=== PATIENT | male | born 1940 | race Caucasian/White ===

== ENCOUNTER → 2019-02-04 16:09 | Outpatient (CLI) | payer BC, MEDICARE, SELFPAY ==
--- NOTE | 2019-02-04 13:00 | LES_PTH ---
PATIENT: KAREN TORREZ LOC: [facility] U#:[id number] AGE/SX: 84/M ROOM: RE02/04/[address]: Dr. Andrey Zuñiga MD : [id number] BED: DIS: SPEC #: [id number] RECD: 02/04/19 16:06 STATUS: SHI BELKIS #: [id number] KAREN: 02/04/19 13:[address]: Andrey Zuñiga DEPT: SURGICAL PATHOLOGY RECD BY: Víctor Wagner ENTERED: 02/05/19 08:17 SP TYPE: Lesion OTHR DR: Out of Town Doctor Tissues: A - Skin of scalp, NOS B - Skin of scalp, NOS C - Skin of scalp, NOS D - Skin of flank, NOS Procedures: Surgery Specimen Level IV HEADER OPERATION: Excision multiple scalp nodules and right flank lesions PRE-OP DIAGNOSIS: Skin lesions and scalp nodules TISSUE SUBMITTED: A - Right scalp, B - Left inferior scalp, C - Left superior scalp, D - Right flank MICROSCOPIC DIAGNOSIS A. Lesion of right scalp, biopsy: Trichilemmal cyst (pilar cyst). B. Left inferior scalp lesion, biopsy: Trichilemmal cyst (pilar cyst). C. Left superior scalp lesion, biopsy: Trichilemmal cyst (pilar cyst). D. Skin lesion of right flank, excision: Fibroepithelial polyp, mildly inflamed. AM:isabel 02/06/19 MICROSCOPIC DESCRIPTION Slides are reviewed. GROSS DESCRIPTION A - Received in fixative is one container labeled with the patient's name and designated right scalp. The specimen consists of a fragmented skin biopsy measuring in aggregate 1 x 0.5 x 0.3 cm. The tissue varies in color from brown to reddish-pink. The specimen is totally submitted in one cassette. B - Received in fixative is one container labeled with the patient's name and designated left inferior scalp. The specimen consists of a fragment of hair bearing skin and a separate firm, cystic structure. The hair bearing skin measures 1 x 0.4 x 0.3 cm. The skin surface is pemberton with a centrally located blue ink spot. The separate cystic tissue measures 1.2 cm in greatest dimension. The cut surface is pemberton-yellow and slightly granular. Physiology Teacher sections are submitted in one cassette. C - Received in fixative is one container labeled with the patient's name and designated left superior scalp. The specimen consists of two spherical cystic structures. The first measures 1.6 cm in diameter and has a pemberton surface. The second measures 1.1 cm in diameter and has a grayish-pemberton surface. Cross-sections through the larger cystic structure demonstrate a cut surface which is pemberton-yellow and granular. Cross-sections through the smaller cystic structure demonstrate cut surfaces which are grayish-black. The specimen is totally submitted as follows: 1 - larger cystic structure, 2 - smaller cystic structure. D - Received in fixative is one container labeled with the patient's name and designated right flank. The specimen consists of multiple irregular fragments of pemberton-pink soft tissue/skin that in aggregate measure 1.2 x 0.6 x 0.3 cm. The specimen is totally submitted in one cassette. / CE:isabel 02/05/19 TC:4 CPT: 37961 x4
== END ==
PROVIDERS: Referring Provider Surgery; Visit Provider Surgery
DX: L72.11 Pilar cyst (principal); L72.12 Trichodermal cyst
CPT/HCPCS: 88305

== ENCOUNTER 2019-08-31 20:57 | Observation (INO) | payer MEDICARE, SELFPAY ==
[2019-08-18 13:23] VITALS: BMI 50.1
[2019-08-31 20:58] VITALS: BP 175/118; PULSE 82; RESP 18; TEMP 36.8
[2019-08-31 21:00] VITALS: BP 175/118; PULSE 81; RESP 18; TEMP 36.8; BMI 53.4
--- NOTE | 2019-08-31 21:37 | EKG12_ITS ---
Test Reason : Blood Pressure : / mmHG Vent. Rate : 078 BPM Atrial Rate : 416 BPM P-R Int : 000 ms QRS Dur : 082 ms QT Int : 376 ms P-R-T Axes : 000 035 054 degrees QTc Int : 428 ms Atrial fibrillation Abnormal ECG Confirmed by JEANNIE SOUTH, TIFFANIE ([id number]), scientific editor SAMANTHA MCKOY ([id number]) on 09/02/2019 12:54:25 PM Referred By: DIEGO Confirmed By:TIFFANIE DENNIS MD
--- NOTE | 2019-08-31 21:40 | RAD_ITS ---
STUDY: X-RAY CHEST REASON FOR EXAM: Male, 78 years old. Chest pain TECHNIQUE: AP COMPARISON: None. FINDINGS: EKG leads project over the chest. There are interstitial fibrotic changes of the lungs. No airspace consolidation. There is no demonstrated pleural abnormality. Normal size heart. Normal mediastinum and crystal. Normal visualized pulmonary arteries. There is atherosclerotic calcification of the aortic arch with tortuosity. No acute bony process. There is no demonstrated abnormality of the visualized soft tissue structures of the upper abdomen. RAD/Chest 1 View (Portable) IMPRESSION: No airspace consolidation or pleural effusion. Bibasilar fibrotic changes. Electronically Signed: Payam Lal MD ([place]) at 21:55 EST , Service support ,
[2019-08-31 22:18] VITALS: BP 206/122; PULSE 90; RESP 18
[2019-08-31 22:27] LABS: Absolute Lymphocyte Count 1.72 X10^3/uL (0.83-4.51); Absolute Neutrophil Count 5.3 X10^3/uL (2.0-7.7); Basophil# 0.07 X10^3/uL; Basophil% 0.8 % (0-1); Eosinophil# 0.16 X10^3/uL; Eosinophils% 1.9 % (0-5); Hematocrit 43.5 % (40-54); Hemoglobin 14.9 g/dL (13.0-16.5); Lymphocyte # 1.72 X10^3/ul (4.0); Lymphocyte % 20.5 % (19-41); Mean Corp Hgb Conc 34.3 g/dL (32-36); Mean Corpuscular Hgb 30.4 pg (27.0-32.0); Mean Corpuscular Volume 88.8 fL (80-94); Mean Platelet Vol. 10.5 fl (6.2-12.0); Monocyte% 11.9 % (0-10); NRBC Flagged by Analyzer 0 % (0-5); Neutrophil # 5.33 X10^3/uL (2.7-7.7); Neutrophil % 63.5 % (47-70); Platelet Count 200 K/mm3 (150-450); RBC Distribution Width CV 13.3 % (11.6-14.6); RBC Distribution Width SD 43.2 fl (35.1-43.9); White Blood Count 8.4 K/mm3 (4.4-11.0)
[2019-08-31 22:35] VITALS: BP 179/99; PULSE 83; RESP 16
[2019-08-31] MEDS: cloNIDine HCl 0.1 MG Tablet PO (22:37)
[2019-08-31 22:40] VITALS: O2SAT 97
[2019-08-31 22:41] LABS: Anion Gap 9 (5-15); BUN 13 mg/dL (7-18); BUN/Creat Ratio 10.4 RATIO (10-20); Calcium,Total 8.6 mg/dL (8.5-10.1); Chloride 103 mmol/L (98-107); Creatinine, Serum 1.25 mg/dL (0.70-1.30); EST Glomerular Filtration Rate 60 mL/min (>60); Est Glom Filt Rate - Afr Amer 72 mL/min (>60); Estimated Creatinine Clearance 45.37 ml/min; Glucose 219 mg/dL (74-106); Potassium 3.3 mmol/L (3.5-5.1); Sodium Level 140 mmol/L (136-145); Thyroid Stim Hormone (TSH) 2.71 uIU/mL (0.358-3.74)
--- NOTE | 2019-08-31 22:44 | ED.VISSUMM ---
- ER Visit Summary Date of Service: 08/31/19 Chief Complaint: Elevated blood pressure History of Present Illness: The patient is a [address] Neil. He is a poor informant. He reports that his blood pressure typically runs 155/85. States that today it has been elevated. When asked how high he reports that he does not now. When asked what prompted him to come into the emergency department he reports that he has left arm pain. However, when I discussed this more with him he reports that he made 3 phone calls today that were 45, 30, and 30 minutes. He was holding the phone in his left hand the whole time. He reports that he has no pain unless he moves his arm. It is then an aching pain that is 7 out of 10 in severity. Patient denies any chest pain or shortness of breath. He denies any history of atrial fibrillation. He reports that he is on amlodipine and Imdur. He states that he is supposed to be on losartan and is not taking this. Physical Examination: Vitals: 98.2, 175/118, 82, 18, 97% on room air which is not hypoxic. General: Well-nourished and well-developed. Head: Normocephalic atraumatic. Neck: Supple, no lymphadenopathy. No JVD. Nontender. Cardiovascular: Irregularly irregular rhythm. No murmurs. Respiratory: No respiratory distress. Clear to auscultation bilaterally. Abdominal: Soft, nontender, nondistended, normal bowel sounds. No guarding, rebound, or peritoneal signs. Back: Nontender. Extremities: Nontender, 3+ pitting edema of his lower extremities bilaterally. Skin: Normal color, no rash. Neurologic: Alert and oriented ?3. Cranial nerves II through XII are intact. Normal strength and sensation. Psych: Normal affect. Test Results: EKG is A. fib at 78 with no ischemic changes. Troponin is negative. TSH is 2.71. Chem-7 shows a potassium 3.3 and glucose of 219. CBC shows monocytes of 12 and immature granulocytes 1.4%. Chest x-ray shows bibasilar fibrotic changes. Emergency Department Course and Treatment: Patient refused labetalol and reports that he is allergic to beta-blockers. Patient refused Cardizem and reports that his allergic calcium channel blockers. He states that he cannot take hydralazine. Ultimately he was given a dose of clonidine p.o. Treatment Plan: Patient was discussed with Dr. Woodruff. He will be admitted to the hospital for further evaluation and treatment. Disposition: Admitted in improved condition. Impression: 1. Atrial fibrillation, new onset. 2. Left arm pain, acute. 3. Hypertensive urgency. This note was generated with [employer] dictation software. It may contain incorrect words, spelling, and punctuation that were not noted in review of the chart prior to signing ED Disposition - Plan for ED Patient:
[2019-08-31 23:18] VITALS: BP 187/111; PULSE 80; RESP 18; O2SAT 96
--- NOTE | 2019-08-31 23:46 | HP.PCM_ITS ---
Problem List (1) Obesity Status: Chronic (2) Atrial fibrillation Status: Acute Qualifiers: Atrial fibrillation type: unspecified chronic Qualified Code(s): I48.20 - Chronic atrial fibrillation, unspecified; I48.2 - Chronic atrial fibrillation (3) Non compliance w medication regimen Status: Chronic (4) Diabetes mellitus Status: Chronic (5) Hypertension Status: Acute History of Present Illness Date of Admission: 08/31/19 Chief Complaint: left arm pain, elevated BP, irregular heart rhthym The patient is a 78 year old male with a significant history of morbid obesity, uncontrolled hypertension, diabetes, presents to the emergency room with left arm pain and generalized fatigue. Patient states he was on the telephone speaking with his left arm extended holding the phone for over an hour and a half consecutively after which he found it difficult to move his left arm. The patient spouse was concerned he was having symptoms of either stroke or heart attack and called the squad out of concern. In the emergency room patient was evaluated and found to be extremely hypertensive and EKG revealed atrial fibrillation which he had not been diagnosed with previously. The patient was able to move his left arm and full range of motion despite discomfort in the left elbow area that had cramped from his prolonged position of holding the phone (presumed muscle cramp). The patient admits to taking herbal supplements and self-medicating, he refuses to take beta-blockers or calcium channel blockers as he thinks he has had adverse reactions to them in the past, he has been able to tolerate clonidine for his blood pressure. Blood pressure has been as high as 206/122. CBC shows a white blood cell count of 84, hemoglobin 14.9, hematocrit 43, platelets 200, sodium 140, potassium 3.3, chloride 103, CO2 28, BUN 13 creatinine 1.25 patient currently denies any chest pain and is not short of breath, he will be admitted to progressive care unit for further work-up. Past Medical History Past Medical History (Chronic Problems): Chronic Problems (Last Reviewed 08/18/19 @ 13:23 by Tona Obrien) Obesity (Chronic) Non compliance w medication regimen (Chronic) Diabetes mellitus (Chronic) Medical History: Medical History (Last Reviewed 08/18/19 @ 13:23 by Tona Obrien) Sebaceous cyst (Acute) L72.3 Skin lesion (Acute) L98.9 Cataracts, bilateral H26.9 Diabetes E11.9 Hypertension I10 Allergies Beta-Blockers (Beta-Adrenergic Bloc Allergy (Verified 08/31/19 22:23) Other aspirin Adverse Reaction (Verified 08/31/19 22:23) Upset Stomach Home Medications: Ambulatory Orders Medication Instructions Recorded amlodipine 10 mg tablet 10 mg PO DAILY 02/23/19 cholecalciferol (vitamin D3) 50 2,000 unit PO DAILY 02/23/19 mcg (2,000 unit) capsule fexofenadine 180 mg tablet 180 mg PO DAILY 02/23/19 insulin aspart U-100 100 unit/mL 8 unit SC TID ml 02/23/19 subcutaneous cartridge isosorbide mononitrate ER 30 mg 60 mg PO DAILY #180 tab 02/23/19 tablet,extended release 24 hr magnesium oxide 420 mg tablet 420 mg PO DAILY tab 02/23/19 nattokinase 1 cap PO DAILY 02/23/19 potassium chloride ER 20 mEq 20 meq PO TID tab 02/23/19 tablet,extended release Novolin N 24 units SUBCUT BREAKFAST 08/31/19 Novolin N 42 units SUBCUT QHS 08/31/19 Surgical History: Surgical History (Last Reviewed 08/18/19 @ 13:23 by Tona Obrien) S/P tooth extraction K08.409 Scalp cyst L72.9 Smoking Status: Never smoker - *Family History Maternal Family History: Family History (Last Reviewed 08/18/19 @ 13:23 by Tona Obrien) Other Diabetes Heart disease History Items: No pertinent history Review of Systems Constitutional: Denies: Chills, Fever, Weight Change HEENT: Denies: Head Aches, Sinus Congestion, Sinus Drainage Cardiovascular: Denies: Chest Pain, Palpitations Respiratory: Denies: Cough, Shortness of breath at rest, Sputum production Gastrointestinal: Denies: Abdominal Pain, Nausea, Vomiting Genitourinary: Denies: Dysuria Musculoskeletal: Reports: Arm Pain - left. Denies: Joint Pain, Joint Tenderness Skin: Denies: Rash, Wounds Neurological: Denies: Numbness, Tingling, Focal weakness Psychiatric: Denies: Anxiety, Depression, Homicidal Ideations, Suicidal Ideat ions Hematologic/ Lymphatic: Denies: Easy Bruising, Easy Bleeding VTE Information - Inpt Only VTE Present on Admission: No VTE Mechan Device Prophylaxis: None VTE Pharm Prophylaxis ordered?: Yes Patient Problems: Active and Suspected Problems (Last Reviewed 08/18/19 @ 13:23 by Tona Obrien) Atrial fibrillation (Acute) - Physical Exam Vitals/I&O's: Vital Signs Temp Pulse Resp BP Pulse Ox 98.2 F 80 18 187/111 H 96 08/31/19 21:00 08/31/19 23:18 08/31/19 23:18 08/31/19 23:18 08/31/19 23:18 Oxygen Delivery Method Room Air Weight: 330 lb 11.094 oz Body Mass Index (BMI) 53.4 General: Alert, Oriented x3, Cooperative HEENT: Atraumatic, Normocephalic Neck: Supple Lungs: Clear to auscultation, Normal air movement Cardiovascular: Normal S1, Normal S2, No murmurs, Irregular Rate Abdomen: Bowel Sounds Present, Soft, Non Tender Extremities: No edema Skin: No rashes Musculoskeletal: No Tenderness to Palpation of Joints or Extremities Neurological: Neuro grossly intact Psych/Mental Status: Normal Affect, Appropriate Laboratory Results 08/31/19 22:00: WBC 8.4, RBC 4.90, Hgb 14.9, Hct 43.5, MCV 88.8, MCH 30.4, MCHC 34.3, RDW Std Deviation 43.2, RDW Coeff of Jono 13.3, Plt Count 200, MPV 10.5, Immature Gran % (Auto) 1.400 H, Neut % (Auto) 63.5, Lymph % (Auto) 20.5, [place] % (Auto) 11.9 H, Eos % (Auto) 1.9, Baso % (Auto) 0.8, Absolute Neuts (auto) 5.3, Absolute Lymphs (auto) 1.72, Nucleated RBC % 0 08/31/19 22:00: Sodium 140, Potassium 3.3 L, Chloride 103, Carbon Dioxide 28.0, Anion Gap 9, BUN 13, Creatinine 1.25, Estim Creat Clear Calc 45.37, Est GFR (MDRD) Af Amer 72, Est GFR (MDRD) Non-Af 60, BUN/Creatinine Ratio 10.4, Glucose 219 H, Calcium 8.6, Troponin I < 0.015, TSH 2.71 Assessment/Plan All Active Problems (Last Reviewed 08/18/19 @ 13:23 by Tona Obrien) Atrial fibrillation (Acute) Hypertension (Acute) Pilar cyst (Acute) Sebaceous cyst (Acute) Skin lesion (Acute) Chronic Problems (Last Reviewed 08/18/19 @ 13:23 by Tona Obrien) Obesity (Chronic) Non compliance w medication regimen (Chronic) Diabetes mellitus (Chronic) Plan 1. New onset atrial fibrillation?is controlled for now, consult cardiology in the morning, start therapy with Eliquis discussed at length the importance of being compliant with anticoagulation therapy and risk of stroke with atrial fibrillation. 2. Uncontrolled hypertension?hydralazine 20 mg IV every 6 as needed blood pressure greater than 160/100. 3. Morbid obesity?weight loss encouraged 4. DVT prophylaxis?patient will be anticoagulated with Eliquis for his atrial fibrillation 5. Diabetes?add low-dose sliding scale insulin for coverage There is concern for compliance with this patient as he obviously is self- medicating with home remedies and will need to be observed closely by his primary care physician after discharge. Code Visit OBSV E&M: [id number] Initial observation care L2
[2019-09-01] VITALS (12 sets, daily range): BP systolic 138–186; BP diastolic 71–89; PULSE 45–88; RESP 10–18; TEMP 36.5–36.7; O2SAT 92–98; BMI 52.2; BMI 52.3
[2019-09-01] MEDS: 0.9% Saline Lock 10 ML Syringe IV ×2 (01:33→13:05)
--- NOTE | 2019-09-01 04:07 | CPS ---
Pt. wished to keep his SpO2 > 96%; 2L NC was started for pt.
[2019-09-01 05:20] LABS: ALB/GLOB Ratio 0.7 RATIO (0.9-2.4); AST(SGOT) 13 U/L (15-37); Alanine Aminotransfer ALT/SGPT 19 U/L (16-61); Albumin, Serum 2.7 g/dL (3.2-5.0); Alkaline Phosphatase 120 U/L (45-117); Anion Gap 4 (5-15); BUN 12 mg/dL (7-18); Calcium,Total 7.8 mg/dL (8.5-10.1); Chloride 106 mmol/L (98-107); Cholesterol 139 mg/dL (200); EST Glomerular Filtration Rate 62 mL/min (>60); Est Glom Filt Rate - Afr Amer 76 mL/min (>60); Estimated Creatinine Clearance 47.26 ml/min; Globulin 4.1 g/dL (2.2-4.2); Glucose 194 mg/dL (74-106); High Density Lipoprotein 34 mg/dL; Potassium 3.2 mmol/L (3.5-5.1); Protein, Total 6.8 g/dL (6.4-8.2); Sodium Level 140 mmol/L (136-145); Triglycerides 162 mg/dL; Very Low Density Lipoprotein 32 mg/dL (5-40)
--- NOTE | 2019-09-01 05:55 | ECHOD_ITS ---
Reason For Study: AFIB Procedure This was a 2D Doppler, Color Flow transthoracic echocardiogram. The study was technically difficult. Exam performed portable in patient room. Left Ventricle Normal LV size. Mild concentric left ventricular hypertrophy. Left ventricular systolic function is normal. The estimated ejection fraction is 55 %. Unable to assess diastolic dysfunction. No regional wall motion abnormalities noted. Right Ventricle Normal RV size. Normal systolic function. Atria The left atrium is mildly enlarged. Normal right atrium. No doppler evidence for ASD. Mitral Valve There is no mitral annular calcification. Normal mitral valve. Moderate (2+) mitral valve insufficiency. Tricuspid Valve Normal tricuspid valve. Trivial tricuspid valve insufficiency. Unable to estimate RV systolic pressure/pulmonary artery pressure due to technically difficult study. Aortic Valve Trisinus/trileaflet aortic valve. Mild focal aortic valve calcification. Trivial aortic valve insufficiency. Pulmonic Valve The pulmonic valve is not well visualized. Trivial pulmonic valve insufficiency. Great Vessels Mildly dilated aortic root. Pericardium/Pleural No pericardial effusion. Epicardial fat. MMode/2D Measurements & Calculations LVIDd: 5.1 cm IVSd: 1.4 cm Ao root diam: 4.3 cm LVIDs: 3.0 cm LVPWd: 1.3 cm RVDd: 4.8 cm FS: 41.8 % LA dimension(2D): 4.9 cm Doppler Measurements & Calculations Ao V2 max: 136.8 cm/sec AI max davis: 194.5 cm/sec PA V2 max: 98.0 cm/sec Ao max P.6 mmHg AI max P.1 mmHg Ao V2 mean: 94.4 cm/sec AI dec slope: 92.5 cm/sec2 Ao mean P.1 mmHg AI P1/2t: 616.0 msec Ao V2 VTI: 28.8 cm PI end-d davis: 103.2 cm/sec Interpretation Summary The study was technically difficult. Left ventricular systolic function is normal. The estimated ejection fraction is 55 %. Mild concentric left ventricular hypertrophy. The left atrium is mildly enlarged. Moderate (2+) mitral valve insufficiency. Trivial tricuspid valve insufficiency. Mild focal aortic valve calcification. Trivial aortic valve insufficiency. Trivial pulmonic valve insufficiency. Mildly dilated aortic root. Epicardial fat. Unable to estimate RV systolic pressure/pulmonary artery pressure due to technically difficult study. Unable to assess diastolic dysfunction. Ordering Physician: Alvin Braun Referring Physician: VERÓNICA POPE Performed By: Joanna Mahajan, YOSELIN, RVT
[2019-09-01 06:16] LABS: Bedside Glucose 180 mg/dL (70-110)
--- NOTE | 2019-09-01 08:29 | CON.PCM_ITS ---
<Keshawn Méndez - Last Filed: 09/01/19 11:19> Problem List (1) Atrial fibrillation Status: Acute Qualifiers: Atrial fibrillation type: unspecified chronic Qualified Code(s): I48.20 - Chronic atrial fibrillation, unspecified; I48.2 - Chronic atrial fibrillation (2) Hypertension Status: Chronic Reason for Consult Date of Consultation: 09/01/19 Reason for Consultation: New A-fib Diagnosis, HTN History of Present Illness: The patient is a 78 year old M who presented to [facility] Emergency Department on 08/31/2019 for ongoing left arm pain. He has a past medical history of hypertension, diabetes mellitus, and obesity. Prior to presentation, patient was using his left arm to speak on the phone for long period of time. He then noted left arm discomfort. There was concerns for stroke or heart attack and thus he presented to the Emergency Department. His EKG revealed atrial fibrillation with controlled rate without acute ST or T wave changes. His troponin was negative. His chest x-ray showed bibasilar fibrotic changes. His potassium noted to be 3.3. His blood pressure was elevated at 175/118. Per report, patient acknowledged allergies to calcium channel marianne, beta-marianne medications, and hydralazine. He received p.o. clonidine and admitted for further evaluation. He was started on Eliquis therapy. His troponin remained negative x3. His TSH was noted be normal. His potassium remains low and was supplemented via p.o. route. His home blood pressure medication were resumed. Cardiology was consulted for input regarding atrial fibrillation. Past Medical History Allergies/Adverse Reactions: Allergies Beta-Blockers (Beta-Adrenergic Bloc Allergy (Verified 08/31/19 22:23) Other aspirin Adverse Reaction (Verified 08/31/19 22:23) Upset Stomach Home Medications: Ambulatory Orders Medication Instructions Recorded cholecalciferol (vitamin D3) 50 2,000 unit PO DAILY 02/23/19 mcg (2,000 unit) capsule insulin aspart U-100 100 unit/mL 8 unit SC TID ml 02/23/19 subcutaneous cartridge magnesium oxide 420 mg tablet 420 mg PO DAILY tab 02/23/19 potassium chloride 20 mEq 20 meq PO TID tab 02/23/19 tablet,extended release Novolin N 24 units SUBCUT BREAKFAST 08/31/19 Novolin N 42 units SUBCUT QHS 08/31/19 Amlodipine Besylate 10 mg PO DAILY #30 tab 09/01/19 Apixaban [Eliquis] 5 mg PO BID #60 tab 09/01/19 Isosorbide Mononitrate [Imdur] 60 mg PO DAILY #30 tab 09/01/19 Past Medical History (Chronic Problems): Chronic Problems (Last Reviewed 08/18/19 @ 13:23 by Tona Obrien) Obesity (Chronic) Non compliance w medication regimen (Chronic) Diabetes mellitus (Chronic) Hypertension (Chronic) - *Family History Maternal Family History: Family History (Last Reviewed 08/18/19 @ 13:23 by Tona Obrien) Other Diabetes Heart disease History Items: No pertinent history Smoking Status: Never smoker Objective: Vital Signs Temp Pulse Resp BP Pulse Ox 98.0 F 45 L 18 138/71 H 97 09/01/19 05:00 09/01/19 07:00 09/01/19 05:00 09/01/19 05:00 09/01/19 05:00 Oxygen Flow Rate (L/min) 2 Oxygen Delivery Method Room Air Weight: 324 lb 1.272 oz Body Mass Index (BMI) 52.2 Intake and Output for Last 24 Hours 08/30/19 08/31/19 09/01/19 23:59 23:59 23:59 Output Total 250 / 250 Balance -250 / -250 08/31/19 22:00: WBC 8.4, RBC 4.90, Hgb 14.9, Hct 43.5, MCV 88.8, MCH 30.4, MCHC 34.3, Plt Count 200, MPV 10.5, Immature Gran % (Auto) 1.400 H, Neut % (Auto) 63.5, Lymph % (Auto) 20.5, [place] % (Auto) 11.9 H, Eos % (Auto) 1.9, Baso % (Auto) 0.8, Absolute Neuts (auto) 5.3, Nucleated RBC % 0 08/31/19 22:00: Sodium 140, Potassium 3.3 L, Chloride 103, Carbon Dioxide 28.0, Anion Gap 9, BUN 13, Creatinine 1.25, Est GFR (MDRD) Af Amer 72, Est GFR (MDRD) Non-Af 60, BUN/Creatinine Ratio 10.4, Glucose 219 H, Calcium 8.6, Troponin I < 0.015 09/01/19 01:30: Troponin I < 0.015 09/01/19 04:30: Sodium 140, Potassium 3.2 L, Chloride 106, Carbon Dioxide 30.0, Anion Gap 4 L, BUN 12, Creatinine 1.20, Est GFR (MDRD) Af Amer 76, Est GFR (MDRD) Non-Af 62, BUN/Creatinine Ratio 10.0, Glucose 194 H, Calcium 7.8 L, Total Bilirubin 1.00, Triglycerides 162, Cholesterol 139, LDL Cholesterol 73, VLDL Cholesterol 32, HDL Cholesterol 34 L 09/01/19 04:30: Troponin I < 0.015 Rhythm: EKG: ECHO: Stress Test: Cardiac Cath: PCI: CT Surgery: Holter monitor: EPS: PPM: CXR: Chest CT Scan: Assessment/Plan 1. Atrial fibrillation Patient's EKG in 2001 showed a sinus bradycardia. His EKG on 08/31/2018 in the Emergency Department revealed atrial fibrillation with a controlled response. He was started on Eliquis therapy. He acknowledges previous allergies to beta- marianne and calcium channel marianne. His troponin has been negative x3. His TSH was notably normal. His potassium is low and this is being supplemented accordingly. He will continue current oral anticoagulation. His heart rate is controlled without rate limiting medications. He undergo an echocardiogram to evaluate structural abnormalities contributing to atrial fibrillation. He also undergo laboratory evaluation to assess his magnesium level to ensure stability. Since his troponin has been negative x3 and no chest pain prior to admission. His left arm discomfort appears atypical for coronary artery disease. However, given his new onset of atrial fibrillation and multiple risk factors that include obesity and diabetes, he will proceed with nuclear stress test to rule out further coronary artery disease component to new onset Atrial Fibrillation. Patient denies taking digoxin previously. Thus, if he needs rate controlling medication, this may be an available option without known allergy. 2. Hypertension Patient's blood pressure has been better controlled since resuming medications and during admission. At this time, he will continue current medical therapy which includes amlodipine and isosorbide. It is unclear, if he has tried TONIE inhibitor or ARB medication previously. Patient states multiple allergies to medications such as beta-marianne, calcium channel marianne, TONIE inhibitor, and ARB. Records from [place] are unavailable for review to confirm allergy side effect. 3. Cardiac risk factors Patient does have multiple risk factors that include obesity, diabetes, hypertension, and generally low activity level that increases his risk for cardiovascular disease. His nuclear stress test, will help evaluate this fu rther. Patient's case was discussed with Dr. Florian, who also personally evaluated patient. Thank you for allowing us to participate in the patients plan of care, if you have any questions please do not hesitate to call. This note was generated using a voice recognition system and there may be incorrect words, spelling or punctuation that were not noted when reviewing the office note prior to saving. <Alvin Florian - Last Filed: 09/01/19 17:37> Reason for Consult History of Present Illness: The patient is a 78 year old M [] Past Medical History - *Family History Maternal Family History: Family History (Last Reviewed 08/18/19 @ 13:23 by Tona Obrien) Other Diabetes Heart disease Objective: Vital Signs Temp Pulse Resp BP Pulse Ox 98.0 F 88 16 158/83 H 93 09/01/19 15:43 09/01/19 15:43 09/01/19 15:43 09/01/19 15:43 09/01/19 15:45 Oxygen Flow Rate (L/min) 2 Oxygen Delivery Method Room Air Weight: 324 lb 1.272 oz Body Mass Index (BMI) 52.2 Intake and Output for Last 24 Hours 08/30/19 08/31/19 09/01/19 23:59 23:59 23:59 Intake Total 979 / 979 Output Total 750 / 750 Balance 229 / 229 08/31/19 22:00: WBC 8.4, RBC 4.90, Hgb 14.9, Hct 43.5, MCV 88.8, MCH 30.4, MCHC 34.3, Plt Count 200, MPV 10.5, Immature Gran % (Auto) 1.400 H, Neut % (Auto) 63.5, Lymph % (Auto) 20.5, [place] % (Auto) 11.9 H, Eos % (Auto) 1.9, Baso % (Auto) 0.8, Absolute Neuts (auto) 5.3, Nucleated RBC % 0 08/31/19 22:00: Sodium 140, Potassium 3.3 L, Chloride 103, Carbon Dioxide 28.0, Anion Gap 9, BUN 13, Creatinine 1.25, Est GFR (MDRD) Af Amer 72, Est GFR (MDRD) Non-Af 60, BUN/Creatinine Ratio 10.4, Glucose 219 H, Calcium 8.6, Troponin I < 0.015 09/01/19 01:30: Troponin I < 0.015 09/01/19 04:30: Sodium 140, Potassium 3.2 L, Chloride 106, Carbon Dioxide 30.0, Anion Gap 4 L, BUN 12, Creatinine 1.20, Est GFR (MDRD) Af Amer 76, Est GFR (MDRD) Non-Af 62, BUN/Creatinine Ratio 10.0, Glucose 194 H, Calcium 7.8 L, Total Bilirubin 1.00, Triglycerides 162, Cholesterol 139, LDL Cholesterol 73, VLDL Cholesterol 32, HDL Cholesterol 34 L 09/01/19 04:30: Troponin I < 0.015 09/01/19 04:30: Phosphorus 3.4, Magnesium 1.7 Rhythm: EKG: ECHO: Stress Test: Cardiac Cath: PCI: CT Surgery: Holter monitor: EPS: PPM: CXR: Chest CT Scan: Assessment/Plan Addendum: Date: 09-01-19 The patient was independently evaluated and examined. The patient presented with left upper extremity discomfort status post a prolonged telephone conversation with the telephone in his left upper extremity. At the present time he states he no longer has discomfort. However during the patient's presentation he was found to be in atrial fibrillation. He is unaware of this as a diagnosis. He states he follows with his PCP in the [facility]. He notes the [facility] performs either ECGs or echocardiograms twice a year on him. He does not recall being told of any concerns with respect to his underlying atrial rhythm and/or rate. At the present time he denies ongoing chest discomfort or difficulty breathing. He does not sense his underlying rate or rhythm. He has had no near syncope or syncope. He is undergone additional evaluation. His cardiac enzymes have been negative. He has had a transthoracic echocardiogram and a pharmacologic stress nuclear imaging study. The transthoracic echocardiogram is as noted. Interpretation Summary The study was technically difficult. Left ventricular systolic function is normal. The estimated ejection fraction is 55 %. Mild concentric left ventricular hypertrophy. The left atrium is mildly enlarged. Moderate (2+) mitral valve insufficiency. Trivial tricuspid valve insufficiency. Mild focal aortic valve calcification. Trivial aortic valve insufficiency. Trivial pulmonic valve insufficiency. Mildly dilated aortic root. Epicardial fat. Unable to estimate RV systolic pressure/pulmonary artery pressure due to technically difficult study. Unable to assess diastolic dysfunction. The stress test is as noted. Stress Test Report Date: 09-01-19 Procedure: Pharmacologic stress nuclear imaging study Indications: Atrial fibrillation Consent: Per the patient Procedure: The patient underwent pharmacologic (Regadenoson) evaluation with a peak heart rate of 94 beats per minute (65 %predicted maximal heart rate) and a peak blood pressure of 148/96 mmHg. The baseline ECG demonstrated atrial fibrillation; anteroseptal [place] of indeterminate age cannot be excluded. The peak pharmacologic ECG demonstrated somatic/motion artifact with no obvious ECG changes. There were no cardiac dysrhythmias pretest, during pharmacologic infusion, or recovery. There was no complaint of chest discomfort during pharmacologic infusion or recovery. The examination was discontinued secondary to completion of protocol. Impression: 1. Pharmacologic (Regadenoson) evaluation 2. Peak pharmacologic ECG with somatic/motion artifact with no obvious ECG changes. 3. There were no cardiac dysrhythmias pretest, during pharmacologic infusion, or recovery. 4. Nuclear images pending Myocardial perfusion imaging study: Technique: The patient was injected with 15.0 millicuries of technetium 99m Cardiolite and subsequently rest SPECT Cardiolite nuclear imaging was obtained in the horizontal long, vertical long, and short axis views. The patient underwent pharmacologic (Regadenoson) evaluation with a peak heart rate of 94 beats per minute (65 % percent predicted maximal heart rate) and a peak blood pressure of 148/96 mmHg. The patient was injected with 45.0 millicuries of technetium 99m Cardiolite and subsequently stress SPECT Cardiolite nuclear imaging was obtained in the horizontal long, vertical long, and short axis views. A gated Cardio lite study at peak stress was obtained. Interpretation: Rest and stress SPECT Cardiolite nuclear imaging status post realignment, normalization, and attenuation correction demonstrate relative uniform tracer uptake and myocardial perfusion appearing within normal limits. There is end systolic thickening and brightening. The gated Cardiolite study demonstrates myocardial thickening and inward wall motion. The reported LVEF is 55 %. Impression: 1. Rest and stress SPECT Cardiolite nuclear imaging demonstrate relative uniform tracer uptake and myocardial perfusion appearing within normal limits. 2. The gated Cardiolite study reports an LVEF of 55 %. His examination demonstrates his lungs to be clear at this time. His cardiovascular examination demonstrates an irregular rhythm with a normal S1 and S2. His lower extremities do not appear to demonstrate obvious peripheral pitting edema. At the present time he does have atrial fibrillation. The duration is unclear. The etiology may be multifactorial. There may be a contribution from his underlying mitral valve regurgitation. At the present time it was recommended that he continue to have his atrial fibrillation monitored. His rate has been controlled without rate limiting medications which does raise a concern about his underlying conduction system. He was advised to consider anticoagulant therapy to minimize the risk of thromboembolic event/CVA. He was also advised to follow-up with his PCP and cardiology for consideration for additional cardiovascular diagnostic studies and/or therapeutic interventions as deemed appropriate including the potential for synchronized biphasic DC cardioversion. He was agreeable to this approach. He stated that he does prefer to follow with his PCP and preferably to follow with cardiology that may be more local to where he lives in the [place], [place] area. Thus he was asked to have his PCP contact cardiology as it comes to his area locally for continued outpatient whit luation and care. The information has also been conveyed to the [facility] staff.
[2019-09-01 09:09] LABS: Magnesium 1.7 mg/dL (1.6-2.6); Phosphorus 3.4 mg/dL (2.5-4.9)
--- NOTE | 2019-09-01 11:44 | PN_ITS ---
Patient Problems: Active and Suspected Problems (Last Reviewed 08/18/19 @ 13:23 by Tona Obrien) Atrial fibrillation (Acute) Reason for Visit: left arm pain Vitals/I&O's: Vital Signs Temp Pulse Resp BP Pulse Ox 97.7 F L 74 16 156/85 H 96 09/01/19 10:00 09/01/19 10:00 09/01/19 10:00 09/01/19 10:00 09/01/19 10:00 Oxygen Flow Rate (L/min) 2 Oxygen Delivery Method Room Air Weight: 324 lb 1.272 oz Body Mass Index (BMI) 52.2 Intake and Output for Last 24 Hours 08/30/19 08/31/19 09/01/19 23:59 23:59 23:59 Intake Total 875 / 875 Output Total 250 / 250 Balance 625 / 625 Laboratory Results 08/31/19 22:00: WBC 8.4, RBC 4.90, Hgb 14.9, Hct 43.5, MCV 88.8, MCH 30.4, MCHC 34.3, RDW Std Deviation 43.2, RDW Coeff of Jono 13.3, Plt Count 200, MPV 10.5, Immature Gran % (Auto) 1.400 H, Neut % (Auto) 63.5, Lymph % (Auto) 20.5, [place] % (Auto) 11.9 H, Eos % (Auto) 1.9, Baso % (Auto) 0.8, Absolute Neuts (auto) 5.3, Absolute Lymphs (auto) 1.72, Nucleated RBC % 0 08/31/19 22:00: Sodium 140, Potassium 3.3 L, Chloride 103, Carbon Dioxide 28.0, Anion Gap 9, BUN 13, Creatinine 1.25, Estim Creat Clear Calc 45.37, Est GFR (MDR D) Af Amer 72, Est GFR (MDRD) Non-Af 60, BUN/Creatinine Ratio 10.4, Glucose 219 H, Calcium 8.6, Troponin I < 0.015, TSH 2.71 09/01/19 01:30: Troponin I < 0.015 09/01/19 04:30: Sodium 140, Potassium 3.2 L, Chloride 106, Carbon Dioxide 30.0, Anion Gap 4 L, BUN 12, Creatinine 1.20, Estim Creat Clear Calc 47.26, Est GFR (MDRD) Af Amer 76, Est GFR (MDRD) Non-Af 62, BUN/Creatinine Ratio 10.0, Glucose 194 H, Calcium 7.8 L, Total Bilirubin 1.00, AST 13 L, ALT 19, Alkaline Phosphatase 120 H, Total Protein 6.8, Albumin 2.7 L, Globulin 4.1, A lbumin/Globulin Ratio 0.7 L, Triglycerides 162, Cholesterol 139, LDL Cholesterol 73, VLDL Cholesterol 32, HDL Cholesterol 34 L 09/01/19 04:30: Troponin I < 0.015 09/01/19 04:30: Phosphorus 3.4, Magnesium 1.7 09/01/19 06:07: POC Glucose 180 H Current Medications Amlodipine Besylate (Norvasc) 10 mg PO DAILY SELWYN Cholecalciferol (Vitamin D) 2,000 unit PO DAILY SELWYN Glucagon () 1 mg IM .X1 PRN PRN Reason: Hypoglycemia Hydralazine HCl (Apresoline Iv) 20 mg IV Q6H PRN PRN PRN Reason: Hypertensive Emergency Potassium Chloride/Sodium Chloride () 1,000 mls @ 100 mls/hr IV .Q10H SELWYN Last Infusion: 09/01/19 10:18 Dose: Infused Documented by: Sodium Chloride () 250 mls @ 15 mls/hr IV .[id number] PRN PRN Reason: Saline Flush Dextrose (Dextrose 10%-Water) 250 mls @ 999 mls/hr IV X1 PRN; Protocol PRN Reason: HYPOGLYCEMIA Magnesium Sulfate 2 gm/ Sodium (Chloride) 104 mls @ 52 mls/hr IV X1 ONE Stop: 09/01/19 13:42 Insulin Human Lispro (Humalog Kwikpen (Bkc)) 0 unit SC Q6 SELWYN; Protocol Last Admin: 09/01/19 06:23 Dose: Not Given Documented by: Isosorbide Mononitrate (Imdur) 60 mg PO DAILY [facility] Magnesium Oxide (Mag-Ox 400) 400 mg PO DAILY SELWYN Potassium Chloride (K-Dur) 20 meq PO TIDCM SELWYN Sodium Chloride () 10 - 40 ml IV UD PRN PRN Reason: SALINE FLUSH Last Admin: 09/01/19 01:33 Dose: 10 ml Documented by: STROKE Vital Signs/Narrative: Vital Signs Temp Pulse Resp BP Pulse Ox 12/17/19 10:00 97.7 F L 74 16 156/85 H 96 Medical Necessity - Tobacco Use Smoking Status: Never smoker Assessment/Plan All Active Problems (Last Reviewed 08/18/19 @ 13:23 by Tona Obrien) Atrial fibrillation (Acute) Pilar cyst (Acute) Sebaceous cyst (Acute) Skin lesion (Acute)
--- NOTE | 2019-09-01 12:54 | STRESSREP ---
Stress Test Report Date: 09-01-19 Procedure: Pharmacologic stress nuclear imaging study Indications: Atrial fibrillation Consent: Per the patient Procedure: The patient underwent pharmacologic (Regadenoson) evaluation with a peak heart rate of 94 beats per minute (65 %predicted maximal heart rate) and a peak blood pressure of 148/96 mmHg. The baseline ECG demonstrated atrial fibrillation; anteroseptal CT of indeterminate age cannot be excluded. The peak pharmacologic ECG demonstrated somatic/motion artifact with no obvious ECG changes. There were no cardiac dysrhythmias pretest, during pharmacologic infusion, or recovery. There was no complaint of chest discomfort during pharmacologic infusion or recovery. The examination was discontinued secondary to completion of protocol. Impression: 1. Pharmacologic (Regadenoson) evaluation 2. Peak pharmacologic ECG with somatic/motion artifact with no obvious ECG changes. 3. There were no cardiac dysrhythmias pretest, during pharmacologic infusion, or recovery. 4. Nuclear images pending Myocardial perfusion imaging study: Technique: The patient was injected with 15.0 millicuries of technetium 99m Cardiolite and subsequently rest SPECT Cardiolite nuclear imaging was obtained in the horizontal long, vertical long, and short axis views. The patient underwent pharmacologic (Regadenoson) evaluation with a peak heart rate of 94 beats per minute (65 % percent predicted maximal heart rate) and a peak blood pressure of 148/96 mmHg. The patient was injected with 45.0 millicuries of technetium 99m Cardiolite and subsequently stress SPECT Cardiolite nuclear imaging was obtained in the horizontal long, vertical long, and short axis views. A gated Cardiolite study at peak stress was obtained. Interpretation: Rest and stress SPECT Cardiolite nuclear imaging status post realignment, normalization, and attenuation correction demonstrate relative uniform tracer uptake and myocardial perfusion appearing within normal limits. There is end systolic thickening and brightening. The gated Cardiolite study demonstrates myocardial thickening and inward wall motion. The reported LVEF is 55 %. Impression: 1. Rest and stress SPECT Cardiolite nuclear imaging demonstrate relative uniform tracer uptake and myocardial perfusion appearing within normal limits. 2. The gated Cardiolite study reports an LVEF of 55 %. This note was generated with [employer] software. It may contain incorrect words, spelling, and punctuation that were not noted in checking the note before signing.
[2019-09-01] MEDS: amLODIPine 10 MG Tablet PO (12:55)
[2019-09-01] MEDS: Isosorbide Mononitrate 60 MG Tablet PO (12:55)
[2019-09-01] MEDS: Magnesium Oxide 400 MG Tablet PO (12:56)
[2019-09-01] MEDS: Insulin Lispro 100 UNIT/ML INSULN.PEN SC (13:19)
[2019-09-01 13:26] LABS: Bedside Glucose 187 mg/dL (70-110)
--- NOTE | 2019-09-01 14:35 | PCM.DC.SUM ---
Discharge Date and Diagnosis - Problem List Patient Problems: Active and Suspected Problems (Last Reviewed 08/18/19 @ 13:23 by Tona Obrien) Atrial fibrillation (Acute) Date of Admission: 08/31/19 Date of Discharge: 09/01/19 - Primary Discharge Diagnosis Active and Suspected Problems (Last Reviewed 08/18/19 @ 13:23 by Tona Obrien) Uncontrolled HTN, due to medication noncompliance. New onset Atrial fibrillation (Acute) Left arm pain 2/2 muscle strain hypokalemia Hypomagnesemia DMt2 - Secondary Discharge Diagnosis Chronic Problems (Last Reviewed 08/18/19 @ 13:23 by Tona Obrien) Obesity (Chronic) Non compliance w medication regimen (Chronic) Diabetes mellitus (Chronic) Hypertension (Chronic) Hospital Course and Treatment Imaging Results: 09/01/19 05:55 Echo Complete [ECHO] AM (NON MEDS) Interpretation Summary The study was technically difficult. Left ventricular systolic function is normal. The estimated ejection fraction is 55 %. Mild concentric left ventricular hypertrophy. The left atrium is mildly enlarged. Moderate (2+) mitral valve insufficiency. Trivial tricuspid valve insufficiency. Mild focal aortic valve calcification. Trivial aortic valve insufficiency. Trivial pulmonic valve insufficiency. Mildly dilated aortic root. Epicardial fat. Unable to estimate RV systolic pressure/pulmonary artery pressure due to technically difficult study. Unable to assess diastolic dysfunction. 09/01/19 09:51 Nuclear Stress Test - Chemical [NM] Routine Impression: 1. Rest and stress SPECT Cardiolite nuclear imaging demonstrate relative uniform tracer uptake and myocardial perfusion appearing within normal limits. 2. The gated Cardiolite study reports an LVEF of 55 %. RAD/Chest 1 View (Portable) IMPRESSION: No airspace consolidation or pleural effusion. Bibasilar fibrotic changes. Summary of Care Provided: The patient is a 78 year old M [] Patient Problems: Active and Suspected Problems (Last Reviewed 08/18/19 @ 13:23 by Tona Obrien) Atrial fibrillation (Acute) - Physical Exam Vitals/I&O's: Vital Signs Temp Pulse Resp BP Pulse Ox 97.9 F 73 16 180/89 H 94 09/01/19 12:50 09/01/19 12:50 09/01/19 12:50 09/01/19 12:50 09/01/19 12:50 Oxygen Flow Rate (L/min) 2 Oxygen Delivery Method Room Air Weight: 324 lb 1.272 oz Body Mass Index (BMI) 52.2 Intake and Output for Last 24 Hours 08/30/19 08/31/19 09/01/19 23:59 23:59 23:59 Intake Total 875 / 875 Output Total 750 / 750 Balance 125 / 125 Laboratory Results 08/31/19 22:00: WBC 8.4, RBC 4.90, Hgb 14.9, Hct 43.5, MCV 88.8, MCH 30.4, MCHC 34.3, RDW Std Deviation 43.2, RDW Coeff of Jono 13.3, Plt Count 200, MPV 10.5, Immature Gran % (Auto) 1.400 H, Neut % (Auto) 63.5, Lymph % (Auto) 20.5, [place] % (Auto) 11.9 H, Eos % (Auto) 1.9, Baso % (Auto) 0.8, Absolute Neuts (auto) 5.3, Absolute Lymphs (auto) 1.72, Nucleated RBC % 0 08/31/19 22:00: Sodium 140, Potassium 3.3 L, Chloride 103, Carbon Dioxide 28.0, Anion Gap 9, BUN 13, Creatinine 1.25, Estim Creat Clear Calc 45.37, Est GFR (MDRD) Af Amer 72, Est GFR (MDRD) Non-Af 60, BUN/Creatinine Ratio 10.4, Glucose 219 H, Calcium 8.6, Troponin I < 0.015, TSH 2.71 09/01/19 01:30: Troponin I < 0.015 09/01/19 04:30: Sodium 140, Potassium 3.2 L, Chloride 106, Carbon Dioxide 30.0, Anion Gap 4 L, BUN 12, Creatinine 1.20, Estim Creat Clear Calc 47.26, Est GFR (MDRD) Af Amer 76, Est GFR (MDRD) Non-Af 62, BUN/Creatinine Ratio 10.0, Glucose 194 H, Calcium 7.8 L, Total Bilirubin 1.00, AST 13 L, ALT 19, Alkaline Phosphatase 120 H, Total Protein 6.8, Albumin 2.7 L, Globulin 4.1, Albumin/Globulin Ratio 0.7 L, Triglycerides 162, Cholesterol 139, LDL Cholesterol 73, VLDL Cholesterol 32, HDL Cholesterol 34 L 09/01/19 04:30: Troponin I < 0.015 09/01/19 04:30: Phosphorus 3.4, Magnesium 1.7 09/01/19 06:07: POC Glucose 180 H 09/01/19 13:09: POC Glucose 187 H Current Medications Amlodipine Besylate (Norvasc) 10 mg PO DAILY [facility] Last Admin: 09/01/19 12:55 Dose: 10 mg Documented by: Cholecalciferol (Vitamin D) 2,000 unit PO DAILY [facility] Last Admin: 09/01/19 12:55 Dose: 2,000 unit Documented by: Glucagon () 1 mg IM .X1 PRN PRN Reason: Hypoglycemia Hydralazine HCl (Apresoline Iv) 20 mg IV Q6H PRN PRN PRN Reason: Hypertensive Emergency Potassium Chloride/Sodium Chloride () 1,000 mls @ 100 mls/hr IV .Q10H [facility] Last Admin: 09/01/19 12:56 Dose: 100 mls/hr Documented by: Sodium Chloride () 250 mls @ 15 mls/hr IV .[id number] PRN PRN Reason: Saline Flush Dextrose (Dextrose 10%-Water) 250 mls @ 999 mls/hr IV X1 PRN; Protocol PRN Reason: HYPOGLYCEMIA Insulin Human Lispro (Humalog Kwikpen (Bkc)) 0 unit SC Q6 [facility]; Protocol Last Admin: 09/01/19 13:19 Dose: 2 units Documented by: Isosorbide Mononitrate (Imdur) 60 mg PO DAILY [facility] Last Admin: 09/01/19 12:55 Dose: 60 mg Documented by: Magnesium Oxide (Mag-Ox 400) 400 mg PO DAILY [facility] Last Admin: 09/01/19 12:56 Dose: 400 mg Documented by: Potassium Chloride (K-Dur) 20 meq PO TIDCM [facility] Last Admin: 09/01/19 12:53 Dose: 20 meq Documented by: Sodium Chloride () 10 - 40 ml IV UD PRN PRN Reason: SALINE FLUSH Last Admin: 09/01/19 13:05 Dose: 10 ml Documented by: Home Medications: Medications to take at Discharge cholecalciferol (vitamin D3) 50 mcg (2,000 unit) capsule 2,000 unit PO DAILY 02/23/19 insulin aspart U-100 100 unit/mL subcutaneous cartridge 8 unit SC TID ml 02/23/19 magnesium oxide 420 mg tablet 420 mg PO DAILY tab 02/23/19 potassium chloride 20 mEq tablet,extended release 20 meq PO TID tab 02/23/19 Novolin N 24 units SUBCUT BREAKFAST 08/31/19 Novolin N 42 units SUBCUT QHS 08/31/19 Amlodipine Besylate 10 mg PO DAILY #30 tab 09/01/19 Apixaban [Eliquis] 5 mg PO BID #60 tab 09/01/19 Isosorbide Mononitrate [Imdur] 60 mg PO DAILY #30 tab 09/01/19 Following Prescrptions Were Given to Patient: Amlodipine Besylate 10 mg PO DAILY #30 tab Transmission Status: [email or web address] Apixaban [Eliquis] 5 mg PO BID #60 tab Transmission Status: Received by [facility] Isosorbide Mononitrate [Imdur] 60 mg PO DAILY #30 tab Transmission Status: Received by [email or web address] Primary Care Physician: Liana Lou MD [Primary Care Provider] - Medical Necessity - Tobacco Use Smoking Status: Never smoker
--- NOTE | 2019-09-01 14:39 | CASEMGMT ---
Addendum entered by Lana Monahan 09/01/19 15:42: Pt's meds were sent to [facility] and pt would like to transfer them back to [facility] retail pharmacy at this time. Call to Emelia at [facility] retail to have them transfer meds back here and she is aware that pt would like meds to bed. 30 day free trial card tubed to retail pharmacy at this time. Pt voices no further questions/concerns/needs at this time. Pt is aware that he needs to discuss martin of anti-coagulant with senior talent management consultant when he f/u, voices understanding. Megha CHEN CM Original Note: Pt to be sent home on Eliquis at discharge and med e-scribed to [facility] pharmacy previously. Call to tech at [facility] and she states that pt's co-pay at this time is $237.95. Pt to be provided with 30 day free trial card at this time and updated on co-pay at this time, voices understanding. Pt voices no further questions/concerns/needs at this time. Megha CHEN CM
--- NOTE | 2019-09-01 14:40 | PCM.DC ---
- Discharge Diagnoses Current Active Problems: Current Active and Chronic Problems (Last Reviewed 08/18/19 @ 13:23 by Tona Obrien) Obesity (Chronic) Atrial fibrillation (Acute) Non compliance w medication regimen (Chronic) You will use the following diet at home:: Calorie/Carbohydrate Controlled (specify 1200, 1400, etc) - 1800 tricia / day, Cardiac Your food should be the consistency of: Regular Your liquids should be the consistency of: Regular/Thin Discharge Activity: Return to Normal Activity Allergies/Adverse Reactions: Allergies Beta-Blockers (Beta-Adrenergic Bloc Allergy (Verified 08/31/19 22:23) Other aspirin Adverse Reaction (Verified 08/31/19 22:23) Upset Stomach Medications to take at Discharge cholecalciferol (vitamin D3) 50 mcg (2,000 unit) capsule 2,000 unit PO DAILY 02/23/19 insulin aspart U-100 100 unit/mL subcutaneous cartridge 8 unit SC TID ml 02/23/19 magnesium oxide 420 mg tablet 420 mg PO DAILY tab 02/23/19 potassium chloride 20 mEq tablet,extended release 20 meq PO TID tab 02/23/19 Novolin N 24 units SUBCUT BREAKFAST 08/31/19 Novolin N 42 units SUBCUT QHS 08/31/19 Amlodipine Besylate 10 mg PO DAILY #30 tab 09/01/19 Apixaban [Eliquis] 5 mg PO BID #60 tab 09/01/19 Isosorbide Mononitrate [Imdur] 60 mg PO DAILY #30 tab 09/01/19 The following prescriptions were given: Amlodipine Besylate 10 mg PO DAILY #30 tab Transmission Status: Received by [facility]24 Apixaban [Eliquis] 5 mg PO BID #60 tab Transmission Status: Received by [facility]24 Isosorbide Mononitrate [Imdur] 60 mg PO DAILY #30 tab Transmission Status: Received by [facility]24 Primary Care Physician: Liana Lou MD [Primary Care Provider] - Please follow up with your Primary Care Physician in: 1-2 weeks Test Results: Test results from this visit will be discussed in further detail at your follow-up appointment, if applicable. Please Follow Up With: Keshawn Méndez NP-C When: as directed Proposed Discharge Date: 09/01/19
--- NOTE | 2019-09-01 14:41 | PCM.DC.SUM ---
<Macario Murphy - Last Filed: 09/01/19 14:41> Discharge Date and Diagnosis - Problem List Patient Problems: Active and Suspected Problems (Last Reviewed 08/18/19 @ 13:23 by Tona Obrien) Atrial fibrillation (Acute) Date of Admission: 08/31/19 Date of Discharge: 09/01/19 - Primary Discharge Diagnosis Active and Suspected Problems (Last Reviewed 08/18/19 @ 13:23 by Tona Obrien) HTN, uncontrolled 2/2 medication noncompliance New onset Atrial fibrillation (Acute) Left arm pain - muscle sprain Hypomagnesemia/Hypokalemia Dmt2 with super morbid obesity HTN - Secondary Discharge Diagnosis Chronic Problems (Last Reviewed 08/18/19 @ 13:23 by Tona Obrien) Obesity (Chronic) Non compliance w medication regimen (Chronic) Diabetes mellitus (Chronic) Hypertension (Chronic) Hospital Course and Treatment Imaging Results: 09/01/19 05:55 Echo Complete [ECHO] AM (NON MEDS) Interpretation Summary The study was technically difficult. Left ventricular systolic function is normal. The estimated ejection fraction is 55 %. Mild concentric left ventricular hypertrophy. The left atrium is mildly enlarged. Moderate (2+) mitral valve insufficiency. Trivial tricuspid valve insufficiency. Mild focal aortic valve calcification. Trivial aortic valve insufficiency. Trivial pulmonic valve insufficiency. Mildly dilated aortic root. Epicardial fat. Unable to estimate RV systolic pressure/pulmonary artery pressure due to technically difficult study. Unable to assess diastolic dysfunction. 09/01/19 09:51 Nuclear Stress Test - Chemical [NM] Routine Impression: 1. Rest and stress SPECT Cardiolite nuclear imaging demonstrate relative uniform tracer uptake and myocardial perfusion appearing within normal limits. 2. The gated Cardiolite study reports an LVEF of 55 %. This note was generated with basestone dictation software. It may contain incorrect words, spelling, and punctuation that were not noted in checking the note before signing. RAD/Chest 1 View (Portable) IMPRESSION: No airspace consolidation or pleural effusion. Bibasilar fibrotic changes. Consults: Cardiology - [facility] Operations: None Procedures: 2-D Echocardiogram, Stress test Summary of Care Provided: Hospital Course: The patient is a 78 year old M with pmhx of DMt2 with super morbid obesity, HTN, not taking his home medications, who presented to the ER with c/o left arm pain. This began after talking on the phone and holding the phone for an hour and a half straight with that arm. His was concerned the arm pain could be a heart attack or stroke and called EMS. He was found to have Afib on EKG with controlled rate though he had no prior hx of afib. He also had severely elevated BP with systolic pressure of 206/122. He was admitted to the PCU and cardiology was consulted. The patient had negative troponin x3. Mag and potassium were somewhat low and these were replaced. TSH was normal. With the resumption of his home norvasc and imdur he had improvement in his BP. He was started on eliquis. I sent refills for his norvasc and imdur as well as it is unclear if he has these. Echo was obtained with results as above, normal LV systolic function and normal LV size. EF 55%. No wall abnormalities. 2+ MVI. He had a stress test which was negative. He was discharged home in stable condition. He was advised to follow up with his PCP in 1-2 weeks, and with cardiology as directed. This patient was seen by Macario Murphy PA-C under the supervision of Dr. Haq. [] Patient Problems: Active and Suspected Problems (Last Reviewed 08/18/19 @ 13:23 by Tona Obrien) Atrial fibrillation (Acute) - Physical Exam Vitals/I&O's: Vital Signs Temp Pulse Resp BP Pulse Ox 97.9 F 73 16 180/89 H 94 09/01/19 12:50 09/01/19 12:50 09/01/19 12:50 09/01/19 12:50 09/01/19 12:50 Oxygen Flow Rate (L/min) 2 Oxygen Delivery Method Room Air Weight: 324 lb 1.272 oz Body Mass Index (BMI) 52.2 Intake and Output for Last 24 Hours 08/30/19 08/31/19 09/01/19 23:59 23:59 23:59 Intake Total 875 / 875 Output Total 750 / 750 Balance 125 / 125 General: Alert, Oriented x3, Cooperative HEENT: Atraumatic, PERRLA, EOMI, Normocephalic Neck: Supple, No JVD, Negative Carotid Bruits Lungs: Clear to auscultation, Normal air movement Cardiovascular: No murmurs, Irregular Rate Abdomen: Bowel Sounds Present, Soft, Non Tender, Obese Extremities: No edema, Capillary Refill Less than 3 Seconds Skin: No rashes, No breakdown Musculoskeletal: No Tenderness to Palpation of Joints or Extremities Neurological: Cranial nerves II-XII grossly intact Psych/Mental Status: Normal Affect, Appropriate, Alert and oriented to time, place, person, mood and affect Laboratory Results 08/31/19 22:00: WBC 8.4, RBC 4.90, Hgb 14.9, Hct 43.5, MCV 88.8, MCH 30.4, MCHC 34.3, RDW Std Deviation 43.2, RDW Coeff of Jono 13.3, Plt Count 200, MPV 10.5, Immature Gran % (Auto) 1.400 H, Neut % (Auto) 63.5, Lymph % (Auto) 20.5, Finney % (Auto) 11.9 H, Eos % (Auto) 1.9, Baso % (Auto) 0.8, Absolute Neuts (auto) 5.3, Absolute Lymphs (auto) 1.72, Nucleated RBC % 0 08/31/19 22:00: Sodium 140, Potassium 3.3 L, Chloride 103, Carbon Dioxide 28.0, Anion Gap 9, BUN 13, Creatinine 1.25, Estim Creat Clear Calc 45.37, Est GFR (MDRD) Af Amer 72, Est GFR (MDRD) Non-Af 60, BUN/Creatinine Ratio 10.4, Glucose 219 H, Calcium 8.6, Troponin I < 0.015, TSH 2.71 09/01/19 01:30: Troponin I < 0.015 09/01/19 04:30: Sodium 140, Potassium 3.2 L, Chloride 106, Carbon Dioxide 30.0, Anion Gap 4 L, BUN 12, Creatinine 1.20, Estim Creat Clear Calc 47.26, Est GFR (MDRD) Af Amer 76, Est GFR (MDRD) Non-Af 62, BUN/Creatinine Ratio 10.0, Glucose 194 H, Calcium 7.8 L, Total Bilirubin 1.00, AST 13 L, ALT 19, Alkaline Phosphatase 120 H, Total Protein 6.8, Albumin 2.7 L, Globulin 4.1, Albumin/Globulin Ratio 0.7 L, Triglycerides 162, Cholesterol 139, LDL Cholesterol 73, VLDL Cholesterol 32, HDL Cholesterol 34 L 09/01/19 04:30: Troponin I < 0.015 09/01/19 04:30: Phosphorus 3.4, Magnesium 1.7 09/01/19 06:07: POC Glucose 180 H 09/01/19 13:09: POC Glucose 187 H Current Medications Amlodipine Besylate (Norvasc) 10 mg PO DAILY REPLACED BY [facility] Last Admin: 09/01/19 12:55 Dose: 10 mg Documented by: Cholecalciferol (Vitamin D) 2,000 unit PO DAILY REPLACED BY [facility] Last Admin: 09/01/19 12:55 Dose: 2,000 unit Documented by: Glucagon () 1 mg IM .X1 PRN PRN Reason: Hypoglycemia Hydralazine HCl (Apresoline Iv) 20 mg IV Q6H PRN PRN PRN Reason: Hypertensive Emergency Potassium Chloride/Sodium Chloride () 1,000 mls @ 100 mls/hr IV .Q10H REPLACED BY [facility] Last Admin: 09/01/19 12:56 Dose: 100 mls/hr Documented by: Sodium Chloride () 250 mls @ 15 mls/hr IV .[id number] PRN PRN Reason: Saline Flush Dextrose (Dextrose 10%-Water) 250 mls @ 999 mls/hr IV X1 PRN; Protocol PRN Reason: HYPOGLYCEMIA Insulin Human Lispro (Humalog Kwikpen (Bkc)) 0 unit SC Q6 REPLACED BY [facility]; Protocol Last Admin: 09/01/19 13:19 Dose: 2 units Documented by: Isosorbide Mononitrate (Imdur) 60 mg PO DAILY REPLACED BY [facility] Last Admin: 09/01/19 12:55 Dose: 60 mg Documented by: Magnesium Oxide (Mag-Ox 400) 400 mg PO DAILY REPLACED BY [facility] Last Admin: 09/01/19 12:56 Dose: 400 mg Documented by: Potassium Chloride (K-Dur) 20 meq PO TIDCM REPLACED BY [facility] Last Admin: 09/01/19 12:53 Dose: 20 meq Documented by: Sodium Chloride () 10 - 40 ml IV UD PRN PRN Reason: SALINE FLUSH Last Admin: 09/01/19 13:05 Dose: 10 ml Documented by: Discharge Diet: Low fat/ Low Cholesterol, 1800 Calorie Control Diet, 2000 mg Sodium Diet Discharge Activity: Return to Normal Activity Home Medications: Medications to take at Discharge cholecalciferol (vitamin D3) 50 mcg (2,000 unit) capsule 2,000 unit PO DAILY 02/23/19 insulin aspart U-100 100 unit/mL subcutaneous cartridge 8 unit SC TID ml 02/23/19 magnesium oxide 420 mg tablet 420 mg PO DAILY tab 02/23/19 potassium chloride 20 mEq tablet,extended release 20 meq PO TID tab 02/23/19 Novolin N 24 units SUBCUT BREAKFAST 08/31/19 Novolin N 42 units SUBCUT QHS 08/31/19 Amlodipine Besylate 10 mg PO DAILY #30 tab 09/01/19 Apixaban [Eliquis] 5 mg PO BID #60 tab 09/01/19 Isosorbide Mononitrate [Imdur] 60 mg PO DAILY #30 tab 09/01/19 Following Prescrptions Were Given to Patient: Amlodipine Besylate 10 mg PO DAILY #30 tab Transmission Status: Received by [id number] Apixaban [Eliquis] 5 mg PO BID #60 tab Transmission Status: Received by [facility] Isosorbide Mononitrate [Imdur] 60 mg PO DAILY #30 tab Transmission Status: Received by [facility] Primary Care Physician: Liana Lou MD [Primary Care Provider] - Please follow up with your Primary Care Physician in: 1-2 weeks Please Follow Up With: Keshawn Méndez NP-C When: as directed Disposition: Home Minutes spent on discharge:: 35 Patient Condition:: Stable Medical Necessity - Tobacco Use Smoking Status: Never smoker Meaningful Use Info Meaningful Use Diagnoses (Choose all that apply): None applicable <Brigette Haq - Last Filed: 09/01/19 15:41> Discharge Date and Diagnosis - Primary Discharge Diagnosis Active and Suspected Problems (Last Reviewed 08/18/19 @ 13:23 by Tona Obrien) Atrial fibrillation (Acute) - Secondary Discharge Diagnosis Chronic Problems (Last Reviewed 08/18/19 @ 13:23 by Tona Obrien) Obesity (Chronic) Non compliance w medication regimen (Chronic) Diabetes mellitus (Chronic) Hypertension (Chronic) Hospital Course and Treatment Imaging Results: 09/01/19 09:51 Nuclear Stress Test - Chemical [NM] Routine Summary of Care Provided: Patient seen by Macario Murphy PA-C under my supervision The patient is a 78 year old M who was admitted through the ED on 08/31/2019 with a complaint of left arm pain which he says started after he had been holding a fall while talking on the phone for long time. He came to the ED concerned that it could be a heart attack or a stroke that was causing his up to be painful and stiff. On admission he was found to be in A. fib which was rate controlled. He had no history of A. fib. Blood pressure was also severely elevated at 2 02/14/2022. He did admit that he had not been taking his blood pressure medications regularly. He said he was only on amlodipine. Cardiology was consulted. Troponins x3 were negative. He had mild hypomagnesemia and hypokalemia and these were replaced. He had stress test which was negative. 2D echo done showed EF of 55% with normal left ventricular size and function. He was discharged home on p.o. Eliquis and blood pressure control improved on his Imdur and Norvasc were resumed. He remained stable and was discharged home on 09/01/2019. 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 Since patient had previous allergies to beta-marianne, he was not started on this. Per cardiology, if he needs rate limiting medication in the future, digoxin will be a consideration as patient has never taken this before. Patient seen and examined prior to discharge. He had no complaints and felt well. Review of systems otherwise negative. He denied any tachycardia or tachypnea. Labs and vitals reviewed. Home medication reviewed and reconciled. o/e: Vital Signs Height 5 ft 6 in Weight: 324 lb 1.272 oz Weight in Pounds 324.1 lbs Pulse Ox 94 Temperature 97.9 F Pulse Rate 73 Respiratory Rate 16 Blood Pressure 180/89 Blood Pressure Position Supine [] General: Alert, Oriented x3, Cooperative HEENT: Atraumatic, PERRLA, EOMI, Normocephalic Neck: Supple, No JVD, Negative Carotid Bruits Lungs: Clear to auscultation, Normal air movement Cardiovascular: No murmurs, Irregular Rate,afib- rate controlled Abdomen: Bowel Sounds Present, Soft, Non Tender, Obese Extremities: No edema, Capillary Refill Less than 3 Seconds Skin: No rashes, No breakdown Musculoskeletal: No Tenderness to Palpation of Joints or Extremities Neurological: Cranial nerves II-XII grossly intact Psych/Mental Status: Normal Affect, Appropriate, Alert and oriented to time, place, person, mood and affect Plan above. He was discharged with a prescription for p.o. Eliquis and p.o. amlodipine. Rest of management as per Macario Murphy PA-C's notes which I reviewed and endorsed. - Physical Exam Vitals/I&O's: Vital Signs Temp Pulse Resp BP Pulse Ox 97.9 F 73 16 180/89 H 94 09/01/19 12:50 09/01/19 12:50 09/01/19 12:50 09/01/19 12:50 09/01/19 12:50 Oxygen Flow Rate (L/min) 2 Oxygen Delivery Method Room Air Weight: 324 lb 1.272 oz Body Mass Index (BMI) 52.2 Intake and Output for Last 24 Hours 08/30/19 08/31/19 09/01/19 23:59 23:59 23:59 Intake Total 875 / 875 Output Total 750 / 750 Balance 125 / 125 Laboratory Results 08/31/19 22:00: WBC 8.4, RBC 4.90, Hgb 14.9, Hct 43.5, MCV 88.8, MCH 30.4, MCHC 34.3, RDW Std Deviation 43.2, RDW Coeff of Jono 13.3, Plt Count 200, MPV 10.5, Immature Gran % (Auto) 1.400 H, Neut % (Auto) 63.5, Lymph % (Auto) 20.5, Finney % (Auto) 11.9 H, Eos % (Auto) 1.9, Baso % (Auto) 0.8, Absolute Neuts (auto) 5.3, Absolute Lymphs (auto) 1.72, Nucleated RBC % 0 08/31/19 22:00: Sodium 140, Potassium 3.3 L, Chloride 103, Carbon Dioxide 28.0, Anion Gap 9, BUN 13, Creatinine 1.25, Estim Creat Clear Calc 45.37, Est GFR (MDRD) Af Amer 72, Est GFR (MDRD) Non-Af 60, BUN/Creatinine Ratio 10.4, Glucose 219 H, Calcium 8.6, Troponin I < 0.015, TSH 2.71 09/01/19 01:30: Troponin I < 0.015 09/01/19 04:30: Sodium 140, Potassium 3.2 L, Chloride 106, Carbon Dioxide 30.0, Anion Gap 4 L, BUN 12, Creatinine 1.20, Estim Creat Clear Calc 47.26, Est GFR (MDRD) Af Amer 76, Est GFR (MDRD) Non-Af 62, BUN/Creatinine Ratio 10.0, Glucose 194 H, Calcium 7.8 L, Total Bilirubin 1.00, AST 13 L, ALT 19, Alkaline Phosphatase 120 H, Total Protein 6.8, Albumin 2.7 L, Globulin 4.1, Albumin/Globulin Ratio 0.7 L, Triglycerides 162, Cholesterol 139, LDL Cholesterol 73, VLDL Cholesterol 32, HDL Cholesterol 34 L 09/01/19 04:30: Troponin I < 0.015 09/01/19 04:30: Phosphorus 3.4, Magnesium 1.7 09/01/19 06:07: POC Glucose 180 H 09/01/19 13:09: POC Glucose 187 H Current Medications Amlodipine Besylate (Norvasc) 10 mg PO DAILY REPLACED BY [facility] Last Admin: 09/01/19 12:55 Dose: 10 mg Documented by: Cholecalciferol (Vitamin D) 2,000 unit PO DAILY REPLACED BY [facility] Last Admin: 09/01/19 12:55 Dose: 2,000 unit Documented by: Glucagon () 1 mg IM .X1 PRN PRN Reason: Hypoglycemia Hydralazine HCl (Apresoline Iv) 20 mg IV Q6H PRN PRN PRN Reason: Hypertensive Emergency Potassium Chloride/Sodium Chloride () 1,000 mls @ 100 mls/hr IV .Q10H REPLACED BY [facility] Last Admin: 09/01/19 12:56 Dose: 100 mls/hr Documented by: Sodium Chloride () 250 mls @ 15 mls/hr IV .[id number] PRN PRN Reason: Saline Flush Dextrose (Dextrose 10%-Water) 250 mls @ 999 mls/hr IV X1 PRN; Protocol PRN Reason: HYPOGLYCEMIA Insulin Human Lispro (Humalog Kwikpen (Bkc)) 0 unit SC Q6 REPLACED BY [facility]; Protocol Last Admin: 09/01/19 13:19 Dose: 2 units Documented by: Isosorbide Mononitrate (Imdur) 60 mg PO DAILY REPLACED BY [facility] Last Admin: 09/01/19 12:55 Dose: 60 mg Documented by: Magnesium Oxide (Mag-Ox 400) 400 mg PO DAILY REPLACED BY [facility] Last Admin: 09/01/19 12:56 Dose: 400 mg Documented by: Potassium Chloride (K-Dur) 20 meq PO TIDCM REPLACED BY [facility] Last Admin: 09/01/19 12:53 Dose: 20 meq Documented by: Sodium Chloride () 10 - 40 ml IV UD PRN PRN Reason: SALINE FLUSH Last Admin: 09/01/19 13:05 Dose: 10 ml Documented by: Code Visit OBSV E&M: [id number] Observation care discharge
== END 2019-09-01 14:41 | disposition home or self-care (01) ==
LOC: ED 21:45 → PCU 23:46
PROVIDERS: Physician Assistant; Admitting Provider Family Medicine; Emergency Provider Emergency Medicine; Family Provider Internal Medicine; PCP Internal Medicine; Visit Provider Student in an Organized Health Care Education/Training Program
DX: I16.0 Hypertensive urgency (principal); E66.01 Morbid (severe) obesity due to excess calories; E87.6 Hypokalemia; M79.602 Pain in left arm; I48.20 Chronic atrial fibrillation, unspecified; I08.3 Combined rheumatic disorders of mitral, aortic and tricuspid valves; E11.9 Type 2 diabetes mellitus without complications; I10 Essential (primary) hypertension; Z79.899 Other long term (current) drug therapy; Z91.14 Patient's other noncompliance with medication regimen; Z68.43 Body mass index [BMI] 50.0-59.9, adult; Z71.3 Dietary counseling and surveillance; Z79.4 Long term (current) use of insulin; E83.42 Hypomagnesemia; R07.9 Chest pain, unspecified
CPT/HCPCS: 36415; 71045; 78452; 80048; 80053; 80061; 82962; 83735; 84100; 84443; 84484; 85025; 93005; 93017; 93306; 94660; 96360; 96361; 99218; 99285; A9500; Q9957; A4216; G0378; J2785

== ENCOUNTER 2020-06-22 14:01 | Inpatient (IN) | payer OTHER, MEDICARE, SELFPAY ==
[2019-09-01 00:32] VITALS: BMI 52.2
[2020-06-22] VITALS (15 sets, daily range): BP systolic 169–209; BP diastolic 97–123; PULSE 56–84; RESP 13–26; TEMP 36.1–36.7; O2SAT 92–98; BMI 50.8; BMI 50.3; BMI 52.8
--- NOTE | 2020-06-22 14:14 | CT_ITS ---
STUDY: CT BRAIN WITHOUT CONTRAST REASON FOR EXAM: Male, 79 years old. SLURRED SPEECH AND CONFUSION RADIATION DOSAGE (If Supplied By Facility): CTDIvol = ( 44.99 ) mGy, DLP = ( 846.73 ) mGycm TECHNIQUE: Transaxial CT imaging of the brain was performed without administration of intravenous contrast material. Individualized dose optimization techniques were used for this CT. COMPARISON: No relevant priors. FINDINGS: Normal soft tissue structures. Normal calvarium. There is mild cerebral atrophy with widening of the extra-axial spaces and ventricular dilatation. There are areas of decreased attenuation within the white matter tracts of the supratentorial brain, consistent with microvascular disease changes. 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 Normal brainstem. Normal cerebellum. 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 There is no intracranial hemorrhage. There are no findings of an acute ischemic infarction. Normal visualized paranasal sinuses. CT/Brain/Head without Contrast IMPRESSION: Chronic involutional changes of the brain. No acute abnormalities. Electronically Signed: Nile Rucker MD at 15:20 EDT , Service support ,
--- NOTE | 2020-06-22 14:14 | EKG12_ITS ---
Test Reason : Blood Pressure : / mmHG Vent. Rate : 058 BPM Atrial Rate : 136 BPM P-R Int : 000 ms QRS Dur : 090 ms QT Int : 430 ms P-R-T Axes : 000 029 058 degrees QTc Int : 422 ms Atrial fibrillation with slow ventricular response Nonspecific ST and T wave abnormality Abnormal ECG When compared with ECG of 31-AUG-2019 22:00, No significant change was found Confirmed by RAMESH SOUTH, KALA ([id number]), market editor SAMANTHA MCKOY ([id number]) on 06/23/2020 10:07:09 AM Referred By: Confirmed By:KALA CHANDLER MD
--- NOTE | 2020-06-22 14:14 | RAD_ITS ---
STUDY: X-RAY CHEST REASON FOR EXAM: Male, 79 years old. SLURRED SPEECH, CONFUSION. INCREASING SINCE SATURDAY TECHNIQUE: Single AP portable view of the chest. COMPARISON: 08/31/2019 FINDINGS: The lungs are clear and expanded. There is no demonstrated pleural abnormality. Normal size heart. Normal mediastinum and crystal. Normal visualized pulmonary arteries. There is atherosclerotic tortuosity of the aortic arch and descending thoracic aorta. Normal visualized thoracic spine. Normal visualized ribs, clavicles, and shoulders. There is no demonstrated abnormality of the visualized soft tissue structures of the upper abdomen. RAD/Chest 1 View IMPRESSION: No active disease. 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 Correlation with CT would be useful. Electronically Signed: Rodolfo Levy MD at 15:31 EDT Tel , Service support ,
--- NOTE | 2020-06-22 14:17 | ED.DCSUM_ITS ---
- ER Visit Summary Date of Service: 06/22/20 Chief Complaint: Slurred speech History of Present Illness: The patient is a 79 M presenting with slurred speech and confusion. Per EMS this started on Saturday and has been progressively worsening. His primary care physician was called today and he was advised to call EMS due to slurred speech. Patient is on Coumadin for history of A. fib. He has a history of diabetes, his blood sugar was 176 per EMS. Denies recent injury or fall. Denies fever or cough. Denies chest pain or shortness of breath. Physical Examination: Vitals are stable. Patient is afebrile. Alert no acute distress. HEENT exam is unremarkable. Neck is supple. Lungs are clear and equal bilaterally. Heart is regular rate and rhythm. Abdomen is soft obese nontender nondistended. Extremities are unremarkable. Skin is warm and dry. NIH 1 dysarthria Remainder of exam is unremarkable. Emergency Department Course and Treatment: Stroke team was not called due to onset of symptoms 2 days ago. EKG shows A. fib rate of 58. CBC, chemistries unremarkable other than potassium 3.2, glucose 161, creatinine 1.43. Urinalysis unremarkable. Troponin is negative. INR is 2.1. CT head shows chronic involutional changes of the brain. No acute abnormalities. Chest xray shows no acute abnormalities. Discussed with hospitalist for admission. Disposition: Admission Impression: Dysarthria, rule out CVA This note was generated with [email or web address] dictation software. It may contain incorrect words, spelling, and punctuation that were not noted in review of the chart prior to signing ED Disposition - Plan for ED Patient:
[2020-06-22 14:46] LABS: Bacteria 0 SEEN /hpf (None Seen); Mucous, Urine 0 SEEN /hpf (<or=2+); White Blood Cells 0 SEEN /hpf (0-5)
[2020-06-22 14:50] LABS: Color, Urine Yellow (Yellow); Glucose, Dipstick Normal (Normal); Ketone-Dipstick Negative (Negative); Leukocyte Esterase-Dipstick Negative /ul (Negative); Nitrite-Dipstick Negative (Negative); Occult Blood-Urine 10 /ul (Negative); Protein-Dipstick 500 mg/dl (Negative); Specific Gravity, Urine 1.015 (1.002-1.030); Urine Bilirubin Dipstick Negative (Negative); Urine Clarity Clear (Clear); Urine Urobilinogen Normal (Normal)
[2020-06-22 14:57] LABS: Absolute Lymphocyte Count 1.23 X10^3/uL (0.83-4.51); Absolute Neutrophil Count 4.4 X10^3/uL (2.0-7.7); Basophil# 0.04 X10^3/uL; Basophil% 0.6 % (0-1); Eosinophil# 0.05 X10^3/uL; Eosinophils% 0.7 % (0-5); Hematocrit 48.5 % (40-54); Hemoglobin 16.1 g/dL (13.0-16.5); Lymphocyte # 1.23 X10^3/ul (4.0); Lymphocyte % 18.1 % (19-41); Mean Corp Hgb Conc 33.2 g/dL (32-36); Mean Corpuscular Hgb 29.7 pg (27.0-32.0); Mean Corpuscular Volume 89.3 fL (80-94); Mean Platelet Vol. 10.8 fl (6.2-12.0); Monocyte# 1.04 X10^3/uL; Monocyte% 15.3 % (0-10); NRBC Flagged by Analyzer 0 % (0-5); Neutrophil # 4.37 X10^3/uL (2.7-7.7); Neutrophil % 64.4 % (47-70); Platelet Count 222 K/mm3 (150-450); RBC Distribution Width CV 14.3 % (11.6-14.6); RBC Distribution Width SD 46.1 fl (35.1-43.9); Red Blood Count 5.43 M/mm3 (4.6-6.2); White Blood Count 6.8 K/mm3 (4.4-11.0)
[2020-06-22 14:58] LABS: Red Blood Cells-Urine 0-5 SEEN /hpf (0-5); Squamous Epithelial Cells - UA 0-5 SEEN /hpf (0-5)
[2020-06-22 15:08] LABS: Anion Gap 7 (5-15); BUN 15 mg/dL (7-18); BUN/Creat Ratio 10.5 RATIO (10-20); Calcium,Total 9.1 mg/dL (8.5-10.1); Chloride 106 mmol/L (98-107); Creatinine, Serum 1.43 mg/dL (0.70-1.30); EST Glomerular Filtration Rate 51 mL/min (>60); Est Glom Filt Rate - Afr Amer 62 mL/min (>60); Estimated Creatinine Clearance 37.63 ml/min; Glucose 161 mg/dL (74-106); Potassium 3.2 mmol/L (3.5-5.1); Sodium Level 142 mmol/L (136-145)
[2020-06-22 15:21] LABS: International Normalized Ratio 2.1; Prothrombin Time (Protime)PT. 22.9 SECONDS (11.7-14.9)
--- NOTE | 2020-06-22 15:58 | NURSING ---
PCU TERELETSKY OBS DYSARTHRIA R/O CVA
--- NOTE | 2020-06-22 16:05 | PCM.HP.STD ---
Problem List (1) CVA (cerebral vascular accident) Status: Acute (2) Atrial fibrillation Status: Acute Qualifiers: (3) Diabetes mellitus Status: Chronic Qualifiers: Diabetes mellitus type: type 2 (4) Hypertension Status: Chronic History of Present Illness Date of Admission: 06/22/20 Chief Complaint: slurred speech The patient is a 79 year old M with pmhx of DMt2, Afib, HTN, who presents to the ER with c/o slurred speech. His notes that he started to have slurred speech 2 days ago but they did not seek medical help. She spoke with a doctor from [facility] who advised her to bring her to the ER. He denies focal weakness, he has generalized weakness. She has not noticed facial droop on him. He has no headache, dizziness, or double vision. He has no recent illness/infection. He continues to have slurred speech in the ER. In the ER his blood pressure is severely elevated >200 and he admitted that he has not been taking his blood pressure medicine. He does have afib tho his INR is therapeutic at 2.1. [] Past Medical History Past Medical History (Chronic Problems): Chronic Problems (Last Reviewed 08/18/19 @ 13:23 by Tona Obrien) Obesity (Chronic) Non compliance w medication regimen (Chronic) Diabetes mellitus (Chronic) Hypertension (Chronic) Medical History: Medical History (Last Reviewed 08/18/19 @ 13:23 by Tona Obrien) Sebaceous cyst (Acute) L72.3 Skin lesion (Acute) L98.9 Cataracts, bilateral H26.9 Diabetes E11.9 Hypertension I10 Allergies Beta-Blockers (Beta-Adrenergic Bloc Allergy (Verified 06/22/20 14:13) Other aspirin Adverse Reaction (Verified 06/22/20 14:13) Upset Stomach Home Medications: Ambulatory Orders Medication Instructions Recorded cholecalciferol (vitamin D3) 50 2,000 unit PO DAILY 02/23/19 mcg (2,000 unit) capsule insulin aspart U-100 100 unit/mL 8 unit SC TID ml 02/23/19 subcutaneous cartridge magnesium oxide 420 mg tablet 420 mg PO DAILY tab 02/23/19 potassium chloride 20 mEq 20 meq PO TID tab 02/23/19 tablet,extended release Novolin N 24 units SUBCUT BREAKFAST 08/31/19 Novolin N 42 units SUBCUT QHS 08/31/19 Amlodipine Besylate 10 mg PO DAILY #30 tab 09/01/19 Apixaban [Eliquis] 5 mg PO BID #60 tab 09/01/19 Isosorbide Mononitrate [Imdur] 60 mg PO DAILY #30 tab 09/01/19 Oxybutynin Chloride [Oxybutynin 5 mg PO DAILY 06/22/20 Chloride ER] Surgical History: Surgical History (Last Reviewed 08/18/19 @ 13:23 by Tona Obrien) S/P tooth extraction K08.409 Scalp cyst L72.9 Surgical History: - - scalp cyst, tooth extraction Psychiatric History: No pertinent psych hx Lives: Spouse/ Significant Other Smoking Status: Never smoker Tobacco Use: Non-smoker Alcohol: None Drugs: None - *Family History Maternal Family History: Family History (Last Reviewed 06/22/20 @ 16:12 by Macario SIBLEY, PA) Other Diabetes Heart disease History Items: No pertinent history Review of Systems Constitutional: Reports: Weakness - generalized. Denies: Chills, Fever, Weight Change HEENT: Denies: Hard of Hearing, Head Aches, Sinus Congestion, Sinus Drainage Cardiovascular: Denies: Chest Pain, Light Headedness, Palpitations Respiratory: Denies: Cough, Shortness of Breath, Shortness of breath at rest, Sputum production Gastrointestinal: Denies: Abdominal Pain, Nausea, Vomiting Genitourinary: Denies: Dysuria Musculoskeletal: Denies: Joint Pain, Joint Tenderness Skin: Denies: Rash, Wounds Neurological: Reports: Slurred speech. Denies: Focal weakness, Numbness, Tingling Psychiatric: Denies: Anxiety, Depression, Homicidal Ideations, Suicidal Ideations Hematologic/ Lymphatic: Denies: Easy Bruising, Easy Bleeding VTE Information - Inpt Only VTE Present on Admission: No VTE Mechan Device Prophylaxis: None VTE Pharm Prophylaxis ordered?: Yes Patient Problems: Active and Suspected Problems (Last Reviewed 08/18/19 @ 13:23 by Tona Obrien) CVA (cerebral vascular accident) (Acute) - Physical Exam Vitals/I&O's: Vital Signs Temp Pulse Resp BP Pulse Ox 96.9 F L 67 26 H 198/104 H 92 06/22/20 15:14 06/22/20 15:14 06/22/20 15:14 06/22/20 15:14 06/22/20 15:14 Oxygen Delivery Method Room Air Weight: 305 lb 5.443 oz Body Mass Index (BMI) 50.8 Finger Stick Blood Glucose 176 General: Alert, Oriented x3, Cooperative HEENT: Atraumatic, PERRLA, EOMI, Normocephalic Neck: Supple, No JVD, Negative Carotid Bruits Lungs: Clear to auscultation, Normal air movement Cardiovascular: No murmurs, Irregular Rate Abdomen: Bowel Sounds Present, Soft, Non Tender, Obese Extremities: Capillary Refill Less than 3 Seconds, Edema - 2+pitting edema BLE Skin: No rashes, No breakdown Musculoskeletal: No Tenderness to Palpation of Joints or Extremities Neurological: Cranial nerves II-XII grossly intact, Slurred Speech Psych/Mental Status: Normal Affect, Appropriate, Alert and oriented to time, place, person, mood and affect Laboratory Results 06/22/20 14:10: WBC 6.8, RBC 5.43, Hgb 16.1, Hct 48.5, MCV 89.3, MCH 29.7, MCHC 33.2, RDW Std Deviation 46.1 H, RDW Coeff of Jono 14.3, Plt Count 222, MPV 10.8, Immature Gran % (Auto) 0.900, Neut % (Auto) 64.4, Lymph % (Auto) 18.1 L, Ross % (Auto) 15.3 H, Eos % (Auto) 0.7, Baso % (Auto) 0.6, Absolute Neuts (auto) 4.4, Absolute Lymphs (auto) 1.23, Nucleated RBC % 0 06/22/20 14:10: PT 22.9 H, INR 2.1, APTT 36.0 06/22/20 14:10: Sodium 142, Potassium 3.2 L, Chloride 106, Carbon Dioxide 29.0, Anion Gap 7, BUN 15, Creatinine 1.43 H, Estim Creat Clear Calc 37.63, Est GFR (MDRD) Af Amer 62, Est GFR (MDRD) Non-Af 51 L, BUN/Creatinine Ratio 10.5, Glucose 161 H, Calcium 9.1, Troponin I < 0.015 06/22/20 14:38: Urine Color Yellow, Urine Clarity Clear, Urine pH 8.0, Ur Specific [place] 1.015, Urine Protein 500 H, Urine Glucose (UA) Normal, Urine Ketones Negative, Urine Occult Blood 10 H, Urine Nitrite Negative, Urine Bilirubin Negative, Urine Urobilinogen Normal, Ur Leukocyte Esterase Negative, Urine RBC 0-5 SEEN, Urine WBC 0 SEEN, Ur Squamous Epith Cells 0-5 SEEN, Urine Bacteria 0 SEEN, Urine Mucus 0 SEEN 06/22/20 14:38: Urine Opiates Screen Pending, Urine Methadone Screen Pending, Ur Barbiturates Screen Pending, Ur Phencyclidine Scrn Pending, Ur Amphetamines Screen Pending, U Methamphetamin-MDMA Pending, U Benzodiazepines Scrn Pending, Urine Cocaine Screen Pending, U Cannabinoids Screen Pending, Ur Drug Screen Comment Assessment/Plan All Active Problems (Last Reviewed 08/18/19 @ 13:23 by Tona Obrien) Atrial fibrillation (Acute) CVA (cerebral vascular accident) (Acute) Pilar cyst (Acute) Sebaceous cyst (Acute) Skin lesion (Acute) 1. CVA - new onset slurred speech. No stroke alert due to slurred speech onset 2 days ago. No other focal deficits at this time. CT brain negative. He does have afib however his INR is therapeutic. Will need to obtain MRI and MRA head and neck. Tox screen pending. PT/OT/ST evals. Replace potassium. Troponin negative. EKG without acute ischemic changes. Echocardiogram 08/2019 EF 55% 2+ MVI. Repeat if acute stroke. Start aspirin and statin. 2. HTN emergency - pt has been noncompliant with his BP meds at home. PRN catapres given in the ER. 3. DMt2 with morbid obesity - continue home insulin regimen + SSI. Obtain A1C. Senior Software Development Engineer eval. 4. Generalized debility - PTOT evals. DVT ppx: warfarin therapeutic DC planning: PTOT evals. Very weak, not walking. This patient was seen by Macario Murphy PA-C under the supervision of Dr. Mark
[2020-06-22 16:07] LABS: Amphetamine Urine VISTA NEGATIVE (<1000 ng/mL); Barbiturate Urine VISTA NEGATIVE (< 200 ng/mL); Benzodiazepine Urine VISTA NEGATIVE (< 200 ng/mL); Cocaine Urine VISTA NEGATIVE (< 300 ng/mL); Ecstacy Urine VISTA NEGATIVE (< 500 ng/mL); Methadone Urine VISTA NEGATIVE (< 300 ng/mL); PCP Urine VISTA NEGATIVE (< 25 ng/mL); THC Urine VISTA NEGATIVE (< 50 ng/mL); Vista UDS pH Range 6
[2020-06-22] MEDS: cloNIDine HCl 0.2 MG Tablet PO (16:21)
--- NOTE | 2020-06-22 16:49 | MRI_ITS ---
HISTORY: SLURRED SPEECH,confusion TECHNIQUE: Routine [place]/brain 3D time of flight MR angiogram protocol was performed without gadolinium. 3D reconstructions were reviewed. COMPARISON: No previous angiography of the brain FINDINGS: # of images incl. paperwork: 195 Flow is present within bilateral intracranial ICA, left SANTANA, MCAs, vertebral, superior cerebellars, the basilar artery, and the content coordinator. The anterior communicating artery is patent. 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 More peripheral branches of the right SANTANA are symmetric with the left due to patency across the anterior communicating artery. A stenosis is present within the midportion of the basilar artery extending for a few millimeters Bilateral posterior communicating arteries are not identified. No aneurysms, stenoses, occlusions, nor dissections. 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 at 0415 Reported and signed by: Rudolph Galvan MD Electronically Signed: Rudolph Galvan MD at 4:14 EDT Tel , Service support ,
--- NOTE | 2020-06-22 16:49 | MRI_ITS ---
We are attempting to reach an attending provider to discuss findings. An addendum with communication details will be sent when the communication is complete. HISTORY: slurred speech, confusion TECHNIQUE: Routine brain MR protocol was performed without gadolinium. COMPARISON: June 22, [address] FINDINGS: # of images incl. paperwork: 280 Brain volume demonstrates diffuse atrophy. Within the left side of the omid at the midline and extending to the left there is a 17 mm acute infarct.. Paranasal sinuses are clear. Disease within the left mastoid air cells may be chronic. Periventricular deep and subcortical white matter disease is present There are no masses, herniations, nor deviations. Orbits and globes are normal. The pituitary and sella turcica are not enlarged. Flow is present within major central intracranial arteries. MRI/Brain without Contrast IMPRESSION: 17 mm acute infarct just to the left of the midline within the omid anterior to the cerebral aqueduct. at 0413 Reported and signed by: Rudolph Galvan MD Electronically Signed: Rudolph Galvan MD at 4:12 EDT Tel , Service support ,
--- NOTE | 2020-06-22 16:49 | MRI_ITS ---
STUDY: MRA NECK WITH AND WITHOUT CONTRAST REASON FOR EXAM: Male, 79 years old. SLURRED SPEECH TECHNIQUE: 3-D shid-ae-krkhtp (TOF) imaging was performed in an 1.5 T MRI scanner. dotarem 20ml was administered for the contrast enhanced images. COMPARISON: None. FINDINGS: The exam is markedly limited by patient motion. RIGHT CAROTID ARTERIES: Normal right common carotid artery (CCA). There is moderate atherosclerotic plaque formation with moderate narrowing of the carotid bulb. There is mild atherosclerotic plaque formation of the origin of the right internal carotid artery with less than 50% cross sectional diameter stenosis. Normal visualized cervical portion of the right internal carotid artery. Normal origin of the right external carotid artery (ECA). LEFT CAROTID ARTERIES: Normal left common carotid artery (CCA). There is moderate atherosclerotic plaque formation with moderate narrowing of the carotid bulb. There is mild atherosclerotic plaque formation of the origin of the left internal carotid artery with less than 50% cross sectional diameter stenosis. Normal visualized cervical portion of the left internal carotid artery. Normal origin of the left external carotid artery (ECA). VERTEBRAL ARTERIES: There is antegrade flow within the bilateral vertebral arteries with a small left vertebral artery, and a dominant right vertebral artery. MRI/MRA Neck WITH and W/O Contrast IMPRESSION: Significantly limited by motion. No evidence for occlusion. No definite hemodynamically significant stenosis. Electronically Signed: Nile Rucker MD at 20:11 EDT , Service support ,
--- NOTE | 2020-06-22 16:51 | NURSING ---
Patient's son, Josh, stopped to speak with lithopone charger about his concerns regarding his father. He does not feel it is safe for his father to return home at this time and would like to pursue SNF placement if possible. [facility] patient fell at home last night requiring 4 adults to get him up. [facility] patient is incontinent of urine and living conditions are reflective of an inability to care for self in that regard. He would like to discuss discharge planning with SW and CM. Josh's phone number is . He also would like information about whether it is possible to discuss POA status at this point in time.
[2020-06-22] MEDS: cloNIDine HCl 0.1 MG Tablet PO (20:18)
[2020-06-22 22:01] LABS: Bedside Glucose 161 mg/dL (70-110)
[2020-06-22] MEDS: Atorvastatin Calcium 80 MG Tablet PO (22:07)
[2020-06-22] MEDS: 0.9% Saline Lock 10 ML Syringe IV (22:19)
[2020-06-23] VITALS (12 sets, daily range): BP systolic 134–178; BP diastolic 62–95; PULSE 37–63; RESP 12–20; TEMP 36.3–37.1; O2SAT 95–98; BMI 52.8
--- NOTE | 2020-06-23 04:45 | ECHOCS_ITS ---
Reason For Study: TIA/CVA Procedure This was a 2D Doppler, Color Flow transthoracic echocardiogram. The study was technically difficult. Contrast injection was performed. Bubble study attempted x2. Patients IV was in the left hand. Exam performed portable in patient room. Left Ventricle Normal LV size. The estimated ejection fraction is 65 %. Diastolic function is indeterminate. No regional wall motion abnormalities noted. Right Ventricle Normal RV size. Normal systolic function. Atria The left atrium is mildly enlarged. Normal right atrium. No doppler evidence for ASD. Mitral Valve There is no mitral valve stenosis. Trivial mitral valve insufficiency. Tricuspid Valve There is no tricuspid stenosis. No tricuspid valve insufficiency. Unable to estimate RV systolic pressure due to inadequate jet, pulmonary artery pressure probably normal. Aortic Valve Trisinus/trileaflet aortic valve. There is no aortic stenosis. Trivial aortic valve insufficiency. Pulmonic Valve There is no pulmonic valvular stenosis. Trivial pulmonic valve insufficiency. Great Vessels Normal aortic root. Pericardium/Pleural No pericardial effusion. Medication Diluted definity 6ml given slow IV push to enhance endocardial definition. Performed a rapid injection of agitated mix of 9 cc saline and 1cc air to assess for atrial septal defect. MMode/2D Measurements & Calculations LVIDd: 4.3 cm IVSd: 2.0 cm Ao root diam: 4.5 cm LVIDs: 2.9 cm LVPWd: 1.5 cm LA dimension: 4.6 cm FS: 32.9 % LAV(MOD-bp): 70.5 ml LA A4 area: 25.3 cm2 LAV(MOD-bp) Indexed: 30.1 ml/m2 LAV(MOD-sp2): 73.5 ml LAV(MOD-sp4): 68.7 ml Doppler Measurements & Calculations MV E max stoney: 86.4 cm/sec Lat Peak E' Stoney: 6.9 cm/sec Med Peak E' Stoney: 4.3 cm/sec E/E' lat: 12.5 E/E' med: 20.0 Ao V2 max: 122.6 cm/sec LV V1 max: 98.7 cm/sec PA V2 max: 90.5 cm/sec Ao max P.0 mmHg LV V1 max P.9 mmHg Interpretation Summary The estimated ejection fraction is 65 %. Diastolic function is indeterminate. Trivial mitral valve insufficiency. Trivial aortic valve insufficiency. Trivial pulmonic valve insufficiency. Ordering Physician: Jacob Hunt Referring Physician: Rachele Man Performed By: Juan Ramon Garsia RCS
[2020-06-23] MEDS: Insulin Lispro 100 UNIT/ML INSULN.PEN SC ×4 (06:44→21:05)
[2020-06-23 06:55] LABS: Bedside Glucose 168 mg/dL (70-110)
[2020-06-23 07:18] LABS: Anion Gap 8 (5-15); BUN 16 mg/dL (7-18); Calcium,Total 8.7 mg/dL (8.5-10.1); Chloride 107 mmol/L (98-107); Cholesterol 180 mg/dL (200); Creatinine, Serum 1.14 mg/dL (0.70-1.30); EST Glomerular Filtration Rate 66 mL/min (>60); Est Glom Filt Rate - Afr Amer 80 mL/min (>60); Estimated Creatinine Clearance 45.44 ml/min; Glucose 159 mg/dL (74-106); High Density Lipoprotein 38 mg/dL; Potassium 2.9 mmol/L (3.5-5.1); Sodium Level 143 mmol/L (136-145); Triglycerides 128 mg/dL; Very Low Density Lipoprotein 26 mg/dL (5-40)
[2020-06-23] MEDS: Isosorbide Mononitrate 30 MG Tablet PO ×2 (08:18)
[2020-06-23] MEDS: amLODIPine 10 MG Tablet PO (08:18)
--- NOTE | 2020-06-23 09:02 | TELEMED_ITS ---
[facility] has confirmed receipt of a request for visit. This document confirms receipt of the order initiating the consult. To find the results of the consultation, please view the patient's reports for the scanned Telemed Consult.
[2020-06-23] MEDS: Aspirin E.C. 81 MG Tablet PO (09:59)
[2020-06-23 11:30] LABS: Bedside Glucose 167 mg/dL (70-110)
[2020-06-23] MEDS: Acetaminophen 325 MG Tablet 650 MG PO ×2 (11:58→18:39)
[2020-06-23 12:10] LABS: Hemoglobin A1c 8.4 % (3.8-5.6)
--- NOTE | 2020-06-23 13:20 | PN_ITS ---
<Natalya Parra BULLET SLUG CASTING MACHINE OPERATOR - Last Filed: 06/23/20 13:37> Patient Problems: Active and Suspected Problems (Last Reviewed 08/18/19 @ 13:23 by Tona hatfield) CVA (cerebral vascular accident) (Acute) Subjective: Patient seen and examined. Continues to have significant slurred speech. Right upper extremity and right lower extremity significant weakness. Denies new neurologic symptoms or focal deficits. - Physical Exam Vitals/I&O's: Vital Signs Temp Pulse Resp BP Pulse Ox 97.4 F L 51 L 18 151/72 H 96 06/23/20 08:00 06/23/20 08:00 06/23/20 08:00 06/23/20 08:00 06/23/20 08:00 Oxygen Flow Rate (L/min) 2 Oxygen Delivery Method Nasal Cannula Weight: 307 lb 12.245 oz Body Mass Index (BMI) 52.8 Finger Stick Blood Glucose 176 Intake and Output for Last 24 Hours 06/21/20 06/22/20 06/23/20 23:59 23:59 23:59 Intake Total 200 / 200 100 / 100 Balance 200 / 200 100 / 100 General: Alert, Oriented x3, Cooperative HEENT: Atraumatic, PERRLA, EOMI, Normocephalic Lungs: Clear to auscultation, Normal air movement Cardiovascular: No murmurs, - - Atrial fibrillation, rate controlled. Abdomen: Bowel Sounds Present, Soft, Non Tender, Non-Distended, Obese Extremities: No clubbing, No cyanosis, Edema - Nonpitting bilateral lower extremities Skin: No rashes, No breakdown Musculoskeletal: No Tenderness to Palpation of Joints or Extremities Neurological: Cranial nerves II-XII grossly intact, - - Slurred speech, right upper extremity and right lower extremity severe weakness Psych/Mental Status: Normal Affect, Appropriate Laboratory Results 06/22/20 14:10: WBC 6.8, RBC 5.43, Hgb 16.1, Hct 48.5, MCV 89.3, MCH 29.7, MCHC 33.2, RDW Std Deviation 46.1 H, RDW Coeff of Jono 14.3, Plt Count 222, MPV 10.8, Immature Gran % (Auto) 0.900, Neut % (Auto) 64.4, Lymph % (Auto) 18.1 L, [place] % (Auto) 15.3 H, Eos % (Auto) 0.7, Baso % (Auto) 0.6, Absolute Neuts (auto) 4.4, Absolute Lymphs (auto) 1.23, Nucleated RBC % 0 06/22/20 14:10: PT 22.9 H, INR 2.1, APTT 36.0 06/22/20 14:10: Sodium 142, Potassium 3.2 L, Chloride 106, Carbon Dioxide 29.0, Anion Gap 7, BUN 15, Creatinine 1.43 H, Estim Creat Clear Calc 37.63, Est GFR (MDRD) Af Amer 62, Est GFR (MDRD) Non-Af 51 L, BUN/Creatinine Ratio 10.5, Glucose 161 H, Calcium 9.1, Troponin I < 0.015 06/22/20 14:38: Urine Color Yellow, Urine Clarity Clear, Urine pH 8.0, Ur Specific Arnold 1.015, Urine Protein 500 H, Urine Glucose (UA) Normal, Urine Ketones Negative, Urine Occult Blood 10 H, Urine Nitrite Negative, Urine Bilirubin Negative, Urine Urobilinogen Normal, Ur Leukocyte Esterase Negative, Urine RBC 0-5 SEEN, Urine WBC 0 SEEN, Ur Squamous Epith Cells 0-5 SEEN, Urine Bacteria 0 SEEN, Urine Mucus 0 SEEN 06/22/20 14:38: Urine Opiates Screen NEGATIVE, Urine Methadone Screen NEGATIVE, Ur Barbiturates Screen NEGATIVE, Ur Phencyclidine Scrn NEGATIVE, Ur Amphetamines Screen NEGATIVE, U Methamphetamin-MDMA NEGATIVE, U Benzodiazepines Scrn NEGATIVE, Urine Cocaine Screen NEGATIVE, U Cannabinoids Screen NEGATIVE, Ur Drug Screen Comment 06/22/20 21:43: POC Glucose 161 H 06/23/20 06:17: Sodium 143, Potassium 2.9 L, Chloride 107, Carbon Dioxide 28.0, Anion Gap 8, BUN 16, Creatinine 1.14, Estim Creat Clear Calc 45.44, Est GFR (MDRD) Af Amer 80, Est GFR (MDRD) Non-Af 66, BUN/Creatinine Ratio 14.0, Glucose 159 H, Calcium 8.7, Triglycerides 128, Cholesterol 180, LDL Cholesterol 116, VLDL Cholesterol 26, HDL Cholesterol 38 L 06/23/20 06:40: POC Glucose 168 H 06/23/20 11:21: POC Glucose 167 H 06/23/20 14:10: Hemoglobin A1c 8.4 H Current Medications Acetaminophen (Tylenol) 650 mg PO Q6H PRN PRN PRN Reason: Pain Score 1-10/Temp > 100.7 F Last Admin: 06/23/20 11:58 Dose: 650 mg Documented by: Amlodipine Besylate (Norvasc) 10 mg PO DAILY FOR[facility], [facility] Last Admin: 06/23/20 08:18 Dose: 10 mg Documented by: Aspirin (Ecotrin) 81 mg PO DAILY@0800 [facility], [facility]1983 Last Admin: 06/23/20 09:59 Dose: 81 mg Documented by: Atorvastatin Calcium (Lipitor) 80 mg PO QHS [facility], [facility]1983 Last Admin: 06/22/20 22:07 Dose: 80 mg Documented by: Hydralazine HCl (Apresoline Iv) 5 mg IV Q30M PRN PRN Reason: to maintain BP goals Insulin Human Lispro (Humalog Kwikpen (Bkc)) 0 unit SC [facility] FORMERLY [facility], [facility]1983; Protocol Last Admin: 06/23/20 11:24 Dose: 2 u Documented by: Isosorbide Mononitrate (Imdur) 30 mg PO DAILY [facility], [facility]1983 Last Admin: 06/23/20 08:18 Dose: 30 mg Documented by: Potassium Chloride (K-Dur) 20 meq PO TID [facility], [facility]1983 Last Admin: 06/23/20 05:43 Dose: 20 meq Documented by: Sodium Chloride () 10 - 40 ml IV UD PRN PRN Reason: SALINE FLUSH Last Admin: 06/22/20 22:19 Dose: 10 ml Documented by: Tolterodine Tartrate (Detrol La) 2 mg PO DAILY [facility], [facility]1983 Last Admin: 06/23/20 08:28 Dose: Not Given Documented by: Warfarin Sodium (Jantoven) 2.5 mg PO DAILY@1700 [facility], [facility]1983 Medical Necessity - Tobacco Use Smoking Status: Never smoker Tobacco Use: Non-smoker Assessment/Plan All Active Problems (Last Reviewed 08/18/19 @ 13:23 by Tona Obrien) Atrial fibrillation (Acute) CVA (cerebral vascular accident) (Acute) Pilar cyst (Acute) Sebaceous cyst (Acute) Skin lesion (Acute) 1. Acute CVA-MRI of brain with 17 mm acute infarct within the omid. Patient continues to have slurred speech and right-sided weakness. PT/OT/ST. Continue aspirin and high-dose statin. Neurology recommends transition from Coumadin to Eliquis. Will discuss with patient. MRA of neck unremarkable. Echocardiogram demonstrates an EF of 65%. Anticipate SNF versus rehab at discharge. 2. Cardiac pauses-less than 3 seconds on telemetry. Discussed with cardiology. Given asymptomatic, will obtain 30-day event monitor at discharge and outpatient follow-up with cardiology, Dr. Ragland. 3. Hypertensive emergency-reports noncompliance with home BP regimen. Blood pressure improved. Continue isosorbide, amlodipine. Received clonidine in ER. 4. Type 2 diabetes bcgsbite-[id number]-Oadlb with sliding scale insulin. Continue home insulin regimen. Hemoglobin A1c 8.4%. 5. Paroxysmal atrial fibrillation-INR 2.1 on admission. Rate controlled. On Coumadin. Neurology recommends transition to Eliquis given acute CVA. 6. Hypokalemia-replace per protocol. Trend BMP. DVT prophylaxis-Coumadin with plans to transition to Eliquis This patient was seen by RAJAN Jackson under the supervision of Dr. Turner. <Nicholas Turner - Last Filed: 06/23/20 15:28> Subjective: Seen and examined. Patient has right-sided weakness upper and lower extremity. Has significant slurred speech. Patient has his friend, pastor Gregory near the bedside. He noticed significant change in his speech. Heart rate and blood pressure are controlled. Objective: Physical exam General: Alert, Oriented x3, Cooperative, morbid obesity body habitus HEENT: Atraumatic, PERRLA, EOMI, Normocephalic Oral: No Gingival or Mucosal Lesions/ Ulcerations Neck: Supple, No JVD, Negative Carotid Bruits Lungs: Air entry diminished in bilateral lung bases. No crepitation/rhonchi Cardiovascular: A. fib with PVCs. Patient had sinus pause 2.02 seconds and 2.07 seconds 2 times last night, Normal S1, Normal S2, systolic murmur over left lower sternal border and early diastolic murmur over aortic area Abdomen: Bowel Sounds Present, Soft, Non Tender, Non-Distended : No renal angle tenderness. No suprapubic tenderness. Extremities: No edema, Capillary Refill Less than 3 Seconds Skin: No rashes, No breakdown Musculoskeletal: No Tenderness to Palpation of Joints or Extremities. Patient also has significant arthritis of hip and knee joints and possible some baseline chronic weakness Neurological: Right-sided facial droop. Significant aphasia mainly motor aphasia. Right-sided upper and lower extremity weakness. Psych/Mental Status: Normal Affect, Appropriate. - Physical Exam Vitals/I&O's: Vital Signs Temp Pulse Resp BP Pulse Ox 98.4 F 62 18 134/62 H 96 06/23/20 12:00 06/23/20 12:00 06/23/20 12:00 06/23/20 12:00 06/23/20 12:00 Oxygen Flow Rate (L/min) 2 Oxygen Delivery Method Nasal Cannula Weight: 307 lb 12.245 oz Body Mass Index (BMI) 52.8 Finger Stick Blood Glucose 176 Intake and Output for Last 24 Hours 06/21/20 06/22/20 06/23/20 23:59 23:59 23:59 Intake Total 200 / 200 520 / 520 Balance 200 / 200 520 / 520 Laboratory Results 06/22/20 14:10: PT 22.9 H, INR 2.1, APTT 36.0 06/22/20 14:38: Urine Opiates Screen NEGATIVE, Urine Methadone Screen NEGATIVE, Ur Barbiturates Screen NEGATIVE, Ur Phencyclidine Scrn NEGATIVE, Ur Amphetamines Screen NEGATIVE, U Methamphetamin-MDMA NEGATIVE, U Benzodiazepines Scrn NEGATIVE, Urine Cocaine Screen NEGATIVE, U Cannabinoids Screen NEGATIVE, Ur Drug Screen Comment 06/22/20 21:43: POC Glucose 161 H 06/23/20 06:17: Sodium 143, Potassium 2.9 L, Chloride 107, Carbon Dioxide 28.0, Anion Gap 8, BUN 16, Creatinine 1.14, Estim Creat Clear Calc 45.44, Est GFR (MDRD) Af Amer 80, Est GFR (MDRD) Non-Af 66, BUN/Creatinine Ratio 14.0, Glucose 159 H, Calcium 8.7, Triglycerides 128, Cholesterol 180, LDL Cholesterol 116, VLDL Cholesterol 26, HDL Cholesterol 38 L 06/23/20 06:40: POC Glucose 168 H 06/23/20 11:21: POC Glucose 167 H 06/23/20 14:10: Hemoglobin A1c 8.4 H Current Medications Acetaminophen (Tylenol) 650 mg PO Q6H PRN PRN PRN Reason: Pain Score 1-10/Temp > 100.7 F Last Admin: 06/23/20 11:58 Dose: 650 mg Documented by: Amlodipine Besylate (Norvasc) 10 mg PO DAILY [facility], [facility] Last Admin: 06/23/20 08:18 Dose: 10 mg Documented by: Apixaban (Eliquis) 5 mg PO BID [facility], [facility]1983 Aspirin (Ecotrin) 81 mg PO DAILY@0800 [facility], [facility] Last Admin: 06/23/20 09:59 Dose: 81 mg Documented by: Atorvastatin Calcium (Lipitor) 80 mg PO QHS [facility]1983 Last Admin: 06/22/20 22:07 Dose: 80 mg Documented by: Hydralazine HCl (Apresoline Iv) 5 mg IV Q30M PRN PRN Reason: to maintain BP goals Insulin Human Lispro (Humalog Kwikpen (Bkc)) 0 unit SC [facility], [facility]1983; Protocol Last Admin: 06/23/20 11:24 Dose: 2 u Documented by: Isosorbide Mononitrate (Imdur) 30 mg PO DAILY [facility] Last Admin: 06/23/20 08:18 Dose: 30 mg Documented by: Potassium Chloride (K-Dur) 20 meq PO TID [facility] Last Admin: 06/23/20 15:20 Dose: 20 meq Documented by: Sodium Chloride () 10 - 40 ml IV UD PRN PRN Reason: SALINE FLUSH Last Admin: 06/22/20 22:19 Dose: 10 ml Documented by: Tolterodine Tartrate (Detrol La) 2 mg PO DAILY [facility]1983 Last Admin: 06/23/20 08:28 Dose: Not Given Documented by: Assessment/Plan This patient was seen in conjunction with BULLET SLUG CASTING MACHINE OPERATORNatalya. I have independently interviewed and examined the patient and reviewed pertinent history, examination findings, laboratory and plan of management. I have reviewed the note and agree with the documented findings with the few additional points. In brief, patient is 79-year-old gentleman with history of paroxysmal A. fib on Coumadin at home was admitted with right-sided weakness along with slurred speech consistent with acute ischemic infarct. MRI brain shows 17 mm acute infarct left of the midline in omid. 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 Neck MRA no hemodynamically significant stenosis. 2D echo negative for Doppler evidence for ASD. Left atrium mildly enlarged. EF 65%. And on a stroke protocol with PT, OT and speech and swallow evaluation. BP and glucose as per stroke protocol. Fasting profile TG 128, total cholesterol 180, LDL 116. A1c 8.4. Patient also has A. fib with PVCs and sinus pauses about 2.02 seconds on director cardiac. Discussed with the rehabilitation assistant Dr. Ragland and advised 30-day event monitor. Rest of the comorbidities as mentioned above including type 2 diabetes mellitus and hypertensive emergency. Hypokalemia: Potassium replaced. I have discussed my assessment with BULLET SLUG CASTING MACHINE OPERATORNatalya and orders have been reviewed. Total time of the visit including total time spent in counseling or coordination of care, (more than 50% of the total time, spent in obtaining medical i nformation from nurses and other ancillary care providers), discussion with search consultant, review of labs and imaging is 30 minutes. Clinical Impression(s) from Imaging Studies Brain CT 06/22/20 14:14 IMPRESSION: Chronic involutional changes of the brain. No acute abnormalities. Chest X-Ray 06/22/20 14:14 IMPRESSION: No active disease. 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 Correlation with CT would be useful. Electronically Signed: Rodolfo Levy MD at 15:31 EDT Tel , Service support , Brain MRI 06/22/20 16:49 IMPRESSION: 17 mm acute infarct just to the left of the midline within the omid anterior to the cerebral aqueduct. 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 Neck MRA 06/22/20 16:49 IMPRESSION: Significantly limited by motion. No evidence for occlusion. No definite hemodynamically significant stenosis. Inpatient E&M: [id number] [facility] L[facility]
--- NOTE | 2020-06-23 13:28 | CASEMGMT ---
Addendum entered by Denia Bennett 06/23/20 13:36: Patient was sleeping during conversation. SW attempted to wake patient, but he was sound asleep. SW will check back with patient. Denia LYLE Original Note: SW spoke with patient's son, Josh when he arrived. Introduced self and role at [facility]. He expressed his concern with patient going home. SW explained to him that we will have to wait on therapy to see him as that is what will help us decide the best discharge plan for him. SW told him about [facility] 4th floor Rehab Unit and he was very interested in patient going there. SW told him that patient will have to be able to tolerate 3 hours of therapy spread throughout the day and be in agreement with going there. SW told him if therapy does not feel he will be able to do three hours he would have to go go a fdc. EMANUEL told him SW has a list of all of the facilities that are in network with his insurance. He also asked about doing Healthcare POA papers. EMANUEL told him as long as patient is alert and oriented and willing to complete them SW can complete them with patient. He asked that SW call him after therapy sees patient. SW told him SW will definitely do this. EMANUEL also gave him EMANUEL's card per his request. Await PT/OT evaluations. Denia LYLE
--- NOTE | 2020-06-23 15:11 | CASEMGMT ---
Patient's son, Josh returned while therapy was working with patient. He told SW they would recommend TCU and not Inpatient Rehab as he would not be able to tolerate the 3 hours. Josh would like patient to go to TCU. SW told him SW will check to see if they have beds available. SW will let him know. SW attempted to talk with patient. However, he is very drowsy and cannot stay awake long enough to talk. He is very hard to understand as well due to his speech being garbled from Stroke. SW will attempt to talk with patient again once he clears up and wakes up. SW will discuss d/c plan of TCU and Healthcare POA. Plan: d/c to [facility] TCU pending insurance approval. Denia LEMON MSW
[2020-06-23 19:05] LABS: Bedside Glucose 199 mg/dL (70-110)
[2020-06-23] MEDS: APIXABAN 5 MG TABLET PO (21:03)
[2020-06-23] MEDS: Atorvastatin Calcium 80 MG Tablet PO (21:03)
[2020-06-23 21:45] LABS: Bedside Glucose 192 mg/dL (70-110)
[2020-06-24] VITALS (12 sets, daily range): BP systolic 128–159; BP diastolic 74–95; PULSE 57–76; RESP 12–18; TEMP 36.3–36.6; O2SAT 94–98; BMI 52.8
[2020-06-24] MEDS: Insulin Lispro 100 UNIT/ML INSULN.PEN SC ×3 (06:25→17:31)
[2020-06-24 06:39] LABS: Anion Gap 7 (5-15); BUN 33 mg/dL (7-18); BUN/Creat Ratio 18.1 RATIO (10-20); Calcium,Total 8.7 mg/dL (8.5-10.1); Chloride 104 mmol/L (98-107); Creatinine, Serum 1.82 mg/dL (0.70-1.30); EST Glomerular Filtration Rate 39 mL/min (>60); Est Glom Filt Rate - Afr Amer 47 mL/min (>60); Estimated Creatinine Clearance 28.46 ml/min; Glucose 178 mg/dL (74-106); Potassium 3.4 mmol/L (3.5-5.1); Sodium Level 137 mmol/L (136-145)
[2020-06-24 06:55] LABS: Bedside Glucose 184 mg/dL (70-110)
[2020-06-24 08:01] LABS: Magnesium 2.1 mg/dL (1.6-2.6); Phosphorus 4.5 mg/dL (2.5-4.9)
[2020-06-24] MEDS: amLODIPine 10 MG Tablet PO (08:10)
[2020-06-24] MEDS: Isosorbide Mononitrate 30 MG Tablet PO (08:10)
[2020-06-24] MEDS: Aspirin E.C. 81 MG Tablet PO (08:10)
[2020-06-24] MEDS: APIXABAN 5 MG TABLET PO (08:10)
[2020-06-24] MEDS: 0.9% Normal Saline 1,000 ML 100 ML IV (10:32)
--- NOTE | 2020-06-24 11:23 | TREXTCA.CO_ITS ---
- Diet 06/22/20 22:30 Diet: Cardiac: Calorie-Controlled Food consistency:: Mechanical (Minced/Moist) Liquid Consistency:: Regular/Thin Is pt able to select menu?: Yes Diet Comments: supervised, one bite at a time How many daily calories?: 1999 calorie - Routine Orders/Code Status Enema Type: Fleetz Enema Frequency: Daily PRN Suppository Type: Dulcolax 10mg Suppository Frequency: Daily PRN O2 Liters per Minute: 2 O2 Frequency: Continuous Keep PO Greater than or Equal to (%): 90 Routine Lab Work: - - BMP daily for 3 days to follow kidney function and potassium. Then BMP and CBC weekly. - Suggestions for Active Care Change Position every (hours): 2 Times a day to sit in chair: 3 - Therapies Physical Therapy: Eval and Treat Occupational Therapy: Eval and Treat Speech Therapy: Eval and Treat - Problem/Diagnosis (1) Obesity Status: Chronic Current Visit: No (2) Atrial fibrillation Status: Chronic Current Visit: No (3) Non compliance w medication regimen Status: Chronic Current Visit: No (4) CVA (cerebral vascular accident) Status: Acute Current Visit: Yes (5) Diabetes mellitus Status: Chronic Current Visit: No (6) Hypertension Status: Chronic Current Visit: No (7) Pilar cyst Status: Resolved Current Visit: No (8) Sebaceous cyst Status: Resolved Current Visit: No (9) Skin lesion Status: Resolved Current Visit: No - Allergies/Procedures Done in Hospital Allergies/Adverse Reactions: Allergies Beta-Blockers (Beta-Adrenergic Bloc Allergy (Verified 06/22/20 14:13) Other aspirin Adverse Reaction (Verified 06/22/20 14:13) Upset Stomach Procedures: 2-D Echocardiogram - Type of Care/Length of Stay Estimated LOS: Convalescent Care Less Than 30 days Type of Care Needed: Skilled Rehab Potential: Fair Prognosis: Fair - Additional Orders/Day of Discharge H&P will serve as current which was dated: 06/22/20 Day of Discharge: 06/24/20 - Dietary and Speech Recommendations Dietitian Recommendations/Changes: Will increase calories to 2000 calorie controlled, cardiac diet. Speech Linguistic Eval Summary: Pt able to recall 2/3 words with >5 minute delay. Pt oriented to name, , location (albeit slowed response), and current date after identifying date was written on dry erase board in room. Pt noted to have slurred, slowed speech which pt was able to identify as being different. Pt required mod-max cues with directions and was often slow to respond or found to have difficulty staying on topic/task. Pt able to maintain conversation with mild word finding deficits apparent. Will plan to complete further cognitive- linguistic assessment in upcoming ST sessions. - Follow Up Care Primary Care Physician: Liana Lou MD [STAFF PHYSICIAN] - Please follow up with your Primary Care Physician in: 1 Week Please Follow Up With: Pelon Hernandez MD - Neuro When: 2 Weeks Please Follow Up With: Marielena Ragland MD When: 4 weeks, following event recorder completion
[2020-06-24 11:30] LABS: Bedside Glucose 259 mg/dL (70-110)
--- NOTE | 2020-06-24 11:35 | PN_ITS ---
<Natalya Parra HEMMER CHAINSTITCH - Last Filed: 06/24/20 11:37> Subjective: Patient seen and examined. Continues to have right-sided weakness and slurred speech. No new neurologic symptoms or focal deficits. Plan for TCU pending acceptance. - Physical Exam Vitals/I&O's: Vital Signs Temp Pulse Resp BP Pulse Ox 97.4 F L 74 17 137/74 H 97 06/24/20 08:26 06/24/20 09:00 06/24/20 08:26 06/24/20 08:26 06/24/20 07:56 Oxygen Flow Rate (L/min) 2 Oxygen Delivery Method Nasal Cannula Weight: 307 lb 12.245 oz Body Mass Index (BMI) 52.8 Finger Stick Blood Glucose 176 Intake and Output for Last 24 Hours 06/22/20 06/23/20 06/24/20 23:59 23:59 23:59 Intake Total 200 / 200 1600 / 1600 150 / 150 Balance 200 / 200 1600 / 1600 150 / 150 General: Alert, Oriented x3, Cooperative HEENT: Atraumatic, PERRLA, EOMI, Normocephalic Neck: Supple, No JVD, Negative Carotid Bruits Lungs: Clear to auscultation, Normal air movement Cardiovascular: - - Atrial fibrillation, rate controlled Abdomen: Bowel Sounds Present, Soft, Non Tender, Non-Distended, Obese Extremities: No clubbing, No cyanosis, Capillary Refill Less than 3 Seconds, Edema - Nonpitting bilateral lower extremities Skin: No rashes, No breakdown Musculoskeletal: No Tenderness to Palpation of Joints or Extremities Neurological: Cranial nerves II-XII grossly intact, - - Slurred speech, right upper extremity and right lower extremity severe weakness Psych/Mental Status: Normal Affect, Appropriate Laboratory Results 06/23/20 14:10: Hemoglobin A1c 8.4 H 06/23/20 16:27: POC Glucose 199 H 06/23/20 21:05: POC Glucose 192 H 06/24/20 05:34: Sodium 137, Potassium 3.4 L, Chloride 104, Carbon Dioxide 26.0, Anion Gap 7, BUN 33 H, Creatinine 1.82 H, Estim Creat Clear Calc 28.46, Est GFR (MDRD) Af Amer 47 L, Est GFR (MDRD) Non-Af 39 L, BUN/Creatinine Ratio 18.1, Glucose 178 H, Calcium 8.7 06/24/20 05:34: Phosphorus 4.5, Magnesium 2.1 06/24/20 06:25: POC Glucose 184 H 06/24/20 11:24: POC Glucose 259 H Current Medications Acetaminophen (Tylenol) 650 mg PO Q6H PRN PRN PRN Reason: Pain Score 1-10/Temp > 100.7 F Last Admin: 06/23/20 18:39 Dose: 650 mg Documented by: Amlodipine Besylate (Norvasc) 10 mg PO DAILY [facility] Last Admin: 06/24/20 08:10 Dose: 10 mg Documented by: Apixaban (Eliquis) 5 mg PO BID [facility] Last Admin: 06/24/20 08:10 Dose: 5 mg Documented by: Aspirin (Ecotrin) 81 mg PO DAILY@0800 [facility] Last Admin: 06/24/20 08:10 Dose: 81 mg Documented by: Atorvastatin Calcium (Lipitor) 40 mg PO QHS [facility] Famotidine (Pepcid) 20 mg PO DAILY [facility] Hydralazine HCl (Apresoline Iv) 5 mg IV Q30M PRN PRN Reason: to maintain BP goals Sodium Chloride () 1,000 mls @ 100 mls/hr IV .Q10H [facility] Last Admin: 06/24/20 10:32 Dose: 100 mls/hr Documented by: Insulin Human Lispro (Humalog Kwikpen (Bkc)) 0 unit SC ACHS [facility]; Protocol Last Admin: 06/24/20 11:26 Dose: 4 u Documented by: Isosorbide Mononitrate (Imdur) 30 mg PO DAILY [facility] Last Admin: 06/24/20 08:10 Dose: 30 mg Documented by: Potassium Chloride (K-Dur) 40 meq PO BIDCM [facility] Last Admin: 06/24/20 08:10 Dose: 40 meq Documented by: Sodium Chloride () 10 - 40 ml IV UD PRN PRN Reason: SALINE FLUSH Last Admin: 06/22/20 22:19 Dose: 10 ml Documented by: Tolterodine Tartrate (Detrol La) 2 mg PO DAILY [facility] Last Admin: 06/24/20 08:23 Dose: Not Given Documented by: Medical Necessity - Tobacco Use Smoking Status: Never smoker Tobacco Use: Non-smoker Assessment/Plan All Active Problems (Last Reviewed 08/18/19 @ 13:23 by Tona Obrien) CVA (cerebral vascular accident) (Acute) Pilar cyst (Resolved) Sebaceous cyst (Resolved) Skin lesion (Resolved) 1. Acute CVA-MRI of brain with 17 mm acute infarct within the omid. Patient continues to have slurred speech and right-sided weakness. PT/OT/ST. Continue aspirin and high-dose statin. Neurology recommends transition from Coumadin to Eliquis. Patient agreeable. MRA of neck unremarkable. Echocardiogram demonstrates an EF of 65%. TCU, awaiting acceptance. 2. Cardiac pauses-less than 3 seconds on telemetry. Discussed with cardiology. Given asymptomatic, will obtain 30-day event monitor at discharge and outpatient follow-up with cardiology, Dr. Ragland. 3. Hypertensive emergency-reports noncompliance with home BP regimen. Blood pressure improved. Continue isosorbide, amlodipine. Received clonidine in ER. 4. Type 2 diabetes [id number] with sliding scale insulin. Continue home insulin regimen. Hemoglobin A1c 8.4%. 5. Paroxysmal atrial fibrillation- Neurology recommends transition to Eliquis given acute CVA. 6. Hypokalemia-replace per protocol. Trend BMP. DVT prophylaxis-Coumadin with plans to transition to Eliquis This patient was seen by RAJAN Jackson under the supervision of Dr. Turner. <Nicholas Turner - Last Filed: 06/24/20 16:17> Subjective: Seen and examined. Stroke work-up is completed. Needs subacute rehab. Blood pressure and glucose are controlled. Objective: Pain permissive hypertensive range. Heart rate is controlled Physical exam General: Alert, Oriented x3, Cooperative, morbid obesity body habitus HEENT: Atraumatic, PERRLA, EOMI, Normocephalic Oral: No Gingival or Mucosal Lesions/ Ulcerations Neck: Supple, No JVD, Negative Carotid Bruits Lungs: Air entry diminished in bilateral lung bases. No crepitation/rhonchi Cardiovascular: A. fib with PVCs. Intermittent sinus pause. Normal S1, Normal S2, systolic murmur over over cardiac apex. Early diastolic murmur over aortic area Abdomen: Bowel Sounds Present, Soft, Non Tender, Non-Distended : No renal angle tenderness. No suprapubic tenderness. Extremities: No edema, Capillary Refill Less than 3 Seconds Skin: No rashes, No breakdown Musculoskeletal: No Tenderness to Palpation of Joints or Extremities. Patient also has significant arthritis of hip and knee joints and possible some baseline chronic weakness Neurological: Right-sided facial droop. Significant aphasia mainly motor aphasia. Right-sided upper and lower extremity weakness. Psych/Mental Status: Normal Affect, Appropriate. - Physical Exam Vitals/I&O's: Vital Signs Temp Pulse Resp BP Pulse Ox 97.9 F 69 16 159/95 H 94 06/24/20 15:16 06/24/20 15:16 06/24/20 15:16 06/24/20 15:16 06/24/20 15:16 Oxygen Flow Rate (L/min) 2 Oxygen Delivery Method Nasal Cannula Weight: 307 lb 12.245 oz Body Mass Index (BMI) 52.8 Finger Stick Blood Glucose 176 Intake and Output for Last 24 Hours 06/22/20 06/23/20 06/24/20 23:59 23:59 23:59 Intake Total 200 / 200 1600 / 1600 870 / 870 Balance 200 / 200 1600 / 1600 870 / 870 Laboratory Results 06/23/20 16:27: POC Glucose 199 H 06/23/20 21:05: POC Glucose 192 H 06/24/20 05:34: Sodium 137, Potassium 3.4 L, Chloride 104, Carbon Dioxide 26.0, Anion Gap 7, BUN 33 H, Creatinine 1.82 H, Estim Creat Clear Calc 28.46, Est GFR (MDRD) Af Amer 47 L, Est GFR (MDRD) Non-Af 39 L, BUN/Creatinine Ratio 18.1, Glucose 178 H, Calcium 8.7 06/24/20 05:34: Phosphorus 4.5, Magnesium 2.1 06/24/20 06:25: POC Glucose 184 H 06/24/20 10:19: COVID-19 ([facility]) Pending 06/24/20 11:24: POC Glucose 259 H Current Medications Acetaminophen (Tylenol) 650 mg PO Q6H PRN PRN PRN Reason: Pain Score 1-10/Temp > 100.7 F Last Admin: 06/23/20 18:39 Dose: 650 mg Documented by: Amlodipine Besylate (Norvasc) 10 mg PO DAILY [facility] Last Admin: 06/24/20 08:10 Dose: 10 mg Documented by: Apixaban (Eliquis) 5 mg PO BID [facility] Last Admin: 06/24/20 08:10 Dose: 5 mg Documented by: Aspirin (Ecotrin) 81 mg PO DAILY@0800 [facility] Last Admin: 06/24/20 08:10 Dose: 81 mg Documented by: Atorvastatin Calcium (Lipitor) 40 mg PO QHS [facility] Famotidine (Pepcid) 20 mg PO DAILY [facility] Hydralazine HCl (Apresoline Iv) 5 mg IV Q30M PRN PRN Reason: to maintain BP goals Sodium Chloride () 1,000 mls @ 100 mls/hr IV .Q10H [facility] Last Admin: 06/24/20 10:32 Dose: 100 mls/hr Documented by: Insulin Human Lispro (Humalog Kwikpen (Bkc)) 0 unit SC ACHS [facility]; Protocol Last Admin: 06/24/20 11:26 Dose: 4 u Documented by: Isosorbide Mononitrate (Imdur) 30 mg PO DAILY [facility] Last Admin: 06/24/20 08:10 Dose: 30 mg Documented by: Potassium Chloride (K-Dur) 40 meq PO BIDCM [facility] Last Admin: 06/24/20 08:10 Dose: 40 meq Documented by: Sodium Chloride () 10 - 40 ml IV UD PRN PRN Reason: SALINE FLUSH Last Admin: 06/22/20 22:19 Dose: 10 ml Documented by: Tolterodine Tartrate (Detrol La) 2 mg PO DAILY [facility] Last Admin: 06/24/20 08:23 Dose: Not Given Documented by: Assessment/Plan This patient was seen in conjunction with HEMMER CHAINSTITCHNatalya. I have independently i nterviewed and examined the patient and reviewed pertinent history, examination findings, laboratory and plan of management. I have reviewed the note and agree with the documented findings with the few additional points. In brief, patient is 79-year-old gentleman with history of paroxysmal A. fib on Coumadin at home was admitted with right-sided weakness along with slurred speech consistent with acute ischemic infarct. MRI brain shows 17 mm acute infarct left of the midline in omid. 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 Neck MRA no hemodynamically significant stenosis. 2D echo negative for Doppler evidence for ASD. Left atrium mildly enlarged. EF 65%. And on a stroke protocol with PT, OT and speech and swallow evaluation. BP and glucose as per stroke protocol. Fasting profile TG 128, total cholesterol 180, LDL 116. A1c 8.4. Patient also has A. fib with PVCs and sinus pauses about 2.02 seconds on wood heel flap rubber. Discussed with the hash slinger Dr. Ragland and advised 30-day event monitor. Rest of the comorbidities as mentioned above including type 2 diabetes mellitus and hypertensive emergency. Hypokalemia: Potassium replaced. Pre-CERT applied for TCU. I have discussed my assessment with HEMMER CHAINSTITCHNatalya and orders have been reviewed. Total time of the visit including total time spent in counseling or coordination of care, (more than 50% of the total time, spent in obtaining medical information from nurses and other ancillary care providers), discussion with product marketing consultant, review of labs and imaging is 30 minutes. Inpatient E&M: 45525 Subs Hosp L2
--- NOTE | 2020-06-24 13:28 | NURSING ---
Read and reviewed SN documentation
--- NOTE | 2020-06-24 16:57 | CASEMGMT ---
Social Work Phone call from Ayaka in TCU and insurance preauth has been obtained. Social Work met with pt and introduced self and role. Pt is aware that the plan is to go to TCU at time of d/c. EMANUEL informed pt that per physician, pt is ready today. Pt is agreeable. SW completed PHQ9 assessment due to Stroke. Pt score of 2 not indicating depression at this time. SW talked with pt about advance directives. Pt stating he is aware he should do this but he is very tired today. EMANUEL inquired if he would like U SW to follow up in a few days and pt is agreeable. EMANUEL spoke with pt son and updated him that pt can transfer to TCU today. Son is agreeable. Orders faxed to U. JAVON Garcia
[2020-06-24] MEDS: Acetaminophen 325 MG Tablet 650 MG PO (17:30)
--- NOTE | 2020-06-24 18:29 | DS.PCM_ITS ---
<Natalya Parra TRUCKING CONTRACTOR - Last Filed: 06/24/20 14:17> Discharge Date and Diagnosis Date of Admission: 06/22/20 Date of Discharge: 06/24/20 - Primary Discharge Diagnosis Acute Problems: Active Problems (Last Reviewed 08/18/19 @ 13:23 by Tona Obrien) 1. Acute CVA 2. Sinus pauses 3. Hypertensive emergency 4. Type 2 diabetes mellitus 5. Paroxysmal atrial fibrillation 6. Hypokalemia 7. Morbid obesity - Secondary Discharge Diagnosis Chronic Problems: Chronic Problems (Last Reviewed 08/18/19 @ 13:23 by Tona Obrien) Obesity (Chronic) Atrial fibrillation (Chronic) Non compliance w medication regimen (Chronic) Diabetes mellitus (Chronic) Hypertension (Chronic) Hospital Course and Treatment Imaging Results: Diagnostic Data Brain CT 06/22/20 14:14 IMPRESSION: Chronic involutional changes of the brain. No acute abnormalities. Electronically Signed: Nile Rucker MD at 15:20 EDT , Service support , Chest X-Ray 06/22/20 14:14 IMPRESSION: No active disease. 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 Correlation with CT would be useful. Electronically Signed: Rodolfo Levy MD at 15:31 EDT Tel , Service support , Brain MRI 06/22/20 16:49 IMPRESSION: 17 mm acute infarct just to the left of the midline within the omid anterior to the cerebral aqueduct. at 0413 Reported and signed by: Rudolph Galvan MD Electronically Signed: Rudolph Galvan MD at 4:12 EDT Tel , Service support , ADDENDUM: 06/23/20 0428 IMPRESSION: 17 mm acute infarct just to the left of the midline within the omid anterior to the cerebral aqueduct. at 8390 Reported and signed by: Rudolph Galvan MD N.B. : The above information has been verbally conveyed by Rudolph Galvan MD to Carson Knowles RN, on 06/23/2020 04:21:05 (ET). 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 at 7963 Reported and signed by: Rudolph Galvan MD Electronically Signed: Rudolph Galvan MD at 4:14 EDT Tel , Service support , Neck MRA 06/22/20 16:49 IMPRESSION: Significantly limited by motion. No evidence for occlusion. No definite hemodynamically significant stenosis. Electronically Signed: Nile Rucker MD at 20:11 EDT , Service support , SOC neurology Operations: None Procedures: 2-D Echocardiogram Summary of Care Provided: The patient is a 79 year old M admitted 06/22/2020 due to slurred speech. 1. Acute CVA-MRI of brain with 17 mm acute infarct within the omid. Patient continues to have slurred speech and right-sided weakness. PT/OT/ST. Continue aspirin and high-dose statin. Neurology recommends transition from Coumadin to Eliquis. Patient agreeable. MRA of neck unremarkable. Echocardiogram demonstrates an EF of 65%. SNF at discharge for rehab. Eliquis will need to be checked through insurance prior to discharge from TCU as patient is concerned for cost. Follow-up with neurology in 2 weeks. 2. Cardiac pauses-less than 3 seconds on telemetry. Discussed with cardiology. Given asymptomatic, will obtain 30-day event monitor at discharge and outpatient follow-up with cardiology, Dr. Ragland. Follow-up with cardiology in 4 weeks. 3. Hypertensive emergency-reports noncompliance with home BP regimen. Blood pressure improved. Continue isosorbide, amlodipine. Received clonidine in ER. 4. Type 2 diabetes mellitus-Continue home insulin regimen. Hemoglobin A1c 8.4%. 5. Paroxysmal atrial fibrillation-transition to Eliquis given acute CVA. 6. Hypokalemia-replaced per protocol. Trend BMP. 7. Morbid obesity-encouraged diet and lifestyle modification. General: Alert, Oriented x3, Cooperative HEENT: Atraumatic, PERRLA, EOMI, Normocephalic Lungs: Clear to auscultation, Normal air movement Cardiovascular: No murmurs, - - Atrial fibrillation, rate controlled. Abdomen: Bowel Sounds Present, Soft, Non Tender, Non-Distended, Obese Extremities: No clubbing, No cyanosis, Edema - Nonpitting bilateral lower extremities Skin: No rashes, No breakdown Musculoskeletal: No Tenderness to Palpation of Joints or Extremities Neurological: Cranial nerves II-XII grossly intact, - - Slurred speech, right upper extremity and right lower extremity severe weakness Psych/Mental Status: Normal Affect, Appropriate Patient seen and examined prior to discharge. Physical assessment as noted above. Patient is stable for discharge with follow up recommendations as noted above. This patient was seen by RAJAN Jackson under the supervision of Dr. Turner. - Physical Exam Vitals/I&O's: Vital Signs Temp Pulse Resp BP Pulse Ox 97.4 F L 74 17 137/74 H 97 06/24/20 08:26 06/24/20 09:00 06/24/20 08:26 06/24/20 08:26 06/24/20 07:56 Oxygen Flow Rate (L/min) 2 Oxygen Delivery Method Nasal Cannula Weight: 307 lb 12.245 oz Body Mass Index (BMI) 52.8 Finger Stick Blood Glucose 176 Intake and Output for Last 24 Hours 06/22/20 06/23/20 06/24/20 23:59 23:59 23:59 Intake Total 200 / 200 1600 / 1600 150 / 150 Balance 200 / 200 1600 / 1600 150 / 150 Laboratory Results 06/23/20 11:21: POC Glucose 167 H 10/08/20 14:10: Hemoglobin A1c 8.4 H 06/23/20 16:27: POC Glucose 199 H 06/23/20 21:05: POC Glucose 192 H 06/24/20 05:34: Sodium 137, Potassium 3.4 L, Chloride 104, Carbon Dioxide 26.0, Anion Gap 7, BUN 33 H, Creatinine 1.82 H, Estim Creat Clear Calc 28.46, Est GFR (MDRD) Af Amer 47 L, Est GFR (MDRD) Non-Af 39 L, BUN/Creatinine Ratio 18.1, Glucose 178 H, Calcium 8.7 06/24/20 05:34: Phosphorus 4.5, Magnesium 2.1 06/24/20 06:25: POC Glucose 184 H Current Medications Acetaminophen (Tylenol) 650 mg PO Q6H PRN PRN PRN Reason: Pain Score 1-10/Temp > 100.7 F Last Admin: 06/23/20 18:39 Dose: 650 mg Documented by: Amlodipine Besylate (Norvasc) 10 mg PO DAILY [facility] Last Admin: 06/24/20 08:10 Dose: 10 mg Documented by: Apixaban (Eliquis) 5 mg PO BID [facility] Last Admin: 06/24/20 08:10 Dose: 5 mg Documented by: Aspirin (Ecotrin) 81 mg PO DAILY@0800 [facility] Last Admin: 06/24/20 08:10 Dose: 81 mg Documented by: Atorvastatin Calcium (Lipitor) 40 mg PO QHS [facility] Famotidine (Pepcid) 20 mg PO DAILY [facility] Hydralazine HCl (Apresoline Iv) 5 mg IV Q30M PRN PRN Reason: to maintain BP goals Sodium Chloride () 1,000 mls @ 100 mls/hr IV .Q10H [facility] Last Admin: 06/24/20 10:32 Dose: 100 mls/hr Documented by: Insulin Human Lispro (Humalog Kwikpen (Bkc)) 0 unit SC ACHS [facility]; Protocol Last Admin: 06/24/20 11:26 Dose: 4 u Documented by: Isosorbide Mononitrate (Imdur) 30 mg PO DAILY [facility] Last Admin: 06/24/20 08:10 Dose: 30 mg Documented by: Potassium Chloride (K-Dur) 40 meq PO BIDCM [facility] Last Admin: 06/24/20 08:10 Dose: 40 meq Documented by: Sodium Chloride () 10 - 40 ml IV UD PRN PRN Reason: SALINE FLUSH Last Admin: 06/22/20 22:19 Dose: 10 ml Documented by: Tolterodine Tartrate (Detrol La) 2 mg PO DAILY [facility] Last Admin: 06/24/20 08:23 Dose: Not Given Documented by: Home Medications: Medications to take at Discharge cholecalciferol (vitamin D3) 50 mcg (2,000 unit) capsule 2,000 unit PO DAILY 02/23/19 insulin aspart U-100 100 unit/mL subcutaneous cartridge 8 unit SC TID ml 02/23/19 magnesium oxide 420 mg tablet 420 mg PO DAILY tab 02/23/19 Novolin N 24 units SUBCUT BREAKFAST 08/31/19 Novolin N 42 units SUBCUT QHS 08/31/19 Amlodipine Besylate 10 mg PO DAILY #30 tab 09/01/19 Isosorbide Mononitrate [Imdur] 30 mg PO DAILY 06/22/20 Multivitamin with Minerals [Multiple Vitamin] 1 ea PO DAILY 06/22/20 Oxybutynin Chloride [Oxybutynin Chloride ER] 5 mg PO DAILY 06/22/20 Apixaban [Eliquis] 5 mg PO BID 06/24/20 Aspirin E.C. [Ecotrin] 81 mg PO DAILY@0800 06/24/20 Atorvastatin Calcium [Lipitor] 40 mg PO QHS 06/24/20 Famotidine [Pepcid] 20 mg PO DAILY 06/24/20 Potassium Chloride [K-Dur] 40 meq PO BIDCM 06/24/20 Other Amb Orders: 30-Day Event Recorder [[facility]] Location: None Selected Primary Care Physician: Liana Lou MD [STAFF PHYSICIAN] - Please follow up with your Primary Care Physician in: 1 Week Please Follow Up With: Pelon Hernandez MD - Neuro When: 2 Weeks Please Follow Up With: Marielena Ragland MD When: 4 weeks, following event recorder completion Disposition: Retirement facility Minutes spent on discharge:: 35 Patient Condition:: Stable Medical Necessity - Tobacco Use Smoking Status: Never smoker Tobacco Use: Non-smoker Meaningful Use Info Meaningful Use Diagnoses (Choose all that apply): Ischemic CVA - CVA Therapy Assessed for PT,OT and/or ST?: Yes - Ischemic Stroke Antithrombotic order at d/c?: Yes Dx of Atrial fib/flutter?: Yes Anticoagulant at discharge?: Yes Statins at discharge?: Yes Primary Dx Acute Ischemic CVA?: Yes IV tPA ordered during stay?: No Reason IV t-PA not ordered: Medical Contraindication <Nicholas Turner - Last Filed: 06/25/20 11:58> Discharge Date and Diagnosis - Secondary Discharge Diagnosis Chronic Problems: Chronic Problems (Last Reviewed 08/18/19 @ 13:23 by Tona Obrien) Obesity (Chronic) Atrial fibrillation (Chronic) Non compliance w medication regimen (Chronic) Diabetes mellitus (Chronic) Hypertension (Chronic) Hospital Course and Treatment Summary of Care Provided: [] This patient was seen in conjunction with TRUCKING CONTRACTORNatalya. I have independently interviewed and examined the patient and reviewed pertinent history, examination findings, laboratory and plan of management. I have reviewed the note and agree with the documented findings with the few additional points. In brief, patient is 79-year-old gentleman with history of paroxysmal A. fib on Coumadin at home was admitted with right-sided weakness along with slurred speech consistent with acute ischemic infarct. MRI brain shows 17 mm acute infarct left of the midline in omid. 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 Neck MRA no hemodynamically significant stenosis. 2D echo negative for Doppler evidence for ASD. Left atrium mildly enlarged. EF 65%. And on a stroke protocol with PT, OT and speech and swallow evaluation. BP and glucose as per stroke protocol. Fasting profile TG 128, total cholesterol 180, LDL 116. A1c 8.4. Patient also has A. fib with PVCs and sinus pauses about 2.02 seconds on food service employee. Discussed with the perforator operator oil well Dr. Ragland and advised 30-day event monitor. Rest of the comorbidities as mentioned above including type 2 diabetes mellitus and hypertensive emergency. Hypokalemia: Potassium replaced. Patient is being transferred to TCU for further rehab. Discharge medication reconciliation done. Discharge follow-up instructions completed. Discharge process discussed with the patient and all questions were answered to patient's satisfaction. Total time spent, exact 35 minutes on discharge meds reconciliation, examination, coordination of care with nurses and ancillary staff, review of imaging and blood test and discussion with the patient on follow-up instructions I have discussed my assessment with TRUCKING CONTRACTORNatalya and orders have been reviewed. Objective: Please see progress note of the same date for complete physical exam findings. - Physical Exam Vitals/I&O's: Vital Signs Temp Pulse Resp BP Pulse Ox 97.4 F L 58 L 18 152/91 H 96 06/24/20 16:00 06/24/20 16:00 06/24/20 16:00 06/24/20 16:00 06/24/20 16:00 Oxygen Flow Rate (L/min) 2 Oxygen Delivery Method Nasal Cannula Weight: 307 lb 12.245 oz Body Mass Index (BMI) 52.8 Finger Stick Blood Glucose 176 Intake and Output for Last 24 Hours 06/23/20 06/24/20 06/25/20 23:59 23:59 23:59 Intake Total 1600 / 1600 870 / 870 Balance 1600 / 1600 870 / 870 Laboratory Results 06/24/20 05:34: Phosphorus 4.5, Magnesium 2.1 06/24/20 10:19: COVID-19 ([facility]) Not Detected 06/24/20 11:24: POC Glucose 259 H 06/24/20 17:25: POC Glucose 214 H Please cancel the billing charge of progress note on the same date Inpatient E&M: 61593 Disch Hosp
[2020-06-24 19:11] LABS: Bedside Glucose 214 mg/dL (70-110)
== END 2020-06-24 17:15 | disposition skilled nursing facility (03) | DRG 65 ==
LOC: ED 14:29 → PCU 16:11
PROVIDERS: Nurse Practitioner Family; Admitting Provider Internal Medicine; Emergency Provider Emergency Medicine; PCP Family Medicine; Visit Provider Internal Medicine
DX: I63.22 Cerebral infarction due to unspecified occlusion or stenosis of basilar artery (principal); I16.1 Hypertensive emergency; G81.91 Hemiplegia, unspecified affecting right dominant side; Z68.43 Body mass index [BMI] 50.0-59.9, adult; N17.9 Acute kidney failure, unspecified; R47.1 Dysarthria and anarthria; R47.81 Slurred speech; R29.701 NIHSS score 1; E11.9 Type 2 diabetes mellitus without complications; I48.0 Paroxysmal atrial fibrillation; E87.6 Hypokalemia; I10 Essential (primary) hypertension; Z91.14 Patient's other noncompliance with medication regimen; E66.01 Morbid (severe) obesity due to excess calories; Z79.01 Long term (current) use of anticoagulants; Z79.4 Long term (current) use of insulin; Z79.82 Long term (current) use of aspirin; Z79.899 Other long term (current) drug therapy
CPT/HCPCS: 36415; 70450; 70544; 70549; 70551; 71045; 80048; 80061; 80307; 81001; 82962; 83036; 83735; 84100; 84484; 85025; 85610; 85730; 87635; 92523; 92526; 92610; 93005; 93306; 94002; 94003; 97110; 97163; 97166; 97530; 97535; 97802; 99285; A9575; J7030; Q9957; A4216; C8929; U0003

== ENCOUNTER 2020-06-24 18:44 | Inpatient (IN) | payer MEDICARE, SELFPAY ==
[2020-06-24 16:54] VITALS: BMI 52.8
[2020-06-24 19:15] VITALS: BP 161/114; PULSE 70; RESP 19; TEMP 36.2; O2SAT 95
[2020-06-24 22:01] LABS: Bedside Glucose 204 mg/dL (70-110)
[2020-06-24] MEDS: Atorvastatin Calcium 40 MG Tablet PO (22:15)
[2020-06-25 00:01] VITALS: BMI 50.1
[2020-06-25 00:10] VITALS: BMI 50.1
[2020-06-25 05:33] VITALS: BP 162/89; PULSE 62; RESP 18; TEMP 36.9; O2SAT 93
[2020-06-25] MEDS: Magnesium Chloride 64 MG Delay Rel.Tablet 128 MG PO (05:37)
[2020-06-25] MEDS: Isosorbide Mononitrate 30 MG Tablet PO (05:37)
[2020-06-25] MEDS: APIXABAN 5 MG TABLET PO ×2 (05:37→18:08)
[2020-06-25] MEDS: Tolterodine Tartrate 2 MG CAP.SA PO (05:38)
[2020-06-25] MEDS: Famotidine 20 MG Tablet PO (05:38)
[2020-06-25] MEDS: amLODIPine 10 MG Tablet PO (05:38)
[2020-06-25] MEDS: Nystatin Powder 15gm Bottle 1 APPLIC TOPICAL ×2 (05:43→22:01)
[2020-06-25] MEDS: Menthol/Lanolin/Calamine/Znox 113 GM Tube 1 APPLIC TOPICAL ×2 (05:44→22:00)
[2020-06-25 06:31] LABS: Bedside Glucose 233 mg/dL (70-110)
[2020-06-25] MEDS: Glucerna Shake 120 ML LIQUID PO ×4 (06:35→21:59)
[2020-06-25] MEDS: Multivitamins,Therapeutic Tablet 1 TABLET PO (08:33)
[2020-06-25] MEDS: Aspirin E.C. 81 MG Tablet PO (08:33)
[2020-06-25 08:56] LABS: Absolute Lymphocyte Count 1.45 X10^3/uL (0.83-4.51); Absolute Neutrophil Count 3.6 X10^3/uL (2.0-7.7); Basophil# 0.06 X10^3/uL; Basophil% 0.9 % (0-1); Eosinophil# 0.12 X10^3/uL; Eosinophils% 1.9 % (0-5); Hematocrit 44.4 % (40-54); Hemoglobin 14.3 g/dL (13.0-16.5); Lymphocyte # 1.45 X10^3/ul (4.0); Lymphocyte % 22.6 % (19-41); Mean Corp Hgb Conc 32.2 g/dL (32-36); Mean Corpuscular Hgb 29.2 pg (27.0-32.0); Mean Corpuscular Volume 90.8 fL (80-94); Mean Platelet Vol. 10.5 fl (6.2-12.0); Monocyte# 1.09 X10^3/uL; NRBC Flagged by Analyzer 0 % (0-5); Neutrophil # 3.64 X10^3/uL (2.7-7.7); Neutrophil % 56.7 % (47-70); Platelet Count 174 K/mm3 (150-450); RBC Distribution Width SD 47.3 fl (35.1-43.9); Red Blood Count 4.89 M/mm3 (4.6-6.2); White Blood Count 6.4 K/mm3 (4.4-11.0)
[2020-06-25 09:00] LABS: Anion Gap 7 (5-15); BUN 27 mg/dL (7-18); BUN/Creat Ratio 21.1 RATIO (10-20); Calcium,Total 8.5 mg/dL (8.5-10.1); Chloride 107 mmol/L (98-107); Creatinine, Serum 1.28 mg/dL (0.70-1.30); EST Glomerular Filtration Rate 58 mL/min (>60); Est Glom Filt Rate - Afr Amer 70 mL/min (>60); Estimated Creatinine Clearance 45.19 ml/min; Glucose 210 mg/dL (74-106); Potassium 3.6 mmol/L (3.5-5.1); Sodium Level 139 mmol/L (136-145)
[2020-06-25 11:20] LABS: Bedside Glucose 239 mg/dL (70-110)
[2020-06-25] MEDS: Tuberculin,Purif.prot.deriv. 50 TU/ML Vial 5 ML ID (12:42)
--- NOTE | 2020-06-25 14:34 | HP.PCM_ITS ---
Problem List (1) Debility Status: Acute (2) Dysarthria Status: Acute (3) Right hemiplegia Status: Acute (4) Hypokalemia Status: Chronic (5) Vitamin D deficiency Status: Acute (6) Hypomagnesemia Status: Chronic (7) Coronary artery disease Status: Chronic (8) Overactive bladder Status: Chronic (9) Atrial fibrillation Status: Chronic Qualifiers: (10) CVA (cerebral vascular accident) Status: Acute (11) Diabetes mellitus Status: Chronic (12) Hypertension Status: Chronic History of Present Illness Date of Admission: 06/24/20 Chief Complaint: Here for rehabilitation, strengthening, prior to discharge home with . 06/22/20 The patient is a 79 year old Male with below past medical history presented to [facility] Emergency Department with slurred speech. 06/22/20 CT brain chronic involutional changes of brain. 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 06/22/20 EKG atrial fibrillation with slow ventricular response, nonspecific ST&T wave abnormality. 06/22/20 MRI brain acute left stroke. 06/22/20 MRA head normal anatomic variant. Mid basilar artery stenosis. 06/22/20 MRA neck no stenosis, no occlusion. Slurred speech, confusion. on coumadin for atrial fibrillation. Stroke team not called because symptoms ongoing for 3 days. 06/22/20 Admit to Hospital. Aspirin, statin, PT/OT for stroke. Replete potassium. 06/23/20 Echo EF 65%. Diastolic function indeterminate. Neurology recommended transitioning from coumadin to Eliquis. Cardiac pauses less than 3 seconds, asymptomatic, recommend 30 day event monitor, outpatient cardiology follow up. 06/24/20 Admit to TCU with debility, here for rehabilitation, strengthening, prior to discharge home with . Past Medical History Past Medical History (Chronic Problems): Chronic Problems (Last Reviewed 08/18/19 @ 13:23 by Tona Obrien) Hypokalemia (Chronic) Hypomagnesemia (Chronic) Coronary artery disease (Chronic) Overactive bladder (Chronic) Obesity (Chronic) Atrial fibrillation (Chronic) Non compliance w medication regimen (Chronic) Diabetes mellitus (Chronic) Hypertension (Chronic) Medical History: Medical History (Last Reviewed 08/18/19 @ 13:23 by Tona Obrien) Cataracts, bilateral H26.9 Diabetes E11.9 Hypertension I10 Sebaceous cyst (Resolved) L72.3 Skin lesion (Resolved) L98.9 Allergies Beta-Blockers (Beta-Adrenergic Bloc Allergy (Verified 06/22/20 14:13) Other aspirin Adverse Reaction (Verified 06/22/20 14:13) Upset Stomach Home Medications: Ambulatory Orders Medication Instructions Recorded cholecalciferol (vitamin D3) 50 2,000 unit PO DAILY 02/23/19 mcg (2,000 unit) capsule insulin aspart U-100 100 unit/mL 8 unit SC TID ml 02/23/19 subcutaneous cartridge magnesium oxide 420 mg tablet 420 mg PO DAILY tab 02/23/19 Novolin N 24 units SUBCUT BREAKFAST 08/31/19 Novolin N 42 units SUBCUT QHS 08/31/19 Amlodipine Besylate 10 mg PO DAILY #30 tab 09/01/19 Isosorbide Mononitrate [Imdur] 30 mg PO DAILY 06/22/20 Multivitamin with Minerals 1 ea PO DAILY 06/22/20 [Multiple Vitamin] Oxybutynin Chloride [Oxybutynin 5 mg PO DAILY 06/22/20 Chloride ER] Apixaban [Eliquis] 5 mg PO BID 06/24/20 Aspirin E.C. [Ecotrin] 81 mg PO DAILY@0800 06/24/20 Atorvastatin Calcium [Lipitor] 40 mg PO QHS 06/24/20 Famotidine [Pepcid] 20 mg PO DAILY 06/24/20 Potassium Chloride [K-Dur] 40 meq PO BIDCM 06/24/20 Surgical History: Surgical History (Last Reviewed 08/18/19 @ 13:23 by Tona Obrien) S/P tooth extraction K08.409 Scalp cyst L72.9 Surgical History: - - scalp cyst, tooth extraction Psychiatric History: No pertinent psych hx Lives: Spouse/ Significant Other Smoking Status: Never smoker Tobacco Use: Non-smoker Alcohol: None Drugs: None - *Family History Maternal Family History: Family History (Last Reviewed 06/22/20 @ 16:12 by TOÑITO Eckert) Other Diabetes Heart disease History Items: No pertinent history Review of Systems Constitutional: Denies: Chills, Fever, Weight Change HEENT: Denies: Head Aches, Sinus Congestion, Sinus Drainage Cardiovascular: Denies: Chest Pain, Palpitations Respiratory: Denies: Cough, Shortness of breath at rest, Sputum production Gastrointestinal: Denies: Abdominal Pain, Nausea, Vomiting Genitourinary: Denies: Dysuria Musculoskeletal: Denies: Joint Pain, Joint Tenderness Skin: Denies: Rash, Wounds Neurological: Denies: Numbness, Tingling, Focal weakness Psychiatric: Denies: Anxiety, Depression, Homicidal Ideations, Suicidal Ideations Hematologic/ Lymphatic: Denies: Easy Bruising, Easy Bleeding VTE Information - Inpt Only VTE Present on Admission: No VTE Mechan Device Prophylaxis: Knee High STAR Hose VTE Pharm Prophylaxis ordered?: No Reason prophylaxis not ordered:: Treatment Not Indicated Patient Problems: Active and Suspected Problems (Last Reviewed 08/18/19 @ 13:23 by Tona Obrein) Debility (Acute) Dysarthria (Acute) Right hemiplegia (Acute) Vitamin D deficiency (Acute) - Physical Exam Vitals/I&O's: Vital Signs Temp Pulse Resp BP Pulse Ox 98.5 F 62 18 162/89 H 93 06/25/20 05:33 06/25/20 05:33 06/25/20 05:33 06/25/20 05:33 06/25/20 05:33 Oxygen Flow Rate (L/min) 2 Oxygen Delivery Method CPAP Weight: 145.15 kg Body Mass Index (BMI) 50.1 Finger Stick Blood Glucose 176 Intake and Output for Last 24 Hours 06/23/20 06/24/20 06/25/20 23:59 23:59 23:59 Intake Total 840 / 840 Balance 840 / 840 General: Alert, Oriented x3, Cooperative HEENT: Atraumatic, PERRLA, EOMI, Normocephalic Neck: Supple, No JVD, Negative Carotid Bruits Lungs: Clear to auscultation, Normal air movement Cardiovascular: Regular rate, No murmurs Abdomen: Bowel Sounds Present, Soft, Non Tender Extremities: No edema, Capillary Refill Less than 3 Seconds Skin: No rashes, No breakdown Musculoskeletal: No Tenderness to Palpation of Joints or Extremities Neurological: Cranial nerves II-XII grossly intact, Slurred Speech, - - Dense right hemiplegia. Psych/Mental Status: Normal Affect, Appropriate Laboratory Results 06/24/20 21:42: POC Glucose 204 H 06/25/20 06:27: POC Glucose 233 H 06/25/20 08:25: WBC 6.4, RBC 4.89, Hgb 14.3, Hct 44.4, MCV 90.8, MCH 29.2, MCHC 32.2, RDW Std Deviation 47.3 H, RDW Coeff of Jono 14.0, Plt Count 174, MPV 10.5, Immature Gran % (Auto) 0.900, Neut % (Auto) 56.7, Lymph % (Auto) 22.6, Norman % (Auto) 17.0 H, Eos % (Auto) 1.9, Baso % (Auto) 0.9, Absolute Neuts (auto) 3.6, Absolute Lymphs (auto) 1.45, Nucleated RBC % 0 06/25/20 08:25: Sodium 139, Potassium 3.6, Chloride 107, Carbon Dioxide 25.0, Anion Gap 7, BUN 27 H, Creatinine 1.28, Estim Creat Clear Calc 45.19, Est GFR (MDRD) Af Amer 70, Est GFR (MDRD) Non-Af 58 L, BUN/Creatinine Ratio 21.1 H, Glucose 210 H, Calcium 8.5 06/25/20 11:15: POC Glucose 239 H Current Medications Amlodipine Besylate (Norvasc) 10 mg PO DAILY [facility] Last Admin: 06/25/20 05:38 Dose: 10 mg Documented by: Apixaban (Eliquis) 5 mg PO BID [facility] Last Admin: 06/25/20 05:37 Dose: 5 mg Documented by: Aspirin (Ecotrin) 81 mg PO DAILY@0800 [facility] Last Admin: 06/25/20 08:33 Dose: 81 mg Documented by: Atorvastatin Calcium (Lipitor) 40 mg PO QHS [facility] Last Admin: 06/24/20 22:15 Dose: 40 mg Documented by: Calamine/Phenol (Calmoseptine Ointment) 1 applic TOPICAL 0600,2200 [facility]; Protocol Last Admin: 06/25/20 05:44 Dose: 1 applicatio Documented by: Cholecalciferol (Vitamin D (25mcg)) 2,000 unit PO DAILY [facility] Last Admin: 06/25/20 05:37 Dose: 2,000 unit Documented by: Famotidine (Pepcid) 20 mg PO DAILY [facility] Last Admin: 06/25/20 05:38 Dose: 20 mg Documented by: Insulin Glargine (Lantus (Bkc)) 20 units SC QHS [facility] Last Admin: 06/24/20 22:42 Dose: 20 units Documented by: Isosorbide Mononitrate (Imdur) 30 mg PO DAILY [facility] Last Admin: 06/25/20 05:37 Dose: 30 mg Documented by: Magnesium Chloride (Mag64) 128 mg PO DAILY [facility] Last Admin: 06/25/20 05:37 Dose: 128 mg Documented by: Multivitamins (Multivitamin) 1 tablet PO DAILY@0800 [facility] Last Admin: 06/25/20 08:33 Dose: 1 tablet Documented by: Nutritional Formula (Lactose Free) (Glucerna Shake) 120 ml PO 4X/DAY [facility] Last Admin: 06/25/20 12:42 Dose: 120 ml Documented by: Nystatin (Mycostatin Powder) 1 applic TOPICAL 0600,2200 [facility]; Protocol Last Admin: 06/25/20 05:43 Dose: 1 applicatio Documented by: Potassium Chloride (K-Dur) 40 meq PO BIDCM [facility] Last Admin: 06/25/20 08:33 Dose: 40 meq Documented by: Tolterodine Tartrate (Detrol La) 2 mg PO DAILY [facility] Last Admin: 06/25/20 05:38 Dose: 2 mg Documented by: Tuberculin PPD (Tubersol, Aplisol, Ppd) 5 tu ID X1 ONE Stop: 07/02/20 10:01 Assessment/Plan All Active Problems (Last Reviewed 08/18/19 @ 13:23 by Tona Obrien) Debility (Acute) Dysarthria (Acute) Right hemiplegia (Acute) Vitamin D deficiency (Acute) CVA (cerebral vascular accident) (Acute) Pilar cyst (Resolved) Sebaceous cyst (Resolved) Skin lesion (Resolved) 79 year old male with below past medical history hospitalized for stoke with dense right hemiplegia, dysarthria, admitted to TCU with debility, here for rehabilitation, strengthening, prior to discharge home with . * Debility - PT/OT. * Dysarthria - ST. * Pain - Tylenol 1000MG Q6H PRN pain (1-10). * Bowel - Miralax 17GM daily, Senna/colace 1 tablet BID, Dulcolax 10MG TN daily PRN. * Adult immunization - Administer Prevnar 13, Pneumovax 23, Fluzone as appropriate. * DVT prophylaxis - Not necessary, already anticoagulated. * Hypertension - Amlodipine 10MG daily. * Atrial Fibrillation - Eliquis 5MG BID, Aspirin 81MG daily. * Stroke - Eliquis 5MG BID, Aspirin 81MG daily. * Hyperlipidemia - Atorvastatin 40MG QHS. * Vitamin D deficiency - D3 2000IU daily. * GERD - Famotidine 20MG daily. * Nutrition - MVI daily, Glucerna 120ML 4x/day. * Diabetes Mellitus II - Lantus 20 units QHS, Humalog 7 units TIDAC, monitor blood sugars. * Coronary Artery disease - Imdur 30MG daily, Eliquis 5MG BID, Aspirin 81MG daily. * Hypomagnesemia - Magnesium chloride 128MG daily. * Skin irritation - Calmoseptien BID. * Tinea Corporis - Nystatin powder BID. * Hypokalemia - K-Dur 40MEQ BIDCM. * Overactive bladder - Tolterodine 2MG daily.
[2020-06-25 15:04] VITALS: BP 191/130; PULSE 45; RESP 20; TEMP 36.8; O2SAT 95
[2020-06-25 15:49] VITALS: PULSE 64; RESP 18; O2SAT 96
[2020-06-25 17:04] LABS: Probe Check PASS; Specimen Processing Control PASS
[2020-06-25 17:10] LABS: Bedside Glucose 183 mg/dL (70-110)
[2020-06-25] MEDS: Senna/Docusate Sodium 1 Tablet PO (18:08)
[2020-06-25] MEDS: Polyethylene Glycol 3350 17 GM PACKET PO (18:09)
[2020-06-25] MEDS: Insulin Lispro 100 UNIT/ML INSULN.PEN 7 UNIT SC (18:15)
[2020-06-25 21:25] LABS: Bedside Glucose 247 mg/dL (70-110)
[2020-06-25] MEDS: Atorvastatin Calcium 40 MG Tablet PO (22:00)
[2020-06-26] MEDS: Magnesium Chloride 64 MG Delay Rel.Tablet 128 MG PO (05:30)
[2020-06-26] MEDS: Senna/Docusate Sodium 1 Tablet PO ×2 (05:30→17:44)
[2020-06-26] MEDS: APIXABAN 5 MG TABLET PO ×2 (05:30→17:44)
[2020-06-26] MEDS: amLODIPine 10 MG Tablet PO (05:30)
[2020-06-26] MEDS: Polyethylene Glycol 3350 17 GM PACKET PO (05:30)
[2020-06-26] MEDS: Famotidine 20 MG Tablet PO (05:30)
[2020-06-26] MEDS: Isosorbide Mononitrate 30 MG Tablet PO (05:30)
[2020-06-26] MEDS: Glucerna Shake 120 ML LIQUID PO ×4 (05:30→20:34)
[2020-06-26] MEDS: Tolterodine Tartrate 2 MG CAP.SA PO (05:31)
[2020-06-26] MEDS: Menthol/Lanolin/Calamine/Znox 113 GM Tube 1 APPLIC TOPICAL ×2 (05:34→20:34)
[2020-06-26] MEDS: Nystatin Powder 15gm Bottle 1 APPLIC TOPICAL ×2 (05:34→20:35)
[2020-06-26 05:36] VITALS: BP 147/78; PULSE 74; RESP 18; TEMP 36.7; O2SAT 97
[2020-06-26 06:25] LABS: Bedside Glucose 217 mg/dL (70-110)
[2020-06-26 07:25] VITALS: O2SAT 95
[2020-06-26] MEDS: Insulin Lispro 100 UNIT/ML INSULN.PEN 7 UNIT SC ×2 (08:29→12:35)
[2020-06-26] MEDS: Multivitamins,Therapeutic Tablet 1 TABLET PO (08:31)
[2020-06-26] MEDS: Aspirin E.C. 81 MG Tablet PO (08:31)
[2020-06-26 11:11] LABS: Bedside Glucose 262 mg/dL (70-110)
[2020-06-26] MEDS: Acetaminophen 500 MG Tablet 1000 MG PO (12:03)
[2020-06-26 14:41] VITALS: BP 149/99; PULSE 70; RESP 20; TEMP 37.2; O2SAT 96
[2020-06-26] MEDS: Bisacodyl 10 MG Suppository RECTAL (14:53)
[2020-06-26 17:25] LABS: Bedside Glucose 224 mg/dL (70-110)
[2020-06-26] MEDS: Insulin Lispro 100 UNIT/ML INSULN.PEN 10 UNIT SC (17:43)
[2020-06-26] MEDS: Atorvastatin Calcium 40 MG Tablet PO (20:35)
[2020-06-26 22:20] LABS: Bedside Glucose 248 mg/dL (70-110)
[2020-06-27 05:00] VITALS: BP 176/100; PULSE 72; RESP 17; TEMP 36.6; O2SAT 98
[2020-06-27] MEDS: Polyethylene Glycol 3350 17 GM PACKET PO (06:03)
[2020-06-27] MEDS: amLODIPine 10 MG Tablet PO (06:04)
[2020-06-27] MEDS: Senna/Docusate Sodium 1 Tablet PO ×2 (06:04→18:06)
[2020-06-27] MEDS: Magnesium Chloride 64 MG Delay Rel.Tablet 128 MG PO (06:05)
[2020-06-27] MEDS: APIXABAN 5 MG TABLET PO ×2 (06:05→18:06)
[2020-06-27] MEDS: Isosorbide Mononitrate 30 MG Tablet PO (06:05)
[2020-06-27] MEDS: Famotidine 20 MG Tablet PO (06:05)
[2020-06-27] MEDS: Tolterodine Tartrate 2 MG CAP.SA PO (06:05)
[2020-06-27] MEDS: Glucerna Shake 120 ML LIQUID PO ×4 (06:05→22:26)
[2020-06-27] MEDS: Menthol/Lanolin/Calamine/Znox 113 GM Tube 1 APPLIC TOPICAL ×2 (06:08→22:27)
[2020-06-27] MEDS: Nystatin Powder 15gm Bottle 1 APPLIC TOPICAL ×2 (06:11→22:28)
[2020-06-27 06:26] LABS: Bedside Glucose 211 mg/dL (70-110)
[2020-06-27 07:00] VITALS: O2SAT 96
[2020-06-27] MEDS: Multivitamins,Therapeutic Tablet 1 TABLET PO (08:07)
[2020-06-27] MEDS: Insulin Lispro 100 UNIT/ML INSULN.PEN 10 UNIT SC ×3 (08:07→18:05)
[2020-06-27] MEDS: Aspirin E.C. 81 MG Tablet PO (08:08)
[2020-06-27 10:00] VITALS: PULSE 66; RESP 18; O2SAT 98
[2020-06-27 11:01] LABS: Bedside Glucose 284 mg/dL (70-110)
[2020-06-27 13:11] VITALS: BP 166/87; PULSE 64; RESP 17; TEMP 36.6; O2SAT 96
--- NOTE | 2020-06-27 14:22 | NURSING ---
Spoke with Bertha in cardiology, she stated that the 30-day event recorder has already been sent to the patient's home and family will have to bring it in to TCU.
--- NOTE | 2020-06-27 15:00 | PCM.PN.RX ---
<ArturobaljeetDarby M - Last Filed: 06/27/20 15:00> Progress Note - Pharmacy Subjective: TCU ADMISSION Objective: Allergies Beta-Blockers (Beta-Adrenergic Bloc Allergy (Verified 06/22/20 14:13) Other aspirin Adverse Reaction (Verified 06/22/20 14:13) Upset Stomach Current Medications Generic Name Dose Route Start Last Admin Trade Name Freq PRN Reason Stop Dose Admin Acetaminophen 1,000 mg 06/25/20 14:50 06/26/20 12:03 Tylenol PO 1,000 mg Q6H PRN Administration Pain Score 1-10 Amlodipine Besylate 10 mg 06/25/20 06:00 06/27/20 06:04 Norvasc PO 10 mg DAILY SELWYN Administration Apixaban 5 mg 06/25/20 06:00 06/27/20 06:05 Eliquis PO 5 mg BID SELWYN Administration Aspirin 81 mg 06/25/20 08:00 06/27/20 08:08 Ecotrin PO 81 mg DAILY@0800 SELWYN Administration Atorvastatin Calcium 40 mg 06/24/20 22:00 06/26/20 20:35 Lipitor PO 40 mg QHS SELWYN Administration Bisacodyl 10 mg 06/25/20 14:51 06/26/20 14:53 Dulcolax RECTAL 10 mg DAILY PRN Administration Constipation Calamine/Phenol 1 applic 06/25/20 06:00 06/27/20 06:08 Calmoseptine Ointment TOPICAL 1 applicatio 0600,2200 SELWYN Administration Protocol Cholecalciferol 2,000 unit 06/25/20 06:00 06/27/20 06:04 Vitamin D (25mcg) PO 2,000 unit DAILY SELWYN Administration Famotidine 20 mg 06/25/20 06:00 06/27/20 06:05 Pepcid PO 20 mg DAILY SELWYN Administration Insulin Glargine 30 units 06/26/20 22:00 06/26/20 22:33 Lantus (Bkc) SC 30 units QHS SELWYN Administration Insulin Human Lispro 10 unit 06/26/20 16:45 06/27/20 12:31 Humalog Kwikpen (Bkc) SC 10 units TIDAC SELWYN Administration Isosorbide Mononitrate 30 mg 06/25/20 06:00 06/27/20 06:05 Imdur PO 30 mg DAILY SELWYN Administration Magnesium Chloride 128 mg 10/10/20 06:00 06/27/20 06:05 Mag64 PO 128 mg DAILY SELWYN Administration Multivitamins 1 tablet 06/25/20 08:00 06/27/20 08:07 Multivitamin PO 1 tablet DAILY@0800 SELWYN Administration Nutritional Formula (Lactose Free) 120 ml 06/25/20 06:00 06/27/20 12:34 Glucerna Shake PO 120 ml 4X/DAY SELWYN Administration Nystatin 1 applic 06/25/20 06:00 06/27/20 06:11 Mycostatin Powder TOPICAL 1 applicatio 0600,2200 SELWYN Administration Protocol Polyethylene Glycol 17 gm 06/26/20 06:00 06/27/20 06:03 Miralax PO 17 gm DAILY SELWYN Administration Potassium Chloride 40 meq 06/25/20 08:00 06/27/20 08:07 K-Dur PO 40 meq BIDCM SELWYN Administration Senna/Docusate Sodium 1 tablet 06/25/20 18:00 06/27/20 06:04 Senokot-S, Leda-Colace PO 1 tablet BID SELWYN Administration Tolterodine Tartrate 2 mg 06/25/20 06:00 06/27/20 06:05 Detrol La PO 2 mg DAILY SELWYN Administration Tuberculin PPD 5 tu 07/02/20 10:00 Tubersol, Aplisol, Ppd ID 07/02/20 10:01 X1 ONE Problem List (Last Reviewed 08/18/19 @ 13:23 by Tona Obrien) Debility (Acute) Dysarthria (Acute) Right hemiplegia (Acute) Hypokalemia (Chronic) Vitamin D deficiency (Acute) Hypomagnesemia (Chronic) Coronary artery disease (Chronic) Overactive bladder (Chronic) Vital Signs Temp Pulse Resp BP Pulse Ox 97.9 F 64 17 166/87 H 96 06/27/20 13:11 06/27/20 13:11 06/27/20 13:11 06/27/20 13:11 06/27/20 13:11 Oxygen Flow Rate (L/min) 2 Oxygen Delivery Method CPAP Weight: 145.15 kg Body Mass Index (BMI) 50.1 Finger Stick Blood Glucose 176 Sodium 139 mmol/L (136-145) 06/25/20 08:25 Potassium 3.6 mmol/L (3.5-5.1) 06/25/20 08:25 Chloride 107 mmol/L (98-107) 06/25/20 08:25 Carbon Dioxide 25.0 mmol/L (21.0-32.0) 06/25/20 08:25 Anion Gap 7 (5-15) 06/25/20 08:25 BUN 27 mg/dL (7-18) H 06/25/20 08:25 Creatinine 1.28 mg/dL (0.70-1.30) 06/25/20 08:25 Est GFR (MDRD) Af Amer 70 mL/min (>60) 06/25/20 08:25 Est GFR (MDRD) Non-Af 58 mL/min (>60) L 06/25/20 08:25 BUN/Creatinine Ratio 21.1 RATIO (-20) H 06/25/20 08:25 Glucose 210 mg/dL (74-106) H 06/25/20 08:25 Assessment/Plan: 1. Pain: Tylenol 1000mg PO Q6H PRN pain score 1-10 , please continue to monitor for increase/decrease in S/S of pain , prn medication use 2. Hypertension: Amlodipine 10 mg PO daily , please monitor blood pressure ( last BP 06/27/20; 166/87) 3. Atrial Fibrillation: Eliquis 5 mg PO BID daily, please monitor for S/S of bleeding 4. Stroke: Eliquis 5mg PO BID, Aspirin 81mg PO daily , please monitor for S/S of bleeding 5. Hyperlipidemia : Atorvastatin 40mg PO QHS, monitor cholesterol levels, liver function and S/S of muscle pain 6. Vitamin D deficiency: Take 1 Tablet (cholecalciferol 2000 unit) PO daily ,monitor vitamin D levels 7. GERD: Famotidine 20 mg PO daily , monitor for improvement / worsening of GERD symptoms, renal function 8. Nutrition: Take 1 multivitamin PO daily 9. Diabetes Mellitus II - Lantus 30 units SQ QHS, Humalog 10 units SQ TIDAC, monitor blood sugars ( last BG 06/25/20 210 mg/dL), and S/S of hypoglycemia 10. Coronary Artery disease : Imdur 30MG PO daily, Eliquis 5MG PO BID, Aspirin 81MG PO daily. 11. Hypomagnesemia: Magnesium Chloride 128mg PO daily , monitor renal function, magnesium levels as clinically indicated 12. Hypokalemia : K Dur 40meq PO BID , monitor potassium levels 13. Overactive bladder: Tolterodine 2MG PO daily. Psychotropic Medications: None Unnecessary Medications: None Bowel Regimen: Bowel Regimen: Miralax 17 gram PO daily, senna/docusate 1 tablet PO BID , dulcolax 10 mg VT daily PRN. Please monitor for prn medication use Date of Note:: 06/27/20 - Provider Comments Provider responsibility: Provider responsible to enter orders to implement recommendations <John Kohler Chi - Last Filed: 06/27/20 19:14> Progress Note - Pharmacy Subjective: [] Objective: Allergies Beta-Blockers (Beta-Adrenergic Bloc Allergy (Verified 06/22/20 14:13) Other aspirin Adverse Reaction (Verified 06/22/20 14:13) Upset Stomach Current Medications Generic Name Dose Route Start Last Admin Trade Name Freq PRN Reason Stop Dose Admin Acetaminophen 1,000 mg 06/25/20 14:50 06/26/20 12:03 Tylenol PO 1,000 mg Q6H PRN Administration Pain Score 1-10 Amlodipine Besylate 10 mg 06/25/20 06:00 06/27/20 06:04 Norvasc PO 10 mg DAILY SELWYN Administration Apixaban 5 mg 06/25/20 06:00 06/27/20 18:06 Eliquis PO 5 mg BID SELWYN Administration Aspirin 81 mg 06/25/20 08:00 06/27/20 08:08 Ecotrin PO 81 mg DAILY@0800 SELWYN Administration Atorvastatin Calcium 40 mg 06/24/20 22:00 06/26/20 20:35 Lipitor PO 40 mg QHS SELWYN Administration Bisacodyl 10 mg 06/25/20 14:51 06/26/20 14:53 Dulcolax RECTAL 10 mg DAILY PRN Administration Constipation Calamine/Phenol 1 applic 06/25/20 06:00 06/27/20 06:08 Calmoseptine Ointment TOPICAL 1 applicatio 0600,2200 SELWYN Administration Protocol Cholecalciferol 2,000 unit 06/25/20 06:00 06/27/20 06:04 Vitamin D (25mcg) PO 2,000 unit DAILY SELWYN Administration Famotidine 20 mg 06/25/20 06:00 06/27/20 06:05 Pepcid PO 20 mg DAILY SELWYN Administration Insulin Glargine 30 units 10/11/20 22:00 06/26/20 22:33 Lantus ([facility]) SC 30 units QHS SELWYN Administration Insulin Human Lispro 10 unit 06/26/20 16:45 06/27/20 18:05 Humalog Kwikpen ([facility]) SC 10 units TIDAC SELWYN Administration Isosorbide Mononitrate 30 mg 06/25/20 06:00 06/27/20 06:05 Imdur PO 30 mg DAILY SELWYN Administration Magnesium Chloride 128 mg 06/25/20 06:00 06/27/20 06:05 Mag64 PO 128 mg DAILY SELWYN Administration Multivitamins 1 tablet 06/25/20 08:00 06/27/20 08:07 Multivitamin PO 1 tablet DAILY@0800 SELWYN Administration Nutritional Formula (Lactose Free) 120 ml 06/25/20 06:00 06/27/20 18:06 Glucerna Shake PO 120 ml 4X/DAY SELWYN Administration Nystatin 1 applic 06/25/20 06:00 06/27/20 06:11 Mycostatin Powder TOPICAL 1 applicatio 0600,2200 [facility] Administration Protocol Polyethylene Glycol 17 gm 06/26/20 06:00 06/27/20 06:03 Miralax PO 17 gm DAILY SELWYN Administration Potassium Chloride 40 meq 06/25/20 08:00 06/27/20 18:06 K-Dur PO 40 meq BIDCM SELWYN Administration Senna/Docusate Sodium 1 tablet 06/25/20 18:00 06/27/20 18:06 Senokot-S, Leda-Colace PO 1 tablet BID SELWYN Administration Tolterodine Tartrate 2 mg 06/25/20 06:00 06/27/20 06:05 Detrol La PO 2 mg DAILY SELWYN Administration Tuberculin PPD 5 tu 07/02/20 10:00 Tubersol, Aplisol, Ppd ID 07/02/20 10:01 X1 ONE Problem List (Last Reviewed 08/18/19 @ 13:23 by Tona Obrien) Debility (Acute) Dysarthria (Acute) Right hemiplegia (Acute) Hypokalemia (Chronic) Vitamin D deficiency (Acute) Hypomagnesemia (Chronic) Coronary artery disease (Chronic) Overactive bladder (Chronic) Vital Signs Temp Pulse Resp BP Pulse Ox 97.9 F 64 17 166/87 H 96 06/27/20 13:11 06/27/20 13:11 06/27/20 13:11 06/27/20 13:11 06/27/20 13:11 Oxygen Flow Rate (L/min) 2 Oxygen Delivery Method CPAP Weight: 145.15 kg Body Mass Index (BMI) 50.1 Finger Stick Blood Glucose 176 Sodium 139 mmol/L (136-145) 06/25/20 08:25 Potassium 3.6 mmol/L (3.5-5.1) 06/25/20 08:25 Chloride 107 mmol/L (98-107) 06/25/20 08:25 Carbon Dioxide 25.0 mmol/L (21.0-32.0) 06/25/20 08:25 Anion Gap 7 (5-15) 06/25/20 08:25 BUN 27 mg/dL (7-18) H 06/25/20 08:25 Creatinine 1.28 mg/dL (0.70-1.30) 06/25/20 08:25 Est GFR (MDRD) Af Amer 70 mL/min (>60) 06/25/20 08:25 Est GFR (MDRD) Non-Af 58 mL/min (>60) L 06/25/20 08:25 BUN/Creatinine Ratio 21.1 RATIO (10-20) H 06/25/20 08:25 Glucose 210 mg/dL (74-106) H 06/25/20 08:25 Assessment/Plan: Psychotropic Medications: Unnecessary Medications: Bowel Regimen: - Provider Comments Provider responsibility: Provider responsible to enter orders to implement recommendations Provider Comments to Recommendations by Pharmacy: Agree
--- NOTE | 2020-06-27 15:31 | NURSING ---
wound photo: buttocks
[2020-06-27 16:11] LABS: Bedside Glucose 182 mg/dL (70-110)
[2020-06-27 22:15] LABS: Bedside Glucose 226 mg/dL (70-110)
[2020-06-27] MEDS: Acetaminophen 500 MG Tablet 1000 MG PO (22:26)
[2020-06-27] MEDS: Atorvastatin Calcium 40 MG Tablet PO (22:27)
[2020-06-28 04:00] VITALS: BP 139/69; PULSE 66; RESP 18; TEMP 35.8; O2SAT 95
[2020-06-28] MEDS: Polyethylene Glycol 3350 17 GM PACKET PO (07:03)
[2020-06-28] MEDS: Menthol/Lanolin/Calamine/Znox 113 GM Tube 1 APPLIC TOPICAL ×2 (07:03→22:04)
[2020-06-28] MEDS: Isosorbide Mononitrate 30 MG Tablet PO (07:04)
[2020-06-28] MEDS: Famotidine 20 MG Tablet PO (07:04)
[2020-06-28] MEDS: Magnesium Chloride 64 MG Delay Rel.Tablet 128 MG PO (07:04)
[2020-06-28] MEDS: APIXABAN 5 MG TABLET PO ×2 (07:04→17:45)
[2020-06-28] MEDS: amLODIPine 10 MG Tablet PO (07:04)
[2020-06-28] MEDS: Glucerna Shake 120 ML LIQUID PO ×4 (07:04→22:04)
[2020-06-28] MEDS: Senna/Docusate Sodium 1 Tablet PO ×2 (07:04→17:46)
[2020-06-28] MEDS: Tolterodine Tartrate 2 MG CAP.SA PO (07:04)
[2020-06-28] MEDS: Nystatin Powder 15gm Bottle 1 APPLIC TOPICAL ×2 (07:06→22:05)
[2020-06-28 07:42] LABS: Bedside Glucose 172 mg/dL (70-110)
[2020-06-28] MEDS: Aspirin E.C. 81 MG Tablet PO (08:14)
[2020-06-28] MEDS: Insulin Lispro 100 UNIT/ML INSULN.PEN 10 UNIT SC ×3 (08:15→17:43)
[2020-06-28] MEDS: Multivitamins,Therapeutic Tablet 1 TABLET PO (08:15)
[2020-06-28 11:11] LABS: Bedside Glucose 193 mg/dL (70-110)
[2020-06-28] MEDS: Acetaminophen 500 MG Tablet 1000 MG PO ×2 (13:06→22:07)
--- NOTE | 2020-06-28 13:30 | NURSING ---
TONIE wraps off. Offerred to wrap legs and he does not want them on at this time. States maybe you can wrap them when I get into bed.
[2020-06-28 14:01] VITALS: BP 148/87; PULSE 68; RESP 14; TEMP 36.3; O2SAT 95
--- NOTE | 2020-06-28 14:31 | CHAPLAIN ---
Type of Pastoral Visit _x__ Initial Visit ___ Follow-up Visit ___ On-call Visit ___ General Patient Visit ___ Spiritual Assessment ___ Family Conference ___ Bereavement ___ Rapid Response ___ Code Blue ___ Other (describe below) Pastoral Care Referral From _x__ Patient ___ Family ___ Nurse ___ Physician ___ Sumo Wrestler ___ Tab Cutter ___ Other (describe below) Sacrament/Intervention _x__ Active listening ___ Anointing ___ Scientologist ___ Bereavement ___ Communion _x__ Dana exploration ___ _x__ Life review _x__ Prayer ___ Reconciliation ___ Sacrament of Sick _x__ Supportive presence ___ Wedding ___ Other (describe below) Pastoral Comments patient is very open to talking and discussion of his life; pt also initiates conversation; pt speaks of identity as a [employer]oration and involved in his dana community; 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
[2020-06-28 16:15] LABS: Bedside Glucose 209 mg/dL (70-110)
--- NOTE | 2020-06-28 17:12 | CASEMGMT ---
Social Work Completed partial assessment with pt 06/27. Attempted to complete the rest of assessment, but pt continual unavailable .Will continue to attempt. Caryn Nagel, CASCADE OPERATOR SEQUENCING MACHINE OPERATOR
--- NOTE | 2020-06-28 17:14 | CASEMGMT ---
Social Work Spoke with pt's son Ronnie at length about DC plans. Son inquiring about insurance, LOS, and DC plan. SW explained insurance coverage, updates and continued stay is not guaranteed, neither is LOS. Insurance determines LOS based on pt meeting guidelines to remain. Explained pt is currently dependent x2 for ADLS using a jose lift, and insurance may not allow enough time for to return to PLOF and return home safely. Inquired about alternative DC plans. Son expressed he is realistic that pt may not safe to return home and he was the primary caregiver for his as she has physical and cognitive deficits. Son stated pt does not have any funds to pay privately for any services, inquired about VA or Medicaid. Explained SW can contact [facility] SW to inquire about an increase in aides in the home, and if they would apy for a SNF. Informed son [facility] is the only SNF in [facility] that accepts the [facility] - son stated he would be okay with that. SW explained if VA does not cover SNF, Medicaid would be the next route. Discussed Medicaid pending home, some SNFs do not accept MCDP and to begin that process soon if needed. Son expressed understanding to all and appreciative of information. SW to contact son once the VA has provided answer to questions and he will then determine if he wants to apply for Medicaid. Son and SW discussed pt still has ability to make his own decisions and he does not have to agree to any of above. Will discuss further with pt in care plan meeting and 1:1 conversation. Insurance NRD 06/30. Will continue to follow. DARIELA Low
[2020-06-28 21:21] LABS: Bedside Glucose 204 mg/dL (70-110)
[2020-06-28] MEDS: Atorvastatin Calcium 40 MG Tablet PO (22:05)
[2020-06-29 06:17] VITALS: BP 151/84; PULSE 61; RESP 16; TEMP 36.1; O2SAT 95
[2020-06-29] MEDS: Glucerna Shake 120 ML LIQUID PO ×4 (06:19→22:09)
[2020-06-29] MEDS: Senna/Docusate Sodium 1 Tablet PO ×2 (06:20→18:43)
[2020-06-29] MEDS: Polyethylene Glycol 3350 17 GM PACKET PO (06:20)
[2020-06-29] MEDS: Magnesium Chloride 64 MG Delay Rel.Tablet 128 MG PO (06:20)
[2020-06-29] MEDS: Famotidine 20 MG Tablet PO (06:20)
[2020-06-29] MEDS: amLODIPine 10 MG Tablet PO (06:20)
[2020-06-29 06:21] LABS: Bedside Glucose 176 mg/dL (70-110)
[2020-06-29] MEDS: APIXABAN 5 MG TABLET PO ×2 (06:21→18:43)
[2020-06-29] MEDS: Isosorbide Mononitrate 30 MG Tablet PO (06:21)
[2020-06-29] MEDS: Tolterodine Tartrate 2 MG CAP.SA PO (06:21)
[2020-06-29] MEDS: Nystatin Powder 15gm Bottle 1 APPLIC TOPICAL ×2 (06:24→22:11)
[2020-06-29] MEDS: Menthol/Lanolin/Calamine/Znox 113 GM Tube 1 APPLIC TOPICAL ×2 (06:24→22:10)
[2020-06-29 06:40] VITALS: O2SAT 95
[2020-06-29] MEDS: Insulin Lispro 100 UNIT/ML INSULN.PEN 10 UNIT SC ×3 (08:20→18:45)
[2020-06-29] MEDS: Multivitamins,Therapeutic Tablet 1 TABLET PO (08:21)
[2020-06-29] MEDS: Acetaminophen 500 MG Tablet 1000 MG PO (08:21)
[2020-06-29] MEDS: Aspirin E.C. 81 MG Tablet PO (08:21)
[2020-06-29 10:00] VITALS: PULSE 68; RESP 18; O2SAT 96
[2020-06-29 11:15] LABS: Bedside Glucose 183 mg/dL (70-110)
--- NOTE | 2020-06-29 12:34 | CASEMGMT ---
Social Work IDT met with patient and via conference call for care plan meeting. Discussed patient's progress in therapy. Pt is max x2 for bed mobility, jose for transfers and had stood for 30 seconds. Pt is max for UE ADLS, dependent x2 fr LE ADLS, and toileting at bed level. Pt is on a [facility] soft/thin diet. ST working on voice strategies, exaggerated speech and speaking at a slow rate, along with memory strategies. Pt has a good intake, receiving Glucerna, and weight is stable. pt is out of isolation 07/08. Explained [facility] with NRD 06/30 and continued stay is not guaranteed. has cognitive and physical deficits, pt was primary caregiver for pt. IDT recommending SNF. Pt unable to provide alternative DC plan in meeting. SW will meet with pt 1:1 to further discuss. Will continue to follow. DARIELA LowW
[2020-06-29 14:05] VITALS: BP 143/69; PULSE 64; RESP 18; TEMP 36.6; O2SAT 98
[2020-06-29] MEDS: Bisacodyl 10 MG Suppository RECTAL (15:40)
[2020-06-29 16:36] LABS: Bedside Glucose 184 mg/dL (70-110)
--- NOTE | 2020-06-29 17:32 | CASEMGMT ---
Social Work Spoke with son and SW at [facility] about pt benefits. Pt is not eligible for SNF stay unless pt is hospice at a [place] accepted facility, then [place] would pay room and board. Pt could be eligible for increase in HHC aides; however, SW having difficulty with staff in pt's area. SW made multiple attempts again to f/u with pt about alternative DC plan and finish assessment, but pt asleep or with therapy. Will continue to attempt. Caryn Nagel, BUSINESS OPERATIONS DIRECTOR PRESSURE CONTROLLER
[2020-06-29 22:10] LABS: Bedside Glucose 183 mg/dL (70-110)
[2020-06-29] MEDS: Atorvastatin Calcium 40 MG Tablet PO (22:10)
[2020-06-30 05:01] VITALS: BP 161/101; PULSE 73; RESP 16; TEMP 36.6; O2SAT 97
[2020-06-30] MEDS: Senna/Docusate Sodium 1 Tablet PO ×2 (05:12→17:54)
[2020-06-30] MEDS: Isosorbide Mononitrate 30 MG Tablet PO (05:12)
[2020-06-30] MEDS: APIXABAN 5 MG TABLET PO ×2 (05:12→17:54)
[2020-06-30] MEDS: Famotidine 20 MG Tablet PO (05:12)
[2020-06-30] MEDS: Glucerna Shake 120 ML LIQUID PO ×4 (05:12→21:34)
[2020-06-30] MEDS: amLODIPine 10 MG Tablet PO (05:12)
[2020-06-30] MEDS: Nystatin Powder 15gm Bottle 1 APPLIC TOPICAL ×2 (05:13→21:32)
[2020-06-30] MEDS: Menthol/Lanolin/Calamine/Znox 113 GM Tube 1 APPLIC TOPICAL ×2 (05:13→21:32)
[2020-06-30] MEDS: Tolterodine Tartrate 2 MG CAP.SA PO (05:13)
[2020-06-30] MEDS: Polyethylene Glycol 3350 17 GM PACKET PO (05:13)
[2020-06-30] MEDS: Magnesium Chloride 64 MG Delay Rel.Tablet 128 MG PO (05:13)
[2020-06-30 06:20] LABS: Bedside Glucose 177 mg/dL (70-110)
[2020-06-30] MEDS: Multivitamins,Therapeutic Tablet 1 TABLET PO (08:12)
[2020-06-30] MEDS: Amox/Clavulanate 875 MG Tablet PO ×2 (08:12→17:54)
[2020-06-30] MEDS: Aspirin E.C. 81 MG Tablet PO (08:12)
[2020-06-30] MEDS: Acetaminophen 500 MG Tablet 1000 MG PO (08:14)
[2020-06-30] MEDS: Insulin Lispro 100 UNIT/ML INSULN.PEN 10 UNIT SC ×3 (08:14→17:53)
[2020-06-30] MEDS: Losartan Potassium 100 MG Tablet PO (08:51)
[2020-06-30 09:47] VITALS: BP 142/77; PULSE 58; RESP 18; TEMP 36.2; O2SAT 93
--- NOTE | 2020-06-30 09:50 | NURSING ---
per therapist, pt became more drowsy and confused during therapy. difficult to arouse in recliner. upon arrival into patients room, pt found sleeping in recliner. vitals signs stable. responsive to verbal name/sternal rub. blood sugar WNL. resting in recliner, pts CPAP placed. this RN remained at bedside. pt becoming more alert/awake. denies needs. will monitor. will notify .
[2020-06-30 10:06] LABS: Bedside Glucose 199 mg/dL (70-110)
--- NOTE | 2020-06-30 10:55 | RAD_ITS ---
STUDY: X-RAY CHEST REASON FOR EXAM: Male, 79 years old. HYPOXIA, LETHARGIC TECHNIQUE: PA and lateral views of the chest. COMPARISON: 06/22/2020 FINDINGS: The lungs are clear and expanded. There is no demonstrated pleural abnormality. There is moderate cardiac enlargement. Normal mediastinum and crystal. There is prominence of the pulmonary hilar arteries and peripheral pulmonary arteries, consistent with congestive heart failure (CHF). There is atherosclerotic tortuosity of the aortic arch and descending thoracic aorta. Normal visualized thoracic spine. Normal visualized ribs, clavicles, and shoulders. There is no demonstrated abnormality of the visualized soft tissue structures of the upper abdomen. RAD/Chest PA and Lateral IMPRESSION: Mild congestive heart failure. Electronically Signed: Rodolfo Levy MD at 11:14 EDT Tel , Service support ,
[2020-06-30 12:15] LABS: Bedside Glucose 182 mg/dL (70-110)
--- NOTE | 2020-06-30 13:00 | CASEMGMT ---
Social Work Spoke with patient about alternative DC plan. Discussed what would be the next option if pt cannot return home safely. Pt became emotional, he was upset he is this old he needs to start thinking about this and that this time has come. SW validated feelings and provided emotional support. Explained SNF placement. Pt would like to choose the place, but agreeable to consider, if needed. Pt agreeable for SW to collaborate with son on Medicaid application and SNF stay. Pt would like if go be with him. Spoke with son at length about conversation with pt. Answered further questions for son. Explained qualifications for Medicaid, finding a SNF in network with [facility]. Son understood to complete application soon to get a pending number for pt to transfer, if needed, but that the SNF cannot accept pt until fully accepted with Medicaid. Son unsure of pt and/or income or assets. Son to speak with to get information. SW emailed Medicaid application to son and [place] SNF list. Explained can apply for Medicaid also and transfer to SNF with pt, if needed. Son to get the information and contact SW. Son does understand insurance update this date and continued stay is not guaranteed. IDT is recommending continued stay for further therapy. SW requires additional time for proper discharge planning. Pt's initial goal is to return home with . Will continue to follow. DARIELA LowW
[2020-06-30 14:10] VITALS: BP 132/75; PULSE 61; RESP 20; TEMP 36.3; O2SAT 93
[2020-06-30] MEDS: Furosemide 40 MG Tablet PO (14:44)
[2020-06-30 17:11] LABS: Bedside Glucose 175 mg/dL (70-110)
[2020-06-30 21:30] LABS: Bedside Glucose 221 mg/dL (70-110)
[2020-06-30] MEDS: Atorvastatin Calcium 40 MG Tablet PO (21:32)
[2020-07-01] MEDS: Glucerna Shake 120 ML LIQUID PO ×4 (05:16→21:22)
[2020-07-01] MEDS: Isosorbide Mononitrate 30 MG Tablet PO (05:16)
[2020-07-01] MEDS: Tolterodine Tartrate 2 MG CAP.SA PO (05:16)
[2020-07-01] MEDS: Furosemide 40 MG Tablet PO (05:16)
[2020-07-01] MEDS: Losartan Potassium 100 MG Tablet PO (05:16)
[2020-07-01] MEDS: APIXABAN 5 MG TABLET PO ×2 (05:17→18:07)
[2020-07-01] MEDS: Famotidine 20 MG Tablet PO (05:17)
[2020-07-01] MEDS: amLODIPine 10 MG Tablet PO (05:17)
[2020-07-01] MEDS: Senna/Docusate Sodium 1 Tablet PO ×2 (05:17→18:07)
[2020-07-01] MEDS: Polyethylene Glycol 3350 17 GM PACKET PO (05:17)
[2020-07-01] MEDS: Magnesium Chloride 64 MG Delay Rel.Tablet 128 MG PO (05:17)
[2020-07-01] MEDS: Menthol/Lanolin/Calamine/Znox 113 GM Tube 1 APPLIC TOPICAL ×2 (05:27→21:28)
[2020-07-01] MEDS: Nystatin Powder 15gm Bottle 1 APPLIC TOPICAL ×2 (05:27→21:29)
[2020-07-01 05:35] VITALS: BP 143/64; PULSE 84; RESP 18; TEMP 36.6; O2SAT 94
[2020-07-01 06:35] LABS: Bedside Glucose 186 mg/dL (70-110)
[2020-07-01 06:54] VITALS: O2SAT 95
[2020-07-01] MEDS: Multivitamins,Therapeutic Tablet 1 TABLET PO (08:19)
[2020-07-01] MEDS: Aspirin E.C. 81 MG Tablet PO (08:19)
[2020-07-01] MEDS: Amox/Clavulanate 875 MG Tablet PO ×2 (08:19→18:07)
[2020-07-01] MEDS: Insulin Lispro 100 UNIT/ML INSULN.PEN 10 UNIT SC ×3 (08:20→18:07)
--- NOTE | 2020-07-01 09:56 | CASEMGMT ---
Addendum entered by Caryn Nagel 07/01/20 13:21: Left message with son that insurance approved additional days, NRD 07/04, but continued stay is not guaranteed. Will continue to follow Original Note: Social Work Son provided SW with complete Medicaid application. Submitted to S. Pt does make about $2,500 in income. Explained to son a QIT would need obtained and once assigned a director of casework to contact him/her to complete that as soon as possible. Pt has a term life insurance policy - son looking into if it is of mon value. If so, son understands it would need to be liquidated. Cautioned son pt may get discharged from insurance update 06/30 and to provide SW with SNFs to refer to, if so. Son requested [facility] thus far. Referral made. Will continue to follow. Caryn Nagel FIELD TRAINING AGENT DIAL REFINISHER
[2020-07-01] MEDS: Acetaminophen 500 MG Tablet 1000 MG PO ×2 (11:05→21:26)
[2020-07-01 11:21] LABS: Bedside Glucose 192 mg/dL (70-110)
[2020-07-01 14:42] VITALS: BP 136/82; PULSE 61; RESP 20; TEMP 36.9; O2SAT 98
[2020-07-01 16:56] LABS: Bedside Glucose 200 mg/dL (70-110)
[2020-07-01] MEDS: Atorvastatin Calcium 40 MG Tablet PO (21:22)
[2020-07-01 21:52] LABS: Bedside Glucose 179 mg/dL (70-110)
[2020-07-02] MEDS: Tolterodine Tartrate 2 MG CAP.SA PO (06:01)
[2020-07-02] MEDS: Senna/Docusate Sodium 1 Tablet PO ×2 (06:01→17:17)
[2020-07-02] MEDS: APIXABAN 5 MG TABLET PO ×2 (06:01→17:17)
[2020-07-02] MEDS: Losartan Potassium 100 MG Tablet PO (06:01)
[2020-07-02] MEDS: amLODIPine 10 MG Tablet PO (06:01)
[2020-07-02] MEDS: Famotidine 20 MG Tablet PO (06:01)
[2020-07-02] MEDS: Isosorbide Mononitrate 30 MG Tablet PO (06:01)
[2020-07-02] MEDS: Magnesium Chloride 64 MG Delay Rel.Tablet 128 MG PO (06:02)
[2020-07-02] MEDS: Glucerna Shake 120 ML LIQUID PO ×4 (06:02→20:17)
[2020-07-02] MEDS: Furosemide 40 MG Tablet PO (06:02)
[2020-07-02] MEDS: Polyethylene Glycol 3350 17 GM PACKET PO (06:02)
[2020-07-02] MEDS: Menthol/Lanolin/Calamine/Znox 113 GM Tube 1 APPLIC TOPICAL ×2 (06:08→20:24)
[2020-07-02] MEDS: Nystatin Powder 15gm Bottle 1 APPLIC TOPICAL ×2 (06:08→20:28)
[2020-07-02 07:59] LABS: Absolute Lymphocyte Count 1.66 X10^3/uL (0.83-4.51); Absolute Neutrophil Count 5.2 X10^3/uL (2.0-7.7); Basophil# 0.02 X10^3/uL; Basophil% 0.2 % (0-1); Eosinophil# 0.16 X10^3/uL; Eosinophils% 1.8 % (0-5); Hematocrit 47.5 % (40-54); Hemoglobin 15.5 g/dL (13.0-16.5); Lymphocyte # 1.66 X10^3/ul (4.0); Lymphocyte % 19.1 % (19-41); Mean Corp Hgb Conc 32.6 g/dL (32-36); Mean Corpuscular Hgb 29.2 pg (27.0-32.0); Mean Corpuscular Volume 89.6 fL (80-94); Mean Platelet Vol. 11.5 fl (6.2-12.0); Monocyte# 1.53 X10^3/uL; Monocyte% 17.6 % (0-10); NRBC Flagged by Analyzer 0 % (0-5); Neutrophil % 59.8 % (47-70); POSITIVE DIFFERENTIAL YES; Platelet Count 171 K/mm3 (150-450); RBC Distribution Width CV 13.8 % (11.6-14.6); RBC Distribution Width SD 45.3 fl (35.1-43.9); White Blood Count 8.7 K/mm3 (4.4-11.0)
[2020-07-02] MEDS: Multivitamins,Therapeutic Tablet 1 TABLET PO (08:04)
[2020-07-02] MEDS: Amox/Clavulanate 875 MG Tablet PO (08:04)
[2020-07-02] MEDS: Aspirin E.C. 81 MG Tablet PO (08:04)
[2020-07-02] MEDS: Insulin Lispro 100 UNIT/ML INSULN.PEN 10 UNIT SC ×3 (08:05→18:13)
[2020-07-02 08:14] LABS: Differential Indicated SCAN CRITERIA MET
[2020-07-02 08:20] LABS: Anion Gap 5 (5-15); BUN 28 mg/dL (7-18); BUN/Creat Ratio 22.2 RATIO (10-20); Calcium,Total 8.5 mg/dL (8.5-10.1); Chloride 107 mmol/L (98-107); Creatinine, Serum 1.26 mg/dL (0.70-1.30); EST Glomerular Filtration Rate 59 mL/min (>60); Est Glom Filt Rate - Afr Amer 71 mL/min (>60); Glucose 182 mg/dL (74-106); Potassium 3.9 mmol/L (3.5-5.1); Sodium Level 137 mmol/L (136-145)
[2020-07-02 09:22] LABS: Platelet Estimate ADEQUATE (ADEQ); Red Cell Morphology NORM C+C NORMAL (NORM C&C)
[2020-07-02 10:11] LABS: Bedside Glucose 164 mg/dL (70-110)
[2020-07-02] MEDS: Tuberculin,Purif.prot.deriv. 50 TU/ML Vial 5 ML ID (10:21)
[2020-07-02 11:20] LABS: Bedside Glucose 279 mg/dL (70-110)
[2020-07-02 14:16] VITALS: BP 142/98; PULSE 62; RESP 16; TEMP 36.3; O2SAT 95
[2020-07-02] MEDS: Acetaminophen 500 MG Tablet 1000 MG PO (16:24)
[2020-07-02 16:55] LABS: Bedside Glucose 188 mg/dL (70-110)
[2020-07-02] MEDS: Atorvastatin Calcium 40 MG Tablet PO (20:18)
[2020-07-02 20:41] LABS: Bedside Glucose 199 mg/dL (70-110)
[2020-07-03 03:47] VITALS: BP 156/100; PULSE 62; RESP 18; TEMP 36.2; O2SAT 95
[2020-07-03] MEDS: Glucerna Shake 120 ML LIQUID PO ×4 (05:10→20:38)
[2020-07-03] MEDS: Nystatin Powder 15gm Bottle 1 APPLIC TOPICAL ×2 (05:10→20:50)
[2020-07-03] MEDS: Menthol/Lanolin/Calamine/Znox 113 GM Tube 1 APPLIC TOPICAL ×2 (05:10→20:50)
[2020-07-03] MEDS: Famotidine 20 MG Tablet PO (05:12)
[2020-07-03] MEDS: Senna/Docusate Sodium 1 Tablet PO ×2 (05:12→17:38)
[2020-07-03] MEDS: Tolterodine Tartrate 2 MG CAP.SA PO (05:12)
[2020-07-03] MEDS: Polyethylene Glycol 3350 17 GM PACKET PO (05:12)
[2020-07-03] MEDS: Magnesium Chloride 64 MG Delay Rel.Tablet 128 MG PO (05:12)
[2020-07-03] MEDS: amLODIPine 10 MG Tablet PO (05:12)
[2020-07-03] MEDS: Losartan Potassium 100 MG Tablet PO (05:12)
[2020-07-03] MEDS: Furosemide 40 MG Tablet PO (05:13)
[2020-07-03] MEDS: Isosorbide Mononitrate 30 MG Tablet PO (05:13)
[2020-07-03] MEDS: APIXABAN 5 MG TABLET PO ×2 (05:13→17:38)
[2020-07-03 06:35] LABS: Bedside Glucose 172 mg/dL (70-110)
[2020-07-03] MEDS: Aspirin E.C. 81 MG Tablet PO (08:03)
[2020-07-03] MEDS: Insulin Lispro 100 UNIT/ML INSULN.PEN 10 UNIT SC ×3 (08:03→17:38)
[2020-07-03] MEDS: Multivitamins,Therapeutic Tablet 1 TABLET PO (08:03)
[2020-07-03 11:05] LABS: Bedside Glucose 189 mg/dL (70-110)
[2020-07-03] MEDS: Bisacodyl 10 MG Suppository RECTAL (13:33)
--- NOTE | 2020-07-03 14:22 | NURSING ---
LBM 06/29, rectal suppository given.
[2020-07-03 14:25] VITALS: BP 155/72; PULSE 65; RESP 20; TEMP 36.1; O2SAT 95
[2020-07-03 16:50] LABS: Bedside Glucose 233 mg/dL (70-110)
[2020-07-03] MEDS: Atorvastatin Calcium 40 MG Tablet PO (20:46)
[2020-07-03 21:46] LABS: Bedside Glucose 177 mg/dL (70-110)
[2020-07-04] MEDS: Glucerna Shake 120 ML LIQUID PO ×4 (05:36→20:03)
[2020-07-04] MEDS: Menthol/Lanolin/Calamine/Znox 113 GM Tube 1 APPLIC TOPICAL ×2 (05:36→19:59)
[2020-07-04 05:37] VITALS: BP 162/89; PULSE 74; RESP 18; TEMP 36.6; O2SAT 94
[2020-07-04] MEDS: Nystatin Powder 15gm Bottle 1 APPLIC TOPICAL ×2 (05:37→19:59)
[2020-07-04] MEDS: Polyethylene Glycol 3350 17 GM PACKET PO (05:39)
[2020-07-04] MEDS: Tolterodine Tartrate 2 MG CAP.SA PO (05:40)
[2020-07-04] MEDS: Famotidine 20 MG Tablet PO (05:40)
[2020-07-04] MEDS: amLODIPine 10 MG Tablet PO (05:40)
[2020-07-04] MEDS: Senna/Docusate Sodium 1 Tablet PO ×2 (05:40→17:59)
[2020-07-04] MEDS: Magnesium Chloride 64 MG Delay Rel.Tablet 128 MG PO (05:40)
[2020-07-04] MEDS: Furosemide 40 MG Tablet PO (05:40)
[2020-07-04] MEDS: APIXABAN 5 MG TABLET PO ×2 (05:40→17:59)
[2020-07-04] MEDS: Isosorbide Mononitrate 30 MG Tablet PO (05:40)
[2020-07-04] MEDS: Losartan Potassium 100 MG Tablet PO (05:40)
[2020-07-04 06:35] LABS: Bedside Glucose 163 mg/dL (70-110)
[2020-07-04 07:01] VITALS: O2SAT 94
[2020-07-04] MEDS: Insulin Lispro 100 UNIT/ML INSULN.PEN 10 UNIT SC ×3 (08:06→18:04)
[2020-07-04] MEDS: Multivitamins,Therapeutic Tablet 1 TABLET PO (08:07)
[2020-07-04] MEDS: Aspirin E.C. 81 MG Tablet PO (08:07)
[2020-07-04] MEDS: Acetaminophen 500 MG Tablet 1000 MG PO ×2 (08:12→20:12)
[2020-07-04 09:16] VITALS: PULSE 57; RESP 16; O2SAT 97
[2020-07-04 12:15] LABS: Bedside Glucose 176 mg/dL (70-110)
--- NOTE | 2020-07-04 13:15 | NURSING ---
During yanet care pt got very vulgar towards this nurse. Told pt that he was being inappropriate and that I'm a Nurse caring for him.
[2020-07-04 16:40] LABS: Bedside Glucose 141 mg/dL (70-110)
[2020-07-04] MEDS: Atorvastatin Calcium 40 MG Tablet PO (20:00)
[2020-07-04 22:50] LABS: Bedside Glucose 163 mg/dL (70-110)
[2020-07-05 04:29] VITALS: BP 160/77; PULSE 55; RESP 18; TEMP 35.8; O2SAT 95
[2020-07-05] MEDS: Polyethylene Glycol 3350 17 GM PACKET PO (05:52)
[2020-07-05] MEDS: Citalopram 10 MG Tablet PO (05:54)
[2020-07-05] MEDS: APIXABAN 5 MG TABLET PO ×2 (05:54→18:36)
[2020-07-05] MEDS: Magnesium Chloride 64 MG Delay Rel.Tablet 128 MG PO (05:54)
[2020-07-05] MEDS: Losartan Potassium 100 MG Tablet PO (05:54)
[2020-07-05] MEDS: Famotidine 20 MG Tablet PO (05:54)
[2020-07-05] MEDS: Isosorbide Mononitrate 30 MG Tablet PO (05:54)
[2020-07-05] MEDS: amLODIPine 10 MG Tablet PO (05:54)
[2020-07-05] MEDS: Tolterodine Tartrate 2 MG CAP.SA PO (05:54)
[2020-07-05] MEDS: Senna/Docusate Sodium 1 Tablet PO ×2 (05:54→18:36)
[2020-07-05] MEDS: Glucerna Shake 120 ML LIQUID PO ×4 (05:54→20:42)
[2020-07-05] MEDS: Nystatin Powder 15gm Bottle 1 APPLIC TOPICAL ×2 (05:58→20:45)
[2020-07-05] MEDS: Furosemide 40 MG Tablet PO (05:58)
[2020-07-05] MEDS: Menthol/Lanolin/Calamine/Znox 113 GM Tube 1 APPLIC TOPICAL ×2 (05:58→20:45)
[2020-07-05 06:35] LABS: Bedside Glucose 135 mg/dL (70-110)
[2020-07-05 08:26] VITALS: O2SAT 96
[2020-07-05] MEDS: Insulin Lispro 100 UNIT/ML INSULN.PEN 10 UNIT SC ×3 (08:29→18:34)
[2020-07-05] MEDS: Multivitamins,Therapeutic Tablet 1 TABLET PO (08:29)
[2020-07-05] MEDS: Aspirin E.C. 81 MG Tablet PO (08:29)
[2020-07-05 11:05] LABS: Bedside Glucose 186 mg/dL (70-110)
[2020-07-05 13:39] VITALS: BP 138/84; PULSE 74; RESP 18; TEMP 36.7; O2SAT 98
[2020-07-05 16:36] LABS: Bedside Glucose 146 mg/dL (70-110)
[2020-07-05] MEDS: Atorvastatin Calcium 40 MG Tablet PO (20:42)
[2020-07-05 21:55] LABS: Bedside Glucose 205 mg/dL (70-110)
[2020-07-06 03:23] VITALS: BP 150/67; PULSE 59; RESP 18; TEMP 36.4; O2SAT 96
[2020-07-06 06:31] LABS: Bedside Glucose 141 mg/dL (70-110)
[2020-07-06] MEDS: Polyethylene Glycol 3350 17 GM PACKET PO (06:52)
[2020-07-06] MEDS: Glucerna Shake 120 ML LIQUID PO ×4 (06:52→22:25)
[2020-07-06] MEDS: Senna/Docusate Sodium 1 Tablet PO ×2 (06:53→17:49)
[2020-07-06] MEDS: Tolterodine Tartrate 2 MG CAP.SA PO (06:53)
[2020-07-06] MEDS: APIXABAN 5 MG TABLET PO ×2 (06:53→17:49)
[2020-07-06] MEDS: amLODIPine 10 MG Tablet PO (06:53)
[2020-07-06] MEDS: Famotidine 20 MG Tablet PO (06:53)
[2020-07-06] MEDS: Citalopram 10 MG Tablet PO (06:53)
[2020-07-06] MEDS: Losartan Potassium 100 MG Tablet PO (06:53)
[2020-07-06] MEDS: Furosemide 40 MG Tablet PO (06:53)
[2020-07-06] MEDS: Isosorbide Mononitrate 30 MG Tablet PO (06:53)
[2020-07-06] MEDS: Magnesium Chloride 64 MG Delay Rel.Tablet 128 MG PO (06:53)
[2020-07-06] MEDS: Nystatin Powder 15gm Bottle 1 APPLIC TOPICAL ×2 (06:54→22:28)
[2020-07-06] MEDS: Menthol/Lanolin/Calamine/Znox 113 GM Tube 1 APPLIC TOPICAL ×2 (06:54→22:25)
[2020-07-06 07:40] VITALS: O2SAT 95
[2020-07-06] MEDS: Insulin Lispro 100 UNIT/ML INSULN.PEN 10 UNIT SC ×3 (08:22→17:48)
[2020-07-06] MEDS: Multivitamins,Therapeutic Tablet 1 TABLET PO (08:22)
[2020-07-06] MEDS: Aspirin E.C. 81 MG Tablet PO (08:22)
[2020-07-06 10:00] VITALS: PULSE 53; RESP 18; O2SAT 92
[2020-07-06 11:15] LABS: Bedside Glucose 213 mg/dL (70-110)
[2020-07-06 13:40] VITALS: BP 142/96; PULSE 75; RESP 18; TEMP 36.7; O2SAT 96
--- NOTE | 2020-07-06 14:42 | CASEMGMT ---
Social Work Therapy is recommending pt for [facility] for pt as they feel pt could tolerate 3 hours of therapy/per day and progress quicker with the extra time vs 30 mins per discipline now as insurance allows. Spoke with son about recommendation - son agreeable. Referral made to [facility]. Accepted. Precert started. [facility] contacted SW - precert denied. Notified son. Still have not received outcome from TCU review. Will continue to follow. Caryn Nagel, DIGITAL MEDIA BUYER SALES ASSOC
--- NOTE | 2020-07-06 16:01 | CASEMGMT ---
Social Work SW met with pt to discuss HCPOA and LW. Explained living will and health care POA. Pt stating he does not want to complete these documents today but that SW could come back another day. JAVON Garcia
[2020-07-06 16:31] LABS: Bedside Glucose 134 mg/dL (70-110)
[2020-07-06 22:16] LABS: Bedside Glucose 179 mg/dL (70-110)
[2020-07-06] MEDS: Atorvastatin Calcium 40 MG Tablet PO (22:28)
[2020-07-07 06:26] LABS: Bedside Glucose 122 mg/dL (70-110)
[2020-07-07 06:27] VITALS: BP 152/102; PULSE 67; RESP 18; TEMP 36.6; O2SAT 98
[2020-07-07] MEDS: Polyethylene Glycol 3350 17 GM PACKET PO (06:29)
[2020-07-07] MEDS: Senna/Docusate Sodium 1 Tablet PO ×2 (06:30→16:34)
[2020-07-07] MEDS: Magnesium Chloride 64 MG Delay Rel.Tablet 128 MG PO (06:30)
[2020-07-07] MEDS: Famotidine 20 MG Tablet PO (06:30)
[2020-07-07] MEDS: Citalopram 10 MG Tablet PO (06:30)
[2020-07-07] MEDS: amLODIPine 10 MG Tablet PO (06:30)
[2020-07-07] MEDS: APIXABAN 5 MG TABLET PO ×2 (06:31→16:34)
[2020-07-07] MEDS: Furosemide 40 MG Tablet PO (06:31)
[2020-07-07] MEDS: Tolterodine Tartrate 2 MG CAP.SA PO (06:31)
[2020-07-07] MEDS: Menthol/Lanolin/Calamine/Znox 113 GM Tube 1 APPLIC TOPICAL ×2 (06:31→21:00)
[2020-07-07] MEDS: Isosorbide Mononitrate 30 MG Tablet PO (06:31)
[2020-07-07] MEDS: Nystatin Powder 15gm Bottle 1 APPLIC TOPICAL ×2 (06:31→21:00)
[2020-07-07] MEDS: Losartan Potassium 100 MG Tablet PO (06:31)
[2020-07-07 06:55] VITALS: O2SAT 94
[2020-07-07] MEDS: Multivitamins,Therapeutic Tablet 1 TABLET PO (07:45)
[2020-07-07] MEDS: Aspirin E.C. 81 MG Tablet PO (07:45)
--- NOTE | 2020-07-07 08:27 | MDS.RN ---
Information for the mds was obtained from review of the clinical record, interview of resident, staff, and direct observation of resident's care. unable to finalize 5 day PPS MDS due to Section A- [facility] Information systems aware.
[2020-07-07] MEDS: Insulin Lispro 100 UNIT/ML INSULN.PEN 10 UNIT SC ×3 (09:04→18:06)
--- NOTE | 2020-07-07 09:56 | CASEMGMT ---
Social Work Notified son pt approved by insurance NRD 07/12. Will continue to follow. Caryn Nagel, CERTIFIED MEDICAL CODER PHYSICAL THER
[2020-07-07 11:11] LABS: Bedside Glucose 203 mg/dL (70-110)
[2020-07-07] MEDS: Glucerna Shake 120 ML LIQUID PO ×3 (11:23→20:59)
[2020-07-07 15:13] VITALS: BP 158/90; PULSE 68; RESP 18; TEMP 36.9; O2SAT 95
--- NOTE | 2020-07-07 15:57 | CHAPLAIN ---
Type of Pastoral Visit ___ Initial Visit _x__ Follow-up Visit ___ On-call Visit ___ General Patient Visit ___ Spiritual Assessment ___ Family Conference ___ Bereavement ___ Rapid Response ___ Code Blue ___ Other (describe below) Pastoral Care Referral From _x__ Patient ___ Family ___ Nurse ___ Physician ___ Supervisor Plate Forming ___ Reimbursement Liaison ___ Other (describe below) Sacrament/Intervention _x__ Active listening ___ Anointing ___ Buddhism ___ Bereavement ___ Communion ___ Dana exploration ___ ___ Life review _x__ Prayer ___ Reconciliation ___ Sacrament of Sick _x__ Supportive presence ___ Wedding ___ Other (describe below) Pastoral Comments patient states that some things are going a little better and some things are going the other way; pt says that he would like more information about his health and plans for future care; made note of this to SW; SW responded that DR will be asked about this for pt; pt says he will get his first visit tomorrow with his ; pt reiterates that he is a people person and being isolated is very hard on him; pt was asked what could be done for him to improve his stay; pt says that he does not have a Bible, but a Bible was in the drawer and he was not aware of it; however Bible print is too small for him to read; this electronic specialist took Bible and read portions of the psalms to pt; pt states that he appreciated that, the visit, and the prayers
[2020-07-07 16:51] LABS: Bedside Glucose 139 mg/dL (70-110)
[2020-07-07] MEDS: Atorvastatin Calcium 40 MG Tablet PO (20:59)
[2020-07-07 21:26] LABS: Bedside Glucose 138 mg/dL (70-110)
[2020-07-08 05:38] VITALS: BP 148/90; PULSE 56; RESP 18; TEMP 36.1
[2020-07-08] MEDS: Menthol/Lanolin/Calamine/Znox 113 GM Tube 1 APPLIC TOPICAL ×2 (05:41→20:25)
[2020-07-08] MEDS: Nystatin Powder 15gm Bottle 1 APPLIC TOPICAL ×2 (05:42→20:25)
[2020-07-08] MEDS: Famotidine 20 MG Tablet PO (05:43)
[2020-07-08] MEDS: amLODIPine 10 MG Tablet PO (05:43)
[2020-07-08] MEDS: Citalopram 10 MG Tablet PO (05:43)
[2020-07-08] MEDS: Losartan Potassium 100 MG Tablet PO (05:43)
[2020-07-08] MEDS: Tolterodine Tartrate 2 MG CAP.SA PO (05:43)
[2020-07-08] MEDS: Senna/Docusate Sodium 1 Tablet PO ×2 (05:43→18:17)
[2020-07-08] MEDS: Furosemide 40 MG Tablet PO (05:44)
[2020-07-08] MEDS: Magnesium Chloride 64 MG Delay Rel.Tablet 128 MG PO (05:44)
[2020-07-08] MEDS: Isosorbide Mononitrate 30 MG Tablet PO (05:44)
[2020-07-08] MEDS: APIXABAN 5 MG TABLET PO ×2 (05:44→18:17)
[2020-07-08] MEDS: Glucerna Shake 120 ML LIQUID PO ×3 (05:50→20:24)
[2020-07-08] MEDS: Polyethylene Glycol 3350 17 GM PACKET PO (05:53)
[2020-07-08 06:30] LABS: Bedside Glucose 137 mg/dL (70-110)
[2020-07-08 06:38] VITALS: O2SAT 95
[2020-07-08] MEDS: Aspirin E.C. 81 MG Tablet PO (08:44)
[2020-07-08] MEDS: Multivitamins,Therapeutic Tablet 1 TABLET PO (08:45)
[2020-07-08] MEDS: Insulin Lispro 100 UNIT/ML INSULN.PEN 10 UNIT SC ×4 (08:46→20:23)
[2020-07-08] MEDS: Acetaminophen 500 MG Tablet 1000 MG PO (10:15)
[2020-07-08 11:15] LABS: Bedside Glucose 202 mg/dL (70-110)
[2020-07-08 14:31] VITALS: BP 161/72; PULSE 58; RESP 16; TEMP 36.7; O2SAT 94
[2020-07-08 16:41] LABS: Bedside Glucose 305 mg/dL (70-110)
[2020-07-08] MEDS: Atorvastatin Calcium 40 MG Tablet PO (20:24)
[2020-07-08 21:51] LABS: Bedside Glucose 118 mg/dL (70-110)
[2020-07-09] MEDS: Acetaminophen 500 MG Tablet 1000 MG PO ×2 (02:46→22:34)
[2020-07-09 02:49] VITALS: BP 181/97; PULSE 64; RESP 18; TEMP 36.8; O2SAT 96
[2020-07-09] MEDS: Glucerna Shake 120 ML LIQUID PO ×4 (05:19→19:37)
[2020-07-09] MEDS: Polyethylene Glycol 3350 17 GM PACKET PO (05:19)
[2020-07-09] MEDS: Menthol/Lanolin/Calamine/Znox 113 GM Tube 1 APPLIC TOPICAL ×2 (05:20→19:37)
[2020-07-09] MEDS: Losartan Potassium 100 MG Tablet PO (05:21)
[2020-07-09] MEDS: Magnesium Chloride 64 MG Delay Rel.Tablet 128 MG PO (05:21)
[2020-07-09] MEDS: Nystatin Powder 15gm Bottle 1 APPLIC TOPICAL ×2 (05:21→19:38)
[2020-07-09] MEDS: amLODIPine 10 MG Tablet PO (05:21)
[2020-07-09] MEDS: Citalopram 10 MG Tablet PO (05:21)
[2020-07-09] MEDS: Tolterodine Tartrate 2 MG CAP.SA PO (05:22)
[2020-07-09] MEDS: Isosorbide Mononitrate 30 MG Tablet PO (05:22)
[2020-07-09] MEDS: APIXABAN 5 MG TABLET PO ×2 (05:22→16:34)
[2020-07-09] MEDS: Senna/Docusate Sodium 1 Tablet PO ×2 (05:22→16:34)
[2020-07-09] MEDS: Famotidine 20 MG Tablet PO (05:22)
[2020-07-09 06:26] LABS: Bedside Glucose 129 mg/dL (70-110)
[2020-07-09 07:24] VITALS: O2SAT 94
[2020-07-09] MEDS: Insulin Lispro 100 UNIT/ML INSULN.PEN 10 UNIT SC ×3 (08:01→18:31)
[2020-07-09] MEDS: Aspirin E.C. 81 MG Tablet PO (08:02)
[2020-07-09] MEDS: Multivitamins,Therapeutic Tablet 1 TABLET PO (08:02)
[2020-07-09 08:38] LABS: Absolute Lymphocyte Count 2.42 X10^3/uL (0.83-4.51); Basophil# 0.13 X10^3/uL; Basophil% 1.4 % (0-1); Eosinophils% 5.3 % (0-5); Hematocrit 44.3 % (40-54); Hemoglobin 14.4 g/dL (13.0-16.5); Lymphocyte # 2.42 X10^3/ul (4.0); Lymphocyte % 25.8 % (19-41); Mean Corp Hgb Conc 32.5 g/dL (32-36); Mean Corpuscular Hgb 29.1 pg (27.0-32.0); Mean Corpuscular Volume 89.7 fL (80-94); Mean Platelet Vol. 11.8 fl (6.2-12.0); Monocyte# 1.23 X10^3/uL; Monocyte% 13.1 % (0-10); NRBC Flagged by Analyzer 0 % (0-5); Neutrophil # 4.99 X10^3/uL (2.7-7.7); Neutrophil % 53.1 % (47-70); Platelet Count 176 K/mm3 (150-450); RBC Distribution Width CV 13.6 % (11.6-14.6); RBC Distribution Width SD 44.6 fl (35.1-43.9); Red Blood Count 4.94 M/mm3 (4.6-6.2); White Blood Count 9.4 K/mm3 (4.4-11.0)
[2020-07-09 09:08] LABS: Anion Gap 7 (5-15); BUN 23 mg/dL (7-18); BUN/Creat Ratio 21.9 RATIO (10-20); Calcium,Total 8.7 mg/dL (8.5-10.1); Chloride 108 mmol/L (98-107); Creatinine, Serum 1.05 mg/dL (0.70-1.30); EST Glomerular Filtration Rate 73 mL/min (>60); Est Glom Filt Rate - Afr Amer 88 mL/min (>60); Estimated Creatinine Clearance 55.08 ml/min; Glucose 109 mg/dL (74-106); Potassium 3.7 mmol/L (3.5-5.1); Sodium Level 140 mmol/L (136-145)
[2020-07-09 11:30] LABS: Bedside Glucose 115 mg/dL (70-110)
--- NOTE | 2020-07-09 13:37 | NURSING ---
Resident, , Mai and son, Ronnie notified of Covid Outbreak status.
[2020-07-09 15:11] VITALS: BP 140/78; PULSE 65; RESP 18; TEMP 37.1; O2SAT 95
[2020-07-09 16:26] LABS: Bedside Glucose 150 mg/dL (70-110)
[2020-07-09] MEDS: Atorvastatin Calcium 40 MG Tablet PO (19:37)
[2020-07-09 22:31] LABS: Bedside Glucose 159 mg/dL (70-110)
[2020-07-10 05:59] VITALS: BP 146/69; PULSE 64; RESP 18; TEMP 36.4; O2SAT 94
[2020-07-10] MEDS: Famotidine 20 MG Tablet PO (06:04)
[2020-07-10] MEDS: Losartan Potassium 100 MG Tablet PO (06:04)
[2020-07-10] MEDS: Polyethylene Glycol 3350 17 GM PACKET PO (06:04)
[2020-07-10] MEDS: Glucerna Shake 120 ML LIQUID PO ×4 (06:04→20:07)
[2020-07-10] MEDS: Citalopram 10 MG Tablet PO (06:05)
[2020-07-10] MEDS: Isosorbide Mononitrate 30 MG Tablet PO (06:05)
[2020-07-10] MEDS: Magnesium Chloride 64 MG Delay Rel.Tablet 128 MG PO (06:05)
[2020-07-10] MEDS: APIXABAN 5 MG TABLET PO ×2 (06:05→17:31)
[2020-07-10] MEDS: Senna/Docusate Sodium 1 Tablet PO ×2 (06:05→17:32)
[2020-07-10] MEDS: amLODIPine 10 MG Tablet PO (06:05)
[2020-07-10] MEDS: Tolterodine Tartrate 2 MG CAP.SA PO (06:05)
[2020-07-10] MEDS: Nystatin Powder 15gm Bottle 1 APPLIC TOPICAL ×2 (06:06→20:08)
[2020-07-10] MEDS: Menthol/Lanolin/Calamine/Znox 113 GM Tube 1 APPLIC TOPICAL ×2 (06:06→20:07)
[2020-07-10 06:31] LABS: Bedside Glucose 102 mg/dL (70-110)
[2020-07-10] MEDS: Multivitamins,Therapeutic Tablet 1 TABLET PO (08:05)
[2020-07-10] MEDS: Aspirin E.C. 81 MG Tablet PO (08:06)
[2020-07-10 11:35] LABS: Bedside Glucose 153 mg/dL (70-110)
[2020-07-10] MEDS: Insulin Lispro 100 UNIT/ML INSULN.PEN 10 UNIT SC ×2 (11:50→18:10)
[2020-07-10 14:03] VITALS: BP 141/95; PULSE 64; RESP 16; TEMP 36.4; O2SAT 96
[2020-07-10 17:04] VITALS: O2SAT 94
[2020-07-10 17:16] LABS: Bedside Glucose 138 mg/dL (70-110)
[2020-07-10] MEDS: Atorvastatin Calcium 40 MG Tablet PO (20:08)
[2020-07-10 21:55] LABS: Bedside Glucose 140 mg/dL (70-110)
[2020-07-10] MEDS: Acetaminophen 500 MG Tablet 1000 MG PO (22:43)
[2020-07-11 06:13] VITALS: BP 150/94; PULSE 60; RESP 20; TEMP 36.2; O2SAT 97
[2020-07-11] MEDS: Glucerna Shake 120 ML LIQUID PO ×4 (06:18→20:43)
[2020-07-11] MEDS: amLODIPine 10 MG Tablet PO (06:18)
[2020-07-11] MEDS: Nystatin Powder 15gm Bottle 1 APPLIC TOPICAL ×2 (06:18→20:44)
[2020-07-11] MEDS: Polyethylene Glycol 3350 17 GM PACKET PO (06:18)
[2020-07-11] MEDS: Citalopram 10 MG Tablet PO (06:19)
[2020-07-11] MEDS: Tolterodine Tartrate 2 MG CAP.SA PO (06:19)
[2020-07-11] MEDS: Isosorbide Mononitrate 30 MG Tablet PO (06:19)
[2020-07-11] MEDS: Losartan Potassium 100 MG Tablet PO (06:19)
[2020-07-11] MEDS: Menthol/Lanolin/Calamine/Znox 113 GM Tube 1 APPLIC TOPICAL ×2 (06:19→20:44)
[2020-07-11] MEDS: Senna/Docusate Sodium 1 Tablet PO ×2 (06:19→17:38)
[2020-07-11] MEDS: APIXABAN 5 MG TABLET PO ×2 (06:19→17:38)
[2020-07-11] MEDS: Famotidine 20 MG Tablet PO (06:19)
[2020-07-11] MEDS: Magnesium Chloride 64 MG Delay Rel.Tablet 128 MG PO (06:19)
[2020-07-11 06:35] LABS: Bedside Glucose 109 mg/dL (70-110)
--- NOTE | 2020-07-11 07:45 | NURSING ---
Addendum entered by Mary Ann Wilder 07/11/20 16:32: spoke to billing at [facility] and they state there should be no copay on devices such as this. Resident agreeable to allow this RN to attach device so device in place. Addendum entered by Mary Ann Wilder 07/11/20 15:50: Heart monitor company called and this nurse spoke with billing department. They state that the [facility] covers their monitor 100%. This was relayed to resident and he continues to refuse to allow the monitor to be applied. He states I need to talk directly to the [facility] so they know whats going on. Number obtained from his and assisted resident with calling [facility] via his cell phone at this time. Original Note: Pt's 30 day heart monitor on bedside table, offered multiple times to apply to patient and begin monitoring but pt refuses. States he wants to call the [facility] Saturday and discuss cost before doing anything. Rationale for heart monitor reinforced.
[2020-07-11] MEDS: Insulin Lispro 100 UNIT/ML INSULN.PEN 10 UNIT SC ×3 (08:40→17:36)
[2020-07-11] MEDS: Aspirin E.C. 81 MG Tablet PO (08:42)
[2020-07-11] MEDS: Multivitamins,Therapeutic Tablet 1 TABLET PO (08:42)
[2020-07-11 09:51] LABS: Bedside Glucose 206 mg/dL (70-110)
[2020-07-11 10:58] VITALS: O2SAT 94
[2020-07-11 11:01] LABS: Bedside Glucose 161 mg/dL (70-110)
[2020-07-11 13:57] VITALS: BP 139/76; PULSE 67; RESP 18; TEMP 36.4; O2SAT 96
[2020-07-11 16:20] LABS: Bedside Glucose 165 mg/dL (70-110)
--- NOTE | 2020-07-11 17:51 | NURSING ---
Notified son, Ronnie,notified of negative COVID results. Left message for spouse to call.
[2020-07-11] MEDS: Atorvastatin Calcium 40 MG Tablet PO (20:43)
[2020-07-11] MEDS: Acetaminophen 500 MG Tablet 1000 MG PO (21:12)
[2020-07-11 21:20] LABS: Bedside Glucose 218 mg/dL (70-110)
[2020-07-12 05:34] VITALS: BP 134/77; PULSE 61; RESP 18; TEMP 36.8; O2SAT 95
[2020-07-12] MEDS: Menthol/Lanolin/Calamine/Znox 113 GM Tube 1 APPLIC TOPICAL ×2 (05:37→20:56)
[2020-07-12] MEDS: Glucerna Shake 120 ML LIQUID PO ×4 (05:37→20:54)
[2020-07-12] MEDS: Nystatin Powder 15gm Bottle 1 APPLIC TOPICAL ×2 (05:37→20:56)
[2020-07-12] MEDS: Polyethylene Glycol 3350 17 GM PACKET PO (05:38)
[2020-07-12] MEDS: Magnesium Chloride 64 MG Delay Rel.Tablet 128 MG PO (05:39)
[2020-07-12] MEDS: Tolterodine Tartrate 2 MG CAP.SA PO (05:39)
[2020-07-12] MEDS: Isosorbide Mononitrate 30 MG Tablet PO (05:39)
[2020-07-12] MEDS: Senna/Docusate Sodium 1 Tablet PO ×2 (05:39→18:00)
[2020-07-12] MEDS: APIXABAN 5 MG TABLET PO ×2 (05:39→18:00)
[2020-07-12] MEDS: Citalopram 10 MG Tablet PO (05:39)
[2020-07-12] MEDS: Losartan Potassium 100 MG Tablet PO (05:39)
[2020-07-12] MEDS: Famotidine 20 MG Tablet PO (05:40)
[2020-07-12] MEDS: amLODIPine 10 MG Tablet PO (05:40)
[2020-07-12 06:26] LABS: Bedside Glucose 112 mg/dL (70-110)
[2020-07-12 07:18] VITALS: O2SAT 98
[2020-07-12] MEDS: Aspirin E.C. 81 MG Tablet PO (08:11)
[2020-07-12] MEDS: Multivitamins,Therapeutic Tablet 1 TABLET PO (08:11)
[2020-07-12] MEDS: Insulin Lispro 100 UNIT/ML INSULN.PEN 10 UNIT SC ×3 (08:11→18:00)
[2020-07-12 11:15] LABS: Bedside Glucose 146 mg/dL (70-110)
[2020-07-12 15:37] VITALS: BP 140/89; PULSE 80; RESP 16; TEMP 36.6; O2SAT 96
--- NOTE | 2020-07-12 16:16 | NURSING ---
Resident and spouse, Mai, notified of staff member testing positive for COVID19.
[2020-07-12 17:06] LABS: Bedside Glucose 144 mg/dL (70-110)
--- NOTE | 2020-07-12 19:34 | NURSING ---
This nurse spoke with Pam Zamora PharmD at the [facility] about having an apixaban (Eliquis) peak and trough drawn d/t the patient having a CVA while on warfarin despite a therapeutic INR. This nurse spoke to lab, window unit air conditioning mechanic, and Dr. Kohler about orders received. Lab will be sent out and take 5-7 days to return. Comm entered to fax results to Pam Zamora PharmD when it returns, .
[2020-07-12] MEDS: Acetaminophen 500 MG Tablet 1000 MG PO (20:54)
[2020-07-12] MEDS: Atorvastatin Calcium 40 MG Tablet PO (20:55)
[2020-07-12 21:35] LABS: Bedside Glucose 210 mg/dL (70-110)
[2020-07-13 06:01] VITALS: BP 156/90; PULSE 58; RESP 20; TEMP 36.7; O2SAT 95
[2020-07-13] MEDS: Glucerna Shake 120 ML LIQUID PO ×2 (06:05→12:00)
[2020-07-13] MEDS: Nystatin Powder 15gm Bottle 1 APPLIC TOPICAL ×2 (06:05→20:01)
[2020-07-13] MEDS: Menthol/Lanolin/Calamine/Znox 113 GM Tube 1 APPLIC TOPICAL ×2 (06:05→20:01)
[2020-07-13] MEDS: Polyethylene Glycol 3350 17 GM PACKET PO (06:06)
[2020-07-13] MEDS: Famotidine 20 MG Tablet PO (06:06)
[2020-07-13] MEDS: amLODIPine 10 MG Tablet PO (06:06)
[2020-07-13] MEDS: Senna/Docusate Sodium 1 Tablet PO ×2 (06:06→17:23)
[2020-07-13] MEDS: Losartan Potassium 100 MG Tablet PO (06:06)
[2020-07-13] MEDS: Citalopram 10 MG Tablet PO (06:07)
[2020-07-13] MEDS: Magnesium Chloride 64 MG Delay Rel.Tablet 128 MG PO (06:07)
[2020-07-13] MEDS: Tolterodine Tartrate 2 MG CAP.SA PO (06:07)
[2020-07-13] MEDS: Isosorbide Mononitrate 30 MG Tablet PO (06:07)
[2020-07-13] MEDS: APIXABAN 5 MG TABLET PO ×2 (06:10→17:23)
[2020-07-13 06:51] LABS: Bedside Glucose 111 mg/dL (70-110)
[2020-07-13 07:15] VITALS: O2SAT 96
[2020-07-13] MEDS: Aspirin E.C. 81 MG Tablet PO (08:17)
[2020-07-13] MEDS: Multivitamins,Therapeutic Tablet 1 TABLET PO (08:17)
[2020-07-13] MEDS: Insulin Lispro 100 UNIT/ML INSULN.PEN 10 UNIT SC ×3 (08:19→18:21)
[2020-07-13 11:16] LABS: Bedside Glucose 186 mg/dL (70-110)
[2020-07-13 15:40] VITALS: BP 149/77; PULSE 77; RESP 17; TEMP 35.9; O2SAT 96
[2020-07-13 16:56] LABS: Bedside Glucose 119 mg/dL (70-110)
[2020-07-13] MEDS: Atorvastatin Calcium 40 MG Tablet PO (20:01)
[2020-07-13] MEDS: Acetaminophen 500 MG Tablet 1000 MG PO (20:03)
--- NOTE | 2020-07-13 20:20 | NURSING ---
Battery changed to heart monitor at this time.
[2020-07-14 05:27] VITALS: BP 153/90; PULSE 69; RESP 18; TEMP 36.8; O2SAT 95
[2020-07-14] MEDS: Famotidine 20 MG Tablet PO (05:29)
[2020-07-14] MEDS: Citalopram 10 MG Tablet PO (05:29)
[2020-07-14] MEDS: Isosorbide Mononitrate 30 MG Tablet PO (05:29)
[2020-07-14] MEDS: Tolterodine Tartrate 2 MG CAP.SA PO (05:29)
[2020-07-14] MEDS: Polyethylene Glycol 3350 17 GM PACKET PO (05:29)
[2020-07-14] MEDS: amLODIPine 10 MG Tablet PO (05:29)
[2020-07-14] MEDS: Losartan Potassium 100 MG Tablet PO (05:30)
[2020-07-14] MEDS: Senna/Docusate Sodium 1 Tablet PO ×2 (05:30→18:11)
[2020-07-14] MEDS: APIXABAN 5 MG TABLET PO ×2 (05:30→18:11)
[2020-07-14] MEDS: Magnesium Chloride 64 MG Delay Rel.Tablet 128 MG PO (05:30)
[2020-07-14] MEDS: Nystatin Powder 15gm Bottle 1 APPLIC TOPICAL ×2 (05:33→21:31)
[2020-07-14] MEDS: Menthol/Lanolin/Calamine/Znox 113 GM Tube 1 APPLIC TOPICAL ×2 (05:34→21:31)
[2020-07-14 06:35] LABS: Bedside Glucose 96 mg/dL (70-110)
[2020-07-14 07:04] VITALS: O2SAT 97
[2020-07-14 07:15] LABS: Bedside Glucose 125 mg/dL (70-110)
[2020-07-14] MEDS: Aspirin E.C. 81 MG Tablet PO (08:29)
[2020-07-14] MEDS: Multivitamins,Therapeutic Tablet 1 TABLET PO (08:29)
[2020-07-14 11:20] LABS: Bedside Glucose 167 mg/dL (70-110)
--- NOTE | 2020-07-14 11:21 | NURSING ---
Patient's blood sugar rechecked and glucose is 167. Patient states he still feels shaky.
[2020-07-14] MEDS: Insulin Lispro 100 UNIT/ML INSULN.PEN 10 UNIT SC (13:45)
[2020-07-14 13:55] LABS: Bedside Glucose 208 mg/dL (70-110)
[2020-07-14 16:36] LABS: Bedside Glucose 107 mg/dL (70-110)
[2020-07-14 17:23] VITALS: BP 142/72; PULSE 65; RESP 20; TEMP 36.4; O2SAT 98
[2020-07-14 18:22] VITALS: PULSE 65; RESP 20; O2SAT 98
[2020-07-14 21:31] LABS: Bedside Glucose 160 mg/dL (70-110)
[2020-07-14] MEDS: Atorvastatin Calcium 40 MG Tablet PO (21:31)
[2020-07-15 05:57] VITALS: BP 166/77; PULSE 77; RESP 18; TEMP 36.8; O2SAT 95
[2020-07-15] MEDS: Isosorbide Mononitrate 30 MG Tablet PO (06:02)
[2020-07-15] MEDS: Citalopram 10 MG Tablet PO (06:02)
[2020-07-15] MEDS: Tolterodine Tartrate 2 MG CAP.SA PO (06:02)
[2020-07-15] MEDS: Polyethylene Glycol 3350 17 GM PACKET PO (06:02)
[2020-07-15] MEDS: Menthol/Lanolin/Calamine/Znox 113 GM Tube 1 APPLIC TOPICAL ×2 (06:03→20:39)
[2020-07-15] MEDS: Losartan Potassium 100 MG Tablet PO (06:03)
[2020-07-15] MEDS: amLODIPine 10 MG Tablet PO (06:03)
[2020-07-15] MEDS: Magnesium Chloride 64 MG Delay Rel.Tablet 128 MG PO (06:03)
[2020-07-15] MEDS: APIXABAN 5 MG TABLET PO ×2 (06:03→18:09)
[2020-07-15] MEDS: Famotidine 20 MG Tablet PO (06:03)
[2020-07-15] MEDS: Senna/Docusate Sodium 1 Tablet PO ×2 (06:03→18:10)
[2020-07-15] MEDS: Nystatin Powder 15gm Bottle 1 APPLIC TOPICAL ×2 (06:03→20:39)
[2020-07-15] MEDS: Acetaminophen 500 MG Tablet 1000 MG PO ×2 (06:08→20:41)
[2020-07-15 06:40] LABS: Bedside Glucose 98 mg/dL (70-110)
[2020-07-15] MEDS: Aspirin E.C. 81 MG Tablet PO (07:43)
[2020-07-15] MEDS: Multivitamins,Therapeutic Tablet 1 TABLET PO (07:43)
--- NOTE | 2020-07-15 10:22 | SLEEP ---
Reviewed patient's case with Geological Engineering Teacher Caryn Magdaleno as she has noted patient to be falling asleep in shower and during therapy despite compliance wearing his prescribed home PAP Therapy for SAMEER. The last documented sleep study visit completed here was in 1997. The [facility] so it is possible he has had additional studies/evaluations there. I advised that the patient be evaluated by a physician for his Excessive Daytime Sleepiness as it may be evidence that his SAMEER is uncontrolled. He would need physician evaluation documentation to support additional sleep testing to confirm adequate pressures. Caryn is going to contact the [facility] in [place] for additional history. I also suggested consideration for nocturnal pulse oximetry on his current PAP therapy during sleep to see if this is abnormal so that his pressure could be empirically adjusted versus supplemental oxygen bled into PAP during his current admission if indicated.
[2020-07-15 10:55] LABS: Bedside Glucose 165 mg/dL (70-110)
--- NOTE | 2020-07-15 13:17 | PCM.TCUNOT ---
Subjective: Resident has been sleepy during the day, resident son this has been going on for years. Resident has obstructive sleep apnea, but his last sleep study was in the , and he would benefit from another sleep study. Vitals/I&O's: Vital Signs Temp Pulse Resp BP Pulse Ox 98.3 F 77 18 166/77 H 95 07/15/20 05:57 07/15/20 05:57 07/15/20 05:57 07/15/20 05:57 07/15/20 05:57 Oxygen Flow Rate (L/min) 2 Oxygen Delivery Method Room Air Weight: 142.428 kg Body Mass Index (BMI) 50.1 Finger Stick Blood Glucose 176 Intake and Output for Last 24 Hours 07/13/20 07/14/20 07/15/20 23:59 23:59 23:59 Intake Total 600 / 600 960 / 960 720 / 720 Balance 600 / 600 960 / 960 720 / 720 Laboratory Results 07/14/20 12:44: POC Glucose 208 H 07/14/20 16:18: POC Glucose 107 07/14/20 21:24: POC Glucose 160 H 07/15/20 06:11: POC Glucose 98 07/15/20 08:56: Miscellaneous Test Pending 07/15/20 10:51: POC Glucose 165 H Past Medical History Past Medical History (Chronic Problems): Chronic Problems (Last Reviewed 08/18/19 @ 13:23 by Tona Obrien) Hypokalemia (Chronic) Hypomagnesemia (Chronic) Coronary artery disease (Chronic) Overactive bladder (Chronic) Obesity (Chronic) Atrial fibrillation (Chronic) Non compliance w medication regimen (Chronic) Diabetes mellitus (Chronic) Hypertension (Chronic) Medical History: Medical History (Last Reviewed 08/18/19 @ 13:23 by Tona Obrien) Cataracts, bilateral H26.9 Diabetes E11.9 Hypertension I10 Sebaceous cyst (Resolved) L72.3 Skin lesion (Resolved) L98.9 Allergies Beta-Blockers (Beta-Adrenergic Bloc Allergy (Verified 06/22/20 14:13) Other aspirin Adverse Reaction (Verified 06/22/20 14:13) Upset Stomach Home Medications: Ambulatory Orders Medication Instructions Recorded cholecalciferol (vitamin D3) 50 2,000 unit PO DAILY 02/23/19 mcg (2,000 unit) capsule insulin aspart U-100 100 unit/mL 8 unit SC TID ml 02/23/19 subcutaneous cartridge magnesium oxide 420 mg tablet 420 mg PO DAILY tab 02/23/19 Novolin N 24 units SUBCUT BREAKFAST 08/31/19 Novolin N 42 units SUBCUT QHS 08/31/19 Amlodipine Besylate 10 mg PO DAILY #30 tab 09/01/19 Isosorbide Mononitrate [Imdur] 30 mg PO DAILY 06/22/20 Multivitamin with Minerals 1 ea PO DAILY 06/22/20 [Multiple Vitamin] Oxybutynin Chloride [Oxybutynin 5 mg PO DAILY 06/22/20 Chloride ER] Apixaban [Eliquis] 5 mg PO BID 06/24/20 Aspirin E.C. [Ecotrin] 81 mg PO DAILY@0800 06/24/20 Atorvastatin Calcium [Lipitor] 40 mg PO QHS 06/24/20 Famotidine [Pepcid] 20 mg PO DAILY 06/24/20 Potassium Chloride [K-Dur] 40 meq PO BIDCM 06/24/20 Surgical History: Surgical History (Last Reviewed 08/18/19 @ 13:23 by Tona Obrien) S/P tooth extraction K08.409 Scalp cyst L72.9 Surgical History: - - scalp cyst, tooth extraction Psychiatric History: No pertinent psych hx Lives: Spouse/ Significant Other Smoking Status: Never smoker Tobacco Use: Non-smoker Alcohol: None Drugs: None - *Family History Maternal Family History: Family History (Last Reviewed 06/22/20 @ 16:12 by Macario SIBLEY, PA) Other Diabetes Heart disease History Items: No pertinent history Capacity - Capacity Assessment Tool Can the patient make a choice & communicate that choice?: Yes Can the patient understand benefits, risks and alternatives?: Yes Can the patient make a logical, rational choice?: Yes Is the choice the patient makes consistent w/ their values?: Yes Is there an impending, emergent risk to the patient?: No Does the patient have an Advance Directive?: No Is there a Surrogate Available?: Yes i.e. HCPOA: Yes i.e. close relative (spouse, child, parent, sibling)?: Yes Review of Systems Constitutional: Denies: Chills, Fever, Weight Change HEENT: Denies: Head Aches, Sinus Congestion, Sinus Drainage Cardiovascular: Denies: Chest Pain, Palpitations Respiratory: Denies: Cough, Shortness of breath at rest, Sputum production Gastrointestinal: Denies: Abdominal Pain, Nausea, Vomiting Genitourinary: Denies: Dysuria Musculoskeletal: Denies: Joint Pain, Joint Tenderness Skin: Denies: Rash, Wounds Neurological: Denies: Numbness, Tingling, Focal weakness Psychiatric: Denies: Anxiety, Depression, Homicidal Ideations, Suicidal Ideations Hematologic/ Lymphatic: Denies: Easy Bruising, Easy Bleeding Patient Problems: Active and Suspected Problems (Last Reviewed 08/18/19 @ 13:23 by Tona Obrien) Debility (Acute) Dysarthria (Acute) Right hemiplegia (Acute) Vitamin D deficiency (Acute) - Physical Exam Vitals/I&O's: Vital Signs Temp Pulse Resp BP Pulse Ox 98.3 F 77 18 166/77 H 95 07/15/20 05:57 07/15/20 05:57 07/15/20 05:57 07/15/20 05:57 07/15/20 05:57 Oxygen Flow Rate (L/min) 2 Oxygen Delivery Method Room Air Weight: 142.428 kg Body Mass Index (BMI) 50.1 Finger Stick Blood Glucose 176 Intake and Output for Last 24 Hours 07/13/20 07/14/20 07/15/20 23:59 23:59 23:59 Intake Total 600 / 600 960 / 960 720 / 720 Balance 600 / 600 960 / 960 720 / 720 General: Alert, Oriented x3, Cooperative HEENT: Atraumatic, PERRLA, EOMI, Normocephalic Neck: Supple, No JVD, Negative Carotid Bruits Lungs: Clear to auscultation, Normal air movement Cardiovascular: Regular rate, No murmurs Abdomen: Bowel Sounds Present, Soft, Non Tender Extremities: No edema, Capillary Refill Less than 3 Seconds Skin: No rashes, No breakdown Musculoskeletal: No Tenderness to Palpation of Joints or Extremities Neurological: Cranial nerves II-XII grossly intact, - - Mild right hemiparesis. Psych/Mental Status: Normal Affect, Appropriate Laboratory Results 07/14/20 12:44: POC Glucose 208 H 07/14/20 16:18: POC Glucose 107 07/14/20 21:24: POC Glucose 160 H 07/15/20 06:11: POC Glucose 98 07/15/20 08:56: Miscellaneous Test Pending 07/15/20 10:51: POC Glucose 165 H Current Medications Acetaminophen (Tylenol) 1,000 mg PO Q6H PRN PRN Reason: Pain Score 1-10 Last Admin: 07/15/20 06:08 Dose: 1,000 mg Documented by: Amlodipine Besylate (Norvasc) 10 mg PO DAILY [facility] Last Admin: 07/15/20 06:03 Dose: 10 mg Documented by: Apixaban (Eliquis) 5 mg PO BID [facility] Last Admin: 07/15/20 06:03 Dose: 5 mg Documented by: Aspirin (Ecotrin) 81 mg PO DAILY@0800 [facility] Last Admin: 07/15/20 07:43 Dose: 81 mg Documented by: Atorvastatin Calcium (Lipitor) 40 mg PO QHS [facility] Last Admin: 07/14/20 21:31 Dose: 40 mg Documented by: Bisacodyl (Dulcolax) 10 mg RECTAL DAILY PRN PRN Reason: Constipation Last Admin: 07/03/20 13:33 Dose: 10 mg Documented by: Calamine/Phenol (Calmoseptine Ointment) 1 applic TOPICAL 0600,2200 [facility]; Protocol Last Admin: 07/15/20 06:03 Dose: 1 applicatio Documented by: Cholecalciferol (Vitamin D (25mcg)) 2,000 unit PO DAILY [facility] Last Admin: 07/15/20 06:02 Dose: 2,000 unit Documented by: Citalopram Hydrobromide (Citalopram 10 Mg Tablet) 10 mg PO DAILY [facility] Last Admin: 07/15/20 06:02 Dose: 10 mg Documented by: Famotidine (Pepcid) 20 mg PO DAILY [facility] Last Admin: 07/15/20 06:03 Dose: 20 mg Documented by: Insulin Glargine (Lantus (Bkc)) 30 units SC QHS [facility] Last Admin: 07/14/20 21:31 Dose: 30 units Documented by: Isosorbide Mononitrate (Imdur) 30 mg PO DAILY [facility] Last Admin: 07/15/20 06:02 Dose: 30 mg Documented by: Losartan Potassium (Losartan Potassium 100 Mg Tablet) 100 mg PO DAILY [facility] Last Admin: 07/15/20 06:03 Dose: 100 mg Documented by: Magnesium Chloride (Mag64) 128 mg PO DAILY [facility] Last Admin: 07/15/20 06:03 Dose: 128 mg Documented by: Multivitamins (Multivitamin) 1 tablet PO DAILY@0800 [facility] Last Admin: 07/15/20 07:43 Dose: 1 tablet Documented by: Nystatin (Mycostatin Powder) 1 applic TOPICAL 0600,2200 [facility]; Protocol Last Admin: 07/15/20 06:03 Dose: 1 applicatio Documented by: Polyethylene Glycol (Miralax) 17 gm PO DAILY [facility] Last Admin: 07/15/20 06:02 Dose: 17 gm Documented by: Potassium Chloride (K-Dur) 40 meq PO BIDCM [facility] Last Admin: 07/15/20 07:43 Dose: 40 meq Documented by: Senna/Docusate Sodium (Senokot-S, Leda-Colace) 1 tablet PO BID [facility] Last Admin: 07/15/20 06:03 Dose: 1 tablet Documented by: Tolterodine Tartrate (Detrol La) 2 mg PO DAILY [facility] Last Admin: 07/15/20 06:02 Dose: 2 mg Documented by: Assessment/Plan All Active Problems (Last Reviewed 08/18/19 @ 13:23 by Tona Obrien) Debility (Acute) Dysarthria (Acute) Right hemiplegia (Acute) Vitamin D deficiency (Acute) CVA (cerebral vascular accident) (Acute) Pilar cyst (Resolved) Sebaceous cyst (Resolved) Skin lesion (Resolved) 79 year old male with below past medical history hospitalized for stoke with dense right hemiplegia, dysarthria, admitted to TCU with debility, here for rehabilitation, strengthening, prior to discharge home with . Sleep apnea - resident has diagnosis of sleep apnea, he has excessive daytime sleepiness, he fell asleep during therapy shower, he wears CPAP while napping during the day, and he is still tired. Will order nighttime pulsoximetry to see if bleed in oxygen would be helpful, recommend sleep study on discharge.
[2020-07-15 17:01] LABS: Bedside Glucose 140 mg/dL (70-110)
[2020-07-15] MEDS: Atorvastatin Calcium 40 MG Tablet PO (20:39)
[2020-07-15 21:21] LABS: Bedside Glucose 197 mg/dL (70-110)
[2020-07-16 00:31] VITALS: BP 169/82; PULSE 69; RESP 18; TEMP 36; O2SAT 96
[2020-07-16] MEDS: Tolterodine Tartrate 2 MG CAP.SA PO (04:31)
[2020-07-16] MEDS: Magnesium Chloride 64 MG Delay Rel.Tablet 128 MG PO (04:31)
[2020-07-16] MEDS: Senna/Docusate Sodium 1 Tablet PO ×2 (04:31→16:42)
[2020-07-16] MEDS: Famotidine 20 MG Tablet PO (04:31)
[2020-07-16] MEDS: Isosorbide Mononitrate 30 MG Tablet PO (04:31)
[2020-07-16] MEDS: APIXABAN 5 MG TABLET PO ×2 (04:31→16:43)
[2020-07-16] MEDS: amLODIPine 10 MG Tablet PO (04:31)
[2020-07-16] MEDS: Citalopram 10 MG Tablet PO (04:31)
[2020-07-16] MEDS: Losartan Potassium 100 MG Tablet PO (04:31)
[2020-07-16] MEDS: Nystatin Powder 15gm Bottle 1 APPLIC TOPICAL ×2 (04:32→21:55)
[2020-07-16] MEDS: Polyethylene Glycol 3350 17 GM PACKET PO (04:33)
[2020-07-16] MEDS: Menthol/Lanolin/Calamine/Znox 113 GM Tube 1 APPLIC TOPICAL ×2 (04:39→21:52)
[2020-07-16 06:31] LABS: Bedside Glucose 107 mg/dL (70-110)
[2020-07-16 08:03] VITALS: O2SAT 94
[2020-07-16] MEDS: Aspirin E.C. 81 MG Tablet PO (08:21)
[2020-07-16] MEDS: Multivitamins,Therapeutic Tablet 1 TABLET PO (08:21)
[2020-07-16] MEDS: Acetaminophen 500 MG Tablet 1000 MG PO ×2 (08:24→22:01)
[2020-07-16 09:19] LABS: Absolute Neutrophil Count 3.9 X10^3/uL (2.0-7.7); Basophil# 0.07 X10^3/uL; Eosinophil# 0.25 X10^3/uL; Eosinophils% 3.5 % (0-5); Hematocrit 44.3 % (40-54); Hemoglobin 14.9 g/dL (13.0-16.5); Lymphocyte % 25.1 % (19-41); Mean Corp Hgb Conc 33.6 g/dL (32-36); Mean Corpuscular Volume 92.1 fL (80-94); Mean Platelet Vol. 11.4 fl (6.2-12.0); Monocyte# 1.13 X10^3/uL; Monocyte% 15.7 % (0-10); NRBC Flagged by Analyzer 0 % (0-5); Neutrophil # 3.86 X10^3/uL (2.7-7.7); Neutrophil % 53.7 % (47-70); Platelet Count 169 K/mm3 (150-450); RBC Distribution Width CV 13.9 % (11.6-14.6); RBC Distribution Width SD 47.1 fl (35.1-43.9); Red Blood Count 4.81 M/mm3 (4.6-6.2); White Blood Count 7.2 K/mm3 (4.4-11.0)
[2020-07-16 09:36] LABS: Anion Gap 5 (5-15); BUN 25 mg/dL (7-18); BUN/Creat Ratio 20.7 RATIO (10-20); Calcium,Total 8.7 mg/dL (8.5-10.1); Chloride 111 mmol/L (98-107); Creatinine, Serum 1.21 mg/dL (0.70-1.30); EST Glomerular Filtration Rate 62 mL/min (>60); Est Glom Filt Rate - Afr Amer 75 mL/min (>60); Glucose 141 mg/dL (74-106); Potassium 3.9 mmol/L (3.5-5.1); Sodium Level 140 mmol/L (136-145)
[2020-07-16 11:15] LABS: Bedside Glucose 161 mg/dL (70-110)
[2020-07-16 13:44] VITALS: BP 155/81; PULSE 56; RESP 17; TEMP 35.9; O2SAT 96
[2020-07-16 16:56] LABS: Bedside Glucose 150 mg/dL (70-110)
[2020-07-16 21:50] LABS: Bedside Glucose 164 mg/dL (70-110)
[2020-07-16] MEDS: Atorvastatin Calcium 40 MG Tablet PO (21:53)
[2020-07-17 05:56] VITALS: BP 161/93; PULSE 57; RESP 16; TEMP 36.4; O2SAT 92
[2020-07-17] MEDS: Nystatin Powder 15gm Bottle 1 APPLIC TOPICAL ×2 (05:58→20:37)
[2020-07-17] MEDS: Menthol/Lanolin/Calamine/Znox 113 GM Tube 1 APPLIC TOPICAL ×2 (05:58→20:37)
[2020-07-17] MEDS: Polyethylene Glycol 3350 17 GM PACKET PO (05:59)
[2020-07-17] MEDS: Isosorbide Mononitrate 30 MG Tablet PO (06:00)
[2020-07-17] MEDS: Senna/Docusate Sodium 1 Tablet PO ×2 (06:00→18:08)
[2020-07-17] MEDS: amLODIPine 10 MG Tablet PO (06:00)
[2020-07-17] MEDS: Famotidine 20 MG Tablet PO (06:00)
[2020-07-17] MEDS: Losartan Potassium 100 MG Tablet PO (06:01)
[2020-07-17] MEDS: Citalopram 10 MG Tablet PO (06:01)
[2020-07-17] MEDS: Magnesium Chloride 64 MG Delay Rel.Tablet 128 MG PO (06:01)
[2020-07-17] MEDS: Tolterodine Tartrate 2 MG CAP.SA PO (06:01)
[2020-07-17] MEDS: APIXABAN 5 MG TABLET PO ×2 (06:01→18:08)
[2020-07-17 06:20] LABS: Bedside Glucose 143 mg/dL (70-110)
[2020-07-17 07:56] VITALS: O2SAT 93
[2020-07-17] MEDS: Aspirin E.C. 81 MG Tablet PO (08:30)
[2020-07-17] MEDS: Multivitamins,Therapeutic Tablet 1 TABLET PO (08:30)
[2020-07-17 11:16] LABS: Bedside Glucose 184 mg/dL (70-110)
[2020-07-17 15:31] VITALS: BP 140/82; PULSE 58; RESP 16; TEMP 36.9; O2SAT 98
[2020-07-17 16:21] LABS: Bedside Glucose 163 mg/dL (70-110)
[2020-07-17] MEDS: Atorvastatin Calcium 40 MG Tablet PO (20:39)
[2020-07-17 21:41] LABS: Bedside Glucose 210 mg/dL (70-110)
[2020-07-17] MEDS: Acetaminophen 500 MG Tablet 1000 MG PO (21:56)
[2020-07-18 05:00] VITALS: BP 155/94; PULSE 55; RESP 16; TEMP 36.6; O2SAT 92
[2020-07-18] MEDS: Polyethylene Glycol 3350 17 GM PACKET PO (05:01)
[2020-07-18] MEDS: Senna/Docusate Sodium 1 Tablet PO ×2 (05:02→17:44)
[2020-07-18] MEDS: APIXABAN 5 MG TABLET PO ×2 (05:02→17:44)
[2020-07-18] MEDS: Losartan Potassium 100 MG Tablet PO (05:03)
[2020-07-18] MEDS: Famotidine 20 MG Tablet PO (05:03)
[2020-07-18] MEDS: Magnesium Chloride 64 MG Delay Rel.Tablet 128 MG PO (05:03)
[2020-07-18] MEDS: Menthol/Lanolin/Calamine/Znox 113 GM Tube 1 APPLIC TOPICAL ×2 (05:03→22:07)
[2020-07-18] MEDS: Tolterodine Tartrate 2 MG CAP.SA PO (05:03)
[2020-07-18] MEDS: amLODIPine 10 MG Tablet PO (05:03)
[2020-07-18] MEDS: Citalopram 10 MG Tablet PO (05:03)
[2020-07-18] MEDS: Isosorbide Mononitrate 30 MG Tablet PO (05:03)
[2020-07-18] MEDS: Nystatin Powder 15gm Bottle 1 APPLIC TOPICAL ×2 (05:06→22:07)
[2020-07-18 06:26] LABS: Bedside Glucose 138 mg/dL (70-110)
[2020-07-18 07:32] VITALS: O2SAT 96
[2020-07-18] MEDS: Aspirin E.C. 81 MG Tablet PO (08:03)
[2020-07-18] MEDS: Multivitamins,Therapeutic Tablet 1 TABLET PO (08:03)
--- NOTE | 2020-07-18 08:12 | NURSING ---
Pt sitting up in bed eating breakfast. will come back later to assess buttocks.
[2020-07-18 10:00] VITALS: PULSE 70; RESP 16; O2SAT 99
[2020-07-18 10:51] LABS: Bedside Glucose 186 mg/dL (70-110)
[2020-07-18 13:53] VITALS: BP 144/72; PULSE 69; RESP 18; TEMP 36.8; O2SAT 95
[2020-07-18 16:25] LABS: Bedside Glucose 179 mg/dL (70-110)
[2020-07-18 21:55] LABS: Bedside Glucose 178 mg/dL (70-110)
[2020-07-18] MEDS: Atorvastatin Calcium 40 MG Tablet PO (22:06)
[2020-07-18] MEDS: Acetaminophen 500 MG Tablet 1000 MG PO (22:11)
--- NOTE | 2020-07-19 00:25 | NURSING ---
Pt resting in bed with eyes closed, resp even, cpap in place. Appears to be sleeping, no distress noted.
[2020-07-19 05:34] VITALS: BP 178/87; PULSE 67; RESP 18; TEMP 36.1; O2SAT 97
[2020-07-19] MEDS: Senna/Docusate Sodium 1 Tablet PO ×2 (05:39→17:17)
[2020-07-19] MEDS: Magnesium Chloride 64 MG Delay Rel.Tablet 128 MG PO (05:39)
[2020-07-19] MEDS: APIXABAN 5 MG TABLET PO ×2 (05:39→17:17)
[2020-07-19] MEDS: Tolterodine Tartrate 2 MG CAP.SA PO (05:39)
[2020-07-19] MEDS: Famotidine 20 MG Tablet PO (05:39)
[2020-07-19] MEDS: amLODIPine 10 MG Tablet PO (05:39)
[2020-07-19] MEDS: Citalopram 10 MG Tablet PO (05:39)
[2020-07-19] MEDS: Losartan Potassium 100 MG Tablet PO (05:39)
[2020-07-19] MEDS: Isosorbide Mononitrate 30 MG Tablet PO (05:39)
[2020-07-19] MEDS: Polyethylene Glycol 3350 17 GM PACKET PO (05:40)
[2020-07-19] MEDS: Menthol/Lanolin/Calamine/Znox 113 GM Tube 1 APPLIC TOPICAL ×2 (05:44→20:28)
[2020-07-19] MEDS: Nystatin Powder 15gm Bottle 1 APPLIC TOPICAL ×2 (05:44→20:29)
[2020-07-19 06:46] LABS: Bedside Glucose 101 mg/dL (70-110)
[2020-07-19 07:06] VITALS: O2SAT 98
[2020-07-19] MEDS: Aspirin E.C. 81 MG Tablet PO (08:26)
[2020-07-19] MEDS: Multivitamins,Therapeutic Tablet 1 TABLET PO (08:26)
[2020-07-19 11:00] LABS: Bedside Glucose 179 mg/dL (70-110)
[2020-07-19] MEDS: Acetaminophen 500 MG Tablet 1000 MG PO (12:18)
[2020-07-19 13:41] VITALS: BP 134/76; PULSE 52; RESP 18; TEMP 36.6
--- NOTE | 2020-07-19 15:04 | CASEMGMT ---
Social Work Collaborating with son, and sleep lab for pt to get SAMEER controlled. Pt receives equipment through [facility] and diagnostic sleep study. recommending new titration sleep study at [facility]. EMANUEL contacted [facility] to inquire if pt can receive sleep study at [facility] or [facility]. [facility] stated pt can receive at [facility] and send results to [facility]. [facility] needs original sleep study results. Contacted [facility] to obtain release of information for pt. [facility] sleep lab will need to submit precert for insurance to potentially approve sleep study. The goal is for pt to get sleep study at [facility] from [facility] prior to transfer to [facility]. has ordered pulmonology for overnight trending pulse ox. EMANUEL faxed KACI request to [facility]. Will continue to assist. DARIELA LowW
[2020-07-19 16:11] LABS: Bedside Glucose 133 mg/dL (70-110)
[2020-07-19] MEDS: Atorvastatin Calcium 40 MG Tablet PO (20:28)
[2020-07-19 21:20] LABS: Bedside Glucose 181 mg/dL (70-110)
[2020-07-19 22:07] VITALS: PULSE 67; O2SAT 98
[2020-07-20 05:06] VITALS: BP 164/91; PULSE 64; RESP 16; TEMP 37.1; O2SAT 98
[2020-07-20] MEDS: Famotidine 20 MG Tablet PO (05:08)
[2020-07-20] MEDS: Citalopram 10 MG Tablet PO (05:08)
[2020-07-20] MEDS: amLODIPine 10 MG Tablet PO (05:08)
[2020-07-20] MEDS: APIXABAN 5 MG TABLET PO ×2 (05:08→17:44)
[2020-07-20] MEDS: Polyethylene Glycol 3350 17 GM PACKET PO (05:08)
[2020-07-20] MEDS: Isosorbide Mononitrate 30 MG Tablet PO (05:08)
[2020-07-20] MEDS: Tolterodine Tartrate 2 MG CAP.SA PO (05:09)
[2020-07-20] MEDS: Losartan Potassium 100 MG Tablet PO (05:09)
[2020-07-20] MEDS: Senna/Docusate Sodium 1 Tablet PO ×2 (05:09→17:44)
[2020-07-20] MEDS: Magnesium Chloride 64 MG Delay Rel.Tablet 128 MG PO (05:09)
[2020-07-20] MEDS: Menthol/Lanolin/Calamine/Znox 113 GM Tube 1 APPLIC TOPICAL ×2 (05:16→20:49)
[2020-07-20] MEDS: Nystatin Powder 15gm Bottle 1 APPLIC TOPICAL ×2 (05:16→20:49)
[2020-07-20 06:41] LABS: Bedside Glucose 118 mg/dL (70-110)
[2020-07-20 07:13] VITALS: O2SAT 93
[2020-07-20] MEDS: Multivitamins,Therapeutic Tablet 1 TABLET PO (08:42)
[2020-07-20] MEDS: Aspirin E.C. 81 MG Tablet PO (08:42)
--- NOTE | 2020-07-20 09:54 | NURSING ---
No further redness noted to buttocks. no open areas noted. can reconsult wound nurse if needed.
--- NOTE | 2020-07-20 11:17 | CASEMGMT ---
Social Work Received the medical records request from the [facility]. Provided to sleep lab. Will continue to follow. DARIELA LowW
[2020-07-20 11:31] LABS: Bedside Glucose 174 mg/dL (70-110)
--- NOTE | 2020-07-20 13:24 | NURSING ---
Resident and spouse, Mai, notified of staff members testing positive for COVID 19.
[2020-07-20 16:41] LABS: Bedside Glucose 181 mg/dL (70-110)
[2020-07-20 19:24] VITALS: PULSE 74; RESP 18; O2SAT 98
[2020-07-20 19:35] VITALS: BP 138/52; PULSE 74; RESP 18; TEMP 36.9; O2SAT 98
[2020-07-20] MEDS: Atorvastatin Calcium 40 MG Tablet PO (20:46)
[2020-07-20 21:11] LABS: Bedside Glucose 181 mg/dL (70-110)
[2020-07-20 21:16] LABS: Bedside Glucose 186 mg/dL (70-110)
[2020-07-21 05:18] VITALS: BP 155/97; PULSE 60; RESP 18; TEMP 36.9; O2SAT 95
[2020-07-21] MEDS: Losartan Potassium 100 MG Tablet PO (05:22)
[2020-07-21] MEDS: Senna/Docusate Sodium 1 Tablet PO ×2 (05:22→16:28)
[2020-07-21] MEDS: Famotidine 20 MG Tablet PO (05:22)
[2020-07-21] MEDS: amLODIPine 10 MG Tablet PO (05:22)
[2020-07-21] MEDS: Polyethylene Glycol 3350 17 GM PACKET PO (05:22)
[2020-07-21] MEDS: Magnesium Chloride 64 MG Delay Rel.Tablet 128 MG PO (05:22)
[2020-07-21] MEDS: Citalopram 10 MG Tablet PO (05:23)
[2020-07-21] MEDS: APIXABAN 5 MG TABLET PO ×2 (05:23→16:29)
[2020-07-21] MEDS: Tolterodine Tartrate 2 MG CAP.SA PO (05:23)
[2020-07-21] MEDS: Isosorbide Mononitrate 30 MG Tablet PO (05:23)
[2020-07-21] MEDS: Nystatin Powder 15gm Bottle 1 APPLIC TOPICAL ×2 (05:25→21:17)
[2020-07-21] MEDS: Menthol/Lanolin/Calamine/Znox 113 GM Tube 1 APPLIC TOPICAL ×2 (05:25→21:17)
[2020-07-21 06:26] LABS: Bedside Glucose 126 mg/dL (70-110)
[2020-07-21 07:30] VITALS: O2SAT 95
[2020-07-21] MEDS: Multivitamins,Therapeutic Tablet 1 TABLET PO (08:04)
[2020-07-21] MEDS: Aspirin E.C. 81 MG Tablet PO (08:04)
--- NOTE | 2020-07-21 09:20 | NURSING ---
PT HEART MONITOR BEEPING SHOWING SKIN CONTACT NOT GOOD. LAYED HOB DOWN TO 30 DEGREES AND NOTED BEEPING STOPPED. THERE WAS ALSO SOME FOOD NOTED ON STRIP FROM BREAKFAST. WILL CONTINUE TO MONITOR.
[2020-07-21 10:50] LABS: Bedside Glucose 185 mg/dL (70-110)
--- NOTE | 2020-07-21 11:48 | NURSING ---
[facility] peak & trough results back and faxed to anticoagulation clinic to Emeterio Zamora per her request
[2020-07-21 13:05] VITALS: BP 150/91; PULSE 80; RESP 18; TEMP 36.1; O2SAT 97
[2020-07-21 16:20] LABS: Bedside Glucose 148 mg/dL (70-110)
[2020-07-21] MEDS: Atorvastatin Calcium 40 MG Tablet PO (21:16)
[2020-07-21 21:25] LABS: Bedside Glucose 157 mg/dL (70-110)
[2020-07-22 06:11] VITALS: BP 163/89; PULSE 60; RESP 18; TEMP 36.8; O2SAT 94
[2020-07-22] MEDS: Polyethylene Glycol 3350 17 GM PACKET PO (06:12)
[2020-07-22] MEDS: Isosorbide Mononitrate 30 MG Tablet PO (06:13)
[2020-07-22] MEDS: Magnesium Chloride 64 MG Delay Rel.Tablet 128 MG PO (06:13)
[2020-07-22] MEDS: Citalopram 10 MG Tablet PO (06:13)
[2020-07-22] MEDS: Tolterodine Tartrate 2 MG CAP.SA PO (06:14)
[2020-07-22] MEDS: Famotidine 20 MG Tablet PO (06:14)
[2020-07-22] MEDS: Losartan Potassium 100 MG Tablet PO (06:14)
[2020-07-22] MEDS: amLODIPine 10 MG Tablet PO (06:14)
[2020-07-22] MEDS: APIXABAN 5 MG TABLET PO ×2 (06:15→17:23)
[2020-07-22] MEDS: Senna/Docusate Sodium 1 Tablet PO (06:15)
[2020-07-22] MEDS: Menthol/Lanolin/Calamine/Znox 113 GM Tube 1 APPLIC TOPICAL ×2 (06:15→21:14)
[2020-07-22] MEDS: Nystatin Powder 15gm Bottle 1 APPLIC TOPICAL ×2 (06:16→21:15)
[2020-07-22 06:30] LABS: Bedside Glucose 96 mg/dL (70-110)
[2020-07-22] MEDS: Multivitamins,Therapeutic Tablet 1 TABLET PO (08:07)
[2020-07-22] MEDS: Aspirin E.C. 81 MG Tablet PO (08:07)
[2020-07-22 09:49] VITALS: RESP 18
[2020-07-22 11:05] VITALS: O2SAT 94
[2020-07-22 11:05] LABS: Bedside Glucose 173 mg/dL (70-110)
[2020-07-22 15:18] VITALS: BP 159/104; PULSE 60; RESP 16; TEMP 36.9; O2SAT 98
[2020-07-22 16:41] LABS: Bedside Glucose 193 mg/dL (70-110)
[2020-07-22] MEDS: MENTHOL 226.8 GM JAR 1 APPLIC TP (21:12)
[2020-07-22] MEDS: Atorvastatin Calcium 40 MG Tablet PO (21:13)
[2020-07-22 21:26] LABS: Bedside Glucose 184 mg/dL (70-110)
--- NOTE | 2020-07-23 02:20 | NURSING ---
Pt resting in bed with eyes closed, hob slightly elevated, appears to be sleeping, cpap in place.
[2020-07-23 03:48] VITALS: BP 168/95; PULSE 64; RESP 18; TEMP 36.7; O2SAT 96
[2020-07-23] MEDS: Nystatin Powder 15gm Bottle 1 APPLIC TOPICAL ×2 (05:01→21:19)
[2020-07-23] MEDS: amLODIPine 10 MG Tablet PO (05:02)
[2020-07-23] MEDS: Magnesium Chloride 64 MG Delay Rel.Tablet 128 MG PO (05:02)
[2020-07-23] MEDS: Menthol/Lanolin/Calamine/Znox 113 GM Tube 1 APPLIC TOPICAL ×2 (05:02→17:59)
[2020-07-23] MEDS: APIXABAN 5 MG TABLET PO ×2 (05:03→17:56)
[2020-07-23] MEDS: Famotidine 20 MG Tablet PO (05:03)
[2020-07-23] MEDS: Losartan Potassium 100 MG Tablet PO (05:03)
[2020-07-23] MEDS: Isosorbide Mononitrate 30 MG Tablet PO (05:03)
[2020-07-23] MEDS: Senna/Docusate Sodium 1 Tablet PO (05:03)
[2020-07-23] MEDS: Tolterodine Tartrate 2 MG CAP.SA PO (05:03)
[2020-07-23] MEDS: Citalopram 10 MG Tablet PO (05:03)
[2020-07-23 06:36] LABS: Bedside Glucose 133 mg/dL (70-110)
[2020-07-23 07:23] LABS: Absolute Lymphocyte Count 1.85 X10^3/uL (0.83-4.51); Absolute Neutrophil Count 3.7 X10^3/uL (2.0-7.7); Basophil# 0.06 X10^3/uL; Basophil% 0.8 % (0-1); Eosinophil# 0.58 X10^3/uL; Eosinophils% 7.9 % (0-5); Hematocrit 42.6 % (40-54); Lymphocyte # 1.85 X10^3/ul (4.0); Lymphocyte % 25.1 % (19-41); Mean Corp Hgb Conc 32.9 g/dL (32-36); Mean Corpuscular Volume 91.4 fL (80-94); Mean Platelet Vol. 11.1 fl (6.2-12.0); Monocyte# 1.14 X10^3/uL; Monocyte% 15.5 % (0-10); NRBC Flagged by Analyzer 0 % (0-5); Neutrophil % 50.3 % (47-70); Platelet Count 148 K/mm3 (150-450); RBC Distribution Width CV 13.8 % (11.6-14.6); RBC Distribution Width SD 46.5 fl (35.1-43.9); Red Blood Count 4.66 M/mm3 (4.6-6.2); White Blood Count 7.4 K/mm3 (4.4-11.0)
[2020-07-23 07:44] LABS: Anion Gap 6 (5-15); BUN 20 mg/dL (7-18); Calcium,Total 8.3 mg/dL (8.5-10.1); Chloride 108 mmol/L (98-107); Creatinine, Serum 1.05 mg/dL (0.70-1.30); EST Glomerular Filtration Rate 73 mL/min (>60); Est Glom Filt Rate - Afr Amer 88 mL/min (>60); Estimated Creatinine Clearance 55.08 ml/min; Glucose 121 mg/dL (74-106); Potassium 3.7 mmol/L (3.5-5.1); Sodium Level 140 mmol/L (136-145)
[2020-07-23] MEDS: Aspirin E.C. 81 MG Tablet PO (09:38)
[2020-07-23] MEDS: Multivitamins,Therapeutic Tablet 1 TABLET PO (09:38)
[2020-07-23 11:21] LABS: Bedside Glucose 202 mg/dL (70-110)
[2020-07-23 14:07] VITALS: BP 159/72; PULSE 64; RESP 18; TEMP 36.6; O2SAT 98
[2020-07-23 16:10] LABS: Bedside Glucose 190 mg/dL (70-110)
[2020-07-23 21:20] LABS: Bedside Glucose 196 mg/dL (70-110)
[2020-07-23] MEDS: Atorvastatin Calcium 40 MG Tablet PO (21:20)
[2020-07-24 05:41] VITALS: BP 155/83; PULSE 54; RESP 18; TEMP 36.2; O2SAT 97
[2020-07-24] MEDS: Magnesium Chloride 64 MG Delay Rel.Tablet 128 MG PO (05:43)
[2020-07-24] MEDS: Polyethylene Glycol 3350 17 GM PACKET PO (05:43)
[2020-07-24] MEDS: Losartan Potassium 100 MG Tablet PO (05:43)
[2020-07-24] MEDS: Isosorbide Mononitrate 30 MG Tablet PO (05:43)
[2020-07-24] MEDS: amLODIPine 10 MG Tablet PO (05:44)
[2020-07-24] MEDS: APIXABAN 5 MG TABLET PO ×2 (05:44→17:26)
[2020-07-24] MEDS: Tolterodine Tartrate 2 MG CAP.SA PO (05:44)
[2020-07-24] MEDS: Famotidine 20 MG Tablet PO (05:44)
[2020-07-24] MEDS: Senna/Docusate Sodium 1 Tablet PO ×2 (05:44→17:26)
[2020-07-24] MEDS: Citalopram 10 MG Tablet PO (05:44)
[2020-07-24] MEDS: Menthol/Lanolin/Calamine/Znox 113 GM Tube 1 APPLIC TOPICAL ×2 (05:46→20:09)
[2020-07-24] MEDS: Nystatin Powder 15gm Bottle 1 APPLIC TOPICAL ×2 (05:49→20:09)
[2020-07-24 06:16] LABS: Bedside Glucose 119 mg/dL (70-110)
[2020-07-24] MEDS: Aspirin E.C. 81 MG Tablet PO (08:14)
[2020-07-24] MEDS: Multivitamins,Therapeutic Tablet 1 TABLET PO (08:14)
[2020-07-24 10:31] LABS: Bedside Glucose 171 mg/dL (70-110)
[2020-07-24] MEDS: MENTHOL 226.8 GM JAR 1 APPLIC TP ×2 (10:42→21:29)
[2020-07-24 13:50] VITALS: BP 135/82; PULSE 56; RESP 16; TEMP 36.3; O2SAT 96
[2020-07-24 16:46] LABS: Bedside Glucose 172 mg/dL (70-110)
[2020-07-24] MEDS: Atorvastatin Calcium 40 MG Tablet PO (20:08)
[2020-07-24 21:20] LABS: Bedside Glucose 197 mg/dL (70-110)
[2020-07-25 05:13] VITALS: BP 161/90; PULSE 65; RESP 18; TEMP 36.7; O2SAT 96
[2020-07-25] MEDS: Polyethylene Glycol 3350 17 GM PACKET PO (05:14)
[2020-07-25] MEDS: Magnesium Chloride 64 MG Delay Rel.Tablet 128 MG PO (05:15)
[2020-07-25] MEDS: Losartan Potassium 100 MG Tablet PO (05:15)
[2020-07-25] MEDS: Senna/Docusate Sodium 1 Tablet PO ×2 (05:15→17:12)
[2020-07-25] MEDS: amLODIPine 10 MG Tablet PO (05:15)
[2020-07-25] MEDS: Tolterodine Tartrate 2 MG CAP.SA PO (05:15)
[2020-07-25] MEDS: Isosorbide Mononitrate 30 MG Tablet PO (05:16)
[2020-07-25] MEDS: Nystatin Powder 15gm Bottle 1 APPLIC TOPICAL ×2 (05:16→21:10)
[2020-07-25] MEDS: Menthol/Lanolin/Calamine/Znox 113 GM Tube 1 APPLIC TOPICAL ×2 (05:16→21:18)
[2020-07-25] MEDS: Famotidine 20 MG Tablet PO (05:16)
[2020-07-25] MEDS: APIXABAN 5 MG TABLET PO ×2 (05:16→17:12)
[2020-07-25] MEDS: Citalopram 10 MG Tablet PO (05:16)
[2020-07-25 06:21] LABS: Bedside Glucose 136 mg/dL (70-110)
[2020-07-25] MEDS: Multivitamins,Therapeutic Tablet 1 TABLET PO (08:30)
[2020-07-25] MEDS: Aspirin E.C. 81 MG Tablet PO (08:30)
[2020-07-25] MEDS: MENTHOL 226.8 GM JAR 1 APPLIC TP (08:33)
[2020-07-25 11:00] LABS: Bedside Glucose 232 mg/dL (70-110)
[2020-07-25 12:31] VITALS: BP 134/84; PULSE 59; RESP 17; TEMP 36.8; O2SAT 95
--- NOTE | 2020-07-25 15:47 | CHAPLAIN ---
Type of Pastoral Visit ___ Initial Visit _x__ Follow-up Visit ___ On-call Visit ___ General Patient Visit ___ Spiritual Assessment ___ Family Conference ___ Bereavement ___ Rapid Response ___ Code Blue ___ Other (describe below) Pastoral Care Referral From _x__ Patient ___ Family ___ Nurse ___ Physician ___ Senior Planning Analyst ___ Soaker Meat ___ Other (describe below) Sacrament/Intervention _x__ Active listening ___ Anointing ___ Religion ___ Bereavement ___ Communion ___ Dana exploration ___ _x__ Life review _x__ Prayer ___ Reconciliation ___ Sacrament of Sick _x__ Supportive presence ___ Wedding ___ Other (describe below) Pastoral Comments
[2020-07-25] MEDS: Acetaminophen 500 MG Tablet 1000 MG PO ×2 (16:12→22:50)
[2020-07-25 16:41] LABS: Bedside Glucose 184 mg/dL (70-110)
[2020-07-25] MEDS: Atorvastatin Calcium 40 MG Tablet PO (21:11)
[2020-07-25 21:26] LABS: Bedside Glucose 230 mg/dL (70-110)
[2020-07-26 05:37] VITALS: BP 120/85; PULSE 71; RESP 16; TEMP 36.8; O2SAT 95
[2020-07-26] MEDS: Menthol/Lanolin/Calamine/Znox 113 GM Tube 1 APPLIC TOPICAL ×2 (05:38→22:27)
[2020-07-26] MEDS: Nystatin Powder 15gm Bottle 1 APPLIC TOPICAL ×2 (05:39→22:23)
[2020-07-26] MEDS: Polyethylene Glycol 3350 17 GM PACKET PO (05:39)
[2020-07-26] MEDS: APIXABAN 5 MG TABLET PO ×2 (05:40→17:40)
[2020-07-26] MEDS: Isosorbide Mononitrate 30 MG Tablet PO (05:40)
[2020-07-26] MEDS: Magnesium Chloride 64 MG Delay Rel.Tablet 128 MG PO (05:40)
[2020-07-26] MEDS: Losartan Potassium 100 MG Tablet PO (05:40)
[2020-07-26] MEDS: amLODIPine 10 MG Tablet PO (05:40)
[2020-07-26] MEDS: Senna/Docusate Sodium 1 Tablet PO ×2 (05:40→17:40)
[2020-07-26] MEDS: Tolterodine Tartrate 2 MG CAP.SA PO (05:40)
[2020-07-26] MEDS: Citalopram 10 MG Tablet PO (05:40)
[2020-07-26] MEDS: Famotidine 20 MG Tablet PO (05:43)
[2020-07-26 06:15] LABS: Bedside Glucose 125 mg/dL (70-110)
[2020-07-26] MEDS: Multivitamins,Therapeutic Tablet 1 TABLET PO (09:09)
[2020-07-26] MEDS: Aspirin E.C. 81 MG Tablet PO (09:09)
[2020-07-26 11:01] LABS: Bedside Glucose 229 mg/dL (70-110)
[2020-07-26 12:22] VITALS: PULSE 104; RESP 18; O2SAT 96
[2020-07-26 12:52] VITALS: BP 130/64; PULSE 104; RESP 18; TEMP 36.5; O2SAT 96
[2020-07-26] MEDS: Acetaminophen 500 MG Tablet 1000 MG PO (15:28)
[2020-07-26] MEDS: MENTHOL 226.8 GM JAR 1 APPLIC TP (15:32)
[2020-07-26 17:00] LABS: Bedside Glucose 183 mg/dL (70-110)
--- NOTE | 2020-07-26 17:35 | NURSING ---
Florecita from the [facility] called about patient. Blood work is all within normal limits. She would like us to call when patient is discharged.
[2020-07-26 21:45] LABS: Bedside Glucose 259 mg/dL (70-110)
[2020-07-26] MEDS: Atorvastatin Calcium 40 MG Tablet PO (22:23)
[2020-07-27 05:39] VITALS: BP 141/79; PULSE 92; RESP 18; TEMP 36.7; O2SAT 95
[2020-07-27] MEDS: Losartan Potassium 100 MG Tablet PO (05:43)
[2020-07-27] MEDS: Menthol/Lanolin/Calamine/Znox 113 GM Tube 1 APPLIC TOPICAL ×2 (05:43→21:52)
[2020-07-27] MEDS: Tolterodine Tartrate 2 MG CAP.SA PO (05:44)
[2020-07-27] MEDS: Famotidine 20 MG Tablet PO (05:44)
[2020-07-27] MEDS: Magnesium Chloride 64 MG Delay Rel.Tablet 128 MG PO (05:44)
[2020-07-27] MEDS: Isosorbide Mononitrate 30 MG Tablet PO (05:44)
[2020-07-27] MEDS: Citalopram 10 MG Tablet PO (05:44)
[2020-07-27] MEDS: Nystatin Powder 15gm Bottle 1 APPLIC TOPICAL ×2 (05:45→21:52)
[2020-07-27] MEDS: amLODIPine 10 MG Tablet PO (05:45)
[2020-07-27] MEDS: APIXABAN 5 MG TABLET PO ×2 (05:50→16:43)
[2020-07-27 06:36] LABS: Bedside Glucose 178 mg/dL (70-110)
[2020-07-27] MEDS: Multivitamins,Therapeutic Tablet 1 TABLET PO (09:23)
[2020-07-27] MEDS: Aspirin E.C. 81 MG Tablet PO (09:23)
[2020-07-27 11:05] LABS: Bedside Glucose 172 mg/dL (70-110)
--- NOTE | 2020-07-27 13:51 | CASEMGMT ---
Social Work Notified pt and son about insurance approval with NRD 08/02. Will continue to follow. Caryn Nagel, REGISTRATION SPECIALIST BUYER GRAIN
[2020-07-27 16:26] LABS: Bedside Glucose 177 mg/dL (70-110)
--- NOTE | 2020-07-27 18:25 | RAD_ITS ---
STUDY: X-RAY - ABDOMEN/PELVIS REASON FOR EXAM: Male, 79 years old. liquid diarrhea, abdomen pain TECHNIQUE: 4 images of the supine view COMPARISON: None. FINDINGS: Normal visualized lung bases. There is an unremarkable bowel gas pattern. There is no demonstrated free abdominal air. The visualized liver, spleen and kidneys are grossly normal in size and morphology. There are calcified phleboliths in the pelvis. Normal visualized osseous structures. RAD/Abdomen Single View IMPRESSION: Normal bowel gas pattern. Electronically Signed: Quinn Gonzalez MD at 21:04 EST Tel , Service support ,
[2020-07-27 19:35] VITALS: BP 144/78; PULSE 73; RESP 18; TEMP 36.9; O2SAT 97
[2020-07-27 21:11] LABS: Bedside Glucose 203 mg/dL (70-110)
[2020-07-27] MEDS: Atorvastatin Calcium 40 MG Tablet PO (21:51)
[2020-07-28 06:07] VITALS: BP 170/84; PULSE 65; RESP 18; TEMP 36.5; O2SAT 95
[2020-07-28] MEDS: Losartan Potassium 100 MG Tablet PO (06:09)
[2020-07-28] MEDS: amLODIPine 10 MG Tablet PO (06:10)
[2020-07-28] MEDS: Isosorbide Mononitrate 30 MG Tablet PO (06:10)
[2020-07-28] MEDS: Famotidine 20 MG Tablet PO (06:10)
[2020-07-28] MEDS: Magnesium Chloride 64 MG Delay Rel.Tablet 128 MG PO (06:10)
[2020-07-28] MEDS: Senna/Docusate Sodium 1 Tablet PO (06:10)
[2020-07-28] MEDS: Citalopram 10 MG Tablet PO (06:10)
[2020-07-28] MEDS: APIXABAN 5 MG TABLET PO ×2 (06:10→16:38)
[2020-07-28] MEDS: Tolterodine Tartrate 2 MG CAP.SA PO (06:10)
[2020-07-28] MEDS: Menthol/Lanolin/Calamine/Znox 113 GM Tube 1 APPLIC TOPICAL ×2 (06:11→20:30)
[2020-07-28] MEDS: Nystatin Powder 15gm Bottle 1 APPLIC TOPICAL ×2 (06:12→20:30)
[2020-07-28 06:50] LABS: Bedside Glucose 153 mg/dL (70-110)
[2020-07-28] MEDS: Multivitamins,Therapeutic Tablet 1 TABLET PO (07:59)
[2020-07-28] MEDS: Aspirin E.C. 81 MG Tablet PO (07:59)
[2020-07-28 10:50] VITALS: PULSE 56; RESP 16; O2SAT 96
[2020-07-28 13:13] VITALS: BP 129/95; PULSE 73; RESP 17; TEMP 36.4; O2SAT 96
[2020-07-28 16:16] LABS: Bedside Glucose 201 mg/dL (70-110)
[2020-07-28] MEDS: Atorvastatin Calcium 40 MG Tablet PO (20:20)
[2020-07-28 21:06] LABS: Bedside Glucose 340 mg/dL (70-110)
[2020-07-28] MEDS: Insulin Lispro 100 UNIT/ML INSULN.PEN SC (22:17)
[2020-07-28] MEDS: Acetaminophen 500 MG Tablet 1000 MG PO (23:28)
[2020-07-29 04:41] VITALS: BP 143/92; PULSE 54; RESP 18; TEMP 36.3; O2SAT 96
[2020-07-29] MEDS: Nystatin Powder 15gm Bottle 1 APPLIC TOPICAL ×2 (04:42→21:09)
[2020-07-29] MEDS: Menthol/Lanolin/Calamine/Znox 113 GM Tube 1 APPLIC TOPICAL ×2 (04:43→21:10)
[2020-07-29] MEDS: Magnesium Chloride 64 MG Delay Rel.Tablet 128 MG PO (04:43)
[2020-07-29] MEDS: Losartan Potassium 100 MG Tablet PO (04:44)
[2020-07-29] MEDS: Citalopram 10 MG Tablet PO (04:44)
[2020-07-29] MEDS: APIXABAN 5 MG TABLET PO ×2 (04:44→17:50)
[2020-07-29] MEDS: Tolterodine Tartrate 2 MG CAP.SA PO (04:44)
[2020-07-29] MEDS: Isosorbide Mononitrate 30 MG Tablet PO (04:44)
[2020-07-29] MEDS: Famotidine 20 MG Tablet PO (04:44)
[2020-07-29] MEDS: amLODIPine 10 MG Tablet PO (04:44)
[2020-07-29 06:30] LABS: Bedside Glucose 102 mg/dL (70-110)
[2020-07-29 07:45] VITALS: TEMP 36.4
--- NOTE | 2020-07-29 07:56 | NURSING ---
PT C/O SORE THROAT, NASAL DRNG, & COUGH. TEMP 97.6 ORALLY. PT FEELS MISERABLE. DR RODRÍGUEZ NOTIFIED, NEW ORDER FOR COVID & RESP PANEL STAT. RESP THERAPIST NOTIFIED. PT RESTING IN BED, HOB ELEVATED. CALL LIGHT IN REACH.
[2020-07-29] MEDS: Multivitamins,Therapeutic Tablet 1 TABLET PO (08:07)
[2020-07-29] MEDS: Aspirin E.C. 81 MG Tablet PO (08:07)
[2020-07-29 10:07] VITALS: PULSE 68; TEMP 37; O2SAT 96
[2020-07-29 10:37] VITALS: PULSE 68; RESP 18; O2SAT 96
[2020-07-29 10:51] LABS: Bedside Glucose 176 mg/dL (70-110)
[2020-07-29 13:52] VITALS: BP 127/82; PULSE 70; RESP 16; TEMP 36.5; O2SAT 94
[2020-07-29] MEDS: Loratadine 10 MG Tablet PO (15:16)
--- NOTE | 2020-07-29 16:19 | NURSING ---
Resident and spouse, Mai, notified of staff testing positive for COVID.
[2020-07-29 16:46] LABS: Bedside Glucose 169 mg/dL (70-110)
[2020-07-29] MEDS: Ipratropium Bromide 0.06% NASAL SPRAY 2 SPRAY NASAL (21:02)
[2020-07-29] MEDS: Atorvastatin Calcium 40 MG Tablet PO (21:10)
[2020-07-29 21:25] LABS: Bedside Glucose 212 mg/dL (70-110)
[2020-07-30 05:36] VITALS: BP 165/98; PULSE 65; RESP 18; TEMP 36.2; O2SAT 94
[2020-07-30] MEDS: Famotidine 20 MG Tablet PO (05:37)
[2020-07-30] MEDS: Tolterodine Tartrate 2 MG CAP.SA PO (05:37)
[2020-07-30] MEDS: amLODIPine 10 MG Tablet PO (05:37)
[2020-07-30] MEDS: Citalopram 10 MG Tablet PO (05:37)
[2020-07-30] MEDS: Isosorbide Mononitrate 30 MG Tablet PO (05:37)
[2020-07-30] MEDS: Losartan Potassium 100 MG Tablet PO (05:38)
[2020-07-30] MEDS: APIXABAN 5 MG TABLET PO ×2 (05:38→17:05)
[2020-07-30] MEDS: Loratadine 10 MG Tablet PO (05:38)
[2020-07-30] MEDS: Magnesium Chloride 64 MG Delay Rel.Tablet 128 MG PO (05:38)
[2020-07-30] MEDS: Menthol/Lanolin/Calamine/Znox 113 GM Tube 1 APPLIC TOPICAL ×2 (05:40→21:14)
[2020-07-30] MEDS: Nystatin Powder 15gm Bottle 1 APPLIC TOPICAL ×2 (05:40→21:21)
[2020-07-30] MEDS: Ipratropium Bromide 0.06% NASAL SPRAY 2 SPRAY NASAL ×3 (05:41→21:13)
[2020-07-30 06:46] LABS: Bedside Glucose 136 mg/dL (70-110)
[2020-07-30 07:49] LABS: Absolute Neutrophil Count 3.2 X10^3/uL (2.0-7.7); Basophil# 0.06 X10^3/uL; Basophil% 0.8 % (0-1); Eosinophil# 0.73 X10^3/uL; Eosinophils% 10.2 % (0-5); Hematocrit 43.6 % (40-54); Hemoglobin 14.3 g/dL (13.0-16.5); Lymphocyte % 26.5 % (19-41); Mean Corp Hgb Conc 32.8 g/dL (32-36); Mean Corpuscular Hgb 29.9 pg (27.0-32.0); Mean Platelet Vol. 11.2 fl (6.2-12.0); Monocyte# 1.24 X10^3/uL; Monocyte% 17.3 % (0-10); NRBC Flagged by Analyzer 0 % (0-5); Neutrophil # 3.17 X10^3/uL (2.7-7.7); Neutrophil % 44.4 % (47-70); Platelet Count 170 K/mm3 (150-450); RBC Distribution Width CV 13.8 % (11.6-14.6); RBC Distribution Width SD 46.9 fl (35.1-43.9); Red Blood Count 4.79 M/mm3 (4.6-6.2); White Blood Count 7.2 K/mm3 (4.4-11.0)
[2020-07-30 07:54] LABS: Anion Gap 6 (5-15); BUN 20 mg/dL (7-18); BUN/Creat Ratio 18.7 RATIO (10-20); Calcium,Total 8.2 mg/dL (8.5-10.1); Chloride 108 mmol/L (98-107); Creatinine, Serum 1.07 mg/dL (0.70-1.30); EST Glomerular Filtration Rate 71 mL/min (>60); Est Glom Filt Rate - Afr Amer 86 mL/min (>60); Estimated Creatinine Clearance 54.05 ml/min; Glucose 120 mg/dL (74-106); Potassium 3.2 mmol/L (3.5-5.1); Sodium Level 138 mmol/L (136-145)
[2020-07-30] MEDS: Aspirin E.C. 81 MG Tablet PO (08:52)
[2020-07-30] MEDS: Multivitamins,Therapeutic Tablet 1 TABLET PO (08:52)
[2020-07-30 10:00] VITALS: PULSE 65; RESP 16; O2SAT 97
[2020-07-30 11:16] LABS: Bedside Glucose 189 mg/dL (70-110)
[2020-07-30 13:26] VITALS: BP 120/83; PULSE 65; RESP 16; TEMP 36.3; O2SAT 96
[2020-07-30] MEDS: Acetaminophen 500 MG Tablet 1000 MG PO (16:00)
[2020-07-30] MEDS: MENTHOL 226.8 GM JAR 1 APPLIC TP (16:00)
[2020-07-30 16:25] LABS: Bedside Glucose 208 mg/dL (70-110)
--- NOTE | 2020-07-30 17:07 | NURSING ---
pt had order for 40 meq of KDur at 1700, pt refused and agreed to only take 20 meq[address] pt aware of Dr's order and current K+ level.
[2020-07-30] MEDS: Atorvastatin Calcium 40 MG Tablet PO (21:13)
[2020-07-30 21:26] LABS: Bedside Glucose 177 mg/dL (70-110)
[2020-07-31 05:29] VITALS: BP 154/92; PULSE 66; RESP 18; TEMP 36.3; O2SAT 94
[2020-07-31] MEDS: Famotidine 20 MG Tablet PO (05:34)
[2020-07-31] MEDS: Ipratropium Bromide 0.06% NASAL SPRAY 2 SPRAY NASAL ×3 (05:34→20:56)
[2020-07-31] MEDS: Loratadine 10 MG Tablet PO (05:34)
[2020-07-31] MEDS: Magnesium Chloride 64 MG Delay Rel.Tablet 128 MG PO (05:34)
[2020-07-31] MEDS: Senna/Docusate Sodium 1 Tablet PO (05:34)
[2020-07-31] MEDS: Citalopram 10 MG Tablet PO (05:34)
[2020-07-31] MEDS: Tolterodine Tartrate 2 MG CAP.SA PO (05:34)
[2020-07-31] MEDS: amLODIPine 10 MG Tablet PO (05:34)
[2020-07-31] MEDS: Isosorbide Mononitrate 30 MG Tablet PO (05:34)
[2020-07-31] MEDS: Losartan Potassium 100 MG Tablet PO (05:35)
[2020-07-31] MEDS: APIXABAN 5 MG TABLET PO ×2 (05:35→17:26)
[2020-07-31] MEDS: Nystatin Powder 15gm Bottle 1 APPLIC TOPICAL ×2 (05:37→20:56)
[2020-07-31] MEDS: Menthol/Lanolin/Calamine/Znox 113 GM Tube 1 APPLIC TOPICAL ×2 (05:38→20:57)
[2020-07-31 06:10] LABS: Anion Gap 5 (5-15); BUN 27 mg/dL (7-18); BUN/Creat Ratio 23.5 RATIO (10-20); Calcium,Total 8.5 mg/dL (8.5-10.1); Chloride 110 mmol/L (98-107); Creatinine, Serum 1.15 mg/dL (0.70-1.30); EST Glomerular Filtration Rate 65 mL/min (>60); Est Glom Filt Rate - Afr Amer 79 mL/min (>60); Estimated Creatinine Clearance 50.29 ml/min; Glucose 108 mg/dL (74-106); Potassium 3.8 mmol/L (3.5-5.1); Sodium Level 140 mmol/L (136-145)
[2020-07-31 06:26] LABS: Bedside Glucose 115 mg/dL (70-110)
[2020-07-31] MEDS: Aspirin E.C. 81 MG Tablet PO (08:01)
[2020-07-31] MEDS: Multivitamins,Therapeutic Tablet 1 TABLET PO (08:01)
[2020-07-31 11:20] LABS: Bedside Glucose 139 mg/dL (70-110)
[2020-07-31 13:44] VITALS: BP 156/80; PULSE 102; RESP 16; TEMP 36.3; O2SAT 90
[2020-07-31] MEDS: Acetaminophen 500 MG Tablet 1000 MG PO (14:58)
[2020-07-31 16:25] LABS: Bedside Glucose 156 mg/dL (70-110)
--- NOTE | 2020-07-31 19:04 | NURSING ---
$15 locked in med box, verified with Wendy. RENETTA
[2020-07-31] MEDS: Atorvastatin Calcium 40 MG Tablet PO (20:53)
[2020-07-31 21:15] LABS: Bedside Glucose 213 mg/dL (70-110)
[2020-08-01 05:28] VITALS: BP 157/77; PULSE 62; RESP 18; TEMP 36.6; O2SAT 94
[2020-08-01] MEDS: Nystatin Powder 15gm Bottle 1 APPLIC TOPICAL ×2 (05:30→21:02)
[2020-08-01] MEDS: Menthol/Lanolin/Calamine/Znox 113 GM Tube 1 APPLIC TOPICAL ×2 (05:30→21:02)
[2020-08-01] MEDS: Isosorbide Mononitrate 30 MG Tablet PO (05:31)
[2020-08-01] MEDS: amLODIPine 10 MG Tablet PO (05:31)
[2020-08-01] MEDS: Famotidine 20 MG Tablet PO (05:31)
[2020-08-01] MEDS: Magnesium Chloride 64 MG Delay Rel.Tablet 128 MG PO (05:31)
[2020-08-01] MEDS: Citalopram 10 MG Tablet PO (05:31)
[2020-08-01] MEDS: Loratadine 10 MG Tablet PO (05:31)
[2020-08-01] MEDS: APIXABAN 5 MG TABLET PO ×2 (05:32→17:19)
[2020-08-01] MEDS: Tolterodine Tartrate 2 MG CAP.SA PO (05:32)
[2020-08-01] MEDS: Losartan Potassium 100 MG Tablet PO (05:32)
[2020-08-01] MEDS: Ipratropium Bromide 0.06% NASAL SPRAY 2 SPRAY NASAL ×3 (05:34→21:01)
[2020-08-01 06:25] LABS: Bedside Glucose 133 mg/dL (70-110)
[2020-08-01] MEDS: Aspirin E.C. 81 MG Tablet PO (08:09)
[2020-08-01] MEDS: Multivitamins,Therapeutic Tablet 1 TABLET PO (08:09)
[2020-08-01 10:51] LABS: Bedside Glucose 222 mg/dL (70-110)
[2020-08-01 14:17] VITALS: BP 134/85; PULSE 58; RESP 16; TEMP 36.7; O2SAT 97
[2020-08-01 16:45] LABS: Bedside Glucose 156 mg/dL (70-110)
[2020-08-01] MEDS: Acetaminophen 500 MG Tablet 1000 MG PO (20:56)
[2020-08-01] MEDS: Atorvastatin Calcium 40 MG Tablet PO (20:57)
[2020-08-02 05:17] VITALS: BP 154/76; PULSE 62; RESP 18; TEMP 36.1; O2SAT 98
[2020-08-02] MEDS: Magnesium Chloride 64 MG Delay Rel.Tablet 128 MG PO (05:20)
[2020-08-02] MEDS: Losartan Potassium 100 MG Tablet PO (05:21)
[2020-08-02] MEDS: amLODIPine 10 MG Tablet PO (05:21)
[2020-08-02] MEDS: Famotidine 20 MG Tablet PO (05:21)
[2020-08-02] MEDS: APIXABAN 5 MG TABLET PO ×2 (05:21→17:34)
[2020-08-02] MEDS: Loratadine 10 MG Tablet PO (05:21)
[2020-08-02] MEDS: Tolterodine Tartrate 2 MG CAP.SA PO (05:21)
[2020-08-02] MEDS: Citalopram 10 MG Tablet PO (05:21)
[2020-08-02] MEDS: Isosorbide Mononitrate 30 MG Tablet PO (05:21)
[2020-08-02] MEDS: Nystatin Powder 15gm Bottle 1 APPLIC TOPICAL ×2 (05:22→21:43)
[2020-08-02] MEDS: Menthol/Lanolin/Calamine/Znox 113 GM Tube 1 APPLIC TOPICAL ×2 (05:22→21:45)
[2020-08-02] MEDS: Acetaminophen 500 MG Tablet 1000 MG PO (05:25)
[2020-08-02] MEDS: Ipratropium Bromide 0.06% NASAL SPRAY 2 SPRAY NASAL ×3 (05:26→21:45)
[2020-08-02 06:36] LABS: Bedside Glucose 112 mg/dL (70-110)
[2020-08-02] MEDS: Aspirin E.C. 81 MG Tablet PO (08:20)
[2020-08-02] MEDS: Multivitamins,Therapeutic Tablet 1 TABLET PO (08:20)
[2020-08-02 11:15] LABS: Bedside Glucose 186 mg/dL (70-110)
--- NOTE | 2020-08-02 11:56 | CASEMGMT ---
Social Work Sleep lab received auth for pt to get sleep study. Sleep studies can only be performed M-F and must be scheduled for the day of pt's discharge. Will ask insurance about when setting LCD for pt, to have it be M-F for pt to receive sleep study. Will continue to follow. DARIELA LowW
[2020-08-02] MEDS: MENTHOL 226.8 GM JAR 1 APPLIC TP (13:01)
[2020-08-02 13:52] VITALS: BP 145/76; PULSE 68; RESP 18; TEMP 36.3
--- NOTE | 2020-08-02 16:06 | NURSING ---
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 R' AWARE.
[2020-08-02 16:15] LABS: Bedside Glucose 200 mg/dL (70-110)
[2020-08-02 21:25] LABS: Bedside Glucose 198 mg/dL (70-110)
[2020-08-02] MEDS: Atorvastatin Calcium 40 MG Tablet PO (21:46)
[2020-08-03 05:30] VITALS: BP 159/91; PULSE 68; RESP 18; TEMP 36.6; O2SAT 95
[2020-08-03] MEDS: Nystatin Powder 15gm Bottle 1 APPLIC TOPICAL ×2 (05:32→20:32)
[2020-08-03] MEDS: Isosorbide Mononitrate 30 MG Tablet PO (05:33)
[2020-08-03] MEDS: Famotidine 20 MG Tablet PO (05:33)
[2020-08-03] MEDS: Magnesium Chloride 64 MG Delay Rel.Tablet 128 MG PO (05:33)
[2020-08-03] MEDS: Ipratropium Bromide 0.06% NASAL SPRAY 2 SPRAY NASAL ×3 (05:34→20:21)
[2020-08-03] MEDS: Losartan Potassium 100 MG Tablet PO (05:34)
[2020-08-03] MEDS: APIXABAN 5 MG TABLET PO ×2 (05:34→17:51)
[2020-08-03] MEDS: Loratadine 10 MG Tablet PO (05:34)
[2020-08-03] MEDS: amLODIPine 10 MG Tablet PO (05:34)
[2020-08-03] MEDS: Tolterodine Tartrate 2 MG CAP.SA PO (05:34)
[2020-08-03] MEDS: Citalopram 10 MG Tablet PO (05:34)
[2020-08-03] MEDS: Menthol/Lanolin/Calamine/Znox 113 GM Tube 1 APPLIC TOPICAL ×2 (05:43→20:32)
[2020-08-03 06:41] LABS: Bedside Glucose 138 mg/dL (70-110)
[2020-08-03] MEDS: Aspirin E.C. 81 MG Tablet PO (08:29)
[2020-08-03] MEDS: Multivitamins,Therapeutic Tablet 1 TABLET PO (08:29)
[2020-08-03] MEDS: MENTHOL 226.8 GM JAR 1 APPLIC TP (08:30)
[2020-08-03 11:05] LABS: Bedside Glucose 187 mg/dL (70-110)
[2020-08-03 11:08] VITALS: PULSE 63; RESP 18; O2SAT 95
[2020-08-03 13:52] VITALS: BP 151/74; PULSE 60; RESP 17; TEMP 36; O2SAT 93
[2020-08-03 17:00] LABS: Bedside Glucose 166 mg/dL (70-110)
[2020-08-03] MEDS: Atorvastatin Calcium 40 MG Tablet PO (20:21)
[2020-08-03 21:46] LABS: Bedside Glucose 212 mg/dL (70-110)
[2020-08-04 05:48] VITALS: BP 149/95; PULSE 66; RESP 18; TEMP 36.8; O2SAT 95
[2020-08-04] MEDS: Nystatin Powder 15gm Bottle 1 APPLIC TOPICAL ×2 (05:52→21:32)
[2020-08-04] MEDS: Menthol/Lanolin/Calamine/Znox 113 GM Tube 1 APPLIC TOPICAL ×2 (05:52→21:32)
[2020-08-04] MEDS: Citalopram 10 MG Tablet PO (05:53)
[2020-08-04] MEDS: Loratadine 10 MG Tablet PO (05:53)
[2020-08-04] MEDS: Ipratropium Bromide 0.06% NASAL SPRAY 2 SPRAY NASAL ×3 (05:53→21:32)
[2020-08-04] MEDS: Losartan Potassium 100 MG Tablet PO (05:54)
[2020-08-04] MEDS: Magnesium Chloride 64 MG Delay Rel.Tablet 128 MG PO (05:54)
[2020-08-04] MEDS: Famotidine 20 MG Tablet PO (05:54)
[2020-08-04] MEDS: Tolterodine Tartrate 2 MG CAP.SA PO (05:54)
[2020-08-04] MEDS: Senna/Docusate Sodium 1 Tablet PO (05:54)
[2020-08-04] MEDS: Isosorbide Mononitrate 30 MG Tablet PO (05:55)
[2020-08-04] MEDS: amLODIPine 10 MG Tablet PO (05:55)
[2020-08-04] MEDS: APIXABAN 5 MG TABLET PO ×2 (05:55→16:50)
[2020-08-04 06:25] LABS: Bedside Glucose 128 mg/dL (70-110)
[2020-08-04] MEDS: Aspirin E.C. 81 MG Tablet PO (08:53)
[2020-08-04] MEDS: Multivitamins,Therapeutic Tablet 1 TABLET PO (08:53)
[2020-08-04 12:05] LABS: Bedside Glucose 200 mg/dL (70-110)
[2020-08-04] MEDS: MENTHOL 226.8 GM JAR 1 APPLIC TP (13:22)
[2020-08-04 14:21] VITALS: PULSE 70; RESP 18; O2SAT 92
[2020-08-04 16:21] LABS: Bedside Glucose 142 mg/dL (70-110)
[2020-08-04 19:03] VITALS: BP 138/66; PULSE 70; RESP 18; TEMP 36.8; O2SAT 92
[2020-08-04 21:26] LABS: Bedside Glucose 201 mg/dL (70-110)
[2020-08-04] MEDS: Atorvastatin Calcium 40 MG Tablet PO (21:31)
[2020-08-05 04:26] VITALS: BP 155/88; PULSE 65; RESP 18; TEMP 36.2; O2SAT 97
[2020-08-05] MEDS: Famotidine 20 MG Tablet PO (04:29)
[2020-08-05] MEDS: Citalopram 10 MG Tablet PO (04:29)
[2020-08-05] MEDS: Magnesium Chloride 64 MG Delay Rel.Tablet 128 MG PO (04:29)
[2020-08-05] MEDS: amLODIPine 10 MG Tablet PO (04:29)
[2020-08-05] MEDS: Tolterodine Tartrate 2 MG CAP.SA PO (04:29)
[2020-08-05] MEDS: Ipratropium Bromide 0.06% NASAL SPRAY 2 SPRAY NASAL ×3 (04:29→19:56)
[2020-08-05] MEDS: Menthol/Lanolin/Calamine/Znox 113 GM Tube 1 APPLIC TOPICAL ×2 (04:30→19:58)
[2020-08-05] MEDS: Isosorbide Mononitrate 30 MG Tablet PO (04:30)
[2020-08-05] MEDS: Nystatin Powder 15gm Bottle 1 APPLIC TOPICAL ×2 (04:30→19:57)
[2020-08-05] MEDS: Losartan Potassium 100 MG Tablet PO (04:30)
[2020-08-05] MEDS: Loratadine 10 MG Tablet PO (04:30)
[2020-08-05] MEDS: APIXABAN 5 MG TABLET PO ×2 (04:30→17:10)
[2020-08-05 06:30] LABS: Bedside Glucose 152 mg/dL (70-110)
[2020-08-05] MEDS: Multivitamins,Therapeutic Tablet 1 TABLET PO (08:44)
[2020-08-05] MEDS: Aspirin E.C. 81 MG Tablet PO (08:44)
[2020-08-05] MEDS: Acetaminophen 500 MG Tablet 1000 MG PO (10:35)
[2020-08-05 10:46] LABS: Bedside Glucose 182 mg/dL (70-110)
[2020-08-05 13:33] VITALS: BP 144/80; PULSE 69; RESP 18; TEMP 36.3; O2SAT 96
[2020-08-05 16:36] LABS: Bedside Glucose 195 mg/dL (70-110)
[2020-08-05] MEDS: Atorvastatin Calcium 40 MG Tablet PO (19:57)
[2020-08-05 21:16] LABS: Bedside Glucose 175 mg/dL (70-110)
[2020-08-06 04:00] VITALS: BP 159/90; PULSE 64; RESP 18; TEMP 36.4; O2SAT 97
[2020-08-06] MEDS: amLODIPine 10 MG Tablet PO (04:26)
[2020-08-06] MEDS: Ipratropium Bromide 0.06% NASAL SPRAY 2 SPRAY NASAL ×3 (04:26→20:56)
[2020-08-06] MEDS: Tolterodine Tartrate 2 MG CAP.SA PO (04:27)
[2020-08-06] MEDS: Isosorbide Mononitrate 30 MG Tablet PO (04:27)
[2020-08-06] MEDS: Losartan Potassium 100 MG Tablet PO (04:27)
[2020-08-06] MEDS: Loratadine 10 MG Tablet PO (04:27)
[2020-08-06] MEDS: APIXABAN 5 MG TABLET PO ×2 (04:27→16:53)
[2020-08-06] MEDS: Magnesium Chloride 64 MG Delay Rel.Tablet 128 MG PO (04:27)
[2020-08-06] MEDS: Famotidine 20 MG Tablet PO (04:27)
[2020-08-06] MEDS: Citalopram 10 MG Tablet PO (04:27)
[2020-08-06] MEDS: Nystatin Powder 15gm Bottle 1 APPLIC TOPICAL ×2 (04:30→20:51)
[2020-08-06] MEDS: Menthol/Lanolin/Calamine/Znox 113 GM Tube 1 APPLIC TOPICAL ×2 (04:30→20:52)
[2020-08-06 06:31] LABS: Bedside Glucose 136 mg/dL (70-110)
[2020-08-06] MEDS: Aspirin E.C. 81 MG Tablet PO (08:21)
[2020-08-06] MEDS: Multivitamins,Therapeutic Tablet 1 TABLET PO (08:21)
[2020-08-06 09:05] LABS: Absolute Lymphocyte Count 1.48 X10^3/uL (0.83-4.51); Absolute Neutrophil Count 4.5 X10^3/uL (2.0-7.7); Basophil# 0.05 X10^3/uL; Basophil% 0.6 % (0-1); Eosinophil# 0.64 X10^3/uL; Eosinophils% 7.9 % (0-5); Hematocrit 45.8 % (40-54); Hemoglobin 14.8 g/dL (13.0-16.5); Lymphocyte # 1.48 X10^3/ul (4.0); Lymphocyte % 18.3 % (19-41); Mean Corp Hgb Conc 32.3 g/dL (32-36); Mean Corpuscular Hgb 29.5 pg (27.0-32.0); Mean Corpuscular Volume 91.2 fL (80-94); Mean Platelet Vol. 10.8 fl (6.2-12.0); Monocyte# 1.31 X10^3/uL; Monocyte% 16.2 % (0-10); NRBC Flagged by Analyzer 0 % (0-5); Neutrophil % 55.8 % (47-70); Platelet Count 184 K/mm3 (150-450); RBC Distribution Width CV 13.7 % (11.6-14.6); RBC Distribution Width SD 46.4 fl (35.1-43.9); Red Blood Count 5.02 M/mm3 (4.6-6.2); White Blood Count 8.1 K/mm3 (4.4-11.0)
[2020-08-06 09:18] LABS: Anion Gap 6 (5-15); BUN 21 mg/dL (7-18); BUN/Creat Ratio 18.8 RATIO (10-20); Chloride 109 mmol/L (98-107); Creatinine, Serum 1.12 mg/dL (0.70-1.30); EST Glomerular Filtration Rate 67 mL/min (>60); Est Glom Filt Rate - Afr Amer 82 mL/min (>60); Estimated Creatinine Clearance 51.64 ml/min; Glucose 156 mg/dL (74-106); Potassium 3.7 mmol/L (3.5-5.1); Sodium Level 138 mmol/L (136-145)
[2020-08-06 11:20] LABS: Bedside Glucose 183 mg/dL (70-110)
[2020-08-06 14:27] VITALS: BP 142/76; PULSE 68; RESP 16; TEMP 36.7; O2SAT 96
[2020-08-06] MEDS: Acetaminophen 500 MG Tablet 1000 MG PO (15:42)
[2020-08-06 17:25] LABS: Bedside Glucose 165 mg/dL (70-110)
[2020-08-06] MEDS: Atorvastatin Calcium 40 MG Tablet PO (20:50)
[2020-08-06 21:35] LABS: Bedside Glucose 227 mg/dL (70-110)
[2020-08-07] MEDS: Menthol/Lanolin/Calamine/Znox 113 GM Tube 1 APPLIC TOPICAL ×2 (05:18→19:41)
[2020-08-07] MEDS: Nystatin Powder 15gm Bottle 1 APPLIC TOPICAL ×2 (05:18→19:42)
[2020-08-07 05:20] VITALS: BP 155/87; PULSE 66; RESP 18; TEMP 36.6; O2SAT 95
[2020-08-07] MEDS: Ipratropium Bromide 0.06% NASAL SPRAY 2 SPRAY NASAL ×3 (05:23→19:41)
[2020-08-07] MEDS: Loratadine 10 MG Tablet PO (05:24)
[2020-08-07] MEDS: amLODIPine 10 MG Tablet PO (05:24)
[2020-08-07] MEDS: Magnesium Chloride 64 MG Delay Rel.Tablet 128 MG PO (05:24)
[2020-08-07] MEDS: Famotidine 20 MG Tablet PO (05:24)
[2020-08-07] MEDS: Citalopram 10 MG Tablet PO (05:24)
[2020-08-07] MEDS: Losartan Potassium 100 MG Tablet PO (05:24)
[2020-08-07] MEDS: Tolterodine Tartrate 2 MG CAP.SA PO (05:24)
[2020-08-07] MEDS: Isosorbide Mononitrate 30 MG Tablet PO (05:24)
[2020-08-07] MEDS: APIXABAN 5 MG TABLET PO ×2 (05:24→16:26)
[2020-08-07 06:26] LABS: Bedside Glucose 139 mg/dL (70-110)
[2020-08-07] MEDS: Multivitamins,Therapeutic Tablet 1 TABLET PO (08:14)
[2020-08-07] MEDS: Aspirin E.C. 81 MG Tablet PO (08:14)
[2020-08-07 11:01] LABS: Bedside Glucose 169 mg/dL (70-110)
[2020-08-07 14:20] VITALS: BP 147/82; PULSE 73; RESP 17; TEMP 36.1; O2SAT 97
[2020-08-07] MEDS: Acetaminophen 500 MG Tablet 1000 MG PO (16:27)
[2020-08-07 16:56] LABS: Bedside Glucose 164 mg/dL (70-110)
[2020-08-07] MEDS: Atorvastatin Calcium 40 MG Tablet PO (19:38)
[2020-08-07] MEDS: Senna/Docusate Sodium 1 Tablet PO (19:47)
[2020-08-07 21:41] LABS: Bedside Glucose 196 mg/dL (70-110)
[2020-08-08 05:12] VITALS: BP 147/94; PULSE 60; RESP 18; TEMP 36.2; O2SAT 95
[2020-08-08] MEDS: Magnesium Chloride 64 MG Delay Rel.Tablet 128 MG PO (05:13)
[2020-08-08] MEDS: Isosorbide Mononitrate 30 MG Tablet PO (05:13)
[2020-08-08] MEDS: amLODIPine 10 MG Tablet PO (05:13)
[2020-08-08] MEDS: Famotidine 20 MG Tablet PO (05:14)
[2020-08-08] MEDS: Tolterodine Tartrate 2 MG CAP.SA PO (05:14)
[2020-08-08] MEDS: APIXABAN 5 MG TABLET PO ×2 (05:14→17:50)
[2020-08-08] MEDS: Citalopram 10 MG Tablet PO (05:14)
[2020-08-08] MEDS: Losartan Potassium 100 MG Tablet PO (05:14)
[2020-08-08] MEDS: Loratadine 10 MG Tablet PO (05:14)
[2020-08-08] MEDS: Nystatin Powder 15gm Bottle 1 APPLIC TOPICAL ×2 (05:17→21:16)
[2020-08-08] MEDS: Menthol/Lanolin/Calamine/Znox 113 GM Tube 1 APPLIC TOPICAL ×2 (05:17→21:16)
[2020-08-08] MEDS: Ipratropium Bromide 0.06% NASAL SPRAY 2 SPRAY NASAL ×3 (05:17→21:15)
[2020-08-08 06:21] LABS: Bedside Glucose 124 mg/dL (70-110)
[2020-08-08] MEDS: Aspirin E.C. 81 MG Tablet PO (08:38)
[2020-08-08] MEDS: Multivitamins,Therapeutic Tablet 1 TABLET PO (08:38)
[2020-08-08 10:00] VITALS: PULSE 59; RESP 16; O2SAT 97
[2020-08-08 11:10] LABS: Bedside Glucose 190 mg/dL (70-110)
[2020-08-08 13:57] VITALS: BP 147/70; PULSE 67; RESP 18; TEMP 36.2; O2SAT 96
[2020-08-08 16:26] LABS: Bedside Glucose 153 mg/dL (70-110)
[2020-08-08] MEDS: Atorvastatin Calcium 40 MG Tablet PO (21:17)
[2020-08-08 21:20] LABS: Bedside Glucose 203 mg/dL (70-110)
--- NOTE | 2020-08-08 22:16 | PN_ITS ---
Subjective: Resident seen for regulatory visit. He is lying in bed, no new problems, concerns, issues, complaints. Vitals/I&O's: Vital Signs Temp Pulse Resp BP Pulse Ox 97.1 F L 67 18 147/70 H 96 08/08/20 13:57 08/08/20 13:57 08/08/20 13:57 08/08/20 13:57 08/08/20 13:57 Oxygen Flow Rate (L/min) 2 Oxygen Delivery Method Room Air Weight: 142.201 kg Body Mass Index (BMI) 50.1 Finger Stick Blood Glucose 176 Intake and Output for Last 24 Hours 08/06/20 08/07/20 08/08/20 23:59 23:59 23:59 Intake Total 960 / 960 720 / 720 840 / 840 Output Total 300 / 300 350 / 350 Balance 660 / 660 370 / 370 840 / 840 Microbiology Past 72 Hours 08/08/20 13:40 Nasal Secretion SARS-CoV-2 Antigen (Rapid) - Final Laboratory Results 08/08/20 06:13: POC Glucose 124 H 08/08/20 10:53: POC Glucose 190 H 08/08/20 16:22: POC Glucose 153 H 08/08/20 21:06: POC Glucose 203 H Past Medical History Past Medical History (Chronic Problems): Chronic Problems (Last Reviewed 08/18/19 @ 13:23 by Tona Obrien) Hypokalemia (Chronic) Hypomagnesemia (Chronic) Coronary artery disease (Chronic) Overactive bladder (Chronic) Obesity (Chronic) Atrial fibrillation (Chronic) Non compliance w medication regimen (Chronic) Diabetes mellitus (Chronic) Hypertension (Chronic) Medical History: Medical History (Last Reviewed 08/18/19 @ 13:23 by Tona Obrien) Cataracts, bilateral H26.9 Diabetes E11.9 Hypertension I10 Sebaceous cyst (Resolved) L72.3 Skin lesion (Resolved) L98.9 Allergies Beta-Blockers (Beta-Adrenergic Bloc Allergy (Verified 06/22/20 14:13) Other aspirin Adverse Reaction (Verified 06/22/20 14:13) Upset Stomach Home Medications: Ambulatory Orders Medication Instructions Recorded cholecalciferol (vitamin D3) 50 2,000 unit PO DAILY 02/23/19 mcg (2,000 unit) capsule insulin aspart U-100 100 unit/mL 8 unit SC TID ml 02/23/19 subcutaneous cartridge magnesium oxide 420 mg tablet 420 mg PO DAILY tab 02/23/19 Novolin N 24 units SUBCUT BREAKFAST 08/31/19 Novolin N 42 units SUBCUT QHS 08/31/19 Amlodipine Besylate 10 mg PO DAILY #30 tab 09/01/19 Isosorbide Mononitrate [Imdur] 30 mg PO DAILY 06/22/20 Multivitamin with Minerals 1 ea PO DAILY 06/22/20 [Multiple Vitamin] Oxybutynin Chloride [Oxybutynin 5 mg PO DAILY 06/22/20 Chloride ER] Apixaban [Eliquis] 5 mg PO BID 06/24/20 Aspirin E.C. [Ecotrin] 81 mg PO DAILY@0800 06/24/20 Atorvastatin Calcium [Lipitor] 40 mg PO QHS 06/24/20 Famotidine [Pepcid] 20 mg PO DAILY 06/24/20 Potassium Chloride [K-Dur] 40 meq PO BIDCM 06/24/20 Surgical History: Surgical History (Last Reviewed 08/18/19 @ 13:23 by Tona Obrien) S/P tooth extraction K08.409 Scalp cyst L72.9 Surgical History: - - scalp cyst, tooth extraction Psychiatric History: No pertinent psych hx Lives: Spouse/ Significant Other Smoking Status: Never smoker Tobacco Use: Non-smoker Alcohol: None Drugs: None - *Family History Maternal Family History: Family History (Last Reviewed 06/22/20 @ 16:12 by TOÑITO Eckert) Other Diabetes Heart disease History Items: No pertinent history Capacity - Capacity Assessment Tool Can the patient make a choice & communicate that choice?: Yes Can the patient understand benefits, risks and alternatives?: Yes Can the patient make a logical, rational choice?: Yes Is the choice the patient makes consistent w/ their values?: Yes Is there an impending, emergent risk to the patient?: No Does the patient have an Advance Directive?: No Is there a Surrogate Available?: Yes i.e. HCPOA: Yes i.e. close relative (spouse, child, parent, sibling)?: Yes Review of Systems Constitutional: Denies: Chills, Fever, Weight Change HEENT: Denies: Head Aches, Sinus Congestion, Sinus Drainage Cardiovascular: Denies: Chest Pain, Palpitations Respiratory: Denies: Cough, Shortness of breath at rest, Sputum production Gastrointestinal: Denies: Abdominal Pain, Nausea, Vomiting Genitourinary: Denies: Dysuria Musculoskeletal: Denies: Joint Pain, Joint Tenderness Skin: Denies: Rash, Wounds Neurological: Denies: Numbness, Tingling, Focal weakness Psychiatric: Denies: Anxiety, Depression, Homicidal Ideations, Suicidal Ideations Hematologic/ Lymphatic: Denies: Easy Bruising, Easy Bleeding Patient Problems: Active and Suspected Problems (Last Reviewed 08/18/19 @ 13:23 by Tona Obrien) Debility (Acute) Dysarthria (Acute) Right hemiplegia (Acute) Vitamin D deficiency (Acute) - Physical Exam Vitals/I&O's: Vital Signs Temp Pulse Resp BP Pulse Ox 97.1 F L 67 18 147/70 H 96 08/08/20 13:57 08/08/20 13:57 08/08/20 13:57 08/08/20 13:57 08/08/20 13:57 Oxygen Flow Rate (L/min) 2 Oxygen Delivery Method Room Air Weight: 142.201 kg Body Mass Index (BMI) 50.1 Finger Stick Blood Glucose 176 Intake and Output for Last 24 Hours 08/06/20 08/07/20 08/08/20 23:59 23:59 23:59 Intake Total 960 / 960 720 / 720 840 / 840 Output Total 300 / 300 350 / 350 Balance 660 / 660 370 / 370 840 / 840 General: Alert, Oriented x3, Cooperative HEENT: Atraumatic, PERRLA, EOMI, Normocephalic Neck: Supple, No JVD, Negative Carotid Bruits Lungs: Clear to auscultation, Normal air movement Cardiovascular: Regular rate, No murmurs Abdomen: Bowel Sounds Present, Soft, Non Tender Extremities: No edema, Capillary Refill Less than 3 Seconds Skin: No rashes, No breakdown Musculoskeletal: No Tenderness to Palpation of Joints or Extremities Neurological: Cranial nerves II-XII grossly intact, - - Mild right hemiparesis. Psych/Mental Status: Normal Affect, Appropriate Microbiology Past 72 Hours 08/08/20 13:40 Nasal Secretion SARS-CoV-2 Antigen (Rapid) - Final Laboratory Results 08/08/20 06:13: POC Glucose 124 H 08/08/20 10:53: POC Glucose 190 H 08/08/20 16:22: POC Glucose 153 H 08/08/20 21:06: POC Glucose 203 H Current Medications Acetaminophen (Acetaminophen 500 Mg Tablet) 1,000 mg PO Q6H PRN PRN Reason: Pain Score 1-10 Last Admin: 08/07/20 16:27 Dose: 1,000 mg Documented by: Amlodipine Besylate (Amlodipine 10 Mg Tablet) 10 mg PO DAILY [facility] Last Admin: 08/08/20 05:13 Dose: 10 mg Documented by: Apixaban (Apixaban 5 Mg Tablet) 5 mg PO BID [facility] Last Admin: 08/08/20 17:50 Dose: 5 mg Documented by: Aspirin (Aspirin E.C. 81 Mg Tablet) 81 mg PO DAILY@0800 [facility] Last Admin: 08/08/20 08:38 Dose: 81 mg Documented by: Atorvastatin Calcium (Atorvastatin Calcium 40 Mg Tablet) 40 mg PO QHS [facility] Last Admin: 08/08/20 21:17 Dose: 40 mg Documented by: Bisacodyl (Bisacodyl 10 Mg Suppository) 10 mg RECTAL DAILY PRN PRN Reason: Constipation Last Admin: 07/03/20 13:33 Dose: 10 mg Documented by: Calamine/Phenol (Menthol/Lanolin/Calamine/Znox 113 Gm Tube) 1 applic TOPICAL 0600,2200 [facility]; Protocol Last Admin: 08/08/20 21:16 Dose: 1 applicatio Documented by: Cholecalciferol (Cholecalciferol (Vit D3) 1,000 Unit (25mcg)) 2,000 unit PO DAILY [facility] Last Admin: 08/08/20 05:13 Dose: 2,000 unit Documented by: Citalopram Hydrobromide (Citalopram 10 Mg Tablet) 10 mg PO DAILY [facility] Last Admin: 08/08/20 05:14 Dose: 10 mg Documented by: Famotidine (Famotidine 20 Mg Tablet) 20 mg PO DAILY [facility] Last Admin: 08/08/20 05:14 Dose: 20 mg Documented by: Insulin Glargine (Insulin Glargine 100 Units/Ml Pen) 25 units SC QHS [facility] Last Admin: 08/08/20 21:13 Dose: 25 units Documented by: Ipratropium [place] (Ipratropium [place] 0.06% Nasal [place]) 2 spray NASAL TID [facility] Last Admin: 08/08/20 21:15 Dose: 2 spray Documented by: Isosorbide Mononitrate (Isosorbide Mononitrate 30 Mg Tablet) 30 mg PO DAILY [facility] Last Admin: 08/08/20 05:13 Dose: 30 mg Documented by: Loratadine (Loratadine 10 Mg Tablet) 10 mg PO DAILY [facility] Last Admin: 08/08/20 05:14 Dose: 10 mg Documented by: Losartan Potassium (Losartan Potassium 100 Mg Tablet) 100 mg PO DAILY [facility] Last Admin: 08/08/20 05:14 Dose: 100 mg Documented by: Magnesium Chloride (Magnesium Chloride 64 Mg Delay Rel.Tablet) 128 mg PO DAILY [facility] Last Admin: 08/08/20 05:13 Dose: 128 mg Documented by: Menthol (Menthol 226.8 Gm Jar) 1 applic TP 4X/DAY PRN PRN PRN Reason: Pain Score 1-10 Last Admin: 08/04/20 13:22 Dose: 1 applic Documented by: Multivitamins (Multivitamins,Therapeutic Tablet) 1 tablet PO DAILY@0800 [facility] Last Admin: 08/08/20 08:38 Dose: 1 tablet Documented by: Nystatin (Nystatin Powder 15gm Bottle) 1 applic TOPICAL 0600,2200 [facility]; Protocol Last Admin: 08/08/20 21:16 Dose: 1 applicatio Documented by: Polyethylene Glycol (Polyethylene Glycol 3350 17 Gm Packet) 17 gm PO DAILY PRN PRN Reason: Constipation Potassium Chloride ([facility] 20 [facility]eq [facility]t) [facility] Admin: 08/08/20 17:50 Dose: 40 meq Documented by: Senna/Docusate Sodium (Senna/Docusate Sodium 1 Tablet) 1 tablet PO BID PRN PRN Reason: Constipation Last Admin: 08/07/20 19:47 Dose: 1 tablet Documented by: Tolterodine Tartrate (Tolterodine Tartrate 2 Mg Cap.Sa) 2 mg PO DAILY [facility] Last Admin: 08/08/20 05:14 Dose: 2 mg Documented by: Assessment/Plan All Active Problems (Last Reviewed 08/18/19 @ 13:23 by Tona Obrien) Debility (Acute) Dysarthria (Acute) Right hemiplegia (Acute) Vitamin D deficiency (Acute) CVA (cerebral vascular accident) (Acute) Pilar cyst (Resolved) Sebaceous cyst (Resolved) Skin lesion (Resolved) 79 year old male with below past medical history hospitalized for stoke with dense right hemiplegia, dysarthria, admitted to TCU with debility, here for rehabilitation, strengthening, prior to discharge home with . * Debility - PT/OT. * Dysarthria - ST. * Pain - Tylenol 1000MG Q6H PRN pain (1-10). * Bowel - Miralax 17GM daily PRN, Senna/colace 1 tablet BID PRN, Dulcolax 10MG [place] daily PRN. * Adult immunization - Administer Prevnar 13, Pneumovax 23, Fluzone as appropriate. * DVT prophylaxis - Not necessary, already anticoagulated. * Hypertension - Amlodipine 10MG daily. * Atrial Fibrillation - Eliquis 5MG BID, Aspirin 81MG daily. * Stroke - Eliquis 5MG BID, Aspirin 81MG daily. * Hyperlipidemia - Atorvastatin 40MG QHS. * Vitamin D deficiency - D3 2000IU daily. * Depression - Citalopram 10MG daily. * GERD - Famotidine 20MG daily. * Nutrition - MVI daily, Glucerna 120ML 4x/day. * Diabetes Mellitus II - Lantus 25 units QHS, monitor blood sugars. * Coronary Artery disease - Losartan 100MG daily, Imdur 30MG daily, Eliquis 5MG BID, Aspirin 81MG daily. * Hypomagnesemia - Magnesium chloride 128MG daily. * Skin irritation - Calmoseptien BID, Blue Gel topical 4x/day PRN. * Tinea Corporis - Nystatin powder BID. * Hypokalemia - K-Dur 40MEQ BIDCM. * Overactive bladder - Tolterodine 2MG daily. * Nutrition - MVI daily.
[2020-08-09 05:09] VITALS: BP 156/96; PULSE 68; RESP 18; TEMP 36.1; O2SAT 94
[2020-08-09] MEDS: Nystatin Powder 15gm Bottle 1 APPLIC TOPICAL ×2 (05:10→19:59)
[2020-08-09] MEDS: Menthol/Lanolin/Calamine/Znox 113 GM Tube 1 APPLIC TOPICAL ×2 (05:11→19:58)
[2020-08-09] MEDS: Ipratropium Bromide 0.06% NASAL SPRAY 2 SPRAY NASAL ×3 (05:11→19:59)
[2020-08-09] MEDS: Losartan Potassium 100 MG Tablet PO (05:16)
[2020-08-09] MEDS: Loratadine 10 MG Tablet PO (05:16)
[2020-08-09] MEDS: Citalopram 10 MG Tablet PO (05:16)
[2020-08-09] MEDS: APIXABAN 5 MG TABLET PO ×2 (05:16→17:22)
[2020-08-09] MEDS: Isosorbide Mononitrate 30 MG Tablet PO (05:16)
[2020-08-09] MEDS: Famotidine 20 MG Tablet PO (05:17)
[2020-08-09] MEDS: amLODIPine 10 MG Tablet PO (05:17)
[2020-08-09] MEDS: Tolterodine Tartrate 2 MG CAP.SA PO (05:17)
[2020-08-09] MEDS: Magnesium Chloride 64 MG Delay Rel.Tablet 128 MG PO (05:17)
[2020-08-09 06:31] LABS: Bedside Glucose 131 mg/dL (70-110)
[2020-08-09] MEDS: Multivitamins,Therapeutic Tablet 1 TABLET PO (08:00)
[2020-08-09] MEDS: Aspirin E.C. 81 MG Tablet PO (08:00)
[2020-08-09 11:21] LABS: Bedside Glucose 201 mg/dL (70-110)
--- NOTE | 2020-08-09 14:04 | CASEMGMT ---
Social Work Spoke with IDT and son about setting DC date for pt. The goal is for pt to DC from TCU to sleep lab for sleep study, then DC to [facility]. Pt needs caregiver to assist with toileting in the sleep lab. Inquired to son if he could assist. Son can assist; however, his just tested positive for COVID. Both are in quarantine until 08/23. Spoke with sleep lab and have scheduled pt for sleep study 08/23. IDT agreeable to 08/23 DC date. Explained to son that insurance update this day and insurance does not have to approve pt's stay until that time, thus he would need to transfer to PS[facility]IAT[facility]IC prior to that date. However, it would be difficult for pt to be discharged from PSYCHIATRIC to come back to [facility] Sleep [facility] for sleep study and then get readmitted to PS[facility]IATRIC. Son understands situation and will keep him updated. Will continue to follow. Caryn Nagel, SEXOLOGIST [employer]
--- NOTE | 2020-08-09 14:46 | PCM.PN.RX ---
<TomDarby M - Last Filed: 08/09/20 14:46> Progress Note - Pharmacy Subjective: [facility] FOLLOW-UP NOTE Objective: Allergies Beta-Blockers (Beta-Adrenergic Bloc Allergy (Verified 06/22/20 14:13) Other aspirin Adverse Reaction (Verified 06/22/20 14:13) Upset Stomach Current Medications Generic Name Dose Route Start Last Admin Trade Name Freq PRN Reason Stop Dose Admin Acetaminophen 1,000 mg 06/25/20 14:50 08/07/20 16:27 Acetaminophen 500 Mg Tablet PO 1,000 mg Q6H PRN Administration Pain Score 1-10 Amlodipine Besylate 10 mg 06/25/20 06:00 08/09/20 05:17 Amlodipine 10 Mg Tablet PO 10 mg DAILY SELWYN Administration Apixaban 5 mg 06/25/20 06:00 08/09/20 05:16 Apixaban 5 Mg Tablet PO 5 mg BID SELWYN Administration Aspirin 81 mg 06/25/20 08:00 08/09/20 08:00 Aspirin E.C. 81 Mg Tablet PO 81 mg DAILY@0800 SELWYN Administration Atorvastatin Calcium 40 mg 06/24/20 22:00 08/08/20 21:17 Atorvastatin Calcium 40 Mg Tablet PO 40 mg QHS SELWYN Administration Bisacodyl 10 mg 06/25/20 14:51 07/03/20 13:33 Bisacodyl 10 Mg Suppository RECTAL 10 mg DAILY PRN Administration Constipation Calamine/Phenol 1 applic 06/25/20 06:00 08/09/20 05:11 Menthol/Lanolin/Calamine/Znox 113 Gm Tube TOPICAL 1 applicatio 0600,2200 [facility] Administration Protocol Cholecalciferol 2,000 unit 06/25/20 06:00 08/09/20 05:17 Cholecalciferol (Vit D3) 1,000 Unit (25mcg) PO 2,000 unit DAILY SELWYN Administration Citalopram Hydrobromide 10 mg 07/05/20 06:00 08/09/20 05:16 Citalopram 10 Mg Tablet PO 10 mg DAILY SELWYN Administration Famotidine 20 mg 06/25/20 06:00 08/09/20 05:17 Famotidine 20 Mg Tablet PO 20 mg DAILY SELWYN Administration Insulin Glargine 25 units 07/19/20 22:00 08/08/20 21:13 Insulin Glargine 100 Units/Ml Pen SC 25 units QHS SELWYN Administration Ipratropium [place] 2 spray 07/29/20 22:00 08/09/20 14:31 Ipratropium [place] 0.06% Nasal [place] NASAL 2 spray TID SELWYN Administration Isosorbide Mononitrate 30 mg 06/25/20 06:00 08/09/20 05:16 Isosorbide Mononitrate 30 Mg Tablet PO 30 mg DAILY SELWYN Administration Loratadine 10 mg 07/30/20 06:00 08/09/20 05:16 Loratadine 10 Mg Tablet PO 10 mg DAILY SELWYN Administration Losartan Potassium 100 mg 07/01/20 06:00 08/09/20 05:16 Losartan Potassium 100 Mg Tablet PO 100 mg DAILY [facility] Administration Magnesium Chloride 128 mg 06/25/20 06:00 08/09/20 05:17 Magnesium Chloride 64 Mg Delay Rel.Tablet PO 128 mg DAILY SELWYN Administration Menthol 1 applic 07/22/20 08:09 08/04/20 13:22 Menthol 226.8 Gm Jar TP 1 applic 4X/DAY PRN PRN Administration Pain Score 1-10 Multivitamins 1 tablet 06/25/20 08:00 08/09/20 08:00 Multivitamins,Therapeutic Tablet PO 1 tablet DAILY@0800 [facility] Administration Nystatin 1 applic 06/25/20 06:00 08/09/20 05:10 Nystatin Powder 15gm Bottle TOPICAL 1 applicatio 0600,2200 [facility] Administration Protocol Polyethylene Glycol 17 gm 07/28/20 08:01 Polyethylene Glycol 3350 17 Gm Packet PO DAILY PRN Constipation Potassium Chloride 40 meq 06/25/20 08:00 08/09/20 08:00 Potassium Chloride 20 Meq Tablet PO 40 meq BIDCM SELWYN Administration Senna/Docusate Sodium 1 tablet 07/28/20 08:01 08/07/20 19:47 Senna/Docusate Sodium 1 Tablet PO 1 tablet BID PRN Administration Constipation Tolterodine Tartrate 2 mg 06/25/20 06:00 08/09/20 05:17 Tolterodine Tartrate 2 Mg Cap.Sa PO 2 mg DAILY SELWYN Administration Problem List (Last Reviewed 08/18/19 @ 13:23 by Tona Obrien) Debility (Acute) Dysarthria (Acute) Right hemiplegia (Acute) Hypokalemia (Chronic) Vitamin D deficiency (Acute) Hypomagnesemia (Chronic) Coronary artery disease (Chronic) Overactive bladder (Chronic) Vital Signs Temp Pulse Resp BP Pulse Ox 96.9 F L 68 18 156/96 H 94 08/09/20 05:09 08/09/20 05:09 08/09/20 05:09 08/09/20 05:09 08/09/20 05:09 Oxygen Flow Rate (L/min) 2 Oxygen Delivery Method Room Air Weight: 142.201 kg Body Mass Index (BMI) 50.1 Finger Stick Blood Glucose 176 Sodium 138 mmol/L (136-145) 08/06/20 08:36 Potassium 3.7 mmol/L (3.5-5.1) 08/06/20 08:36 Chloride 109 mmol/L (98-107) H 08/06/20 08:36 Carbon Dioxide 23.0 mmol/L (21.0-32.0) 08/06/20 08:36 Anion Gap 6 (5-15) 08/06/20 08:36 BUN 21 mg/dL (7-18) H 08/06/20 08:36 Creatinine 1.12 mg/dL (0.70-1.30) 08/06/20 08:36 Est GFR (MDRD) Af Amer 82 mL/min (>60) 08/06/20 08:36 Est GFR (MDRD) Non-Af 67 mL/min (>60) 08/06/20 08:36 BUN/Creatinine Ratio 18.8 RATIO (10-20) 08/06/20 08:36 Glucose 156 mg/dL (74-106) H 08/06/20 08:36 Assessment/Plan: 1. Pain: Tylenol 1000mg PO Q6H PRN pain score 1-10 , please continue to monitor for increase/decrease in S/S of pain , prn medication use 2. Hypertension: Amlodipine 10 mg PO daily , Losartan 100mg PO Daily. please monitor blood pressure ( last BP 06/27/20; 166/87) 3. Atrial Fibrillation: Eliquis 5 mg PO BID daily, please monitor for S/S of bleeding 4. Stroke: Eliquis 5mg PO BID, Aspirin 81mg PO daily , please monitor for S/S of bleeding 5. Hyperlipidemia : Atorvastatin 40mg PO QHS, monitor cholesterol levels, liver function and S/S of muscle pain 6. Vitamin D deficiency: Take 1 Tablet (cholecalciferol 2000 unit) PO daily ,monitor vitamin D levels 7. GERD: Famotidine 20 mg PO daily , monitor for improvement / worsening of GERD symptoms, renal function 8. Nutrition: Take 1 multivitamin PO daily 9. Diabetes Mellitus II - Lantus 25 units SQ QHS. Please continue to monitor blood sugars, and S/S of hypoglycemia 10. Coronary Artery disease : Imdur 30MG PO daily, Eliquis 5MG PO BID, Aspirin 81MG PO daily. 11. Hypomagnesemia: Magnesium Chloride 128mg PO daily , monitor renal function, magnesium levels as clinically indicated 12. Hypokalemia : K Dur 40meq PO BID , monitor potassium levels 13. Overactive bladder: Tolterodine 2MG PO daily. Psychotropic Medications: *14. Depression: Citalopram 10mg PO Daily. Please consider a GDR by 01/2021 if clinically indicated, thank you. Unnecessary Medications: *Loratadine 10mg PO Daily. Medication on MAR without indication for use. Please evaluate use, thank you. *Ipratropium nasal spray 2 spray nasally TID. Medication on MAR without indication for use. Please evaluate use, thank you Bowel Regimen: Bowel Regimen: Miralax 17 gram PO daily, senna/docusate 1 tablet PO BID , dulcolax 10 mg VA daily PRN. Please monitor for prn medication use Date of Note:: 08/09/20 - Provider Comments Provider responsibility: Provider responsible to enter orders to implement recommendations <John Kohler Chi - Last Filed: 08/09/20 18:30> Progress Note - Pharmacy Subjective: [] Objective: Allergies Beta-Blockers (Beta-Adrenergic Bloc Allergy (Verified 06/22/20 14:13) Other aspirin Adverse Reaction (Verified 06/22/20 14:13) Upset Stomach Current Medications Generic Name Dose Route Start Last Admin Trade Name Freq PRN Reason Stop Dose Admin Acetaminophen 1,000 mg 06/25/20 14:50 08/07/20 16:27 Acetaminophen 500 Mg Tablet PO 1,000 mg Q6H PRN Administration Pain Score 1-10 Amlodipine Besylate 10 mg 06/25/20 06:00 08/09/20 05:17 Amlodipine 10 Mg Tablet PO 10 mg DAILY SELWYN Administration Apixaban 5 mg 06/25/20 06:00 08/09/20 17:22 Apixaban 5 Mg Tablet PO 5 mg BID SELWYN Administration Aspirin 81 mg 06/25/20 08:00 08/09/20 08:00 Aspirin E.C. 81 Mg Tablet PO 81 mg DAILY@0800 SELWYN Administration Atorvastatin Calcium 40 mg 06/24/20 22:00 08/08/20 21:17 Atorvastatin Calcium 40 Mg Tablet PO 40 mg QHS SELWYN Administration Bisacodyl 10 mg 06/25/20 14:51 07/03/20 13:33 Bisacodyl 10 Mg Suppository RECTAL 10 mg DAILY PRN Administration Constipation Calamine/Phenol 1 applic 06/25/20 06:00 08/09/20 05:11 Menthol/Lanolin/Calamine/Znox 113 Gm Tube TOPICAL 1 applicatio 06,0 [facility] Administration Protocol Cholecalciferol 2,000 unit 06/25/20 06:00 08/09/20 05:17 Cholecalciferol (Vit D3) 1,000 Unit (25mcg) PO 2,000 unit DAILY SELWYN Administration Citalopram Hydrobromide 10 mg 07/05/20 06:00 08/09/20 05:16 Citalopram 10 Mg Tablet PO 10 mg DAILY SELWYN Administration Famotidine 20 mg 06/25/20 06:00 08/09/20 05:17 Famotidine 20 Mg Tablet PO 20 mg DAILY SELWYN Administration Insulin Glargine 25 units 07/19/20 22:00 08/08/20 21:13 Insulin Glargine 100 Units/Ml Pen SC 25 units QHS SELWYN Administration Ipratropium [place] 2 spray 07/29/20 22:00 08/09/20 14:31 Ipratropium [place] 0.06% Nasal [place] NASAL 2 spray TID SELWYN Administration Isosorbide Mononitrate 30 mg 06/25/20 06:00 08/09/20 05:16 Isosorbide Mononitrate 30 Mg Tablet PO 30 mg DAILY SELWYN Administration Loratadine 10 mg 07/30/20 06:00 08/09/20 05:16 Loratadine 10 Mg Tablet PO 10 mg DAILY SELWYN Administration Losartan Potassium 100 mg 07/01/20 06:00 08/09/20 05:16 Losartan Potassium 100 Mg Tablet PO 100 mg DAILY SELWYN Administration Magnesium Chloride 128 mg 06/25/20 06:00 08/09/20 05:17 Magnesium Chloride 64 Mg Delay Rel.Tablet PO 128 mg DAILY SELWYN Administration Menthol 1 applic 07/22/20 08:09 08/04/20 13:22 Menthol 226.8 Gm Jar TP 1 applic 4X/DAY PRN PRN Administration Pain Score 1-10 Multivitamins 1 tablet 06/25/20 08:00 08/09/20 08:00 Multivitamins,Therapeutic Tablet PO 1 tablet DAILY@0800 SELWYN Administration Nystatin 1 applic 06/25/20 06:00 08/09/20 05:10 Nystatin Powder 15gm Bottle TOPICAL 1 applicatio 0600,2200 SELWYN Administration Protocol Polyethylene Glycol 17 gm 07/28/20 08:01 Polyethylene Glycol 3350 17 Gm Packet PO DAILY PRN Constipation Potassium Chloride 40 meq 06/25/20 08:00 08/09/20 17:22 Potassium Chloride 20 Meq Tablet PO 40 meq BIDCM SELWYN Administration Senna/Docusate Sodium 1 tablet 07/28/20 08:01 08/07/20 19:47 Senna/Docusate Sodium 1 Tablet PO 1 tablet BID PRN Administration Constipation Tolterodine Tartrate 2 mg 06/25/20 06:00 08/09/20 05:17 Tolterodine Tartrate 2 Mg Cap.Sa PO 2 mg DAILY SELWYN Administration Problem List (Last Reviewed 08/18/19 @ 13:23 by Tona Obrien) Debility (Acute) Dysarthria (Acute) Right hemiplegia (Acute) Hypokalemia (Chronic) Vitamin D deficiency (Acute) Hypomagnesemia (Chronic) Coronary artery disease (Chronic) Overactive bladder (Chronic) Vital Signs Temp Pulse Resp BP Pulse Ox 98.3 F 64 18 143/72 H 95 08/09/20 16:36 08/09/20 16:36 08/09/20 16:36 08/09/20 16:36 08/09/20 16:36 Oxygen Flow Rate (L/min) 2 Oxygen Delivery Method Room Air Weight: 143.108 kg Body Mass Index (BMI) 50.1 Finger Stick Blood Glucose 176 Sodium 138 mmol/L (136-145) 08/06/20 08:36 Potassium 3.7 mmol/L (3.5-5.1) 08/06/20 08:36 Chloride 109 mmol/L (98-107) H 08/06/20 08:36 Carbon Dioxide 23.0 mmol/L (21.0-32.0) 08/06/20 08:36 Anion Gap 6 (5-15) 08/06/20 08:36 BUN 21 mg/dL (7-18) H 08/06/20 08:36 Creatinine 1.12 mg/dL (0.70-1.30) 08/06/20 08:36 Est GFR (MDRD) Af Amer 82 mL/min (>60) 08/06/20 08:36 Est GFR (MDRD) Non-Af 67 mL/min (>60) 08/06/20 08:36 BUN/Creatinine Ratio 18.8 RATIO (10-20) 08/06/20 08:36 Glucose 156 mg/dL (74-106) H 08/06/20 08:36 Assessment/Plan: Psychotropic Medications: Unnecessary Medications: Bowel Regimen: - Provider Comments Provider responsibility: Provider responsible to enter orders to implement recommendations Provider Comments to Recommendations by Pharmacy: Agree
[2020-08-09 16:31] LABS: Bedside Glucose 165 mg/dL (70-110)
[2020-08-09 16:36] VITALS: BP 143/72; PULSE 64; RESP 18; TEMP 36.8; O2SAT 95
--- NOTE | 2020-08-09 16:41 | NURSING ---
Resident and family notified of staff member testing positive for COVID.
[2020-08-09] MEDS: Atorvastatin Calcium 40 MG Tablet PO (19:58)
[2020-08-09 21:31] LABS: Bedside Glucose 181 mg/dL (70-110)
[2020-08-10 05:36] VITALS: BP 179/94; PULSE 70; RESP 18; TEMP 36.4; O2SAT 96
[2020-08-10] MEDS: Ipratropium Bromide 0.06% NASAL SPRAY 2 SPRAY NASAL ×3 (05:37→20:48)
[2020-08-10] MEDS: APIXABAN 5 MG TABLET PO ×2 (05:38→16:49)
[2020-08-10] MEDS: Citalopram 10 MG Tablet PO (05:38)
[2020-08-10] MEDS: Isosorbide Mononitrate 30 MG Tablet PO (05:38)
[2020-08-10] MEDS: Tolterodine Tartrate 2 MG CAP.SA PO (05:38)
[2020-08-10] MEDS: Loratadine 10 MG Tablet PO (05:38)
[2020-08-10] MEDS: Losartan Potassium 100 MG Tablet PO (05:38)
[2020-08-10] MEDS: Magnesium Chloride 64 MG Delay Rel.Tablet 128 MG PO (05:38)
[2020-08-10] MEDS: Famotidine 20 MG Tablet PO (05:38)
[2020-08-10] MEDS: Menthol/Lanolin/Calamine/Znox 113 GM Tube 1 APPLIC TOPICAL ×2 (05:40→20:51)
[2020-08-10] MEDS: Nystatin Powder 15gm Bottle 1 APPLIC TOPICAL ×2 (05:41→20:51)
[2020-08-10] MEDS: amLODIPine 10 MG Tablet PO (05:41)
[2020-08-10] MEDS: Senna/Docusate Sodium 1 Tablet PO ×2 (05:44→20:50)
[2020-08-10 06:35] LABS: Bedside Glucose 175 mg/dL (70-110)
[2020-08-10] MEDS: Aspirin E.C. 81 MG Tablet PO (08:23)
[2020-08-10] MEDS: Multivitamins,Therapeutic Tablet 1 TABLET PO (08:24)
[2020-08-10 11:01] LABS: Bedside Glucose 208 mg/dL (70-110)
[2020-08-10 13:47] VITALS: BP 145/86; PULSE 75; RESP 16; TEMP 36.6; O2SAT 91
--- NOTE | 2020-08-10 15:25 | CASEMGMT ---
Social Work Insurance issued CLD 08/12, [place] 08/13. Contacted CM to inquire about approval for additional days due to holiday and due to sleep study. CM stated the MD will deny the request. NOMNC issued. Spoke with son and pt and both agreeable. Notified [facility] of DC date and sleep study date/caregiver arrangements. Scheduled w/c transport with [facility] for 11 am and will call if running behind schedule. Plan: DC to [facility] 08/13 with Part B therapies or [facility] DAREILA Low
[2020-08-10 16:45] LABS: Bedside Glucose 163 mg/dL (70-110)
--- NOTE | 2020-08-10 19:46 | DCINST_ITS ---
- Discharge Diagnoses Current Active Problems: Current Active and Chronic Problems (Last Reviewed 08/18/19 @ 13:23 by Tona Obrien) Debility (Acute) Dysarthria (Acute) Right hemiplegia (Acute) Hypokalemia (Chronic) Vitamin D deficiency (Acute) Hypomagnesemia (Chronic) Coronary artery disease (Chronic) Overactive bladder (Chronic) You will use the following diet at home:: No restrictions, Regular Your food should be the consistency of: Regular Your liquids should be the consistency of: Regular/Thin Discharge Activity: Return to Normal Activity, May Shower, Use Walker Weight Bearing Status: Weight bearing as tolerated Call your doctor if you observe: Fever of 101 or Higher, Inability to urinate, Inability to have a bowel movement, Shortness of breath, Chest pain, Uncontrolled pain Allergies/Adverse Reactions: Allergies Beta-Blockers (Beta-Adrenergic Bloc Allergy (Verified 06/22/20 14:13) Other aspirin Adverse Reaction (Verified 06/22/20 14:13) Upset Stomach Medications to take at Discharge cholecalciferol (vitamin D3) 50 mcg (2,000 unit) capsule 2,000 unit PO DAILY 02/23/19 magnesium oxide 420 mg tablet 420 mg PO DAILY tab 02/23/19 Amlodipine Besylate 10 mg PO DAILY #30 tab 09/01/19 Isosorbide Mononitrate [Imdur] 30 mg PO DAILY 06/22/20 Multivitamin with Minerals [Multiple Vitamin] 1 ea PO DAILY 06/22/20 Oxybutynin Chloride [Oxybutynin Chloride ER] 5 mg PO DAILY 06/22/20 Apixaban [Eliquis] 5 mg PO BID 06/24/20 Aspirin E.C. [Ecotrin] 81 mg PO DAILY@0800 06/24/20 Atorvastatin Calcium [Lipitor] 40 mg PO QHS 06/24/20 Famotidine [Pepcid] 20 mg PO DAILY 06/24/20 Potassium Chloride [K-Dur] 40 meq PO BIDCM 06/24/20 Acetaminophen [Tylenol] 1,000 mg PO Q6H PRN tablet 08/10/20 Citalopram [Celexa] 10 mg PO DAILY tablet 08/10/20 Insulin Glargine [Lantus SoloStar Pen] 25 units SC QHS pen 08/10/20 Losartan Potassium [Cozaar] 100 mg PO DAILY tablet 08/10/20 Menthol [Blue Gel] 1 applic TP 4X/DAY PRN PRN jar 08/10/20 Menthol/Lanolin/Calamine/Znox [Calmoseptine Ointment] 1 applic TOPICAL 0600,2200 tube 08/10/20 Nystatin Powder [Mycostatin Powder] 1 applic TOPICAL 0600,2200 bottle 08/10/20 Polyethylene Glycol 3350 [Miralax] 17 gm PO DAILY PRN packet 08/10/20 Senna/Docusate Sodium [Senokot-S] 1 tablet PO BID PRN tablet 08/10/20 Primary Care Physician: Rachele Man DO [Primary Care Provider] - Please follow up with your Primary Care Physician in: 1 week. Test Results: Test results from this visit will be discussed in further detail at your follow- up appointment, if applicable. Please Follow Up With: Pelon Hernandez MD When: 2 Weeks Please Follow Up With: Marielena Ragland MD When: 4 weeks, following event recorder completion. Please Follow Up With: Alvin Florian MD Proposed Discharge Date: 08/13/20
--- NOTE | 2020-08-10 19:48 | PCM.DC.SUM ---
Discharge Date and Diagnosis - Problem List Patient Problems: Active and Suspected Problems (Last Reviewed 08/18/19 @ 13:23 by Tona Obrien) Debility (Acute) Dysarthria (Acute) Right hemiplegia (Acute) Vitamin D deficiency (Acute) Date of Admission: 06/24/20 Date of Discharge: 08/13/20 - Primary Discharge Diagnosis Acute Problems: Active Problems (Last Reviewed 08/18/19 @ 13:23 by Tona Obrien) Debility (Acute) Dysarthria (Acute) Right hemiplegia (Acute) Vitamin D deficiency (Acute) - Secondary Discharge Diagnosis Chronic Problems: Chronic Problems (Last Reviewed 08/18/19 @ 13:23 by Tona Obrien) Hypokalemia (Chronic) Hypomagnesemia (Chronic) Coronary artery disease (Chronic) Overactive bladder (Chronic) Obesity (Chronic) Atrial fibrillation (Chronic) Non compliance w medication regimen (Chronic) Diabetes mellitus (Chronic) Hypertension (Chronic) Hospital Course and Treatment Imaging Results: 06/24/20 19:17 Diet: Cardiac: Calorie-Controlled Food consistency:: Mechanical (Minced/Moist) Liquid Consistency:: Regular/Thin Dietary Modifications:: Sodium Restricted Is pt able to select menu?: Yes Diet Comments: Supervised, one bite at a time. How many daily calories?: 2000 calorie Clinical Impression(s) from Imaging Studies Chest X-Ray 06/30/20 10:55 IMPRESSION: Mild congestive heart failure. Electronically Signed: Rodolfo Levy MD at 11:14 EDT Tel , Service support , KUB X-Ray 07/27/20 18:25 IMPRESSION: Normal bowel gas pattern. Electronically Signed: Quinn Gonzalez MD at 21:04 EST Tel , Service support , Labs (Last 48 Hours) 08/08/20 08/09/20 08/09/20 21:06 06:08 11:00 POC Glucose 203 H 131 H 201 H 08/09/20 08/09/20 08/10/20 16:18 21:20 06:16 POC Glucose 165 H 181 H 175 H 11/25/20 11/25/20 10:48 16:35 POC Glucose 208 H 163 H Microbiology 08/08/20 13:40 Nasal Secretion SARS-CoV-2 Antigen (Rapid) - Final Operations: None Procedures: None Summary of Care Provided: The patient is a 79 year old Male with below past medical history hospitalized for stoke with dense right hemiplegia, dysarthria, admitted to TCU with debility, here for rehabilitation, strengthening, prior to discharge home with . Sleep study 08/23/20 at [facility]. Discharge to [facility] with Part B or HAKAN therapies. Patient Problems: Active and Suspected Problems (Last Reviewed 08/18/19 @ 13:23 by Tona Obrien) Debility (Acute) Dysarthria (Acute) Right hemiplegia (Acute) Vitamin D deficiency (Acute) - Physical Exam Vitals/I&O's: Vital Signs Temp Pulse Resp BP Pulse Ox 97.9 F 75 16 145/86 H 91 08/10/20 13:47 08/10/20 13:47 08/10/20 13:47 08/10/20 13:47 08/10/20 13:47 Oxygen Flow Rate (L/min) 2 Oxygen Delivery Method Room Air Weight: 143.449 kg Body Mass Index (BMI) 50.1 Finger Stick Blood Glucose 176 Intake and Output for Last 24 Hours 08/08/20 08/09/20 08/10/20 23:59 23:59 23:59 Intake Total 840 / 840 840 / 840 840 / 840 Balance 840 / 840 840 / 840 840 / 840 Microbiology Past 72 Hours 08/08/20 13:40 Nasal Secretion SARS-CoV-2 Antigen (Rapid) - Final Laboratory Results 08/09/20 21:20: POC Glucose 181 H 08/10/20 06:16: POC Glucose 175 H 08/10/20 10:48: POC Glucose 208 H 08/10/20 16:35: POC Glucose 163 H Current Medications Acetaminophen (Acetaminophen 500 Mg Tablet) 1,000 mg PO Q6H PRN PRN Reason: Pain Score 1-10 Last Admin: 08/07/20 16:27 Dose: 1,000 mg Documented by: Amlodipine Besylate (Amlodipine 10 Mg Tablet) 10 mg PO DAILY [facility] Last Admin: 08/10/20 05:41 Dose: 10 mg Documented by: Apixaban (Apixaban 5 Mg Tablet) 5 mg PO BID [facility] Last Admin: 08/10/20 16:49 Dose: 5 mg Documented by: Aspirin (Aspirin E.C. 81 Mg Tablet) 81 mg PO DAILY@0800 [facility] Last Admin: 08/10/20 08:23 Dose: 81 mg Documented by: Atorvastatin Calcium (Atorvastatin Calcium 40 Mg Tablet) 40 mg PO QHS [facility] Last Admin: 08/09/20 19:58 Dose: 40 mg Documented by: Bisacodyl (Bisacodyl 10 Mg Suppository) 10 mg RECTAL DAILY PRN PRN Reason: Constipation Last Admin: 07/03/20 13:33 Dose: 10 mg Documented by: Calamine/Phenol (Menthol/Lanolin/Calamine/Znox 113 Gm Tube) 1 applic TOPICAL 0600,2200 [facility]; Protocol Last Admin: 08/10/20 05:40 Dose: 1 applicatio Documented by: Cholecalciferol (Cholecalciferol (Vit D3) 1,000 Unit (25mcg)) 2,000 unit PO DAILY [facility] Last Admin: 08/10/20 05:38 Dose: 2,000 unit Documented by: Citalopram Hydrobromide (Citalopram 10 Mg Tablet) 10 mg PO DAILY [facility] Last Admin: 08/10/20 05:38 Dose: 10 mg Documented by: Famotidine (Famotidine 20 Mg Tablet) 20 mg PO DAILY [facility] Last Admin: 08/10/20 05:38 Dose: 20 mg Documented by: Insulin Glargine (Insulin Glargine 100 Units/Ml Pen) 25 units SC QHS [facility] Last Admin: 08/10/20 01:22 Dose: 25 units Documented by: Ipratropium [place] (Ipratropium [place] 0.06% Nasal [place]) 2 spray NASAL TID [facility] Last Admin: 08/10/20 12:50 Dose: 2 spray Documented by: Isosorbide Mononitrate (Isosorbide Mononitrate 30 Mg Tablet) 30 mg PO DAILY [facility] Last Admin: 08/10/20 05:38 Dose: 30 mg Documented by: Loratadine (Loratadine 10 Mg Tablet) 10 mg PO DAILY [facility] Last Admin: 08/10/20 05:38 Dose: 10 mg Documented by: Losartan Potassium (Losartan Potassium 100 Mg Tablet) 100 mg PO DAILY [facility] Last Admin: 08/10/20 05:38 Dose: 100 mg Documented by: Magnesium Chloride (Magnesium Chloride 64 Mg Delay Rel.Tablet) 128 mg PO DAILY [facility] Last Admin: 08/10/20 05:38 Dose: 128 mg Documented by: Menthol (Menthol 226.8 Gm Jar) 1 applic TP 4X/DAY PRN PRN PRN Reason: Pain Score 1-10 Last Admin: 08/04/20 13:22 Dose: 1 applic Documented by: Multivitamins (Multivitamins,Therapeutic Tablet) 1 tablet PO DAILY@0800 [facility] Last Admin: 08/10/20 08:24 Dose: 1 tablet Documented by: Nystatin (Nystatin Powder 15gm Bottle) 1 applic TOPICAL 0600,2200 [facility]; Protocol Last Admin: 08/10/20 05:41 Dose: 1 applicatio Documented by: Polyethylene Glycol (Polyethylene Glycol 3350 17 Gm Packet) 17 gm PO DAILY PRN PRN Reason: Constipation Potassium Chloride (Potassium Chloride 20 Meq Tablet) [facility] Last Admin: 08/10/20 16:49 Dose: 40 meq Documented by: Senna/Docusate Sodium (Senna/Docusate Sodium 1 Tablet) 1 tablet PO BID PRN PRN Reason: Constipation Last Admin: 08/10/20 05:44 Dose: 1 tablet Documented by: Tolterodine Tartrate (Tolterodine Tartrate 2 Mg Cap.Sa) 2 mg PO DAILY [facility] Last Admin: 08/10/20 05:38 Dose: 2 mg Documented by: Discharge Diet: No Restrictions Discharge Activity: Return to Normal Activity, May Shower, Use Walker Weight Bearing Status: Weight bearing as tolerated Call your doctor if you observe: Fever of 101 or Higher, Inability to urinate, Inability to have a bowel movement, Shortness of breath, Chest pain, Uncontrolled pain Home Medications: Medications to take at Discharge cholecalciferol (vitamin D3) 50 mcg (2,000 unit) capsule 2,000 unit PO DAILY 02/23/19 magnesium oxide 420 mg tablet 420 mg PO DAILY tab 02/23/19 Amlodipine Besylate 10 mg PO DAILY #30 tab 09/01/19 Isosorbide Mononitrate [Imdur] 30 mg PO DAILY 06/22/20 Multivitamin with Minerals [Multiple Vitamin] 1 ea PO DAILY 06/22/20 Oxybutynin Chloride [Oxybutynin Chloride ER] 5 mg PO DAILY 06/22/20 Apixaban [Eliquis] 5 mg PO BID 06/24/20 Aspirin E.C. [Ecotrin] 81 mg PO DAILY@0800 06/24/20 Atorvastatin Calcium [Lipitor] 40 mg PO QHS 06/24/20 Famotidine [Pepcid] 20 mg PO DAILY 06/24/20 Potassium Chloride [K-Dur] 40 meq PO BIDCM 06/24/20 Acetaminophen [Tylenol] 1,000 mg PO Q6H PRN tablet 08/10/20 Citalopram [Celexa] 10 mg PO DAILY tablet 08/10/20 Insulin Glargine [Lantus SoloStar Pen] 25 units SC QHS pen 08/10/20 Losartan Potassium [Cozaar] 100 mg PO DAILY tablet 08/10/20 Menthol [Blue Gel] 1 applic TP 4X/DAY PRN PRN jar 08/10/20 Menthol/Lanolin/Calamine/Znox [Calmoseptine Ointment] 1 applic TOPICAL 0600,2200 tube 08/10/20 Nystatin Powder [Mycostatin Powder] 1 applic TOPICAL 0600,2200 bottle 08/10/20 Polyethylene Glycol 3350 [Miralax] 17 gm PO DAILY PRN packet 08/10/20 Senna/Docusate Sodium [Senokot-S] 1 tablet PO BID PRN tablet 08/10/20 Primary Care Physician: Rachele Man DO [Primary Care Provider] - Please follow up with your Primary Care Physician in: 1 week. Please Follow Up With: Pelon Hernandez MD When: 2 Weeks Please Follow Up With: Marielena Ragland MD When: 4 weeks, following event recorder completion. Please Follow Up With: Alvin Florian MD Disposition: Asstd Living/Non-Skill NH Minutes spent on discharge:: 35 Patient Condition:: Stable Medical Necessity - Tobacco Use Smoking Status: Never smoker Tobacco Use: Non-smoker Meaningful Use Info Meaningful Use Diagnoses (Choose all that apply): None applicable
--- NOTE | 2020-08-10 19:50 | PCM.TXEXTCAR ---
- Diet 06/24/20 19:17 Diet: Cardiac: Calorie-Controlled Food consistency:: Mechanical (Minced/Moist) Liquid Consistency:: Regular/Thin Dietary Modifications:: Sodium Restricted Is pt able to select menu?: Yes Diet Comments: Supervised, one bite at a time. How many daily calories?: 1999 calorie - Routine Orders/Code Status Suppository Type: Dulcolax 10mg Suppository Frequency: Daily PRN Code Status: Full Code - Wound(s) Coccyx Wound Type: Pressure Injury Dressing Change: lizett right side abdomen Wound Type: Abrasion right leg Wound Type: Abrasion - Therapies Weight Bearing: Weight bearing as tolerated Extremity Affected:: Bilateral Lower Physical Therapy: Eval and Treat Occupational Therapy: Eval and Treat - Problem/Diagnosis (1) Debility Status: Acute (2) Dysarthria Status: Acute (3) Right hemiplegia Status: Acute (4) Hypokalemia Status: Chronic (5) Vitamin D deficiency Status: Acute (6) Hypomagnesemia Status: Chronic (7) Coronary artery disease Status: Chronic (8) Overactive bladder Status: Chronic (9) Atrial fibrillation Status: Chronic (10) CVA (cerebral vascular accident) Status: Acute (11) Diabetes mellitus Status: Chronic (12) Hypertension Status: Chronic - Allergies/Procedures Done in Hospital Allergies/Adverse Reactions: Allergies Beta-Blockers (Beta-Adrenergic Bloc Allergy (Verified 06/22/20 14:13) Other aspirin Adverse Reaction (Verified 06/22/20 14:13) Upset Stomach - Type of Care/Length of Stay Estimated LOS: Convalescent Care Less Than 30 days Type of Care Needed: Intermediate Rehab Potential: Fair Prognosis: Fair - Additional Orders/Day of Discharge Day of Discharge: 08/13/20 - Dietary and Speech Recommendations Dietitian Recommendations/Changes: Will continue diet as ordered. - Follow Up Care Primary Care Physician: Rachele Man DO [Primary Care Provider] - Please follow up with your Primary Care Physician in: 1 week. Please Follow Up With: Pelon Hernandez MD When: 2 Weeks Please Follow Up With: Marielena Ragland MD When: 4 weeks, following event recorder completion. Please Follow Up With: Alvin Florian MD
[2020-08-10] MEDS: Atorvastatin Calcium 40 MG Tablet PO (20:47)
[2020-08-10 21:25] LABS: Bedside Glucose 253 mg/dL (70-110)
[2020-08-11 05:59] VITALS: BP 157/89; PULSE 82; RESP 18; TEMP 37.1; O2SAT 94
[2020-08-11] MEDS: Nystatin Powder 15gm Bottle 1 APPLIC TOPICAL ×2 (06:00→19:55)
[2020-08-11] MEDS: Menthol/Lanolin/Calamine/Znox 113 GM Tube 1 APPLIC TOPICAL ×2 (06:00→19:55)
[2020-08-11] MEDS: Isosorbide Mononitrate 30 MG Tablet PO (06:01)
[2020-08-11] MEDS: Famotidine 20 MG Tablet PO (06:01)
[2020-08-11] MEDS: amLODIPine 10 MG Tablet PO (06:01)
[2020-08-11] MEDS: Magnesium Chloride 64 MG Delay Rel.Tablet 128 MG PO (06:01)
[2020-08-11] MEDS: Citalopram 10 MG Tablet PO (06:01)
[2020-08-11] MEDS: APIXABAN 5 MG TABLET PO ×2 (06:02→17:14)
[2020-08-11] MEDS: Loratadine 10 MG Tablet PO (06:02)
[2020-08-11] MEDS: Tolterodine Tartrate 2 MG CAP.SA PO (06:02)
[2020-08-11] MEDS: Losartan Potassium 100 MG Tablet PO (06:02)
[2020-08-11] MEDS: Ipratropium Bromide 0.06% NASAL SPRAY 2 SPRAY NASAL ×3 (06:03→19:50)
[2020-08-11 06:26] LABS: Bedside Glucose 125 mg/dL (70-110)
[2020-08-11] MEDS: Aspirin E.C. 81 MG Tablet PO (07:57)
[2020-08-11] MEDS: Multivitamins,Therapeutic Tablet 1 TABLET PO (07:57)
[2020-08-11 10:41] LABS: Bedside Glucose 188 mg/dL (70-110)
[2020-08-11 16:00] VITALS: BP 154/85; PULSE 75; RESP 18; TEMP 36.6; O2SAT 93
[2020-08-11 16:40] LABS: Bedside Glucose 263 mg/dL (70-110)
[2020-08-11] MEDS: Atorvastatin Calcium 40 MG Tablet PO (19:57)
[2020-08-11 21:15] LABS: Bedside Glucose 255 mg/dL (70-110)
[2020-08-12 05:24] VITALS: BP 165/88; PULSE 65; RESP 18; TEMP 36; O2SAT 94
[2020-08-12] MEDS: amLODIPine 10 MG Tablet PO (05:31)
[2020-08-12] MEDS: Magnesium Chloride 64 MG Delay Rel.Tablet 128 MG PO (05:31)
[2020-08-12] MEDS: Ipratropium Bromide 0.06% NASAL SPRAY 2 SPRAY NASAL ×3 (05:31→20:14)
[2020-08-12] MEDS: Tolterodine Tartrate 2 MG CAP.SA PO (05:31)
[2020-08-12] MEDS: Famotidine 20 MG Tablet PO (05:31)
[2020-08-12] MEDS: Citalopram 10 MG Tablet PO (05:32)
[2020-08-12] MEDS: Isosorbide Mononitrate 30 MG Tablet PO (05:32)
[2020-08-12] MEDS: Losartan Potassium 100 MG Tablet PO (05:32)
[2020-08-12] MEDS: Nystatin Powder 15gm Bottle 1 APPLIC TOPICAL ×2 (05:32→20:15)
[2020-08-12] MEDS: APIXABAN 5 MG TABLET PO ×2 (05:32→16:53)
[2020-08-12] MEDS: Loratadine 10 MG Tablet PO (05:32)
[2020-08-12] MEDS: Menthol/Lanolin/Calamine/Znox 113 GM Tube 1 APPLIC TOPICAL ×2 (05:32→20:15)
[2020-08-12 06:21] LABS: Bedside Glucose 126 mg/dL (70-110)
[2020-08-12] MEDS: Multivitamins,Therapeutic Tablet 1 TABLET PO (07:50)
[2020-08-12] MEDS: Aspirin E.C. 81 MG Tablet PO (07:50)
[2020-08-12 10:00] VITALS: PULSE 57; RESP 18; O2SAT 97
[2020-08-12 11:11] LABS: Bedside Glucose 239 mg/dL (70-110)
--- NOTE | 2020-08-12 13:34 | CASEMGMT ---
Social Work Received [facility] results - approved for pt transfer to [facility]. Faxed results, PASRR and DC info to [facility]. Caryn Nagel, FORM BUILDER HELPER TYPE BAR AND SEGMENT ASSEMBLER
[2020-08-12 13:43] VITALS: BP 137/73; PULSE 81; RESP 18; TEMP 36.3; O2SAT 97
[2020-08-12 16:51] LABS: Bedside Glucose 175 mg/dL (70-110)
[2020-08-12] MEDS: Senna/Docusate Sodium 1 Tablet PO (17:06)
[2020-08-12] MEDS: Atorvastatin Calcium 40 MG Tablet PO (20:15)
[2020-08-12 22:41] LABS: Bedside Glucose 167 mg/dL (70-110)
[2020-08-13 05:50] VITALS: BP 151/90; PULSE 65; RESP 16; TEMP 36.4; O2SAT 95
[2020-08-13] MEDS: Ipratropium Bromide 0.06% NASAL SPRAY 2 SPRAY NASAL (05:52)
[2020-08-13] MEDS: Magnesium Chloride 64 MG Delay Rel.Tablet 128 MG PO (05:53)
[2020-08-13] MEDS: Tolterodine Tartrate 2 MG CAP.SA PO (05:53)
[2020-08-13] MEDS: Loratadine 10 MG Tablet PO (05:53)
[2020-08-13] MEDS: APIXABAN 5 MG TABLET PO (05:53)
[2020-08-13] MEDS: Famotidine 20 MG Tablet PO (05:53)
[2020-08-13] MEDS: amLODIPine 10 MG Tablet PO (05:53)
[2020-08-13] MEDS: Losartan Potassium 100 MG Tablet PO (05:53)
[2020-08-13] MEDS: Citalopram 10 MG Tablet PO (05:53)
[2020-08-13] MEDS: Isosorbide Mononitrate 30 MG Tablet PO (05:53)
[2020-08-13] MEDS: Polyethylene Glycol 3350 17 GM PACKET PO (05:56)
[2020-08-13] MEDS: Nystatin Powder 15gm Bottle 1 APPLIC TOPICAL (05:57)
[2020-08-13] MEDS: Menthol/Lanolin/Calamine/Znox 113 GM Tube 1 APPLIC TOPICAL (05:57)
[2020-08-13 06:05] LABS: Bedside Glucose 149 mg/dL (70-110)
[2020-08-13] MEDS: Multivitamins,Therapeutic Tablet 1 TABLET PO (08:08)
[2020-08-13] MEDS: Aspirin E.C. 81 MG Tablet PO (08:08)
[2020-08-13 08:50] LABS: Absolute Lymphocyte Count 2.09 X10^3/uL (0.83-4.51); Absolute Neutrophil Count 3.6 X10^3/uL (2.0-7.7); Basophil# 0.14 X10^3/uL; Basophil% 1.6 % (0-1); Eosinophil# 1.49 X10^3/uL; Eosinophils% 17.4 % (0-5); Hematocrit 47.1 % (40-54); Hemoglobin 15.3 g/dL (13.0-16.5); Lymphocyte # 2.09 X10^3/ul (4.0); Lymphocyte % 24.4 % (19-41); Mean Corp Hgb Conc 32.5 g/dL (32-36); Mean Corpuscular Hgb 29.8 pg (27.0-32.0); Mean Corpuscular Volume 91.6 fL (80-94); Mean Platelet Vol. 11.1 fl (6.2-12.0); Monocyte# 1.12 X10^3/uL; Monocyte% 13.1 % (0-10); NRBC Flagged by Analyzer 0 % (0-5); Neutrophil # 3.64 X10^3/uL (2.7-7.7); Neutrophil % 42.3 % (47-70); Platelet Count 194 K/mm3 (150-450); RBC Distribution Width CV 13.6 % (11.6-14.6); RBC Distribution Width SD 46.4 fl (35.1-43.9); Red Blood Count 5.14 M/mm3 (4.6-6.2); White Blood Count 8.6 K/mm3 (4.4-11.0)
[2020-08-13 09:08] LABS: Anion Gap 7 (5-15); BUN 28 mg/dL (7-18); BUN/Creat Ratio 18.4 RATIO (10-20); Calcium,Total 8.9 mg/dL (8.5-10.1); Chloride 105 mmol/L (98-107); Creatinine, Serum 1.52 mg/dL (0.70-1.30); EST Glomerular Filtration Rate 47 mL/min (>60); Est Glom Filt Rate - Afr Amer 57 mL/min (>60); Estimated Creatinine Clearance 38.05 ml/min; Glucose 148 mg/dL (74-106); Potassium 4.1 mmol/L (3.5-5.1); Sodium Level 137 mmol/L (136-145)
[2020-08-13 10:56] LABS: Bedside Glucose 239 mg/dL (70-110)
--- NOTE | 2020-08-13 11:01 | NURSING ---
Called Report to [facility] to miki.
[2020-08-13 11:43] VITALS: PULSE 80; RESP 16; O2SAT 97
[2020-08-13 11:52] VITALS: BP 124/70; PULSE 80; RESP 18; TEMP 36.7; O2SAT 97
== END 2020-08-13 12:45 | disposition intermediate care facility (04) | DRG 57 ==
PROVIDERS: Admitting Provider Family Medicine Geriatric Medicine; PCP Family Medicine; Referring Provider Family Medicine Geriatric Medicine; Visit Provider Family Medicine Geriatric Medicine
DX: I69.351 Hemiplegia and hemiparesis following cerebral infarction affecting right dominant side (principal); I48.20 Chronic atrial fibrillation, unspecified; Z68.43 Body mass index [BMI] 50.0-59.9, adult; I69.322 Dysarthria following cerebral infarction; I10 Essential (primary) hypertension; E78.5 Hyperlipidemia, unspecified; E55.9 Vitamin D deficiency, unspecified; I25.10 Atherosclerotic heart disease of native coronary artery without angina pectoris; K21.9 Gastro-esophageal reflux disease without esophagitis; E11.9 Type 2 diabetes mellitus without complications; E87.6 Hypokalemia; N32.81 Overactive bladder; B35.4 Tinea corporis; E66.9 Obesity, unspecified; F32.9 Major depressive disorder, single episode, unspecified; G47.33 Obstructive sleep apnea (adult) (pediatric)
CPT/HCPCS: 36415; 71046; 74018; 80048; 82962; 85025; 87426; 87633; 87635; 92507; 92523; 92526; 92610; 97110; 97112; 97116; 97161; 97166; 97530; 97535; 97802; U0002; U0003

== ENCOUNTER → 2021-06-21 05:25 | Outpatient (REF) | payer MEDICARE, SELFPAY ==
[2021-06-21 07:54] LABS: Hematocrit 40.9 % (40-54); Mean Corp Hgb Conc 34.2 g/dL (32-36); Mean Corpuscular Hgb 31.2 pg (27.0-32.0); Mean Corpuscular Volume 91.1 fL (80-94); Platelet Count 199 K/mm3 (150-450); RBC Distribution Width CV 12.5 % (11.6-14.6); Red Blood Count 4.49 M/mm3 (4.6-6.2)
[2021-06-21 08:26] LABS: ALB/GLOB Ratio 0.4 RATIO (0.9-2.4); Albumin, Serum 2.1 g/dL (3.2-5.0); Anion Gap 11 (5-15); BUN 15 mg/dL (7-18); BUN/Creat Ratio 15.4 RATIO (10-20); Calcium,Total 8.7 mg/dL (8.5-10.1); Chloride 107 mmol/L (98-107); Creatinine, Serum 0.98 mg/dL (0.70-1.30); EST Glomerular Filtration Rate 79 mL/min (>60); Est Glom Filt Rate - Afr Amer 95 mL/min (>60); Glucose 165 mg/dL (74-106); Potassium 3.3 mmol/L (3.5-5.1); Protein, Total 7.1 g/dL (6.4-8.2); Sodium Level 140 mmol/L (136-145)
== END ==
LOC: OLS.SW1020 05:25
PROVIDERS: PCP Family Medicine; Visit Provider Family Medicine
DX: E11.9 Type 2 diabetes mellitus without complications (principal); I10 Essential (primary) hypertension
CPT/HCPCS: 80048; 82040; 84156; 85027

== ENCOUNTER → 2021-06-28 05:00 | Outpatient (REF) | payer MEDICARE, MEDICAID, SELFPAY ==
[2021-06-28 09:30] LABS: Anion Gap 6 (5-15); BUN 21 mg/dL (7-18); BUN/Creat Ratio 18.9 RATIO (10-20); Calcium,Total 8.6 mg/dL (8.5-10.1); Chloride 110 mmol/L (98-107); Creatinine, Serum 1.11 mg/dL (0.70-1.30); EST Glomerular Filtration Rate 68 mL/min (>60); Est Glom Filt Rate - Afr Amer 82 mL/min (>60); Glucose 108 mg/dL (74-106); Potassium 4.3 mmol/L (3.5-5.1); Sodium Level 140 mmol/L (136-145)
== END ==
LOC: OLS.SW300 05:00
PROVIDERS: PCP Family Medicine
DX: D64.9 Anemia, unspecified (principal); I10 Essential (primary) hypertension
CPT/HCPCS: 36415; 80048

== ENCOUNTER 2021-07-31 18:00 | Emergency (ER) | payer MEDICARE, MEDICAID, SELFPAY ==
[2021-07-31 18:02] VITALS: BP 154/93; PULSE 72; RESP 18; TEMP 36.5; O2SAT 96; BMI 49.3
[2021-07-31 18:05] VITALS: BP 154/93; PULSE 72; RESP 18; TEMP 36.5; O2SAT 96
--- NOTE | 2021-07-31 18:34 | EKG12_ITS ---
Test Reason : SOB Blood Pressure : / mmHG Vent. Rate : 067 BPM Atrial Rate : 077 BPM P-R Int : 000 ms QRS Dur : 080 ms QT Int : 374 ms P-R-T Axes : 000 005 013 degrees QTc Int : 395 ms Atrial fibrillation Abnormal ECG Confirmed by JEANNIE SOUTH, TIFFANIE ([id number]), technical editor SAMANTHA MCKOY ([id number]) on 08/02/2021 9:58:48 AM Referred By: FERNIE Confirmed By:TIFFANIE DENNIS MD
--- NOTE | 2021-07-31 18:34 | RAD_ITS ---
STUDY: X-RAY CHEST REASON FOR EXAM: Male, 80 years old. Technologist Notes Cough, headache, sore throat for several days. Unable to follow breathing instructions. cough TECHNIQUE: XR Chest 1 View COMPARISON: 06/30/2020 FINDINGS: There is no demonstrated pleural abnormality. Normal size heart. Normal mediastinum and crystal. Normal visualized pulmonary arteries. There is atherosclerotic calcification of the aortic arch with tortuosity. There are diffuse degenerative changes of the visualized thoracic spine. There is degenerative osteoarthritis of the bilateral shoulders. There is no demonstrated abnormality of the visualized soft tissue structures of the upper abdomen. RAD/Chest 1 View (Portable) IMPRESSION: There are no acute findings. Electronically Signed: Cory Bermudez MD at 19:57 EST , Service support ,
--- NOTE | 2021-07-31 18:44 | CT_ITS ---
EXAM: CT MAXILLOFACIAL WITH INTRAVENOUS CONTRAST CLINICAL INDICATION: right mandible swelling Technologist Notes Hx of CVA, COPD, diabetess and HTN TECHNIQUE: Helically acquired images were obtained of the face with intravenous contrast. This CT exam was performed using one or more of the following dose reduction techniques: automated exposure control, adjustment of the mA and/or kV according to patient size, and/or use of iterative reconstruction technique. This report was created using [employer] report generation technology. CONTRAST: IV 75mL Isovue-300 COMPARISON: None. FINDINGS: BONES/JOINTS: Unremarkable. No displaced fracture. No discrete lytic or blastic abnormalities. SOFT TISSUES: Unremarkable. No focal subcutaneous swelling. No discrete fluid collections. VASCULATURE: At the angle of the right mandible there is a mass measuring 20 x 18 mm. This compresses the right internal jugular vein. Lymphoma or neoplasm should be considered. ORBITS: Unremarkable. Both globes are unremarkable. Extraocular muscles are normal. Retrobulbar fat appears unremarkable. SINUSES: Unremarkable as visualized. Clear. MASTOID AIR CELLS: Unremarkable as visualized. Clear. DENTAL: No acute findings. No periodontal osseous erosion. THYROID: The thyroid is heterogenous. It contains nodules. This should be further evaluated with ultrasound. This can be performed as an outpatient. Largest nodule is in the left thyroid lobe measuring [address]/Sinus/Facial Bone WITH Contras IMPRESSION: 1. The thyroid is heterogenous. It contains nodules. This should be further evaluated with ultrasound. This can be performed as an outpatient. Largest nodule is in the left thyroid lobe measuring 15 mm. 2. At the angle of the right mandible there is a mass measuring 20 x 18 mm. This compresses the right internal jugular vein. Lymphoma or neoplasm should be considered. Electronically Signed: Cory Bermudez MD at 20:19 EST , Service support ,
--- NOTE | 2021-07-31 18:45 | EX.ED.DYSGE1 ---
HPI History of Present Illness Chief Complaint: Shortness of Breath Narrative Narrative: 80-year-old male who is a poor informant presenting for evaluation from [facility]. Patient states that he has right-sided jaw swelling and phlegm in his throat. He states has not had a fever. He cannot provide much other history. Patient appears very tired. [facility] Medical History Cataracts, bilateral COPD (chronic obstructive pulmonary disease) CVA (cerebral vascular accident) Diabetes Essential hypertension History of acute inferior wall [place] Hypertension Hypothyroidism SAMEER (obstructive sleep apnea) Paroxysmal atrial fibrillation Sebaceous cyst Skin lesion Type 2 diabetes mellitus Home Medications magnesium oxide 420 mg tablet 420 mg PO DAILY tab 02/23/19 [History Last Taken 06/21/20] amlodipine 10 mg PO DAILY #30 tab 09/01/19 [Rx Last Taken 06/24/20 08:10] multivitamin with minerals 1 ea PO DAILY 06/22/20 [History Last Taken 06/21/20] oxybutynin chloride 5 mg PO DAILY 06/22/20 [History Last Taken 06/21/20] apixaban 5 mg PO BID 06/24/20 [History Last Taken 06/24/20 08:10] aspirin 81 mg PO DAILY@0800 06/24/20 [History Last Taken 06/24/20 08:10] atorvastatin 40 mg PO QHS 06/24/20 [History Last Taken Unknown] potassium chloride 40 meq PO BIDCM 06/24/20 [History Last Taken 06/24/20 08:10] acetaminophen 1,000 mg PO Q6H PRN tab 08/10/20 [Rx Last Taken Unknown] losartan 100 mg PO DAILY tab 08/10/20 [Rx Last Taken Unknown] menthol-zinc oxide 1 applic TOPICAL 0600,2200 tube 08/10/20 [Rx Last Taken Unknown] polyethylene glycol 3350 17 gm PO DAILY PRN packet 08/10/20 [Rx Last Taken Unknown] cholecalciferol (vitamin D3) 50 mcg (2,000 unit) capsule 1,000 unit PO DAILY cap 08/26/20 [History Last Taken Unknown] ascorbic acid (vitamin C) [Vitamin C] 1,000 mg PO DAILY 07/31/21 [History Last Taken Unknown] fluticasone propionate 1 spray INTRANASAL DAILY 07/31/21 [History Last Taken Unknown] insulin glargine 30 units SC QHS 07/31/21 [History Last Taken Unknown] insulin glargine [Lantus Solostar U-100 Insulin] 15 unit SUBCUT BREAKFAST 07/31/21 [History Last Taken Unknown] insulin lispro [Humalog U-100 Insulin] 07/31/21 [History Last Taken Unknown] loratadine 10 mg PO DAILY 07/31/21 [History Last Taken Unknown] paroxetine HCl [Paxil] 20 mg PO QHS 07/31/21 [History Last Taken Unknown] Allergy/AdvReac Type Severity Reaction Status Date / Time atenolol Allergy Other Verified 07/31/21 18:08 Beta-Blockers Allergy Other Verified 07/31/21 18:08 (Beta-Adrenergic Bloc hydralazine Allergy Other Verified 07/31/21 18:08 hydrochlorothiazide Allergy Other Verified 07/31/21 18:08 lisinopril Allergy Other Verified 07/31/21 18:08 metformin Allergy Other Verified 07/31/21 18:08 aspirin AdvReac Upset Verified 07/31/21 18:08 Stomach Family History Other Diabetes Heart disease Surgical History S/P tooth extraction Scalp cyst Social History (Updated 08/26/20 @ 10:[address] Alvin Florian MD) Smoking Status: Never smoker alcohol intake: never substance use type: does not use what type of physical activity do you participate in: none ROS ROS ED Review of Systems ROS Unobtainable: due to mental condition EXAM Physical Exam Const Vital Signs: 07/31/21 18:02 07/31/21 18:05 07/31/21 18:11 Temperature 97.7 F L 97.7 F L Temperature Source Temporal Temporal Pulse Rate 72 72 Respiratory Rate 18 18 Respiratory Effort Normal Non-Labored Respiratory Depth Normal Respiratory Pattern Normal Blood Pressure 154/93 H 154/93 H Blood Pressure Mean 113 113 Pulse Ox 96 96 Oxygen Delivery Method Room Air Room Air Room Air 07/31/21 20:50 07/31/21 22:15 Temperature Temperature Source Pulse Rate 64 73 Respiratory Rate 18 18 Respiratory Effort Respiratory Depth Respiratory Pattern Blood Pressure 147/86 H 168/96 H Blood Pressure Mean 106 120 Pulse Ox 96 96 Oxygen Delivery Method Room Air Room Air Positive obese General Appearance ED: NAD; Negative for pallor Nutritional Appearance: obese HEENT Reports moist mucous membranes HEENT Narrative: Right sided mandibular swelling which is tender to palpation. No erythema or warmth. No stridor. Eyes PERRL and EOMs intact bilaterally Neck supple Resp normal respiratory effort and clear to auscultation bilaterally Cardio regular rate and regular rhythm Neuro Sensorium / Orientation: alert Psych Psych Narrative: Appears drowsy Skin no rashes or lesions noted General Skin Exam: Negative for jaundice or pallor MDM MDM MDM Narrative Medical decision making narrative: Patient's blood work today shows that he has no leukocytosis and his hemoglobin hematocrit are stable. Renal function and electrolytes are within normal limits. Glucose is slightly elevated at 159 but no anion gap. Total bilirubin is elevated at 1.50 but this is nonspecific. BNP is 100, however his chest x-ray shows no acute cardiopulmonary process as interpreted by myself. The radiologist does agree. EKG shows atrial fibrillation at 67 bpm without sign of ischemic change. Urinalysis is negative. I did obtain a CT of the facial bones as he has some swelling to the right mandible and this did identify a mass which is pushing on the internal jugular vein. Lymphoma versus neoplasm was suggested. I spoke with Dr. Braga, who felt this could be done on an outpatient basis. In addition to this he does need follow-up for his thyroid as he has thyroid nodules. This case was discussed with Dr. Braun his primary at his care home. He is aware of all findings and will have follow-up organized for him. Impression: 1. Dyspnea 2. Right-sided jaw mass/neck mass Lab Data Attestation: I reviewed the patient's lab results. Labs: Laboratory Results - last 24 hr 07/31/21 07/31/21 07/31/21 18:50 19:22 19:23 WBC 9.5 RBC 4.69 Hgb 14.6 Hct 42.8 MCV 91.3 MCH 31.1 MCHC 34.1 RDW Std Deviation 45.0 H RDW Coeff of Jono 13.4 Plt Count 200 MPV 10.6 Immature Gran % (Auto) 0.800 Neut % (Auto) 63.7 Lymph % (Auto) 17.0 L [place] % (Auto) 16.6 H Eos % (Auto) 1.3 Baso % (Auto) 0.6 Absolute Neuts (auto) 6.0 Absolute Lymphs (auto) 1.61 Nucleated RBC % 0 Differential Comment SCANNED Sodium 139 Potassium 3.6 Chloride 107 Carbon Dioxide 26.0 Anion Gap 6 BUN 13 Creatinine 0.93 Estim Creat Clear Calc 59.07 Est GFR (MDRD) Af Amer 101 Est GFR (MDRD) Non-Af 83 BUN/Creatinine Ratio 14.0 Glucose 159 H Calcium 8.6 Total Bilirubin 1.50 H AST 11 L ALT 17 Alkaline Phosphatase 127 H Troponin I High Sens 10 B-Natriuretic Peptide 102.4 H Total Protein 7.1 Albumin 2.3 L Globulin 4.8 H Albumin/Globulin Ratio 0.5 L Urine Color Urine Clarity Urine pH Ur Specific [place] Urine Protein Urine Glucose (UA) Urine Ketones Urine Occult Blood Urine Nitrite Urine Bilirubin Urine Urobilinogen Ur Leukocyte Esterase Urine RBC Urine WBC Ur Squamous Epith Cells Urine Bacteria Urine Mucus 07/31/21 20:36 WBC RBC Hgb Hct MCV MCH MCHC RDW Std Deviation RDW Coeff of Jono Plt Count MPV Immature Gran % (Auto) Neut % (Auto) Lymph % (Auto) [place] % (Auto) Eos % (Auto) Baso % (Auto) Absolute Neuts (auto) Absolute Lymphs (auto) Nucleated RBC % Differential Comment Sodium Potassium Chloride Carbon Dioxide Anion Gap BUN Creatinine Estim Creat Clear Calc Est GFR (MDRD) Af Amer Est GFR (MDRD) Non-Af BUN/Creatinine Ratio Glucose Calcium Total Bilirubin AST ALT Alkaline Phosphatase Troponin I High Sens B-Natriuretic Peptide Total Protein Albumin Globulin Albumin/Globulin Ratio Urine Color Yellow Urine Clarity Clear Urine pH 7.0 Ur Specific Branch 1.010 Urine Protein 30 H Urine Glucose (UA) Normal Urine Ketones Negative Urine Occult Blood Negative Urine Nitrite Negative Urine Bilirubin Negative Urine Urobilinogen Normal Ur Leukocyte Esterase Negative Urine RBC 0 SEEN Urine WBC 0 SEEN Ur Squamous Epith Cells 0 SEEN Urine Bacteria 0 SEEN Urine Mucus 0 SEEN Radiography Diagnostic Testing: Clinical Impression(s) from Imaging Studies Chest X-Ray 07/31/21 18:34 IMPRESSION: There are no acute findings. Electronically Signed: Cory Bermudez MD at 19:57 EST , Service support , Facial/Sinus 07/31/21 18:44 IMPRESSION: 1. The thyroid is heterogenous. It contains nodules. This should be further evaluated with ultrasound. This can be performed as an outpatient. Largest nodule is in the left thyroid lobe measuring 15 mm. 2. At the angle of the right mandible there is a mass measuring 20 x 18 mm. This compresses the right internal jugular vein. Lymphoma or neoplasm should be considered. Electronically Signed: Cory Bermudez MD at 20:19 EST , Service support , Discharge Plan Triage Chief Complaint: Shortness of Breath ED Provider: Robert Nye Dx/Rx/DC Orders Instructions: ED Dyspnea Prescriptions: No Action magnesium oxide 420 mg tablet 420 mg PO DAILY RF: 0 cholecalciferol (vitamin D3) 50 mcg (2,000 unit) capsule 1,000 unit PO DAILY RF: 0 amlodipine 10 mg tablet 10 mg PO DAILY Qty: 30 RF: 0 oxybutynin chloride 5 MG tablet extended release 24hr 5 mg PO DAILY RF: 0 multivitamin with minerals 1 EACH tablet 1 ea PO DAILY RF: 0 atorvastatin 40 MG tablet 40 mg PO QHS RF: 0 aspirin 81 MG tablet 81 mg PO DAILY@0800 RF: 0 potassium chloride 20 MEQ tablet 40 meq PO BIDCM RF: 0 apixaban 5 MG tablet 5 mg PO BID RF: 0 polyethylene glycol 3350 17 GM packet 17 gm PO DAILY PRN (Reason: Constipation) RF: 0 acetaminophen 500 MG tablet 1,000 mg PO Q6H PRN (Reason: Pain Score 1-10) RF: 0 losartan 100 MG tablet 100 mg PO DAILY RF: 0 menthol-zinc oxide 1 APPLIC ointment 1 applic TOPICAL 0600,2200 RF: 0 Vitamin C 1,000 mg Tablet Extended Release 1,000 mg PO DAILY RF: 0 paroxetine HCl [Paxil] 20 mg Tablet 20 mg PO QHS RF: 0 insulin lispro [Humalog U-100 Insulin] 100 unit/mL Solution RF: 0 fluticasone propionate 50 mcg/actuation [place],Suspension 1 spray INTRANASAL DAILY RF: 0 loratadine 10 mg Tablet 10 mg PO DAILY RF: 0 Lantus Solostar U-100 Insulin 100 unit/mL (3 mL) Insulin Pen 15 unit SUBCUT BREAKFAST RF: 0 insulin glargine 100 UNITS/ML insulin pen 30 units SC QHS RF: 0 Primary Care Provider: Rachele Man Referrals: Rachele Man, [Primary Care Provider] - Speedy Braga MD [STAFF PHYSICIAN] - As soon as possible Activity Restrictions/Additional Instructions: You have a mass on the angle of your right mandible which needs to be followed up determine whether this is cancerous versus lymphoma. This is not emergent. I did call Dr. Braga and you can follow-up with him to have this biopsy. Disposition Disposition: Home, Self Care
[2021-07-31 19:33] LABS: Absolute Lymphocyte Count 1.61 X10^3/uL (0.83-4.51); Basophil# 0.06 X10^3/uL; Basophil% 0.6 % (0-1); Eosinophil# 0.12 X10^3/uL; Eosinophils% 1.3 % (0-5); Hematocrit 42.8 % (40-54); Hemoglobin 14.6 g/dL (13.0-16.5); Lymphocyte # 1.61 X10^3/ul (0.83-4.51); Mean Corp Hgb Conc 34.1 g/dL (32-36); Mean Corpuscular Hgb 31.1 pg (27.0-32.0); Mean Corpuscular Volume 91.3 fL (80-94); Mean Platelet Vol. 10.6 fl (6.2-12.0); Monocyte# 1.57 X10^3/uL; Monocyte% 16.6 % (0-10); NRBC Flagged by Analyzer 0 % (0-5); Neutrophil # 6.03 X10^3/uL (2.7-7.7); Neutrophil % 63.7 % (47-70); POSITIVE DIFFERENTIAL YES; Platelet Count 200 K/mm3 (150-450); RBC Distribution Width CV 13.4 % (11.6-14.6); Red Blood Count 4.69 M/mm3 (4.6-6.2); White Blood Count 9.5 K/mm3 (4.4-11.0)
[2021-07-31 19:38] LABS: Differential Indicated SCAN CRITERIA MET
[2021-07-31 19:52] LABS: ALB/GLOB Ratio 0.5 RATIO (0.9-2.4); AST(SGOT) 11 U/L (15-37); Alanine Aminotransfer ALT/SGPT 17 U/L (16-61); Albumin, Serum 2.3 g/dL (3.2-5.0); Alkaline Phosphatase 127 U/L (45-117); Anion Gap 6 (5-15); BUN 13 mg/dL (7-18); Calcium,Total 8.6 mg/dL (8.5-10.1); Chloride 107 mmol/L (98-107); Creatinine, Serum 0.93 mg/dL (0.70-1.30); EST Glomerular Filtration Rate 83 mL/min (>60); Est Glom Filt Rate - Afr Amer 101 mL/min (>60); Estimated Creatinine Clearance 59.07 ml/min; Globulin 4.8 g/dL (2.2-4.2); Glucose 159 mg/dL (74-106); Potassium 3.6 mmol/L (3.5-5.1); Protein, Total 7.1 g/dL (6.4-8.2); Sodium Level 139 mmol/L (136-145); Troponin-I HS 10 pg/mL (3.0-78.0)
[2021-07-31 20:10] LABS: BNP,B-Type NATRIURETIC PEPTIDE 102.4 pg/mL (0-100)
[2021-07-31 20:22] LABS: Differential Comment SCANNED
[2021-07-31 20:41] LABS: Bacteria 0 SEEN /hpf (None Seen); Mucous, Urine 0 SEEN /hpf (<or=2+); Red Blood Cells-Urine 0 SEEN /hpf (0-5); Squamous Epithelial Cells - UA 0 SEEN /hpf (0-5); White Blood Cells 0 SEEN /hpf (0-5)
[2021-07-31 20:48] LABS: Color, Urine Yellow (Yellow); Glucose, Dipstick Normal (Normal); Ketone-Dipstick Negative (Negative); Leukocyte Esterase-Dipstick Negative /ul (Negative); Nitrite-Dipstick Negative (Negative); Occult Blood-Urine Negative /ul (Negative); Protein-Dipstick 30 mg/dl (Negative); Urine Bilirubin Dipstick Negative (Negative); Urine Clarity Clear (Clear); Urine Urobilinogen Normal (Normal)
[2021-07-31 20:50] VITALS: BP 147/86; PULSE 64; RESP 18; O2SAT 96
[2021-07-31 22:15] VITALS: BP 168/96; PULSE 73; RESP 18; O2SAT 96
[2021-07-31 22:44] VITALS: BP 160/80; PULSE 68; O2SAT 96
--- NOTE | 2021-07-31 23:58 | ED.RN ---
PHYSICIANS CALLED AND SAID THAT THEY WOULD NEED TO DELAY THE RIDE DUE TO A OB TRANSFER, ASKED THEM TO OUTSOURCE IT SINCE HE IS A [facility] DISCHARGE.
[2021-08-01 02:00] VITALS: PULSE 71; RESP 16; O2SAT 96
== END 2021-08-01 04:42 | disposition home or self-care (01) ==
PROVIDERS: Emergency Provider Student in an Organized Health Care Education/Training Program; PCP Family Medicine
DX: R06.00 Dyspnea, unspecified (principal); M27.9 Disease of jaws, unspecified; R22.1 Localized swelling, mass and lump, neck; Z20.822 Contact with and (suspected) exposure to COVID-19; I48.0 Paroxysmal atrial fibrillation; J44.9 Chronic obstructive pulmonary disease, unspecified; E11.65 Type 2 diabetes mellitus with hyperglycemia; I10 Essential (primary) hypertension; E03.9 Hypothyroidism, unspecified; G47.33 Obstructive sleep apnea (adult) (pediatric); E66.9 Obesity, unspecified; Z79.01 Long term (current) use of anticoagulants; Z79.82 Long term (current) use of aspirin; Z79.4 Long term (current) use of insulin; Z79.899 Other long term (current) drug therapy; I25.2 Old myocardial infarction; Z86.73 Personal history of transient ischemic attack (TIA), and cerebral infarction without residual deficits
CPT/HCPCS: 70487; 71045; 80053; 81001; 83880; 84484; 85025; 87040; 87426; 93005; 99285; Q9967; A4216

== ENCOUNTER → 2021-08-24 05:00 | Outpatient (REF) | payer MEDICARE, MEDICAID, SELFPAY ==
[2021-08-24 09:05] LABS: Anion Gap 6 (5-15); BUN 22 mg/dL (7-18); BUN/Creat Ratio 22.3 RATIO (10-20); Calcium,Total 8.9 mg/dL (8.5-10.1); Chloride 106 mmol/L (98-107); Creatinine, Serum 0.98 mg/dL (0.70-1.30); EST Glomerular Filtration Rate 78 mL/min (>60); Est Glom Filt Rate - Afr Amer 94 mL/min (>60); Glucose 123 mg/dL (74-106); Sodium Level 140 mmol/L (136-145)
== END ==
LOC: OLS.SW300 05:00
PROVIDERS: PCP Family Medicine; Visit Provider Family Medicine
DX: R60.9 Edema, unspecified (principal)
CPT/HCPCS: 36415; 80048

== ENCOUNTER → 2021-09-08 13:00 | Outpatient (REF) | payer MEDICARE, MEDICAID, SELFPAY ==
[2021-09-08 14:12] LABS: Color, Urine Yellow (Yellow); Glucose, Dipstick Normal (Normal); Ketone-Dipstick Negative (Negative); Leukocyte Esterase-Dipstick Negative /ul (Negative); Nitrite-Dipstick Negative (Negative); Occult Blood-Urine Negative /ul (Negative); Protein-Dipstick Negative (Negative); Urine Bilirubin Dipstick Negative (Negative); Urine Clarity Clear (Clear); Urine Urobilinogen Normal (Normal); Urine pH 6.5 (5.0 - 8.0)
== END ==
LOC: OLS.SW300 13:00
PROVIDERS: PCP Family Medicine; Visit Provider Family Medicine
DX: N39.0 Urinary tract infection, site not specified (principal)
CPT/HCPCS: 81002; 87086

== ENCOUNTER → 2021-09-11 04:00 | Outpatient (REF) | payer MEDICARE, MEDICAID, SELFPAY ==
[2021-09-11 07:18] LABS: Hemoglobin 12.3 g/dL (13.0-16.5); Mean Corp Hgb Conc 32.4 g/dL (32-36); Mean Corpuscular Hgb 30.2 pg (27.0-32.0); Mean Corpuscular Volume 93.4 fL (80-94); Mean Platelet Vol. 10.7 fl (6.2-12.0); Platelet Count 252 K/mm3 (150-450); RBC Distribution Width CV 13.2 % (11.6-14.6); Red Blood Count 4.07 M/mm3 (4.6-6.2); White Blood Count 9.1 K/mm3 (4.4-11.0)
[2021-09-11 07:40] LABS: Anion Gap 8 (5-15); BUN 17 mg/dL (7-18); BUN/Creat Ratio 19.7 RATIO (10-20); Calcium,Total 8.4 mg/dL (8.5-10.1); Chloride 108 mmol/L (98-107); Creatinine, Serum 0.86 mg/dL (0.70-1.30); EST Glomerular Filtration Rate 91 mL/min (>60); Est Glom Filt Rate - Afr Amer 110 mL/min (>60); Glucose 130 mg/dL (74-106); Potassium 3.4 mmol/L (3.5-5.1); Sodium Level 142 mmol/L (136-145)
== END ==
LOC: OLS.SW300 04:00
PROVIDERS: PCP Family Medicine; Visit Provider Family Medicine
DX: D64.9 Anemia, unspecified (principal); I12.9 Hypertensive chronic kidney disease with stage 1 through stage 4 chronic kidney disease, or unspecified chronic kidney disease; N18.9 Chronic kidney disease, unspecified
CPT/HCPCS: 36415; 80048; 85027

== ENCOUNTER → 2021-10-09 | Outpatient (REF) | payer MEDICARE, MEDICAID, SELFPAY ==
[2021-10-09 08:27] LABS: Hematocrit 40.4 % (40-54); Hemoglobin 12.9 g/dL (13.0-16.5); Mean Corp Hgb Conc 31.9 g/dL (32-36); Mean Corpuscular Hgb 29.9 pg (27.0-32.0); Mean Corpuscular Volume 93.5 fL (80-94); Mean Platelet Vol. 10.9 fl (6.2-12.0); Platelet Count 236 K/mm3 (150-450); RBC Distribution Width CV 12.9 % (11.6-14.6); RBC Distribution Width SD 43.8 fl (35.1-43.9); Red Blood Count 4.32 M/mm3 (4.6-6.2); White Blood Count 7.5 K/mm3 (4.4-11.0)
[2021-10-09 08:38] LABS: Anion Gap 6 (5-15); BUN 12 mg/dL (7-18); BUN/Creat Ratio 13.6 RATIO (10-20); Calcium,Total 8.6 mg/dL (8.5-10.1); Chloride 108 mmol/L (98-107); Creatinine, Serum 0.88 mg/dL (0.70-1.30); EST Glomerular Filtration Rate 88 mL/min (>60); Est Glom Filt Rate - Afr Amer 107 mL/min (>60); Glucose 79 mg/dL (74-106); Potassium 3.7 mmol/L (3.5-5.1); Sodium Level 141 mmol/L (136-145)
== END | disposition home or self-care (01) ==
LOC: OLS.SW300 04:00
PROVIDERS: PCP Family Medicine; Visit Provider Family Medicine
DX: I12.9 Hypertensive chronic kidney disease with stage 1 through stage 4 chronic kidney disease, or unspecified chronic kidney disease (principal); D64.9 Anemia, unspecified; N18.9 Chronic kidney disease, unspecified
CPT/HCPCS: 36415; 80048; 85027

== ENCOUNTER → 2021-11-06 | Outpatient (REF) | payer MEDICARE, MEDICAID, SELFPAY ==
[2021-11-06 09:07] LABS: Hematocrit 40.5 % (40-54); Hemoglobin 13.3 g/dL (13.0-16.5); Mean Corp Hgb Conc 32.8 g/dL (32-36); Mean Corpuscular Hgb 29.9 pg (27.0-32.0); Mean Platelet Vol. 10.8 fl (6.2-12.0); Platelet Count 238 K/mm3 (150-450); RBC Distribution Width CV 13.4 % (11.6-14.6); RBC Distribution Width SD 44.1 fl (35.1-43.9); Red Blood Count 4.45 M/mm3 (4.6-6.2)
[2021-11-06 09:22] LABS: Anion Gap 8 (5-15); BUN 10 mg/dL (7-18); BUN/Creat Ratio 12.9 RATIO (10-20); Calcium,Total 8.6 mg/dL (8.5-10.1); Chloride 107 mmol/L (98-107); Creatinine, Serum 0.78 mg/dL (0.70-1.30); EST Glomerular Filtration Rate 103 mL/min (>60); Est Glom Filt Rate - Afr Amer 124 mL/min (>60); Glucose 79 mg/dL (74-106); Potassium 3.3 mmol/L (3.5-5.1); Sodium Level 143 mmol/L (136-145)
== END | disposition home or self-care (01) ==
LOC: OLS.SW300 04:00
PROVIDERS: PCP Family Medicine; Referring Provider Family Medicine; Visit Provider Family Medicine
DX: I12.9 Hypertensive chronic kidney disease with stage 1 through stage 4 chronic kidney disease, or unspecified chronic kidney disease (principal); N18.9 Chronic kidney disease, unspecified; D64.9 Anemia, unspecified
CPT/HCPCS: 36415; 80048; 85027

== ENCOUNTER 2021-11-11 03:00 | Outpatient (REF) | payer MEDICARE, MEDICAID, SELFPAY ==
[2021-11-11 09:12] LABS: Color, Urine Yellow (Yellow); Glucose, Dipstick Normal (Normal); Ketone-Dipstick Negative (Negative); Leukocyte Esterase-Dipstick Negative /ul (Negative); Nitrite-Dipstick Negative (Negative); Occult Blood-Urine Negative /ul (Negative); Protein-Dipstick 15 mg/dl (Negative); Urine Bilirubin Dipstick Negative (Negative); Urine Clarity Clear (Clear); Urine Urobilinogen Normal (Normal)
== END 2021-11-11 23:59 | disposition home or self-care (01) ==
LOC: OLS.SW300 03:00
PROVIDERS: PCP Family Medicine; Visit Provider Family Medicine
DX: R41.82 Altered mental status, unspecified (principal)
CPT/HCPCS: 81002; 87086

== ENCOUNTER → 2021-12-04 | Outpatient (REF) | payer MEDICARE, MEDICAID, SELFPAY ==
[2021-12-04 08:26] LABS: Hematocrit 38.8 % (40-54); Hemoglobin 12.8 g/dL (13.0-16.5); Mean Corpuscular Volume 91.1 fL (80-94); Platelet Count 210 K/mm3 (150-450); RBC Distribution Width CV 13.7 % (11.6-14.6); RBC Distribution Width SD 45.4 fl (35.1-43.9); Red Blood Count 4.26 M/mm3 (4.6-6.2)
[2021-12-04 08:44] LABS: Anion Gap 5 (5-15); BUN 12 mg/dL (7-18); BUN/Creat Ratio 12.7 RATIO (10-20); Calcium,Total 8.2 mg/dL (8.5-10.1); Chloride 111 mmol/L (98-107); Creatinine, Serum 0.94 mg/dL (0.70-1.30); EST Glomerular Filtration Rate 82 mL/min (>60); Est Glom Filt Rate - Afr Amer 99 mL/min (>60); Glucose 73 mg/dL (74-106); Potassium 3.9 mmol/L (3.5-5.1); Sodium Level 142 mmol/L (136-145)
== END | disposition home or self-care (01) ==
LOC: OLS.SW300 04:00
PROVIDERS: PCP Family Medicine; Referring Provider Family Medicine; Visit Provider Family Medicine
DX: I10 Essential (primary) hypertension (principal); D64.9 Anemia, unspecified
CPT/HCPCS: 36415; 80048; 85027

== ENCOUNTER → 2021-12-26 | Outpatient (REF) | payer MEDICARE, MEDICAID, SELFPAY ==
[2021-12-26 07:47] LABS: Hemoglobin A1c 5.9 % (3.8-5.6)
== END | disposition home or self-care (01) ==
LOC: OLS.SW300 05:00
PROVIDERS: PCP Family Medicine; Visit Provider Family Medicine
DX: E11.9 Type 2 diabetes mellitus without complications (principal)
CPT/HCPCS: 36415; 83036

== ENCOUNTER → 2022-01-01 | Outpatient (REF) | payer MEDICARE, MEDICAID, SELFPAY ==
[2022-01-01 08:07] LABS: Hematocrit 35.9 % (40-54); Hemoglobin 11.8 g/dL (13.0-16.5); Mean Corp Hgb Conc 32.9 g/dL (32-36); Mean Corpuscular Hgb 29.2 pg (27.0-32.0); Mean Corpuscular Volume 88.9 fL (80-94); Mean Platelet Vol. 11.1 fl (6.2-12.0); Platelet Count 224 K/mm3 (150-450); RBC Distribution Width CV 14.3 % (11.6-14.6); RBC Distribution Width SD 45.8 fl (35.1-43.9); Red Blood Count 4.04 M/mm3 (4.6-6.2); White Blood Count 9.1 K/mm3 (4.4-11.0)
[2022-01-01 08:17] LABS: Anion Gap 7 (5-15); BUN 12 mg/dL (7-18); BUN/Creat Ratio 13.3 RATIO (10-20); Calcium,Total 8.2 mg/dL (8.5-10.1); Chloride 109 mmol/L (98-107); EST Glomerular Filtration Rate 87 mL/min (>60); Est Glom Filt Rate - Afr Amer 105 mL/min (>60); Glucose 76 mg/dL (74-106); Potassium 3.5 mmol/L (3.5-5.1); Sodium Level 141 mmol/L (136-145)
== END | disposition home or self-care (01) ==
LOC: OLS.SW300 05:00
PROVIDERS: PCP Family Medicine; Visit Provider Family Medicine
DX: I12.9 Hypertensive chronic kidney disease with stage 1 through stage 4 chronic kidney disease, or unspecified chronic kidney disease (principal); N18.9 Chronic kidney disease, unspecified; D64.9 Anemia, unspecified
CPT/HCPCS: 36415; 80048; 85027

== ENCOUNTER → 2022-01-18 | Outpatient (REF) | payer MEDICARE, MEDICAID, SELFPAY ==
[2022-01-18 06:09] LABS: Absolute Lymphocyte Count 2.17 X10^3/uL (0.83-4.51); Absolute Neutrophil Count 3.1 X10^3/uL (2.0-7.7); Basophil# 0.09 X10^3/uL; Basophil% 1.3 % (0-1); Eosinophil# 0.25 X10^3/uL; Eosinophils% 3.7 % (0-5); Hematocrit 35.3 % (40-54); Hemoglobin 11.6 g/dL (13.0-16.5); Lymphocyte # 2.17 X10^3/ul (0.83-4.51); Lymphocyte % 32.1 % (19-41); Mean Corp Hgb Conc 32.9 g/dL (32-36); Mean Corpuscular Hgb 29.2 pg (27.0-32.0); Mean Corpuscular Volume 88.9 fL (80-94); Mean Platelet Vol. 10.2 fl (6.2-12.0); Monocyte# 1.02 X10^3/uL; Monocyte% 15.1 % (0-10); NRBC Flagged by Analyzer 0 % (0-5); Neutrophil # 3.05 X10^3/uL (2.7-7.7); Neutrophil % 45.3 % (47-70); Platelet Count 350 K/mm3 (150-450); RBC Distribution Width CV 13.4 % (11.6-14.6); Red Blood Count 3.97 M/mm3 (4.6-6.2); White Blood Count 6.8 K/mm3 (4.4-11.0)
[2022-01-18 06:34] LABS: Erythrocyte Sedimentation Rate 65 mm/hr (0-20)
[2022-01-18 06:52] LABS: ALB/GLOB Ratio 0.4 RATIO (0.9-2.4); AST(SGOT) 31 U/L (15-37); Alanine Aminotransfer ALT/SGPT 35 U/L (16-61); Albumin, Serum 1.9 g/dL (3.2-5.0); Alkaline Phosphatase 140 U/L (45-117); Anion Gap 7 (5-15); BUN 13 mg/dL (7-18); BUN/Creat Ratio 11.9 RATIO (10-20); Calcium,Total 7.8 mg/dL (8.5-10.1); Chloride 109 mmol/L (98-107); Creatinine, Serum 1.09 mg/dL (0.70-1.30); EST Glomerular Filtration Rate 69 mL/min (>60); Est Glom Filt Rate - Afr Amer 84 mL/min (>60); Globulin 4.8 g/dL (2.2-4.2); Glucose 106 mg/dL (74-106); Potassium 4.1 mmol/L (3.5-5.1); Protein, Total 6.7 g/dL (6.4-8.2); Sodium Level 139 mmol/L (136-145); T4 Free Direct 1.43 ng/dL (0.76-1.46); Thyroid Stim Hormone (TSH) 2.98 uIU/mL (0.358-3.74)
[2022-01-18 09:02] LABS: Vitamin B12 581 pg/mL (211-911); Vitamin D,25 Hydroxy 62.5 ng/mL
== END | disposition home or self-care (01) ==
LOC: OLS.SW300 05:00
PROVIDERS: PCP Family Medicine; Visit Provider Family Medicine
DX: R41.3 Other amnesia (principal); R44.3 Hallucinations, unspecified; E55.9 Vitamin D deficiency, unspecified
CPT/HCPCS: 36415; 80053; 82306; 82607; 82746; 84439; 84443; 85025; 85652

== ENCOUNTER → 2022-01-29 | Outpatient (REF) | payer MEDICARE, MEDICAID, SELFPAY ==
[2022-01-29 08:44] LABS: Hematocrit 35.9 % (40-54); Hemoglobin 11.2 g/dL (13.0-16.5); Mean Corp Hgb Conc 31.2 g/dL (32-36); Mean Corpuscular Hgb 28.9 pg (27.0-32.0); Mean Corpuscular Volume 92.8 fL (80-94); Mean Platelet Vol. 11.2 fl (6.2-12.0); Platelet Count 267 K/mm3 (150-450); RBC Distribution Width CV 14.6 % (11.6-14.6); RBC Distribution Width SD 49.1 fl (35.1-43.9); Red Blood Count 3.87 M/mm3 (4.6-6.2)
[2022-01-29 09:00] LABS: Anion Gap 8 (5-15); BUN 17 mg/dL (7-18); BUN/Creat Ratio 18.3 RATIO (10-20); Calcium,Total 8.5 mg/dL (8.5-10.1); Chloride 109 mmol/L (98-107); Creatinine, Serum 0.93 mg/dL (0.70-1.30); EST Glomerular Filtration Rate 83 mL/min (>60); Est Glom Filt Rate - Afr Amer 101 mL/min (>60); Glucose 95 mg/dL (74-106); Potassium 3.9 mmol/L (3.5-5.1); Sodium Level 141 mmol/L (136-145)
== END | disposition home or self-care (01) ==
LOC: OLS.SW300 05:00
PROVIDERS: PCP Family Medicine; Visit Provider Family Medicine
DX: I10 Essential (primary) hypertension (principal); D64.9 Anemia, unspecified
CPT/HCPCS: 36415; 80048; 85027

== ENCOUNTER → 2022-02-26 | Outpatient (REF) | payer MEDICARE, MEDICAID, SELFPAY ==
[2022-02-26 08:47] LABS: Hematocrit 31.3 % (40-54); Hemoglobin 9.6 g/dL (13.0-16.5); Mean Corp Hgb Conc 30.7 g/dL (32-36); Mean Corpuscular Hgb 28.2 pg (27.0-32.0); Mean Corpuscular Volume 92.1 fL (80-94); Mean Platelet Vol. 10.7 fl (6.2-12.0); Platelet Count 281 K/mm3 (150-450); RBC Distribution Width CV 15.8 % (11.6-14.6); RBC Distribution Width SD 52.6 fl (35.1-43.9); White Blood Count 9.5 K/mm3 (4.4-11.0)
[2022-02-26 08:56] LABS: Anion Gap 7 (5-15); BUN 16 mg/dL (7-18); BUN/Creat Ratio 13.8 RATIO (10-20); Calcium,Total 8.3 mg/dL (8.5-10.1); Chloride 109 mmol/L (98-107); Creatinine, Serum 1.16 mg/dL (0.70-1.30); EST Glomerular Filtration Rate 65 mL/min (>60); Est Glom Filt Rate - Afr Amer 78 mL/min (>60); Glucose 128 mg/dL (74-106); Potassium 4.3 mmol/L (3.5-5.1); Sodium Level 138 mmol/L (136-145)
== END | disposition home or self-care (01) ==
LOC: OLS.SW300 04:00
PROVIDERS: PCP Family Medicine; Visit Provider Family Medicine
DX: D64.9 Anemia, unspecified (principal); I12.9 Hypertensive chronic kidney disease with stage 1 through stage 4 chronic kidney disease, or unspecified chronic kidney disease; N18.9 Chronic kidney disease, unspecified
CPT/HCPCS: 36415; 80048; 85027

== ENCOUNTER 2022-03-10 18:06 | Inpatient (IN) | payer MEDICARE, MEDICAID, SELFPAY ==
[2022-03-10] VITALS (7 sets, daily range): BP systolic 96–148; BP diastolic 53–96; PULSE 86–95; RESP 16–29; TEMP 36.4–36.8; O2SAT 94–97; BMI 42.0; BMI 40.5
--- NOTE | 2022-03-10 18:45 | EX.ED.DYSGE1 ---
HPI History of Present Illness Chief Complaint: Alt LOC Informant: [facility] Onset/Context/Timing Onset: Today Context: Gradual Onset Timing: Continuous Narrative Narrative: Presents with altered mental status that was noticed today at the custodial. Patient has a history of stroke with right hemiparesis. Today, staff reports the patient is nonverbal. Staff states that he had a COVID-19 test today which was negative. Staff reports that the patient had a temperature of 100.2 today. Staff states the patient has had some increase in swelling and they noted some crackles in his lungs. [facility] Medical History Cataracts, bilateral COPD (chronic obstructive pulmonary disease) CVA (cerebral vascular accident) Diabetes Essential hypertension History of acute inferior wall [place] Hypertension Hypothyroidism SAMEER (obstructive sleep apnea) Paroxysmal atrial fibrillation Sebaceous cyst Skin lesion Stroke/cerebrovascular accident Type 2 diabetes mellitus Home Medications magnesium oxide 420 mg tablet 400 mg PO BID supplement 02/23/19 [History Last Taken 06/21/20] amlodipine 10 mg tablet 10 mg PO DAILY high blood pressure #30 tabs 09/01/19 [Rx Last Taken 06/24/20 08:10] multivitamin with minerals 1 ea PO DAILY vitamin 06/22/20 [History Last Taken 06/21/20] oxybutynin chloride 5 mg tablet,extended release 24 hr 5 mg PO DAILY BLADDER 06/22/20 [History Last Taken 06/21/20] apixaban 5 mg tablet 5 mg PO BID blood thinner 06/24/20 [History Last Taken 06/24/20 08:10] aspirin 81 mg tablet,delayed release 81 mg PO DAILY@0800 blood thinner 06/24/20 [History Last Taken 06/24/20 08:10] atorvastatin 40 mg tablet 20 mg PO QHS cholesterol 06/24/20 [History Last Taken Unknown] potassium chloride 20 mEq tablet,extended release(part/cryst) 40 meq PO BIDCM supplement 06/24/20 [History Last Taken 06/24/20 08:10] acetaminophen 500 mg tablet 1,000 mg PO Q6H PRN Pain Score 1-10 08/10/20 [Rx Last Taken Unknown] losartan 100 mg tablet 100 mg PO DAILY 08/10/20 [Rx Last Taken Unknown] menthol 0.44 %-zinc oxide 20.6 % topical ointment 1 applic topical 0600,2200 11/25/20 [Rx Last Taken Unknown] polyethylene glycol 3350 17 gram oral powder packet 17 gm PO DAILY PRN Constipation 08/10/20 [Rx Last Taken Unknown] cholecalciferol (vitamin D3) 50 mcg (2,000 unit) capsule 1,000 unit PO DAILY vitamin 08/26/20 [History Last Taken Unknown] ascorbic acid (vitamin C) 1,000 mg tablet,extended release (Vitamin C ER) 1,000 mg PO DAILY 07/31/21 [History Last Taken Unknown] fluticasone propionate 50 mcg/actuation nasal spray,suspension 1 spray intranasal DAILY 07/31/21 [History Last Taken Unknown] insulin glargine 100 unit/mL (3 mL) subcutaneous pen 30 units SC QHS 07/31/21 [History Last Taken Unknown] insulin glargine 100 unit/mL (3 mL) subcutaneous pen (Lantus Solostar U-100 Insulin) 15 unit subcut BREAKFAST 07/31/21 [History Last Taken Unknown] insulin lispro 100 unit/mL subcutaneous solution (Humalog U-100 Insulin) 07/31/21 [History Last Taken Unknown] loratadine 10 mg tablet 10 mg PO DAILY 07/31/21 [History Last Taken Unknown] paroxetine HCl 20 mg tablet (Paxil) 20 mg PO QHS 07/31/21 [History Last Taken Unknown] metoprolol tartrate 25 mg tablet 12.5 mg PO BID 03/10/22 [History Last Taken Unknown] Allergy/AdvReac Type Severity Reaction Status Date / Time atenolol Allergy Other Verified 03/10/22 18:16 Beta-Blockers Allergy Other Verified 03/10/22 18:16 (Beta-Adrenergic Bloc hydralazine Allergy Other Verified 03/10/22 18:16 hydrochlorothiazide Allergy Other Verified 03/10/22 18:16 lisinopril Allergy Other Verified 03/10/22 18:16 metformin Allergy Other Verified 03/10/22 18:16 aspirin AdvReac Upset Verified 03/10/22 18:16 Stomach Family History Other Diabetes Heart disease Surgical History S/P tooth extraction Scalp cyst Social History Smoking Status: Never smoker alcohol intake: never substance use type: does not use what type of physical activity do you participate in: none ROS ROS ED Review of Systems ROS Unobtainable: due to mental condition and due to mental status EXAM Physical Exam Const Vital Signs: 03/10/22 18:07 03/10/22 18:11 03/10/22 18:21 Temperature 98 F 98 F Temperature Source Temporal Temporal Pulse Rate 87 87 Respiratory Rate 29 H 29 H Respiratory Effort Short of Breath Blood Pressure 116/53 L 116/53 L Blood Pressure Mean 74 Pulse Ox 94 94 Oxygen Delivery Method Nasal Cannula Nasal Cannula Oxygen Flow Rate (L/min) 2 2 03/10/22 19:51 Temperature 98.1 F Temperature Source Oral Pulse Rate 93 Respiratory Rate 16 Respiratory Effort Blood Pressure 148/96 H Blood Pressure Mean 113 Pulse Ox 97 Oxygen Delivery Method Nasal Cannula Oxygen Flow Rate (L/min) 2 Positive well nourished and well developed General Appearance ED: well developed and NAD HEENT Reports moist mucous membranes Resp normal respiratory effort Auscultation: diminished lung sounds diffuse Cardio regular rate Rhythm: abnormal rhythm irregularly irregular GI non-tender and non-distended Palpation: soft Extremity normal to inspection General Extremety ED: Negative for edema General Extremity: Negative for edema Neuro Neuro Narrative: Patient opens his eyes to tactile stimulation but is nonverbal. Sensorium / Orientation: orientation impaired MDM MDM MDM Narrative Medical decision making narrative: CBC shows a leukocytosis of 20.1. Hemoglobin was 10.8 and hematocrit 34.7. Platelets were normal. Pro time was 23.4 and INR was 2.1. PTT was 45.4. Comprehensive metabolic profile shows a BUN of 27 and creatinine of 1.98. Glucose was 156. High-sensitivity troponin was normal at 9. Lactate was normal at 1.9. BNP was normal. Ammonia level was normal. CT scan of the brain was obtained. There is no acute intracranial abnormality. This was interpreted by the radiologist and reviewed by myself. EKG was obtained. On my interpretation, it showed atrial fibrillation with a rate of 80. QRS interval and QTc intervals were normal. [employer] was normal. There are no acute ST or T wave changes. Portable chest x-ray was obtained. There is 1 view. On my interpretation, there is bibasilar atelectasis. There is no acute infiltrate. Bony thorax is normal. Radiologist also interpreted the x-ray and agrees. On reevaluation, the patient is more awake and alert. Patient is able to answer questions with short answers. Patient was given IV fluids. Blood cultures were obtained and are pending. Case was discussed with the hospitalist. He will admit the patient to his service. Family understood and was agreeable with the plan. All questions were answered. Lab Data Attestation: I reviewed the patient's lab results. Labs: Laboratory Results - last 24 hr 03/10/22 03/10/22 03/10/22 18:50 18:50 18:50 WBC 20.1 H RBC 3.82 L Hgb 10.8 L Hct 34.7 L MCV 90.8 MCH 28.3 MCHC 31.1 L RDW Std Deviation 57.1 H RDW Coeff of Jono 17.1 H Plt Count 279 MPV 10.7 Immature Gran % (Auto) 1.300 H Neut % (Auto) 68.7 Lymph % (Auto) 9.8 L [place] % (Auto) 20.0 H Eos % (Auto) 0.0 Baso % (Auto) 0.2 Absolute Neuts (auto) 13.8 H Absolute Lymphs (auto) 1.98 Nucleated RBC % 0 Differential Comment SCANNED Diff Path Review January foll PT 23.4 H INR 2.1 APTT 45.4 H Sodium 141 Potassium 4.8 Chloride 111 H Carbon Dioxide 21.0 Anion Gap 9 BUN 27 H Creatinine 1.98 H Estim Creat Clear Calc 30.25 Est GFR (MDRD) Af Amer 42 L Est GFR (MDRD) Non-Af 35 L BUN/Creatinine Ratio 13.6 Glucose 156 H Lactic Acid Calcium 8.5 Total Bilirubin 1.20 H AST 44 H ALT 27 Alkaline Phosphatase 108 Ammonia Troponin I High Sens 9 B-Natriuretic Peptide Total Protein 6.5 Albumin 1.6 L Globulin 4.9 H Albumin/Globulin Ratio 0.3 L TSH 1.11 Urine Color Urine Clarity Urine pH Ur Specific [place] Urine Protein Urine Glucose (UA) Urine Ketones Urine Occult Blood Urine Nitrite Urine Bilirubin Urine Urobilinogen Ur Leukocyte Esterase Urine RBC Urine WBC Ur Squamous Epith Cells Urine Bacteria Urine Mucus 03/10/22 03/10/22 03/10/22 18:50 18:50 20:00 WBC RBC Hgb Hct MCV MCH MCHC RDW Std Deviation RDW Coeff of Jono Plt Count MPV Immature Gran % (Auto) Neut % (Auto) Lymph % (Auto) [place] % (Auto) Eos % (Auto) Baso % (Auto) Absolute Neuts (auto) Absolute Lymphs (auto) Nucleated RBC % Differential Comment Diff Path Review PT INR APTT Sodium Potassium Chloride Carbon Dioxide Anion Gap BUN Creatinine Estim Creat Clear Calc Est GFR (MDRD) Af Amer Est GFR (MDRD) Non-Af BUN/Creatinine Ratio Glucose Lactic Acid 1.9 Calcium Total Bilirubin AST ALT Alkaline Phosphatase Ammonia 14.0 Troponin I High Sens B-Natriuretic Peptide 79.5 Total Protein Albumin Globulin Albumin/Globulin Ratio TSH Urine Color Yellow Urine Clarity Clear Urine pH 5.0 Ur Specific [place] 1.015 Urine Protein 15 H Urine Glucose (UA) Normal Urine Ketones 5 H Urine Occult Blood Negative Urine Nitrite Negative Urine Bilirubin Negative Urine Urobilinogen 1 H Ur Leukocyte Esterase 25 H Urine RBC 0-5 SEEN Urine WBC 0 SEEN Ur Squamous Epith Cells 0-5 SEEN Urine Bacteria 0 SEEN Urine Mucus 0 SEEN Radiography Chest X-Ray - ED: 1 View, Read by ED Physician, Read by Radiologist and No Acute Disease Diagnostic Testing: Clinical Impression(s) from Imaging Studies Brain CT 03/10/22 18:49 IMPRESSION: No acute intracranial hemorrhage or mass effect. Electronically Signed: Payam Lal MD ([place]) at 20:09 EDT , Chest X-Ray 03/10/22 19:08 IMPRESSION: Poor inspiration with some bibasilar atelectasis. Electronically Signed: Rodolfo Levy MD at 19:30 EDT , Discharge Plan Triage Chief Complaint: Alt LOC ED Provider: Massimo Abarca Dx/Rx/DC Orders Clinical Impression: Altered mental status, Leukocytosis, Acute kidney injury Prescriptions: No Action magnesium oxide 420 mg tablet 400 mg PO BID cholecalciferol (vitamin D3) 50 mcg (2,000 unit) capsule 1,000 unit PO DAILY amlodipine 10 mg tablet 10 mg PO DAILY Qty: 30 0RF oxybutynin chloride 5 MG tablet extended release 24hr 5 mg PO DAILY multivitamin with minerals 1 EACH tablet 1 ea PO DAILY atorvastatin 40 MG tablet 20 mg PO QHS aspirin 81 MG tablet 81 mg PO DAILY@0800 potassium chloride 20 MEQ tablet 40 meq PO BIDCM apixaban 5 MG tablet 5 mg PO BID polyethylene glycol 3350 17 GM packet 17 gm PO DAILY PRN (Reason: Constipation) 0RF acetaminophen 500 MG tablet 1,000 mg PO Q6H PRN (Reason: Pain Score 1-10) 0RF losartan 100 MG tablet 100 mg PO DAILY 0RF menthol-zinc oxide 1 APPLIC ointment 1 applic TOPICAL 0600,2200 0RF Protocol: *Topical Application Instructions APPLICATION INSTRUCTIONS: Bilateral Buttocks/Coccyx Vitamin C 1,000 mg Tablet Extended Release 1,000 mg PO DAILY paroxetine HCl [Paxil] 20 mg Tablet 20 mg PO QHS insulin lispro [Humalog U-100 Insulin] 100 unit/mL Solution fluticasone propionate 50 mcg/actuation [place],Suspension 1 spray INTRANASAL DAILY loratadine 10 mg Tablet 10 mg PO DAILY Lantus Solostar U-100 Insulin 100 unit/mL (3 mL) Insulin Pen 15 unit SUBCUT BREAKFAST insulin glargine 100 UNITS/ML insulin pen 30 units SC QHS metoprolol tartrate 25 mg Tablet 12.5 mg PO BID Primary Care Provider: Rachele Man Referrals: Rachele Man DO [Primary Care Provider] - Disposition Disposition: Acute Care Hospital [facility]
--- NOTE | 2022-03-10 18:49 | CT_ITS ---
STUDY: CT BRAIN WITHOUT CONTRAST REASON FOR EXAM: Male, 81 years old. Altered mental status RADIATION DOSAGE (If Supplied By Facility): CTDIvol = ( 44.99 ) mGy, DLP = ( 883.29 ) mGycm TECHNIQUE: Transaxial CT imaging of the brain was performed without administration of intravenous contrast material. Individualized dose optimization techniques were used for this CT. COMPARISON: Report 06/22/2020 FINDINGS: Normal soft tissue structures. Normal calvarium. There is moderate cerebral atrophy with widening of the extra-axial spaces and ventricular dilatation. There are areas of decreased attenuation within the white matter tracts of the supratentorial brain, consistent with microvascular disease changes. Normal basal ganglia and thalami. Normal brainstem. Small old focal infarction of the left occipital lobe. There is no intracranial hemorrhage. There are no findings of an acute ischemic infarction. Normal visualized paranasal sinuses. CT/Brain/Head without Contrast IMPRESSION: No acute intracranial hemorrhage or mass effect. Electronically Signed: Payam Lal MD ([place]) at 20:09 EDT Reading Location ID and State: [facility] / [place] , Service support ,
--- NOTE | 2022-03-10 18:50 | EKG12_ITS ---
Test Reason : ALT LOC Blood Pressure : / mmHG Vent. Rate : 080 BPM Atrial Rate : 100 BPM P-R Int : 000 ms QRS Dur : 066 ms QT Int : 370 ms P-R-T Axes : 000 -01 048 degrees QTc Int : 426 ms Atrial fibrillation Low voltage QRS Abnormal ECG Confirmed by JEANNIE SOUTH, TIFFANIE ([id number]), commercial production editor SAMANTHA MCKOY ([id number]) on 03/13/2022 8:20:00 AM Referred By: MYA Confirmed By:TIFFANIE DENNIS MD
--- NOTE | 2022-03-10 19:08 | RAD_ITS ---
STUDY: X-RAY CHEST REASON FOR EXAM: Male, 81 years old. Altered mental status TECHNIQUE: Single AP portable view of the chest. COMPARISON: 07/31/2021 FINDINGS: Poor inspiration with some bibasilar atelectasis. There is no demonstrated pleural abnormality. There is moderate cardiac enlargement. Normal mediastinum and crystal. Normal visualized pulmonary arteries. There is atherosclerotic tortuosity of the aortic arch and descending thoracic aorta. Normal visualized thoracic spine. Normal visualized ribs, clavicles, and shoulders. There is no demonstrated abnormality of the visualized soft tissue structures of the upper abdomen. RAD/Chest 1 View (Portable) IMPRESSION: Poor inspiration with some bibasilar atelectasis. Electronically Signed: Rodolfo Levy MD at 19:30 EDT ,
[2022-03-10 19:19] LABS: Absolute Lymphocyte Count 1.98 X10^3/uL (0.83-4.51); Absolute Neutrophil Count 13.8 X10^3/uL (2.0-7.7); Basophil# 0.04 X10^3/uL; Basophil% 0.2 % (0-1); Hematocrit 34.7 % (40-54); Hemoglobin 10.8 g/dL (13.0-16.5); Lymphocyte # 1.98 X10^3/ul (0.83-4.51); Lymphocyte % 9.8 % (19-41); Mean Corp Hgb Conc 31.1 g/dL (32-36); Mean Corpuscular Hgb 28.3 pg (27.0-32.0); Mean Corpuscular Volume 90.8 fL (80-94); Mean Platelet Vol. 10.7 fl (6.2-12.0); Monocyte# 4.03 X10^3/uL; NRBC Flagged by Analyzer 0 % (0-5); Neutrophil # 13.81 X10^3/uL (2.7-7.7); Neutrophil % 68.7 % (47-70); POSITIVE DIFFERENTIAL YES; Platelet Count 279 K/mm3 (150-450); RBC Distribution Width CV 17.1 % (11.6-14.6); RBC Distribution Width SD 57.1 fl (35.1-43.9); Red Blood Count 3.82 M/mm3 (4.6-6.2); White Blood Count 20.1 K/mm3 (4.4-11.0)
[2022-03-10 19:35] LABS: Differential Indicated SCAN CRITERIA MET
[2022-03-10 19:42] LABS: International Normalized Ratio 2.1; Prothrombin Time (Protime)PT. 23.4 SECONDS (11.7-14.9)
[2022-03-10 19:43] LABS: Partial Thromboplast Time 45.4 Seconds (24.1-36.2)
[2022-03-10 19:44] LABS: ALB/GLOB Ratio 0.3 RATIO (0.9-2.4); AST(SGOT) 44 U/L (15-37); Alanine Aminotransfer ALT/SGPT 27 U/L (16-61); Albumin, Serum 1.6 g/dL (3.2-5.0); Alkaline Phosphatase 108 U/L (45-117); Anion Gap 9 (5-15); BUN 27 mg/dL (7-18); BUN/Creat Ratio 13.6 RATIO (10-20); Calcium,Total 8.5 mg/dL (8.5-10.1); Chloride 111 mmol/L (98-107); Creatinine, Serum 1.98 mg/dL (0.70-1.30); EST Glomerular Filtration Rate 35 mL/min (>60); Est Glom Filt Rate - Afr Amer 42 mL/min (>60); Estimated Creatinine Clearance 30.25 ml/min; Globulin 4.9 g/dL (2.2-4.2); Glucose 156 mg/dL (74-106); Potassium 4.8 mmol/L (3.5-5.1); Protein, Total 6.5 g/dL (6.4-8.2); Sodium Level 141 mmol/L (136-145); Thyroid Stim Hormone (TSH) 1.11 uIU/mL (0.358-3.74); Troponin-I HS 9 pg/mL (3.0-78.0)
--- NOTE | 2022-03-10 19:46 | NURSING ---
PHYSICIANS CALLED BACK AT 1939, THEY SAID DUE TO STAFFING AND NON EMERGENCY THEY WOULDNT BE ABLE TO TAKE THE CALL UNTIL 9AM. THEY ARE CALLING TO SEE IF ANY OTHER TRANSPORT IS AVAILABLE SOONER.
[2022-03-10 19:47] LABS: Lactic Acid 1.9 mmol/L (0.4-1.9)
[2022-03-10 19:55] LABS: BNP,B-Type NATRIURETIC PEPTIDE 79.5 pg/mL (0-100)
[2022-03-10 20:09] LABS: Bacteria 0 SEEN /hpf (None Seen); Mucous, Urine 0 SEEN /hpf (<or=2+); White Blood Cells 0 SEEN /hpf (0-5)
[2022-03-10 20:15] LABS: Differential Comment SCANNED
[2022-03-10 20:37] LABS: Color, Urine Yellow (Yellow); Glucose, Dipstick Normal (Normal); Ketone-Dipstick 5 mg/dl (Negative); Leukocyte Esterase-Dipstick 25 /ul (Negative); Nitrite-Dipstick Negative (Negative); Occult Blood-Urine Negative /ul (Negative); Protein-Dipstick 15 mg/dl (Negative); Specific Gravity, Urine 1.015 (1.002-1.030); Urine Bilirubin Dipstick Negative (Negative); Urine Clarity Clear (Clear); Urine Urobilinogen 1 mg/dl (Normal)
[2022-03-10 21:04] LABS: Red Blood Cells-Urine 0-5 SEEN /hpf (0-5); Squamous Epithelial Cells - UA 0-5 SEEN /hpf (0-5)
[2022-03-10] MEDS: Acetaminophen 500 MG Tablet 1000 MG PO (21:24)
[2022-03-10] MEDS: 0.9% Normal Saline 1,000 ML 1000 ML IV (21:24)
--- NOTE | 2022-03-10 22:01 | HP.PCM.HOS_ITS ---
HPI - General General Date of Admission: 03/10/22 Date of Service: 03/10/22 Chief Complaint: Change in mental status HPI Narrative KAREN TORREZ, is a 81 M who presents presents from the snf where he resides with increased lethargy. Most of the history is obtained through his son and [id number] were present at bedside. In June 2020, patient had a stroke that left him with right-sided weakness. He was obviously impacted with right-sided weakness at that time but was eventually able to regain some function and able to use walker though slow. However, patient continued to decline and was unable to be managed at home by his family and so the patient has been in a snf for extended period of time. At the snf, patient is described as not moving around much but able to feed himself. Over the past few days or weeks, patient has not been adequately able to feed himself and given self things to drink. Patient was sent to the emergency room for his change in mental status and lethargy. In the emergency room, patient was found to have white count of 20,000, and acute kidney injury with a creatinine of 1.98, with a baseline 1. Patient received IV fluids in the emergency room. No clear source of infection was identified. [facility] Medical History Cataracts, bilateral COPD (chronic obstructive pulmonary disease) CVA (cerebral vascular accident) Diabetes Essential hypertension History of acute inferior wall [place] Hypertension Hypothyroidism SAMEER (obstructive sleep apnea) Paroxysmal atrial fibrillation Sebaceous cyst Skin lesion Stroke/cerebrovascular accident Type 2 diabetes mellitus Home Medications magnesium oxide 420 mg tablet 400 mg PO BID supplement 02/23/19 [History Last Taken 06/21/20] amlodipine 10 mg tablet 10 mg PO DAILY high blood pressure #30 tabs 09/01/19 [Rx Last Taken 06/24/20 08:10] multivitamin with minerals 1 ea PO DAILY vitamin 06/22/20 [History Last Taken 06/21/20] oxybutynin chloride 5 mg tablet,extended release 24 hr 5 mg PO DAILY BLADDER 06/22/20 [History Last Taken 06/21/20] apixaban 5 mg tablet 5 mg PO BID blood thinner 06/24/20 [History Last Taken 06/24/20 08:10] aspirin 81 mg tablet,delayed release 81 mg PO DAILY@0800 blood thinner 06/24/20 [History Last Taken 06/24/20 08:10] atorvastatin 40 mg tablet 20 mg PO QHS cholesterol 06/24/20 [History Last Taken Unknown] acetaminophen 500 mg tablet 1,000 mg PO Q6H PRN Pain Score 1-10 08/10/20 [Rx Last Taken Unknown] losartan 100 mg tablet 100 mg PO DAILY 08/10/20 [Rx Last Taken Unknown] menthol 0.44 %-zinc oxide 20.6 % topical ointment 1 applic topical 0600,2200 08/10/20 [Rx Last Taken Unknown] polyethylene glycol 3350 17 gram oral powder packet 17 gm PO DAILY PRN Constipation 08/10/20 [Rx Last Taken Unknown] cholecalciferol (vitamin D3) 50 mcg (2,000 unit) capsule 1,000 unit PO DAILY vitamin 08/26/20 [History Last Taken Unknown] ascorbic acid (vitamin C) 1,000 mg tablet,extended release (Vitamin C ER) 1,000 mg PO DAILY 07/31/21 [History Last Taken Unknown] fluticasone propionate 50 mcg/actuation nasal spray,suspension 1 spray intranasal DAILY 07/31/21 [History Last Taken Unknown] insulin glargine 100 unit/mL (3 mL) subcutaneous pen 30 units SC QHS 07/31/21 [History Last Taken Unknown] insulin glargine 100 unit/mL (3 mL) subcutaneous pen (Lantus Solostar U-100 Insulin) 15 unit subcut BREAKFAST 07/31/21 [History Last Taken Unknown] insulin lispro 100 unit/mL subcutaneous solution (Humalog U-100 Insulin) 07/31/21 [History Last Taken Unknown] loratadine 10 mg tablet 10 mg PO DAILY 07/31/21 [History Last Taken Unknown] paroxetine HCl 20 mg tablet (Paxil) 20 mg PO QHS 07/31/21 [History Last Taken Unknown] aluminum-magnesium hydroxide 225 mg-200 mg/5 mL oral suspension 30 ml PO PRN PRN Gastric Reflux 03/10/22 [History Last Taken Unknown] ammonium lactate 12 % lotion 1 applic topical DAILY 03/10/22 [History Last Taken Unknown] bisacodyl 10 mg rectal suppository 10 mg AK DAILY PRN Constipation 03/10/22 [History Last Taken Unknown] calcium carbonate 2 tab PO.IVFORM PRN PRN Gastric Reflux 03/10/22 [History Last Taken Unknown] cimetidine 300 mg tablet 300 mg PO QHS 03/10/22 [History Last Taken Unknown] dextrose 40 % oral gel (Glucose Gel) PO 03/10/22 [History Last Taken Unknown] glucagon 1 mg injection kit 1 mg IM PRN PRN Hypoglycemia 03/10/22 [History Last Taken Unknown] guaifenesin 50 mg/5 mL oral liquid mg 03/10/22 [History Last Taken Unknown] ketoconazole 2 % shampoo 1 applic topical PRN PRN Dry Skin 03/10/22 [History Last Taken Unknown] loperamide 2 mg tablet 2 mg PO Q6H PRN Diarrhea 03/10/22 [History Last Taken Un known] loratadine 10 mg tablet 10 mg PO DAILY 03/10/22 [History Last Taken Unknown] magnesium hydroxide 400 mg/5 mL oral suspension (Milk of Magnesia) 03/10/22 [History Last Taken Unknown] metoprolol tartrate 25 mg tablet 12.5 mg PO BID 03/10/22 [History Last Taken Unknown] nystatin 03/10/22 [History Last Taken Unknown] oxycodone 5 mg tablet 5 mg PO Q6H 03/10/22 [History Last Taken Unknown] paroxetine HCl 20 mg tablet (Paxil) 20 mg PO DAILY 03/10/22 [History Last Taken Unknown] potassium chloride 20 mEq tablet,extended release 20 meq PO BID 03/10/22 [History Last Taken Unknown] sodium phosphates 19 gram-7 gram/118 mL enema (Fleet Enema) 1 AK PRN PRN Constipation 03/10/22 [History Last Taken Unknown] Allergy/AdvReac Type Severity Reaction Status Date / Time atenolol Allergy Other Verified 03/10/22 18:16 Beta-Blockers Allergy Other Verified 03/10/22 18:16 (Beta-Adrenergic Bloc hydralazine Allergy Other Verified 03/10/22 18:16 hydrochlorothiazide Allergy Other Verified 03/10/22 18:16 lisinopril Allergy Other Verified 03/10/22 18:16 metformin Allergy Other Verified 03/10/22 18:16 aspirin AdvReac Upset Verified 03/10/22 18:16 Stomach Family History Other Diabetes Heart disease Surgical History S/P tooth extraction Scalp cyst Social History Smoking Status: Never smoker alcohol intake: never substance use type: does not use what type of physical activity do you participate in: none ROS ROS Narrative Patient does have chronic pain particular in his legs. Does not get himself up and requires assistance with turning. Patient requires turning on a routine basis at his snf. Patient is coughing. Denies any abdominal pain. All review of systems were negative except as mentioned above in the history of present illness and the other review of systems. Vital Signs Vital Signs Vital Signs: 03/10/22 18:07 03/10/22 18:11 03/10/22 18:21 Temperature 36.6 C 36.6 C Temperature Source Temporal Temporal Pulse Rate 87 87 Respiratory Rate 29 H 29 H Respiratory Effort Short of Breath Blood Pressure 116/53 L 116/53 L Blood Pressure Mean 74 Pulse Ox 94 94 Oxygen Delivery Method Nasal Cannula Nasal Cannula Oxygen Flow Rate (L/min) 2 2 03/10/22 19:51 03/10/22 21:30 Temperature 36.7 C 36.8 C Temperature Source Oral Oral Pulse Rate 93 95 Respiratory Rate 16 20 H Respiratory Effort Blood Pressure 148/96 H 129/74 H Blood Pressure Mean 113 92 Pulse Ox 97 96 Oxygen Delivery Method Nasal Cannula Room Air Oxygen Flow Rate (L/min) 2 Weight Weight: 129.1 kg Body Mass Index (BMI) 42.0 Physical Exam Const Constitutional Narrative: Alert to place but not to date or to self. Morbidly obese. Awake. Follows commands. Is able to interact but is very slow to respond. No slurred speech. HEENT normocephalic, head/scalp atraumatic and moist oral mucous membranes Neck no lymphadenopathy Resp normal respiratory effort and no retractions Cardio regular rate, regular rhythm, S1 normal heart sound and S2 normal heart sound GI normal to inspection, nondistended, normoactive bowel sounds, soft to palpation, non-tender and non-distended GI Narrative: Rectal exam, patient had fair amount of light brown stool. Extremity Extremity Narrative: Muscle wasting. Contracture of the right leg where the knee is bent roughly 60 degrees. Unable to straighten the right leg. Skin Skin Narrative: Patient has a stage II ulcers on his coccyx. No open ulcers were identified. Neuro Sensorium / Orientation: awake and alert Results Lab / Micro Data Attestation: I reviewed the patient's lab results. Result Diagrams: 03/10/22 18:50 03/10/22 18:50 Labs: Laboratory Results - last 24 hr 03/10/22 18:50: WBC 20.1 H, RBC 3.82 L, Hgb 10.8 L, Hct 34.7 L, MCV 90.8, MCH 28.3, MCHC 31.1 L, RDW Std Deviation 57.1 H, RDW Coeff of Jono 17.1 H, Plt Count 279, MPV 10.7, Immature Gran % (Auto) 1.300 H, Neut % (Auto) 68.7, Lymph % (Auto) 9.8 L, [place] % (Auto) 20.0 H, Eos % (Auto) 0.0, Baso % (Auto) 0.2, Absolute Neuts (auto) 13.8 H, Absolute Lymphs (auto) 1.98, Nucleated RBC % 0, Differential Comment SCANNED, Diff Path Review January foll 03/10/22 18:50: PT 23.4 H, INR 2.1, APTT 45.4 H 03/10/22 18:50: Sodium 141, Potassium 4.8, Chloride 111 H, Carbon Dioxide 21.0, Anion Gap 9, BUN 27 H, Creatinine 1.98 H, Estim Creat Clear Calc 30.25, Est GFR (MDRD) Af Amer 42 L, Est GFR (MDRD) Non-Af 35 L, BUN/Creatinine Ratio 13.6, Glucose 156 H, Calcium 8.5, Total Bilirubin 1.20 H, AST 44 H, ALT 27, Alkaline Phosphatase 108, Troponin I High Sens 9, Total Protein 6.5, Albumin 1.6 L, Globulin 4.9 H, Albumin/Globulin Ratio 0.3 L, TSH 1.11 03/10/22 18:50: Ammonia 14.0, B-Natriuretic Peptide 79.5 03/10/22 18:50: Lactic Acid 1.9 03/10/22 20:00: Urine Color Yellow, Urine Clarity Clear, Urine pH 5.0, Ur Specific [place] 1.015, Urine Protein 15 H, Urine Glucose (UA) Normal, Urine Ketones 5 H, Urine Occult Blood Negative, Urine Nitrite Negative, Urine [place] irubin Negative, Urine Urobilinogen 1 H, Ur Leukocyte Esterase 25 H, Urine RBC 0-5 SEEN, Urine WBC 0 SEEN, Ur Squamous Epith Cells 0-5 SEEN, Urine Bacteria 0 SEEN, Urine Mucus 0 SEEN EKG Initial EKG: Attestation: I personally reviewed and interpreted this EKG as follows: Prior EKG tracings: available for review EKG Rhythm Intrepretation: Atrial Fibrillation Radiology Impression Brain CT 03/10/22 18:49 IMPRESSION: No acute intracranial hemorrhage or mass effect. Electronically Signed: Payam Lal MD ([place]) at 20:09 EDT , Chest X-Ray 03/10/22 19:08 IMPRESSION: Poor inspiration with some bibasilar atelectasis. Electronically Signed: Rodolfo Levy MD at 19:30 EDT , Assessment & Plan Assessment/Plan (1) Sepsis: (2) SMITH (acute kidney injury): (3) Debility: PLAN: Plan 1. Possible sepsis Patient's qSOFA score is 2 for change in mental status as well as elevated respiratory rate. Chest x-ray and urinalysis negative for infection Blood cultures are pending Patient does have pronounced leukocytosis which could simply be reactive but it is to rule out infectious etiology. Plan * Follow-up blood cultures * Check COVID-19 * Vancomycin and Pipracillin/tazobactam 2. Acute kidney injury Last available creatinine was 1.16 from February 26 and now it is 1.88. I suspect this is prerenal as patient has not been eating or drinking much over the past several days or possibly weeks. Plan * IV fluids * Follow-up labs. * No need for renal replacement therapy 3. Poor performance status Patient has a very long history of basically sounds like he is just given up. 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 Patient does have contracture on his right leg which complicates matters. Plan: PT OT evaluate and treat. Patient had been involved in therapy before but was discontinued due to lack of improvement. I do not suspect acute improvement with the patient is here. 4. Chronic medical problems: Complicates care and recovery * Morbid obesity * Paroxysmal atrial fibrillation continue with apixaban and metoprolol * Vitamin D deficiency * History of stroke * Hypertension * Depression: Continue with paroxetine 5. VTE prophylaxis: Not indicated as he is already anticoagulated 6. CODE STATUS: Son states that he is stated to them that he wants everything done. Therefore full CODE STATUS. Advance care planning: Spent about 20 minutes discussing with patient's son and daughter about aggressiveness of care. I told them that if patient were to have cardiopulmonary arrest, he may not survive if he were to be even more profoundly debilitated. I recommended DNR Comfort Care arrest, no intubation and no PEG tube. They are in agreement with the patient has previously not agreed to that past. For this tend to be more dynamic conversations and patient may be stating that he wants everything done because it gives him sort of control or life that he has lost all control of. Recommend palliative care to work with him in developing symptom control plans but also continuing to discuss with patient as well as family in regards to readdressing his CODE STATUS. Son and [id number] are very reasonable and certainly understand that aggressive care would not be in his best interest. I did also state that we can still treat him medically. He would have infection such as possibly we may have now but also helping him with symptoms. Charges/Coding Visit Charges Inpatient E&M: 21075 Init Hosp L3 Procedures Hospitalists Procedures: 66398 Advncd Care Plan 30 Min
[2022-03-10] MEDS: Atorvastatin Calcium 20 MG Tablet PO (23:04)
[2022-03-10] MEDS: Magnesium Chloride 64 MG Delay Rel.Tablet 128 MG PO (23:04)
[2022-03-10] MEDS: Insulin Glargine-YFGN 100 UNIT/ML Pen 30 UNIT SC (23:04)
[2022-03-10] MEDS: Famotidine 20 MG Tablet 10 MG PO (23:04)
[2022-03-10] MEDS: APIXABAN 5 MG TABLET PO (23:05)
[2022-03-10] MEDS: 0.9% Normal Saline 1,000 ML 150 ML IV (23:22)
[2022-03-11] VITALS (9 sets, daily range): BP systolic 102–128; BP diastolic 74–89; PULSE 78–87; RESP 16–18; TEMP 36.6; O2SAT 93–96
[2022-03-11 00:06] LABS: Bedside Glucose 177 mg/dL (74-106)
--- NOTE | 2022-03-11 00:07 | PCM.RX.CS ---
Consult Pharmacy has been consulted to manage selected antiobiotic: Vancomycin Type of Consult: New start Suspected Infection: Other Prior Doses of Antibiotics Received/Current Regimen: Medications Vancomycin HCl (Vancomycin) 1,000 mg in 200 mls @ 200 mls/hr IV Q12H SELWYN Vancomycin HCl 2,000 mg/ (Sodium Chloride) 540 mls @ 250 mls/hr IV X1 ONE Stop: 03/11/22 01:09 Last Admin: 03/10/22 22:52 Dose: 250 mls/hr Labs: Sodium 141 mmol/L (136-145) 03/10/22 18:50 Potassium 4.8 mmol/L (3.5-5.1) 03/10/22 18:50 Chloride 111 mmol/L (98-107) H 03/10/22 18:50 Carbon Dioxide 21.0 mmol/L (21.0-32.0) 03/10/22 18:50 Anion Gap 9 (5-15) 03/10/22 18:50 BUN 27 mg/dL (7-18) H 03/10/22 18:50 Creatinine 1.98 mg/dL (0.70-1.30) H 03/10/22 18:50 Est GFR (MDRD) Af Amer 42 mL/min (>60) L 03/10/22 18:50 Est GFR (MDRD) Non-Af 35 mL/min (>60) L 03/10/22 18:50 BUN/Creatinine Ratio 13.6 RATIO (10-20) 03/10/22 18:50 Glucose 156 mg/dL (74-106) H 03/10/22 18:50 Microbiology: Microbiology 03/10/22 22:30 Nasal Secretion SARS-CoV-2 Antigen (Rapid) - Final Weight used for dosin.1 kg Estimated Creatinine Clearance: 40.2 Goal Trough: 15-20 mcg/mL Pharmacy Plan for Drug Dosing: Pharmacy Service will continue to monitor and adjust dosing as required. Follow-Up Labs: Trough Vancomycin Labs to be done on [date and time ordered]: 03/12/22 @1030
[2022-03-11 00:31] LABS: Lactic Acid 3.4 mmol/L (0.4-1.9)
[2022-03-11] MEDS: Nystatin Powder 15gm Bottle 1 APPLIC TOPICAL ×3 (01:24→21:26)
[2022-03-11] MEDS: Menthol/Lanolin/Calamine/Znox 113 GM Tube 1 APPLIC TOPICAL ×4 (01:30→21:26)
[2022-03-11] MEDS: 0.9% Saline Lock 10 ML Syringe IV (01:31)
[2022-03-11 03:56] LABS: Reflex Lactate? Y
[2022-03-11 04:42] LABS: Absolute Lymphocyte Count 1.19 X10^3/uL (0.83-4.51); Absolute Neutrophil Count 22.1 X10^3/uL (2.0-7.7); Basophil# 0.06 X10^3/uL; Basophil% 0.2 % (0-1); Hematocrit 30.6 % (40-54); Hemoglobin 9.6 g/dL (13.0-16.5); Lymphocyte # 1.19 X10^3/ul (0.83-4.51); Lymphocyte % 4.3 % (19-41); Mean Corp Hgb Conc 31.4 g/dL (32-36); Mean Corpuscular Hgb 28.6 pg (27.0-32.0); Mean Corpuscular Volume 91.1 fL (80-94); Mean Platelet Vol. 10.3 fl (6.2-12.0); Monocyte# 4.38 X10^3/uL; Monocyte% 15.7 % (0-10); NRBC Flagged by Analyzer 0 % (0-5); Neutrophil # 22.06 X10^3/uL (2.7-7.7); Neutrophil % 78.8 % (47-70); POSITIVE DIFFERENTIAL YES; Platelet Count 257 K/mm3 (150-450); RBC Distribution Width SD 57.1 fl (35.1-43.9); Red Blood Count 3.36 M/mm3 (4.6-6.2)
[2022-03-11 04:45] LABS: Differential Indicated SCAN CRITERIA MET
[2022-03-11 04:55] LABS: Anion Gap 10 (5-15); BUN 29 mg/dL (7-18); BUN/Creat Ratio 15.2 RATIO (10-20); Chloride 114 mmol/L (98-107); Creatinine, Serum 1.91 mg/dL (0.70-1.30); EST Glomerular Filtration Rate 36 mL/min (>60); Est Glom Filt Rate - Afr Amer 44 mL/min (>60); Estimated Creatinine Clearance 31.36 ml/min; Glucose 144 mg/dL (74-106); Potassium 4.1 mmol/L (3.5-5.1); Sodium Level 141 mmol/L (136-145)
[2022-03-11 05:11] LABS: Lactic Acid 2.1 mmol/L (0.4-1.9)
[2022-03-11 06:37] LABS: Differential Comment SCANNED
[2022-03-11] MEDS: Insulin Glargine-YFGN 100 UNIT/ML Pen 15 UNIT SC (08:12)
[2022-03-11] MEDS: Aspirin E.C. 81 MG Tablet PO (08:12)
[2022-03-11] MEDS: Multivitamins,Ther W-Minerals Tablet 1 TABLET PO (08:20)
[2022-03-11 08:46] LABS: Bedside Glucose 117 mg/dL (74-106)
--- NOTE | 2022-03-11 08:59 | PN.HOSP_ITS ---
Subjective Subjective Follow-up on SMITH/sepsis: Patient was seen and examined. He denied any new complaints. He is alert oriented to self. No other acute events overnight Objective Data Objective Data Vital Signs: Vital Signs Temp Pulse Resp BP Pulse Ox 97.9 F 78 16 102/76 96 03/11/22 04:16 03/11/22 04:16 03/11/22 04:16 03/11/22 04:16 03/11/22 04:16 Oxygen Flow Rate (L/min) 2 Oxygen Delivery Method Room Air Weight: 124.4 kg Body Mass Index (BMI) 40.5 Intake & Output: Intake and Output for Last 24 Hours 03/09/22 03/10/22 03/11/22 23:59 23:59 23:59 Intake Total 1017.5 / 1017.5 1572.5 / 1572.5 Balance 1017.5 / 1017.5 1572.5 / 1572.5 Lab / Micro Data Result Diagrams: 03/11/22 04:23 03/11/22 04:23 Labs: Laboratory Results - last 24 hr 03/10/22 18:50: WBC 20.1 H, RBC 3.82 L, Hgb 10.8 L, Hct 34.7 L, MCV 90.8, MCH 28.3, MCHC 31.1 L, RDW Std Deviation 57.1 H, RDW Coeff of Jono 17.1 H, Plt Count 279, MPV 10.7, Immature Gran % (Auto) 1.300 H, Neut % (Auto) 68.7, Lymph % (Auto) 9.8 L, [place] % (Auto) 20.0 H, Eos % (Auto) 0.0, Baso % (Auto) 0.2, Absolute Neuts (auto) 13.8 H, Absolute Lymphs (auto) 1.98, Nucleated RBC % 0, Differential Comment SCANNED, Diff Path Review January03/10/22 18:50: PT 23.4 H, INR 2.1, APTT 45.4 H 03/10/22 18:50: Sodium 141, Potassium 4.8, Chloride 111 H, Carbon Dioxide 21.0, Anion Gap 9, BUN 27 H, Creatinine 1.98 H, Estim Creat Clear Calc 30.25, Est GFR (MDRD) Af Amer 42 L, Est GFR (MDRD) Non-Af 35 L, BUN/Creatinine Ratio 13.6, Glucose 156 H, Calcium 8.5, Total Bilirubin 1.20 H, AST 44 H, ALT 27, Alkaline Phosphatase 108, Troponin I High Sens 9, Total Protein 6.5, Albumin 1.6 L, Globulin 4.9 H, Albumin/Globulin Ratio 0.3 L, TSH 1.11 03/10/22 18:50: Ammonia 14.0, B-Natriuretic Peptide 79.5 03/10/22 18:50: Lactic Acid 1.9 03/10/22 20:00: Urine Color Yellow, Urine Clarity Clear, Urine pH 5.0, Ur Specific [place] 1.015, Urine Protein 15 H, Urine Glucose (UA) Normal, Urine Ketones 5 H, Urine Occult Blood Negative, Urine Nitrite Negative, Urine Bili patiño Negative, Urine Urobilinogen 1 H, Ur Leukocyte Esterase 25 H, Urine RBC 0- 5 SEEN, Urine WBC 0 SEEN, Ur Squamous Epith Cells 0-5 SEEN, Urine Bacteria 0 SEEN, Urine Mucus 0 SEEN 03/10/22 23:01: POC Glucose 177 H 03/10/22 23:53: Lactic Acid 3.4 H* 03/11/22 04:23: WBC 28.0 H, RBC 3.36 L, Hgb 9.6 L, Hct 30.6 L, MCV 91.1, MCH 28.6, MCHC 31.4 L, RDW Std Deviation 57.1 H, RDW Coeff of Jono 17.0 H, Plt Count 257, MPV 10.3, Immature Gran % (Auto) 1.000 H, Neut % (Auto) 78.8 H, Lymph % (Auto) 4.3 L, [place] % (Auto) 15.7 H, Eos % (Auto) 0.0, Baso % (Auto) 0.2, Absolute Neuts (auto) 22.1 H, Absolute Lymphs (auto) 1.19, Nucleated RBC % 0, Differential Comment SCANNED, Diff Path Review January03/11/22 04:23: Sodium 141, Potassium 4.1, Chloride 114 H, Carbon Dioxide 17.0 L , Anion Gap 10, BUN 29 H, Creatinine 1.91 H, Estim Creat Clear Calc 31.36, Est GFR (MDRD) Af Amer 44 L, Est GFR (MDRD) Non-Af 36 L, BUN/Creatinine Ratio 15.2, Glucose 144 H, Calcium 8.0 L 03/11/22 04:23: Lactic Acid 2.1 H* 03/11/22 08:09: POC Glucose 117 H Micro: Microbiology 03/10/22 22:30 Nasal Secretion SARS-CoV-2 Antigen (Rapid) - Final Radiography Diagnostic Testing: Radiology Impression Brain CT 03/10/22 18:49 IMPRESSION: No acute intracranial hemorrhage or mass effect. Electronically Signed: Payam Lal MD ([place]) at 20:09 EDT , Chest X-Ray 03/10/22 19:08 IMPRESSION: Poor inspiration with some bibasilar atelectasis. Electronically Signed: Rodolfo Levy MD at 19:30 EDT , Physical Exam Narrative Physical exam: General: Alert, Oriented x1, Cooperative, morbidly obese, not on oxygen HEENT: Atraumatic Oral: Moist Mucosa Neck: Supple Lungs: Diminished to auscultation Cardiovascular: HS I+II, regular, no murmurs Abdomen: Bowel Sounds Present, Soft, Non Tender Extremities: No edema Skin: bruises over his skin especially upper extremities Neurological: Grossly intact Psych/Mental Status: Appropriate Assessment & Plan Assessment/Plan (1) Sepsis: (2) SMITH (acute kidney injury): (3) Debility: PLAN: Plan 1. Probable sepsis, unclear etiology Chest x-ray and urinalysis negative for infection Blood cultures are pending Leucocytosis persists Continue on IV vancomycin and Zosyn 2. Acute kidney injury, likely pre-renal, Creatinine is 1.91 from 1.98 Hold Losartan Gentle IVF 50mls/hr Repeat blood work in am 3. Positive, atrial fibrillation/history of CVA/hypertension, continue metoprolol and apixaban 4. Rest of chronic medical conditions including depression, morbid obesity/Vitamin D deficiency complicates care 5. DVT PPx- on apixaban Charges/Coding Visit Charges Inpatient E&M: 89571 Subs Hosp L2
[2022-03-11] MEDS: Loratadine 10 MG Tablet PO (11:08)
[2022-03-11] MEDS: APIXABAN 5 MG TABLET PO ×2 (11:09→21:25)
[2022-03-11] MEDS: Tolterodine Tartrate 2 MG CAP.SA PO (11:11)
[2022-03-11] MEDS: Losartan Potassium 100 MG Tablet PO (11:11)
[2022-03-11] MEDS: Fluticasone 0.05% 1 SPRAY NASAL.SRY NASAL (11:13)
[2022-03-11] MEDS: Metoprolol Tartrate 25 MG Tablet 12.5 MG PO ×2 (11:14→21:26)
[2022-03-11] MEDS: Magnesium Chloride 64 MG Delay Rel.Tablet 128 MG PO ×2 (11:17→21:25)
[2022-03-11] MEDS: Cholecalciferol (VIT D3) 25 MCG TABLET (1,000 UNITS) PO (11:18)
[2022-03-11] MEDS: amLODIPine 10 MG Tablet PO (11:18)
[2022-03-11] MEDS: Ascorbic Acid 500 MG Tablet 1000 MG PO (11:19)
[2022-03-11] MEDS: Vancomycin IV 1,000 MG/200 ML BAG 200 MG IV ×2 (11:28→22:14)
[2022-03-11 13:21] LABS: Bedside Glucose 127 mg/dL (74-106)
[2022-03-11] MEDS: 0.9% Normal Saline 1,000 ML 50 ML IV (16:09)
[2022-03-11 17:51] LABS: Bedside Glucose 94 mg/dL (74-106)
[2022-03-11 21:11] LABS: Bedside Glucose 98 mg/dL (74-106)
[2022-03-11] MEDS: Paroxetine 20 MG Tablet PO (21:25)
[2022-03-11] MEDS: Glucerna Shake 120 ML LIQUID PO (21:25)
[2022-03-11] MEDS: Famotidine 20 MG Tablet 10 MG PO (21:25)
[2022-03-11] MEDS: Atorvastatin Calcium 40 MG Tablet PO (21:26)
[2022-03-11] MEDS: Insulin Glargine-YFGN 100 UNIT/ML Pen 30 UNIT SC (22:14)
[2022-03-12] VITALS (7 sets, daily range): BP systolic 112–131; BP diastolic 71–78; PULSE 72–83; RESP 18; TEMP 36.5–36.8; O2SAT 91–94
--- NOTE | 2022-03-12 03:04 | PCM.HOSP.N ---
Hospitalist Note Notified of positive blood culture. Only in 1 of 2 sets from the 25th and it is thus far showing coag negative staph. Likely contaminant. No additional treatment or testing at this time.
--- NOTE | 2022-03-12 07:33 | PCM.PN.HOSP ---
Subjective Subjective Patient is a 81-year-old gentleman resident at an extended care facility admitted with increasing lethargy. Found to have lactic acidosis on admission patient currently managed as a case of sepsis of undetermined etiology Objective Data Objective Data Vital Signs: Vital Signs Temp Pulse Resp BP Pulse Ox 97.7 F L 78 18 114/71 94 03/12/22 02:20 03/12/22 02:20 03/12/22 02:20 03/12/22 02:20 03/12/22 02:20 Oxygen Flow Rate (L/min) 2 Oxygen Delivery Method Room Air Weight: 124.4 kg Body Mass Index (BMI) 40.5 Intake & Output: Intake and Output for Last 24 Hours 03/10/22 03/11/22 03/12/22 23:59 23:59 23:59 Intake Total 1017.5 / 1017.5 2860.0 / 2860.0 50 / 50 Balance 1017.5 / 1017.5 2860.0 / 2860.0 50 / 50 Lab / Micro Data Result Diagrams: 03/11/22 04:23 03/11/22 04:23 Labs: Laboratory Results - last 24 hr 03/11/22 08:09: POC Glucose 117 H 03/11/22 12:46: POC Glucose 127 H 03/11/22 17:12: POC Glucose 94 03/11/22 21:08: POC Glucose 98 Micro: Microbiology 03/10/22 18:50 Blood Culture (Wb) - Anticubital Left Bacteria Detection (PCR) - Preliminary Coag Negative Staph 03/10/22 18:50 Blood Culture (Wb) - Anticubital Left Blood Culture - Preliminary 03/10/22 22:30 Nasal Secretion SARS-CoV-2 Antigen (Rapid) - Final Physical Exam Narrative GENERAL: Frail looking HEENT: Atraumatic; EYES; Anicteric, Normal Conjunctiva NECK; supple, normal thyroid, RESPIRATORY: Diminished to auscultation CARDIOVASCULAR: Regular S1 S2, GI: soft, normoactive bowel sounds, : No Renal angle tenderness; EXTREMITIES: No edema, no clubbing, MUSCULOSKELETAL: no muscle wasting NEURO: Awake; no lateralizing signs. SKIN: No Rash PSYCH; Flat affect Assessment & Plan Assessment/Plan (1) Sepsis: (2) SMITH (acute kidney injury): (3) Debility: PLAN: Plan Patient is a 81-year-old gentleman resident at an extended care facility admitted with increasing lethargy. Found to have lactic acidosis on admission patient currently managed as a case of sepsis of undetermined etiology 1. Probable sepsis ? Patient managed with broad-spectrum antibiotic therapy with vancomycin and Zosyn blood cultures so far positive for coagulase-negative staph. Consult placed to ID 2. Acute kidney injury ? Patient creatinine on 02/26/2022 was 1.16 was 1.98 on admission on IV fluid with serial monitoring of electrolytes ordered 3. Paroxysmal A. fib ? Rate controlled on metoprolol on systemic anticoagulation with apixaban 4. Hypertension - Blood pressure controlled, home medications continued with dose adjustment as needed 5. Diabetes mellitus type II - Placed on long acting insulin, Accu-Cheks a.c. and at bedtime and covered with sliding scale insulin 6. Class III obesity with BMI of 40.5 ? Weight loss advised 7. Depression ? Patient is on paroxetine 8. Vitamin D deficiency ? Patient is on colecalciferol did continue 9. Anemia - Secondary to chronic disorder monitoring H&H and transfuse if patient becomes symptomatic or hemoglobin falls below 7 10. GERD ? Patient is on cimetidine 300mg QHS 10. Dyslipidemia -Patient is on statin therapy, continued at home dose 11. DVT prophylaxis ? SC Lovenox; dose adjusted for kidney function Charges/Coding Visit Charges Inpatient E&M: 25800 Subs Hosp L2
[2022-03-12] MEDS: Multivitamins,Ther W-Minerals Tablet 1 TABLET PO (07:49)
[2022-03-12] MEDS: Aspirin E.C. 81 MG Tablet PO (07:49)
[2022-03-12 08:11] LABS: Bedside Glucose 109 mg/dL (74-106)
[2022-03-12] MEDS: Insulin Glargine-YFGN 100 UNIT/ML Pen 15 UNIT SC (08:41)
--- NOTE | 2022-03-12 10:18 | CASEMGMT ---
Discharge [employer] Sprinkler Apparatus Inspector Faxed over updates on patient to Devora at [facility]. Discharge Fire Sprinkler Apparatus Inspector
--- NOTE | 2022-03-12 10:21 | CASEMGMT ---
Social Work Pt admittied from [facility]. 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 Pt does not have hospice or palliative services at [facility] and the hospice organization that they use does not have palliative services, therefore referral can be made to palliative organization of pt's choice. Pt is alert and oriented x1, phone call placed to pt son Ronnie Redd for discharge planning. 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 SW spoike with Ronnie regarding palliative c/s from physician and explained options. Ronnie is agreeable to consult to [facility] (affiliated with [facility]). RNCM is aware and will make referral. EMANUEL will continue with discharge planning when appropriate. Plan: [facility], intermediate level of care, when medically ready - with Palliative referral JAVON Garcia
[2022-03-12 10:43] LABS: Absolute Lymphocyte Count 0.98 X10^3/uL (0.83-4.51); Absolute Neutrophil Count 20.1 X10^3/uL (2.0-7.7); Basophil# 0.04 X10^3/uL; Basophil% 0.2 % (0-1); Eosinophil# 0.04 X10^3/uL; Eosinophils% 0.2 % (0-5); Hematocrit 30.2 % (40-54); Hemoglobin 9.2 g/dL (13.0-16.5); Lymphocyte # 0.98 X10^3/ul (0.83-4.51); Mean Corp Hgb Conc 30.5 g/dL (32-36); Mean Corpuscular Hgb 28.3 pg (27.0-32.0); Mean Corpuscular Volume 92.9 fL (80-94); Mean Platelet Vol. 10.5 fl (6.2-12.0); Monocyte# 2.82 X10^3/uL; Monocyte% 11.6 % (0-10); NRBC Flagged by Analyzer 0 % (0-5); Neutrophil # 20.12 X10^3/uL (2.7-7.7); Neutrophil % 82.5 % (47-70); POSITIVE DIFFERENTIAL YES; Platelet Count 232 K/mm3 (150-450); RBC Distribution Width CV 16.9 % (11.6-14.6); RBC Distribution Width SD 57.8 fl (35.1-43.9); Red Blood Count 3.25 M/mm3 (4.6-6.2); White Blood Count 24.4 K/mm3 (4.4-11.0)
[2022-03-12] MEDS: Menthol/Lanolin/Calamine/Znox 113 GM Tube 1 APPLIC TOPICAL ×2 (10:43→23:00)
[2022-03-12 10:44] LABS: Differential Indicated SCAN CRITERIA MET
[2022-03-12] MEDS: Tolterodine Tartrate 2 MG CAP.SA PO (10:44)
[2022-03-12] MEDS: Loratadine 10 MG Tablet PO (10:44)
[2022-03-12] MEDS: amLODIPine 10 MG Tablet PO (10:44)
[2022-03-12] MEDS: Cholecalciferol (VIT D3) 25 MCG TABLET (1,000 UNITS) PO (10:44)
[2022-03-12] MEDS: Losartan Potassium 100 MG Tablet PO (10:45)
[2022-03-12] MEDS: Fluticasone 0.05% 1 SPRAY NASAL.SRY NASAL (10:46)
[2022-03-12] MEDS: APIXABAN 5 MG TABLET PO ×2 (10:46→22:59)
[2022-03-12] MEDS: Metoprolol Tartrate 25 MG Tablet 12.5 MG PO ×2 (10:47→23:02)
[2022-03-12] MEDS: Nystatin Powder 15gm Bottle 1 APPLIC TOPICAL ×2 (10:49→22:57)
[2022-03-12] MEDS: Magnesium Chloride 64 MG Delay Rel.Tablet 128 MG PO ×2 (10:49→22:58)
[2022-03-12] MEDS: Ascorbic Acid 500 MG Tablet 1000 MG PO (10:49)
[2022-03-12] MEDS: Vancomycin IV 1,000 MG/200 ML BAG 200 MG IV (10:51)
[2022-03-12 10:56] LABS: Anion Gap 11 (5-15); BUN 27 mg/dL (7-18); BUN/Creat Ratio 15.7 RATIO (10-20); Calcium,Total 8.1 mg/dL (8.5-10.1); Chloride 115 mmol/L (98-107); Creatinine, Serum 1.72 mg/dL (0.70-1.30); EST Glomerular Filtration Rate 41 mL/min (>60); Est Glom Filt Rate - Afr Amer 50 mL/min (>60); Estimated Creatinine Clearance 34.82 ml/min; Glucose 158 mg/dL (74-106); Magnesium 1.7 mg/dL (1.6-2.6); Potassium 3.7 mmol/L (3.5-5.1); Sodium Level 143 mmol/L (136-145)
[2022-03-12 10:59] LABS: Vancomycin, Trough Level 24.4 ug/mL (5.0-15.0)
[2022-03-12] MEDS: oxyCODONE 5 MG Tablet PO ×3 (11:03→23:30)
--- NOTE | 2022-03-12 11:03 | CASEMGMT ---
Scanned and emailed palliative care referral information at this time.
[2022-03-12 11:05] LABS: Bedside Glucose 151 mg/dL (74-106)
[2022-03-12] MEDS: Insulin Lispro 100 UNIT/ML INSULN.PEN SC ×2 (11:08→18:06)
[2022-03-12 12:31] LABS: Pathologist Review Reviewed
[2022-03-12 12:33] LABS: Pathologist Review Reviewed
--- NOTE | 2022-03-12 12:37 | PCM.RX.CS ---
Consult Pharmacy has been consulted to manage selected antiobiotic: Vancomycin Type of Consult: Follow-up Suspected Infection: Sepsis Prior Doses of Antibiotics Received/Current Regimen: 03/11/22 @ 1128, 03/12/22@2214, 03/12/22 @ 1100 Labs: Sodium 143 mmol/L (136-145) 03/12/22 10:30 Potassium 3.7 mmol/L (3.5-5.1) 03/12/22 10:30 Chloride 115 mmol/L (98-107) H 03/12/22 10:30 Carbon Dioxide 17.0 mmol/L (21.0-32.0) L 03/12/22 10:30 Anion Gap 11 (5-15) 03/12/22 10:30 BUN 27 mg/dL (7-18) H 03/12/22 10:30 Creatinine 1.72 mg/dL (0.70-1.30) H 03/12/22 10:30 Est GFR (MDRD) Af Amer 50 mL/min (>60) L 03/12/22 10:30 Est GFR (MDRD) Non-Af 41 mL/min (>60) L 03/12/22 10:30 BUN/Creatinine Ratio 15.7 RATIO (10-20) 03/12/22 10:30 Glucose 158 mg/dL (74-106) H 03/12/22 10:30 Vancomycin Trough 24.4 ug/mL (5.0-15.0) H 03/12/22 10:30 Microbiology: Microbiology 03/10/22 18:50 Blood Culture (Wb) - Anticubital Left Bacteria Detection (PCR) - Final Coag Negative Staph 03/10/22 18:50 Blood Culture (Wb) - Anticubital Left Blood Culture - Preliminary Coag Negative Staph 03/10/22 22:30 Nasal Secretion SARS-CoV-2 Antigen (Rapid) - Final Weight used for dosin.4 kg Estimated Creatinine Clearance: 45.4 Goal Trough: 15-20 mcg/mL Pharmacy Plan for Drug Dosing: Hold vancomycin, draw daily random levels, once trough below 20 pharmacy will recalculate vancomycin dose and schedule. Pharmacy Service will continue to monitor and adjust dosing as required. Follow-Up Labs: Trough Vancomycin Labs to be done on [date and time ordered]: random trough 03/13/22 @ 0600
[2022-03-12] MEDS: Glucerna Shake 120 ML LIQUID PO (14:22)
--- NOTE | 2022-03-12 14:49 | PCM.CONS.GEN ---
Assessment & Plan Assessment/Plan (1) Sepsis: PLAN: Unclear cause of encephalopathy, SMITH, leukocytosis. 1 of 2 bcx with CoNS, consistent with contamination. Covid neg here, UA with 0-5 wbc. Cr and wbc slowly improving. Will check renal u/s, resp pcr panel. Cont zosyn, will stop vanc. Will follow, thank you HPI Consult Data Date of Consult: 03/12/22 HPI Narrative Reason for Consultation: encephalopathy HPI Narrative: KAREN TORREZ, is a 81 M who presented from [facility] 03/10 with about a week of progressive altered mental status, decreased po intake. Had stroke in 06/2020. Sent to ED, found to have elevated wbc and SMITH. Admitted on vanc/zosyn. Unable to provide history or ROS due to mental status. [facility] Medical History Cataracts, bilateral COPD (chronic obstructive pulmonary disease) CVA (cerebral vascular accident) Diabetes Essential hypertension History of acute inferior wall [place] Hypertension Hypothyroidism SAMEER (obstructive sleep apnea) Paroxysmal atrial fibrillation Sebaceous cyst Skin lesion Stroke/cerebrovascular accident Type 2 diabetes mellitus Home Medications magnesium oxide 420 mg tablet 400 mg PO DAILY supplement 02/23/19 [History Last Taken 06/21/20] amlodipine 10 mg tablet 10 mg PO DAILY high blood pressure #30 tabs 09/01/19 [Rx Last Taken 06/24/20 08:10] multivitamin with minerals 1 ea PO DAILY vitamin 06/22/20 [History Last Taken 06/21/20] oxybutynin chloride 5 mg tablet,extended release 24 hr 5 mg PO DAILY BLADDER 06/22/20 [History Last Taken 06/21/20] apixaban 5 mg tablet 5 mg PO BID blood thinner 06/24/20 [History Last Taken 06/24/20 08:10] aspirin 81 mg tablet,delayed release 81 mg PO DAILY@0800 blood thinner 06/24/20 [History Last Taken 06/24/20 08:10] atorvastatin 40 mg tablet 40 mg PO QHS cholesterol 06/24/20 [History Last Taken Unknown] acetaminophen 500 mg tablet 1,000 mg PO Q6H PRN Pain Score 1-10 08/10/20 [Rx Last Taken Unknown] losartan 100 mg tablet 100 mg PO DAILY 08/10/20 [Rx Last Taken Unknown] menthol 0.44 %-zinc oxide 20.6 % topical ointment 1 applic topical 0600,2200 08/10/20 [Rx Last Taken Unknown] polyethylene glycol 3350 17 gram oral powder packet 17 gm PO DAILY PRN Constipation 08/10/20 [Rx Last Taken Unknown] cholecalciferol (vitamin D3) 50 mcg (2,000 unit) capsule 1,000 unit PO DAILY vitamin 08/26/20 [History Last Taken Unknown] ascorbic acid (vitamin C) 1,000 mg tablet,extended release (Vitamin C ER) 1,000 mg PO DAILY 07/31/21 [History Last Taken Unknown] fluticasone propionate 50 mcg/actuation nasal spray,suspension 1 spray intranasal DAILY 07/31/21 [History Last Taken Unknown] insulin glargine 100 unit/mL (3 mL) subcutaneous pen 30 units SC QHS Check with primary doctor 07/31/21 [History Last Taken Unknown] insulin glargine 100 unit/mL (3 mL) subcutaneous pen (Lantus Solostar U-100 Insulin) 18 unit subcut BREAKFAST Check with primary doctor 07/31/21 [History Last Taken Unknown] insulin lispro 100 unit/mL subcutaneous solution (Humalog U-100 Insulin) 07/31/21 [History Last Taken Unknown] paroxetine HCl 20 mg tablet (Paxil) 20 mg PO QHS 07/31/21 [History Last Taken Unknown] aluminum-magnesium hydroxide 225 mg-200 mg/5 mL oral suspension 30 ml PO Q4H PRN PRN Gastric Reflux 03/10/22 [History Last Taken Unknown] ammonium lactate 12 % lotion 1 applic topical DAILY 03/10/22 [History Last Taken Unknown] bisacodyl 10 mg rectal suppository 10 mg MN DAILY PRN Constipation 03/10/22 [History Last Taken Unknown] calcium carbonate 2 tab PO.IVFORM PRN PRN Gastric Reflux 03/10/22 [History Last Taken Unknown] cimetidine 300 mg tablet 300 mg PO QHS 03/10/22 [History Last Taken Unknown] dextrose 40 % oral gel (Glucose Gel) PO 03/10/22 [History Last Taken Unknown] glucagon 1 mg injection kit 1 mg IM PRN PRN Hypoglycemia 03/10/22 [History Last Taken Unknown] guaifenesin 50 mg/5 mL oral liquid mg 03/10/22 [History Last Taken Unknown] ketoconazole 2 % shampoo 1 applic topical PRN PRN Dry Skin 03/10/22 [History Last Taken Unknown] loperamide 2 mg tablet 2 mg PO Q6H PRN Diarrhea 03/10/22 [History Last Taken Unknown] loratadine 10 mg tablet 10 mg PO DAILY 03/10/22 [History Last Taken Unknown] magnesium hydroxide 400 mg/5 mL oral suspension (Milk of Magnesia) 03/10/22 [History Last Taken Unknown] metoprolol tartrate 25 mg tablet 12.5 mg PO BID 03/10/22 [History Last Taken Unknown] nystatin 03/10/22 [History Last Taken Unknown] oxycodone 5 mg tablet 5 mg PO Q6H PRN PRN pain 03/10/22 [History Last Taken Unknown] paroxetine HCl 20 mg tablet (Paxil) 20 mg PO DAILY 03/10/22 [History Last Taken Unknown] potassium chloride 20 mEq tablet,extended release 20 meq PO BID 03/10/22 [History Last Taken Unknown] sodium phosphates 19 gram-7 gram/118 mL enema (Fleet Enema) 1 MN PRN PRN Constipation 03/10/22 [History Last Taken Unknown] Allergy/AdvReac Type Severity Reaction Status Date / Time atenolol Allergy Other Verified 03/10/22 18:16 Beta-Blockers Allergy Other Verified 03/10/22 18:16 (Beta-Adrenergic Bloc hydralazine Allergy Other Verified 03/10/22 18:16 hydrochlorothiazide Allergy Other Verified 03/10/22 18:16 lisinopril Allergy Other Verified 03/10/22 18:16 metformin Allergy Other Verified 03/10/22 18:16 aspirin AdvReac Upset Verified 03/10/22 18:16 Stomach Family History Other Diabetes Heart disease Surgical History S/P tooth extraction Scalp cyst Social History Smoking Status: Never smoker alcohol intake: never substance use type: does not use what type of physical activity do you participate in: none Physical Exam Const Constitutional Narrative: oriented x0 General Appearance: lethargic HEENT normocephalic and head/scalp atraumatic Eyes PERRL and EOMs intact bilaterally Neck supple Resp normal air movement and clear to auscultation bilaterally Cardio regular rate and regular rhythm GI soft to palpation, non-tender and non-distended Extremity General Extremity: Negative for edema Skin no rashes or lesions noted Neuro Neuro Narrative: difficulty answering questions Lab / Micro Data Attestation: I reviewed the patient's lab results. Result Diagrams: 03/12/22 10:30 03/12/22 10:30 Labs: Laboratory Results - last 24 hr 03/10/22 18:50: Diff Path Review Reviewed 03/11/22 04:23: Diff Path Review Reviewed 03/11/22 17:12: POC Glucose 94 03/11/22 21:08: POC Glucose 98 03/12/22 08:00: POC Glucose 109 H 03/12/22 10:30: Vancomycin Trough 24.4 H 03/12/22 10:30: WBC 24.4 H, RBC 3.25 L, Hgb 9.2 L, Hct 30.2 L, MCV 92.9, MCH 28.3, MCHC 30.5 L, RDW Std Deviation 57.8 H, RDW Coeff of Jono 16.9 H, Plt Count 232, MPV 10.5, Immature Gran % (Auto) 1.500 H, Neut % (Auto) 82.5 H, Lymph % (Auto) 4.0 L, [place] % (Auto) 11.6 H, Eos % (Auto) 0.2, Baso % (Auto) 0.2, Absolute Neuts (auto) 20.1 H, Absolute Lymphs (auto) 0.98, Nucleated RBC % 0, Differential Comment COMMENT, Diff Path Review May foll 03/12/22 10:30: Sodium 143, Potassium 3.7, Chloride 115 H, Carbon Dioxide 17.0 L, Anion Gap 11, BUN 27 H, Creatinine 1.72 H, Estim Creat Clear Calc 34.82, Est GFR (MDRD) Af Amer 50 L, Est GFR (MDRD) Non-Af 41 L, BUN/Creatinine Ratio 15.7, Glucose 158 H, Calcium 8.1 L, Magnesium 1.7 03/12/22 11:02: POC Glucose 151 H Micro: Microbiology 03/10/22 18:50 Blood Culture (Wb) - Anticubital Left Bacteria Detection (PCR) - Final Coag Negative Staph 03/10/22 18:50 Blood Culture (Wb) - Anticubital Left Blood Culture - Preliminary Coag Negative Staph
--- NOTE | 2022-03-12 14:50 | US_ITS ---
STUDY: RENAL ULTRASOUND - COMPLETE REASON FOR EXAM: Male, 81 years old. trini TECHNIQUE: Ultrasound evaluation of the kidneys was performed with real-time and static sams-scale imaging. COMPARISON: None. FINDINGS: RIGHT KIDNEY: Normal location of the right kidney, which is normal in size. The right kidney measures 12.1 x 5.5 cm. There is a normal cortex of the right kidney. The renal cortex measures 1.1 cm. 2 cysts visualized. These measure 16 x 16 mm and 11 x 7 mm. There are no right renal calculi. There is no right hydronephrosis. DISTAL RIGHT URETER: There is non-visualization of the distal right ureter. There is no demonstrated right ureterovesical junction calculus. There is a visualized right ureteral jet. LEFT KIDNEY: Normal location of the left kidney, which is normal in size. The left kidney measures 11.5 x 6.5 cm. There is a normal cortex of the left kidney. The renal cortex measures 1 cm. Single cyst visualized measures 21 mm There are no left renal calculi. There is no left hydronephrosis. DISTAL LEFT URETER: There is non-visualization of the distal left ureter. There is no demonstrated left ureterovesical junction calculus. There is a visualized left ureteral jet. AORTA: There is obscuration of the abdominal aorta by overlying bowel gas I.V.C.: The IVC is obscured. BLADDER: The distended urinary bladder has a volume of 248 ml. There is a diffusely thickened wall of the distended bladder. There is no demonstrated mass within the urinary bladder. There are no demonstrated bladder calculi. Incidental note of gallbladder stones and pericholecystic fluid. There is a masslike area in the gallbladder measuring 48 mm. This may be tumefactive sludge. US/Kidney and Bladder IMPRESSION: Diffusely thickened urinary bladder wall can suggest cystitis. Incidental note of gallbladder stones and pericholecystic fluid. There is a masslike area in the gallbladder measuring 48 mm. This may be tumefactive sludge. CT or dedicated abdominal ultrasound can evaluate. Electronically Signed: Cory Bermudez MD at 18:38 EDT ,
[2022-03-12 17:25] LABS: Bedside Glucose 177 mg/dL (74-106)
[2022-03-12] MEDS: Famotidine 20 MG Tablet 10 MG PO (22:56)
[2022-03-12] MEDS: Atorvastatin Calcium 40 MG Tablet PO (22:58)
[2022-03-12] MEDS: Insulin Glargine-YFGN 100 UNIT/ML Pen 30 UNIT SC (23:00)
[2022-03-12] MEDS: Paroxetine 20 MG Tablet PO (23:02)
[2022-03-12 23:45] LABS: Bedside Glucose 152 mg/dL (74-106)
[2022-03-13 05:00] VITALS: BP 109/68; PULSE 84; RESP 14; TEMP 36.6; O2SAT 95
[2022-03-13 06:10] LABS: Absolute Lymphocyte Count 1.04 X10^3/uL (0.83-4.51); Absolute Neutrophil Count 18.8 X10^3/uL (2.0-7.7); Basophil# 0.05 X10^3/uL; Basophil% 0.2 % (0-1); Eosinophil# 0.07 X10^3/uL; Eosinophils% 0.3 % (0-5); Hematocrit 31.2 % (40-54); Hemoglobin 9.6 g/dL (13.0-16.5); Lymphocyte # 1.04 X10^3/ul (0.83-4.51); Lymphocyte % 4.4 % (19-41); Mean Corp Hgb Conc 30.8 g/dL (32-36); Mean Corpuscular Hgb 28.2 pg (27.0-32.0); Mean Corpuscular Volume 91.5 fL (80-94); Mean Platelet Vol. 10.5 fl (6.2-12.0); Monocyte% 12.8 % (0-10); NRBC Flagged by Analyzer 0.1 % (0-5); Neutrophil # 18.83 X10^3/uL (2.7-7.7); Neutrophil % 80.1 % (47-70); POSITIVE DIFFERENTIAL YES; Platelet Count 261 K/mm3 (150-450); RBC Distribution Width CV 16.8 % (11.6-14.6); RBC Distribution Width SD 56.5 fl (35.1-43.9); Red Blood Count 3.41 M/mm3 (4.6-6.2); White Blood Count 23.5 K/mm3 (4.4-11.0)
[2022-03-13 06:14] LABS: Differential Indicated SCAN CRITERIA MET
[2022-03-13 06:29] LABS: Anisocytosis 1+
[2022-03-13 06:39] LABS: Anion Gap 9 (5-15); BUN 28 mg/dL (7-18); BUN/Creat Ratio 15.9 RATIO (10-20); Calcium,Total 8.3 mg/dL (8.5-10.1); Chloride 113 mmol/L (98-107); Creatinine, Serum 1.76 mg/dL (0.70-1.30); EST Glomerular Filtration Rate 40 mL/min (>60); Est Glom Filt Rate - Afr Amer 48 mL/min (>60); Estimated Creatinine Clearance 34.03 ml/min; Glucose 127 mg/dL (74-106); Potassium 3.5 mmol/L (3.5-5.1); Sodium Level 142 mmol/L (136-145)
--- NOTE | 2022-03-13 07:45 | PCM.PN.HOSP ---
Objective Data Objective Data Vital Signs: Vital Signs Temp Pulse Resp BP Pulse Ox 97.8 F 84 14 109/68 95 03/13/22 05:00 03/13/22 05:00 03/13/22 05:00 03/13/22 05:00 03/13/22 05:00 Oxygen Flow Rate (L/min) 2 Oxygen Delivery Method Room Air Weight: 274 lb 4.081 oz Body Mass Index (BMI) 40.5 Intake & Output: Intake and Output for Last 24 Hours 03/11/22 03/12/22 03/13/22 23:59 23:59 23:59 Intake Total 2860.0 / 2860.0 1042.5 / 1042.5 Output Total 400 / 400 Balance 2860.0 / 2860.0 642.5 / 642.5 Lab / Micro Data Result Diagrams: 03/13/22 05:50 03/13/22 05:50 Labs: Laboratory Results - last 24 hr 03/10/22 18:50: Diff Path Review Reviewed 03/11/22 04:23: Diff Path Review Reviewed 03/12/22 08:00: POC Glucose 109 H 03/12/22 10:30: Vancomycin Trough 24.4 H 03/12/22 10:30: WBC 24.4 H, RBC 3.25 L, Hgb 9.2 L, Hct 30.2 L, MCV 92.9, MCH 28.3, MCHC 30.5 L, RDW Std Deviation 57.8 H, RDW Coeff of Jono 16.9 H, Plt Count 232, MPV 10.5, Immature Gran % (Auto) 1.500 H, Neut % (Auto) 82.5 H, Lymph % (Auto) 4.0 L, [place] % (Auto) 11.6 H, Eos % (Auto) 0.2, Baso % (Auto) 0.2, Absolute Neuts (auto) 20.1 H, Absolute Lymphs (auto) 0.98, Nucleated RBC % 0, Differential Comment COMMENT, Diff Path Review May 03/12/22 10:30: Sodium 143, Potassium 3.7, Chloride 115 H, Carbon Dioxide 17.0 L, Anion Gap 11, BUN 27 H, Creatinine 1.72 H, Estim Creat Clear Calc 34.82, Est GFR (MDRD) Af Amer 50 L, Est GFR (MDRD) Non-Af 41 L, BUN/Creatinine Ratio 15.7, Glucose 158 H, Calcium 8.1 L, Magnesium 1.7 03/12/22 11:02: POC Glucose 151 H 03/12/22 17:19: POC Glucose 177 H 03/12/22 23:32: POC Glucose 152 H 03/13/22 05:50: WBC 23.5 H, RBC 3.41 L, Hgb 9.6 L, Hct 31.2 L, MCV 91.5, MCH 28.2, MCHC 30.8 L, RDW Std Deviation 56.5 H, RDW Coeff of Jono 16.8 H, Plt Count 261, MPV 10.5, Immature Gran % (Auto) 2.200 H, Neut % (Auto) 80.1 H, Lymph % (Auto) 4.4 L, [place] % (Auto) 12.8 H, Eos % (Auto) 0.3, Baso % (Auto) 0.2, Absolute Neuts (auto) 18.8 H, Absolute Lymphs (auto) 1.04, Nucleated RBC % 0.1, Diff Path Review May foll, Anisocytosis 1+ 03/13/22 05:50: Sodium 142, Potassium 3.5, Chloride 113 H, Carbon Dioxide 20.0 L, Anion Gap 9, BUN 28 H, Creatinine 1.76 H, Estim Creat Clear Calc 34.03, Est GFR (MDRD) Af Amer 48 L, Est GFR (MDRD) Non-Af 40 L, BUN/Creatinine Ratio 15.9, Glucose 127 H, Calcium 8.3 L Micro: Microbiology 03/10/22 18:50 Blood Culture (Wb) - Anticubital Left Bacteria Detection (PCR) - Final Coag Negative Staph 03/10/22 18:50 Blood Culture (Wb) - Anticubital Left Blood Culture - Preliminary Coag Negative Staph 03/10/22 22:30 Nasal Secretion SARS-CoV-2 Antigen (Rapid) - Final Radiography Diagnostic Testing: Radiology Impression Renal Ultrasound 03/12/22 14:50 IMPRESSION: Diffusely thickened urinary bladder wall can suggest cystitis. Incidental note of gallbladder stones and pericholecystic fluid. There is a masslike area in the gallbladder measuring 48 mm. This may be tumefactive sludge. CT or dedicated abdominal ultrasound can evaluate. Assessment & Plan Assessment/Plan (1) Sepsis: (2) SMITH (acute kidney injury): (3) Debility: PLAN: Plan Patient is a 81-year-old gentleman resident at an extended care facility admitted with increasing lethargy. Found to have lactic acidosis on admission patient currently managed as a case of sepsis of undetermined etiology 1. Probable sepsis: The patient presented with features of probable sepsis of unclear course/focus of infection with acute sepsis-related organ dysfunction as evidenced by encephalopathy with decreased p.o. intake, lactic acidosis, acute kidney injury on CKD. Patient also has leukocytosis, WBC count improving. Patient initially started on broad-spectrum antibiotic therapy with vancomycin and Zosyn blood cultures so far positive for coagulase-negative staph. 03/13: Platelet count normal. INR elevated rate patient is on apixaban. Total bilirubin not high, 1.2. Lactic acid elevated 2.1. 1 of 2 bottles blood cultures positive of: Negative staph, consistent with contamination. UA 0-5 WBC cells. ID consult reviewed. Vancomycin discontinued by ID. 2. Acute kidney injury on CKD stage III ? Patient creatinine on 02/26/2022 was 1.16 was 1.98 on admission on IV fluid with serial monitoring of electrolytes ordered 03/13: Creatinine gradually improving, 1.76. Kidney ultrasound shows diffusely thickened neobladder with suspicion of cystitis. 3. Masslike area in gallbladder bases incidental finding of cholelithiasis and pericholecystic fluid: Renal ultrasound reviewed and as mentioned below Paroxysmal A. fib ? Rate controlled on metoprolol on systemic anticoagulation with apixaban 4. Hypertension - Blood pressure controlled, home medications continued with dose adjustment as needed 5. Diabetes mellitus type II - Placed on long acting insulin, Accu-Cheks a.c. and at bedtime and covered with sliding scale insulin 6. Class III obesity with BMI of 40.5 ? Weight loss advised 7. Depression ? Patient is on paroxetine 8. Vitamin D deficiency ? Patient is on colecalciferol did continue 9. Anemia - Secondary to chronic disorder monitoring H&H and transfuse if patient becomes symptomatic or hemoglobin falls below 7 10. GERD ? Patient is on cimetidine 300mg QHS 10. Dyslipidemia -Patient is on statin therapy, continued at home dose DVT prophylaxis ? SC Lovenox; dose adjusted for kidney function Clinical Impression(s) from Imaging Studies Brain CT 03/10/22 18:49 IMPRESSION: No acute intracranial hemorrhage or mass effect. Electronically Signed: Payam Lal MD ([place]) at 20:09 EDT , Chest X-Ray 03/10/22 19:08 IMPRESSION: Poor inspiration with some bibasilar atelectasis. Electronically Signed: Rodolfo Levy MD at 19:30 EDT , Renal Ultrasound 03/12/22 14:50 IMPRESSION: Diffusely thickened urinary bladder wall can suggest cystitis. Incidental note of gallbladder stones and pericholecystic fluid. There is a masslike area in the gallbladder measuring 48 mm. This may be tumefactive sludge. CT or dedicated abdominal ultrasound can evaluate. Electronically Signed: Cory Bermudez MD at 18:38 EDT ,
[2022-03-13 08:15] VITALS: O2SAT 98
[2022-03-13] MEDS: Insulin Glargine-YFGN 100 UNIT/ML Pen 15 UNIT SC (08:16)
[2022-03-13] MEDS: Menthol/Lanolin/Calamine/Znox 113 GM Tube 1 APPLIC TOPICAL (08:17)
[2022-03-13] MEDS: Fluticasone 0.05% 1 SPRAY NASAL.SRY NASAL (08:18)
[2022-03-13] MEDS: Nystatin Powder 15gm Bottle 1 APPLIC TOPICAL (08:18)
[2022-03-13 08:40] LABS: AST(SGOT) 171 U/L (15-37); Alanine Aminotransfer ALT/SGPT 83 U/L (16-61); Albumin, Serum 1.2 g/dL (3.2-5.0); Alkaline Phosphatase 161 U/L (45-117); Bilirubin, Direct 0.29 mg/dL (0.00-0.30); Globulin 4.8 g/dL (2.2-4.2)
[2022-03-13 08:50] LABS: International Normalized Ratio 2.5; Prothrombin Time (Protime)PT. 26.7 SECONDS (11.7-14.9)
[2022-03-13 08:50] LABS: Bedside Glucose 111 mg/dL (74-106)
--- NOTE | 2022-03-13 10:11 | PN.ID_ITS ---
Physical Exam Narrative Son is moving towards hospice, no events overnight, no fever Const no apparent distress Orientation / Consciousness: lethargic Resp normal air movement and clear to auscultation bilaterally Cardio regular rate and regular rhythm GI soft to palpation, non-tender and non-distended Skin no rashes or lesions noted ID ID: Route of nutrition/ use of supplements: [] Nutritional Intake: [] IV Site: [] Hernandez Catheter: [] Assessment & Plan Assessment/Plan (1) Sepsis: PLAN: Unclear cause of encephalopathy, SMITH, leukocytosis. 1 of 2 bcx with CoNS, consistent with contamination. Covid neg here, UA with 0-5 wbc. Cr and wbc slowly improving. U/s with ? cystitis or cholecystitis. Plan is for hospice. Would send out on augmentin 875mg bid for 5 more days. Will follow, d/w case reviewer
--- NOTE | 2022-03-13 10:29 | PCM.TXEXTCAR ---
Diet Diet Order/Speech Therapy: 03/10/22 22:20 Diet: Consistent Carb - Calorie Controlled Food consistency:: Mechanical (Minced/Moist) Liquid Consistency:: Regular/Thin Diet Comments: no teeth mechanical soft, easy to chew How many daily calories?: 2000 calorie Routine Orders/Code Status Enema Type: Fleetz Enema Frequency: Daily PRN Suppository Type: Dulcolax 10mg Suppository Frequency: Daily PRN Wound(s) RT index toe: Wound Type: Skin Tear Therapies Weight Bearing: Weight bearing as tolerated Extremity Affected:: Bilateral Lower Physical Therapy: Eval and Treat Occupational Therapy: Eval and Treat Speech Therapy: Eval and Treat Problem/Diagnosis (1) Sepsis: Status: Acute Code(s): A41.9 - Sepsis, unspecified organism Plan Patient is a 81-year-old gentleman resident at an extended care facility admitted with increasing lethargy. Found to have lactic acidosis on admission patient currently managed as a case of sepsis of undetermined etiology 1. Probable sepsis: The patient presented with features of probable sepsis of unclear course/focus of infection with acute sepsis-related organ dysfunction as evidenced by encephalopathy with decreased p.o. intake, lactic acidosis, acute kidney injury on CKD. Patient also has leukocytosis, WBC count improving. Patient initially started on broad-spectrum antibiotic therapy with vancomycin and Zosyn blood cultures so far positive for coagulase-negative staph. 03/13: Platelet count normal. INR elevated rate patient is on apixaban. Total bilirubin not high, 1.2. Lactic acid elevated 2.1. 1 of 2 bottles blood cultures positive of: Negative staph, consistent with contamination. UA 0-5 WBC cells. ID consult reviewed. Vancomycin discontinued by ID. 2. Acute kidney injury on CKD stage III ? Patient creatinine on 02/26/2022 was 1.16 was 1.98 on admission on IV fluid with serial monitoring of electrolytes ordered 03/13: Creatinine gradually improving, 1.76. Kidney ultrasound shows diffusely thickened neobladder with suspicion of cystitis. 3. Masslike area in gallbladder bases incidental finding of cholelithiasis and pericholecystic fluid: Renal ultrasound reviewed and as mentioned below Paroxysmal A. fib ? Rate controlled on metoprolol on systemic anticoagulation with apixaban 4. Hypertension - Blood pressure controlled, home medications continued with dose adjustment as needed 5. Diabetes mellitus type II - Placed on long acting insulin, Accu-Cheks a.c. and at bedtime and covered with sliding scale insulin 6. Class III obesity with BMI of 40.5 ? Weight loss advised 7. Depression ? Patient is on paroxetine 8. Vitamin D deficiency ? Patient is on colecalciferol did continue 9. Anemia - Secondary to chronic disorder monitoring H&H and transfuse if patient becomes symptomatic or hemoglobin falls below 7 10. GERD ? Patient is on cimetidine 300mg QHS 10. Dyslipidemia -Patient is on statin therapy, continued at home dose DVT prophylaxis ? SC Lovenox; dose adjusted for kidney function Clinical Impression(s) from Imaging Studies Brain CT 03/10/22 18:49 IMPRESSION: No acute intracranial hemorrhage or mass effect. Electronically Signed: Payam Lal MD ([place]) at 20:09 EDT , Chest X-Ray 03/10/22 19:08 IMPRESSION: Poor inspiration with some bibasilar atelectasis. Electronically Signed: Rodolfo Levy MD at 19:30 EDT , Renal Ultrasound 03/12/22 14:50 IMPRESSION: Diffusely thickened urinary bladder wall can suggest cystitis. Incidental note of gallbladder stones and pericholecystic fluid. There is a masslike area in the gallbladder measuring 48 mm. This may be tumefactive sludge. CT or dedicated abdominal ultrasound can evaluate. Electronically Signed: Cory Bermudez MD at 18:38 EDT , Allergies/Procedures Done in Hospital Allergies atenolol Allergy (Verified 03/10/22 18:16) Other Beta-Blockers (Beta-Adrenergic Bloc Allergy (Verified 03/10/22 18:16) Other hydralazine Allergy (Verified 03/10/22 18:16) Other hydrochlorothiazide Allergy (Verified 03/10/22 18:16) Other lisinopril Allergy (Verified 03/10/22 18:16) Other metformin Allergy (Verified 03/10/22 18:16) Other aspirin Adverse Reaction (Verified 03/10/22 18:16) Upset Stomach Type of Care/Length of Stay Estimated LOS: More Than 30 Days Type of Care Needed: Intermediate Rehab Potential: Poor Prognosis: Poor Additional Orders/Day of Discharge Day of Discharge: 03/13/22 Dietary and Speech Recommendations Dietitian Recommendations/Changes: Continue 2000kcal Consistent Carbohydrate diet. Will add 120mL Glucerna TID with medpass Discharge Plan Admission Admit Date/Time: 03/10/22 21:41 Primary Reason for Your Visit: Sepsis of unknown origin Attending Provider: Nicholas Turner Primary Care Provider: Rachele Man Consulting Providers: Massimo Jara ; Cheryl Krishnan ; Ronnie Guzmán ; Gretta Lucero ; Vanessa Bae ; Izzy Whelan MEAT INSPECTOR ; Radha Bingham ; Andrey Marie ; Ronnie Suarez Discharge Orders/Prescriptions Prescriptions: New amoxicillin-pot clavulanate 875-125 mg tablet 1 tab PO BID Qty: 10 0RF famotidine 20 mg Tablet 10 mg PO QHS Qty: 0 0RF insulin glargine-yfgn 100 unit/mL (3 mL) Insulin Pen 15 unit subcut BREAKFAST Qty: 0 0RF Rx Instructions: Hold if glucose less than 130 mg/dl insulin glargine-yfgn 100 unit/mL (3 mL) Insulin Pen 25 unit subcut QHS Qty: 0 0RF Rx Instructions: Hold if glucose less than 130 mg/dl insulin lispro [Humalog KwikPen Insulin] 100 unit/mL Insulin Pen See Protocol subcut TIDCM Qty: 0 0RF Protocol: 3. Sliding Scale Insulin Med Dosing Condition: 150-189 mg/dl = 1 unit Condition: 190-229 mg/dl = 2 units Condition: 230-269 mg/dl = 3 units Condition: 270-309 mg/dl = 4 units Condition: 310-349 mg/dl = 5 units Condition: 350-399 mg/dl = 6 units Condition: 400-449 mg/dl = 7 units Condition: Greater than 449 call physician Protocol Text: - Use for Total Daily Dose of Insulin 37-55 units - Obsese, infected, or steroid patients MEDIUM DOSING ALGORITHIM Continued magnesium oxide 420 mg tablet 400 mg PO DAILY cholecalciferol (vitamin D3) 50 mcg (2,000 unit) capsule 1,000 unit PO DAILY oxybutynin chloride 5 MG tablet extended release 24hr 5 mg PO DAILY multivitamin with minerals 1 EACH tablet 1 ea PO DAILY aspirin 81 MG tablet 81 mg PO DAILY@0800 apixaban 5 MG tablet 5 mg PO BID polyethylene glycol 3350 17 GM packet 17 gm PO DAILY PRN (Reason: Constipation) 0RF acetaminophen 500 MG tablet 1,000 mg PO Q6H PRN (Reason: Pain Score 1-10) 0RF menthol-zinc oxide 1 APPLIC ointment 1 applic TOPICAL 0600,2200 0RF Protocol: *Topical Application Instructions APPLICATION INSTRUCTIONS: Bilateral Buttocks/Coccyx Vitamin C 1,000 mg Tablet Extended Release 1,000 mg PO DAILY paroxetine HCl [Paxil] 20 mg Tablet 20 mg PO QHS insulin lispro [Humalog U-100 Insulin] 100 unit/mL Solution fluticasone propionate 50 mcg/actuation [place],Suspension 1 spray INTRANASAL DAILY metoprolol tartrate 25 mg Tablet 12.5 mg PO BID glucagon 1 mg Kit 1 mg IM PRN PRN (Reason: Hypoglycemia) ketoconazole 2 % Shampoo 1 applic TOPICAL PRN PRN (Reason: Dry Skin) ammonium lactate 12 % Lotion 1 applic TOPICAL DAILY dextrose [Glucose Gel] 40 % Gel PO loperamide 2 mg Tablet 2 mg PO Q6H PRN (Reason: Diarrhea) bisacodyl 10 mg Suppository 10 mg HI DAILY PRN (Reason: Constipation) paroxetine HCl [Paxil] 20 mg Tablet 20 mg PO DAILY oxycodone 5 mg tablet 5 mg PO Q6H PRN PRN (Reason: pain) guaifenesin 50 mg/5 mL Liquid potassium chloride 20 mEq Tablet Extended Release 20 meq PO BID calcium carbonate 2 tab PO.IVFORM PRN PRN (Reason: Gastric Reflux) nystatin amlodipine 10 mg tablet 10 mg PO DAILY Qty: 30 0RF Rx Instructions: Hold for SBP less than 130 mmHg losartan 100 MG tablet 100 mg PO DAILY Qty: 0 0RF Rx Instructions: Hold if glucose less than 130 MMHG Changed atorvastatin 40 MG tablet 20 mg PO QHS Qty: 30 0RF Discontinued insulin glargine [Lantus Solostar U-100 Insulin] 100 unit/mL (3 mL) Insulin Pen 18 unit SUBCUT BREAKFAST insulin glargine 100 UNITS/ML insulin pen 30 units SC QHS cimetidine 300 mg Tablet 300 mg PO QHS magnesium hydroxide [Milk of Magnesia] 400 mg/5 mL Suspension aluminum-magnesium hydroxide 225-200 mg/5 mL Suspension 30 ml PO Q4H PRN PRN (Reason: Gastric Reflux) Fleet Enema 19-7 gram/118 mL Enema 1 HI PRN PRN (Reason: Constipation) loratadine 10 mg Tablet 10 mg PO DAILY Referrals / Follow Up: Rachele Man DO [Primary Care Provider] - Disposition Disposition (needs filled in before D/C Order can be placed): Hospice in Medical Facility
[2022-03-13 10:35] VITALS: BP 110/73; PULSE 83; RESP 16; TEMP 36.5; O2SAT 98
[2022-03-13 10:38] VITALS: BP 110/73; PULSE 83
[2022-03-13] MEDS: amLODIPine 10 MG Tablet PO (10:38)
[2022-03-13] MEDS: Losartan Potassium 100 MG Tablet PO (10:38)
[2022-03-13] MEDS: APIXABAN 5 MG TABLET PO (10:38)
[2022-03-13] MEDS: Metoprolol Tartrate 25 MG Tablet 12.5 MG PO (10:38)
[2022-03-13 11:56] LABS: Bedside Glucose 130 mg/dL (74-106)
--- NOTE | 2022-03-13 12:56 | PCM.DC.SUM ---
Providers Date of Admission: 03/10/22 Date of Discharge: 03/13/22 Primary Care Physician: Dr. Rachele Man, Consultations 03/10/22 22:20 Consult: Hospice / Palliative Care Routine Consulting Provider: [facility] Reason for Consult: palliative services for pt with poor performance status. EMERGENT Consult: No Notified: Yes Date Notified: 03/11/22 Time Notified: 11:56 Method of Notification: Answering Service 03/12/22 08:38 Consult: Infectious Disease Routine Consulting Provider: Andrey Marie Reason for Consult: sepsis EMERGENT Consult: No Notified: Yes Date Notified: 03/12/22 Time Notified: 09:05 Method of Notification: Text Reason For Visit: SMITH. POSSIBLE SEPSIS Diagnosis Discharge Diagnosis (1) Sepsis: Status: Acute Code(s): A41.9 - Sepsis, unspecified organism Medications at Discharge Home Medications magnesium oxide 420 mg tablet 400 mg PO DAILY supplement 02/23/19 multivitamin with minerals 1 ea PO DAILY vitamin 06/22/20 oxybutynin chloride 5 mg tablet,extended release 24 hr 5 mg PO DAILY BLADDER 06/22/20 apixaban 5 mg tablet 5 mg PO BID blood thinner 06/24/20 aspirin 81 mg tablet,delayed release 81 mg PO DAILY@0800 blood thinner 06/24/20 acetaminophen 500 mg tablet 1,000 mg PO Q6H PRN Pain Score 1-10 08/10/20 menthol 0.44 %-zinc oxide 20.6 % topical ointment 1 applic topical 0600,2200 08/10/20 polyethylene glycol 3350 17 gram oral powder packet 17 gm PO DAILY PRN Constipation 08/10/20 cholecalciferol (vitamin D3) 50 mcg (2,000 unit) capsule 1,000 unit PO DAILY vitamin 08/26/20 ascorbic acid (vitamin C) 1,000 mg tablet,extended release (Vitamin C ER) 1,000 mg PO DAILY 07/31/21 fluticasone propionate 50 mcg/actuation nasal spray,suspension 1 spray intranasal DAILY 07/31/21 insulin lispro 100 unit/mL subcutaneous solution (Humalog U-100 Insulin) 07/31/21 paroxetine HCl 20 mg tablet (Paxil) 20 mg PO QHS 07/31/21 ammonium lactate 12 % lotion 1 applic topical DAILY 03/10/22 bisacodyl 10 mg rectal suppository 10 mg TN DAILY PRN Constipation 03/10/22 calcium carbonate 2 tab PO.IVFORM PRN PRN Gastric Reflux 03/10/22 dextrose 40 % oral gel (Glucose Gel) PO 03/10/22 glucagon 1 mg injection kit 1 mg IM PRN PRN Hypoglycemia 03/10/22 guaifenesin 50 mg/5 mL oral liquid mg 03/10/22 ketoconazole 2 % shampoo 1 applic topical PRN PRN Dry Skin 03/10/22 loperamide 2 mg tablet 2 mg PO Q6H PRN Diarrhea 03/10/22 metoprolol tartrate 25 mg tablet 12.5 mg PO BID 03/10/22 nystatin 03/10/22 oxycodone 5 mg tablet 5 mg PO Q6H PRN PRN pain 03/10/22 paroxetine HCl 20 mg tablet (Paxil) 20 mg PO DAILY 03/10/22 potassium chloride 20 mEq tablet,extended release 20 meq PO BID 03/10/22 amlodipine 10 mg tablet 10 mg PO DAILY high blood pressure #30 tabs 03/13/22 amoxicillin 875 mg-potassium clavulanate 125 mg tablet 1 tab PO BID #10 tabs 03/13/22 atorvastatin 40 mg tablet 20 mg PO QHS cholesterol #30 tabs 03/13/22 famotidine 20 mg tablet 10 mg PO QHS #0 tabs 03/13/22 insulin glargine-yfgn 100 unit/mL (3 mL) subcutaneous pen 15 unit (0.15 mL) subcut BREAKFAST #0 mL 03/13/22 insulin glargine-yfgn 100 unit/mL (3 mL) subcutaneous pen 25 unit (0.25 mL) subcut QHS #0 mL 03/13/22 insulin lispro 100 unit/mL subcutaneous pen (Humalog KwikPen (U-100) Insulin) See Protocol subcut TIDCM #0 mL 03/13/22 losartan 100 mg tablet 100 mg PO DAILY #0 tabs 03/13/22 Hospital Course Summary of Care Provided Hospital Course: Patient is a 81-year-old gentleman resident at an extended care facility admitted with increasing lethargy. Found to have lactic acidosis on admission patient currently managed as a case of sepsis of undetermined etiology On further history taken from patient's sons today on 03/13, he said patient had a stroke in June 2020 with right-sided weakness, language deficit and dysarthria. After that there is mild improvement in his strength and language but got worse in the last few weeks. Patient also has increasing lethargy, somnolence, decreased function for last 5 to 6-month. Mild shortness of breath. Patient has decreased oral intake, not able to sense hunger or thirst. Has sleep apnea on CPAP. 1. Probable sepsis: The patient presented with features of probable sepsis of unclear course/focus of infection with acute sepsis-related organ dysfunction as evidenced by encephalopathy with decreased p.o. intake, lactic acidosis, acute kidney injury on CKD. Patient also has leukocytosis, WBC count improving. Possible focus might be cystitis or cholecystitis but patient does not have right upper quadrant tenderness or Lambert sign. Patient initially started on broad-spectrum antibiotic therapy with vancomycin and Zosyn blood cultures so far positive for coagulase-negative staph. 03/13: Platelet count normal. INR elevated rate patient is on apixaban. Total bilirubin not high, 1.2. Lactic acid elevated 2.1. 1 of 2 bottles blood cultures positive of: Negative staph, consistent with contamination. UA 0-5 WBC cells. ID consult reviewed. Vancomycin discontinued by ID. 2. Acute kidney injury on CKD stage III ? Patient creatinine on 02/26/2022 was 1.16 was 1.98 on admission on IV fluid with serial monitoring of electrolytes ordered 03/13: Creatinine gradually improving, 1.76. Kidney ultrasound shows diffusely thickened bladder with suspicion of cystitis. 3. Masslike area in gallbladder bases incidental finding of cholelithiasis and pericholecystic fluid: Renal ultrasound reviewed and as mentioned below Paroxysmal A. fib ? Rate controlled on metoprolol on systemic anticoagulation with apixaban 4. Hypertension - Blood pressure controlled, home medications continued with dose adjustment as needed 5. Diabetes mellitus type II - Placed on long acting insulin, Accu-Cheks a.c. and at bedtime and covered with sliding scale insulin 6. Class III obesity with BMI of 40.5 ? Weight loss advised 7. Depression ? Patient is on paroxetine 8. Vitamin D deficiency ? Patient is on colecalciferol did continue 9. Anemia - Secondary to chronic disorder monitoring H&H and transfuse if patient becomes symptomatic or hemoglobin falls below 7 10. GERD ? Patient is on cimetidine 300mg QHS 10. Dyslipidemia -Patient is on statin therapy, continued at home dose DVT prophylaxis ? SC Lovenox; dose adjusted for kidney function Detailed discussion with palliative care nurse and patient's son in the room. Patient multiple diagnoses including history of a stroke, RI, hypertension diabetes, A. fib, natural history and course were discussed. Patient has worsening of the functional ability and not able to self-care. ADL dependent. Very decreased quality of life and therefore patient's son decided for hospice care. I agree with hospice care and patient is being discharged to [facility] for follow-up inpatient hospice care. Clinical Impression(s) from Imaging Studies Brain CT 03/10/22 18:49 IMPRESSION: No acute intracranial hemorrhage or mass effect. Electronically Signed: Payam Lal MD ([place]) at 20:09 EDT , Chest X-Ray 03/10/22 19:08 IMPRESSION: Poor inspiration with some bibasilar atelectasis. Electronically Signed: Rodolfo Levy MD at 19:30 EDT , Renal Ultrasound 03/12/22 14:50 IMPRESSION: Diffusely thickened urinary bladder wall can suggest cystitis. Incidental note of gallbladder stones and pericholecystic fluid. There is a masslike area in the gallbladder measuring 48 mm. This may be tumefactive sludge. CT or dedicated abdominal ultrasound can evaluate. Electronically Signed: Cory Bermudez MD at 18:38 EDT , Patient DNR CC hospice care Physical Exam Narrative Physical exam General: Awake, confused, disoriented. Meaningful conversation not possible HEENT: Atraumatic, PERRLA, EOMI, Normocephalic Oral: Deep oropharyngeal structures crowded no Gingival or Mucosal Lesions/ Ulcerations Neck: Supple, No JVD, Negative Carotid Bruits Lungs: Mild dyspnea at rest. Air entry diminished in bilateral lung bases. No crepitation/rhonchi Cardiovascular: Regular rate, Regular Rhythm, Normal S1, Normal S2, systolic murmur over LLSB Abdomen: Bowel Sounds Present, Soft, Non Tender, mild abdominal distention : No renal angle tenderness. No suprapubic tenderness. Extremities: Bilateral lower extremity edema, mild upper extremity edema, dependent, Capillary Refill Less than 3 Seconds Skin: Skin dry. Musculoskeletal: Right lower extremity contracted, ROM no passive or active. Muscle strength 2/5. Left lower extremity mild contraction. Neurological: Cranial nerves II-XII grossly intact, severe language deficit, comprehension, dysarthria. Right-sided hemiplegia Psych/Mental Status: Flat affect. Weight / BMI Weight Weight: 274 lb 4.081 oz Body Mass Index (BMI) 40.5 ABG / Lab / Microbiology Data Result Diagrams: 03/13/22 05:50 03/13/22 05:50 Laboratory: Laboratory Results - last 24 hr 03/12/22 17:19: POC Glucose 177 H 03/12/22 23:32: POC Glucose 152 H 03/13/22 05:50: WBC 23.5 H, RBC 3.41 L, Hgb 9.6 L, Hct 31.2 L, MCV 91.5, MCH 28.2, MCHC 30.8 L, RDW Std Deviation 56.5 H, RDW Coeff of Jono 16.8 H, Plt Count 261, MPV 10.5, Immature Gran % (Auto) 2.200 H, Neut % (Auto) 80.1 H, Lymph % (Auto) 4.4 L, [place] % (Auto) 12.8 H, Eos % (Auto) 0.3, Baso % (Auto) 0.2, Absolute Neuts (auto) 18.8 H, Absolute Lymphs (auto) 1.04, Nucleated RBC % 0.1, Diff Path Review May foll, Anisocytosis 1+ 03/13/22 05:50: Sodium 142, Potassium 3.5, Chloride 113 H, Carbon Dioxide 20.0 L, Anion Gap 9, BUN 28 H, Creatinine 1.76 H, Estim Creat Clear Calc 34.03, Est GFR (MDRD) Af Amer 48 L, Est GFR (MDRD) Non-Af 40 L, BUN/Creatinine Ratio 15.9, Glucose 127 H, Calcium 8.3 L 03/13/22 05:50: Total Bilirubin 0.60, Direct Bilirubin 0.29, AST 171 H, ALT 83 H, Alkaline Phosphatase 161 H, Total Protein 6.0 L, Albumin 1.2 L, Globulin 4.8 H 03/13/22 08:13: POC Glucose 111 H 03/13/22 08:35: PT 26.7 H, INR 2.5 03/13/22 11:36: POC Glucose 130 H Microbiology: Microbiology 03/12/22 15:33 Mucosa - Nasopharyngeal Respiratory Panel (PCR) - Final 03/10/22 20:01 Blood Culture (Wb) - Anticubital Left Blood Culture - Preliminary No growth in 48 hours. 03/10/22 18:50 Blood Culture (Wb) - Anticubital Left Bacteria Detection (PCR) - Final Coag Negative Staph 03/10/22 18:50 Blood Culture (Wb) - Anticubital Left Blood Culture - Preliminary Coag Negative Staph 03/10/22 22:30 Nasal Secretion SARS-CoV-2 Antigen (Rapid) - Final Radiography Diagnostic Testing: Radiology Impression Renal Ultrasound 03/12/22 14:50 IMPRESSION: Diffusely thickened urinary bladder wall can suggest cystitis. Incidental note of gallbladder stones and pericholecystic fluid. There is a masslike area in the gallbladder measuring 48 mm. This may be tumefactive sludge. CT or dedicated abdominal ultrasound can evaluate. Electronically Signed: Cory Bermudez MD at 18:38 EDT Reading Location ID and State: [facility] / [place] , Service support , Meaningful Use Info Meaningful Use Diagnoses (Choose all that apply): None applicable Discharge Plan Admission Admit Date/Time: 03/10/22 21:41 Primary Reason for Your Visit: Sepsis of unknown origin Attending Provider: Nicholas Turner Primary Care Provider: Rachele Man Consulting Providers: Massimo Jara ; Cheryl Krishnan ; Ronnie Guzmán ; Gretta Lucero ; Vanessa Bae ; Izzy Whelan NP ; Radha Bingham ; Andrey Marie ; Ronnie Suarez Instructions Additional Instructions / Restrictions: Use soap mckinney suds enema or tapwater enema for severe constipation. Fleet enema discontinued for acute kidney injury Discharge Orders/Prescriptions Prescriptions: New amoxicillin-pot clavulanate 875-125 mg tablet 1 tab PO BID Qty: 10 0RF famotidine 20 mg Tablet 10 mg PO QHS Qty: 0 0RF insulin glargine-yfgn 100 unit/mL (3 mL) Insulin Pen 15 unit subcut BREAKFAST Qty: 0 0RF Rx Instructions: Hold if glucose less than 130 mg/dl insulin glargine-yfgn 100 unit/mL (3 mL) Insulin Pen 25 unit subcut QHS Qty: 0 0RF Rx Instructions: Hold if glucose less than 130 mg/dl insulin lispro [Humalog KwikPen Insulin] 100 unit/mL Insulin Pen See Protocol subcut TIDCM Qty: 0 0RF Protocol: 3. Sliding Scale Insulin Med Dosing Condition: 150-189 mg/dl = 1 unit Condition: 190-229 mg/dl = 2 units Condition: 230-269 mg/dl = 3 units Condition: 270-309 mg/dl = 4 units Condition: 310-349 mg/dl = 5 units Condition: 350-399 mg/dl = 6 units Condition: 400-449 mg/dl = 7 units Condition: Greater than 449 call physician Protocol Text: - Use for Total Daily Dose of Insulin 37-55 units - Obsese, infected, or steroid patients MEDIUM DOSING ALGORITHIM Continued magnesium oxide 420 mg tablet 400 mg PO DAILY cholecalciferol (vitamin D3) 50 mcg (2,000 unit) capsule 1,000 unit PO DAILY oxybutynin chloride 5 MG tablet extended release 24hr 5 mg PO DAILY multivitamin with minerals 1 EACH tablet 1 ea PO DAILY aspirin 81 MG tablet 81 mg PO DAILY@0800 apixaban 5 MG tablet 5 mg PO BID polyethylene glycol 3350 17 GM packet 17 gm PO DAILY PRN (Reason: Constipation) 0RF acetaminophen 500 MG tablet 1,000 mg PO Q6H PRN (Reason: Pain Score 1-10) 0RF menthol-zinc oxide 1 APPLIC ointment 1 applic TOPICAL 0600,2200 0RF Protocol: *Topical Application Instructions APPLICATION INSTRUCTIONS: Bilateral Buttocks/Coccyx Vitamin C 1,000 mg Tablet Extended Release 1,000 mg PO DAILY paroxetine HCl [Paxil] 20 mg Tablet 20 mg PO QHS insulin lispro [Humalog U-100 Insulin] 100 unit/mL Solution fluticasone propionate 50 mcg/actuation [place],Suspension 1 spray INTRANASAL DAILY metoprolol tartrate 25 mg Tablet 12.5 mg PO BID glucagon 1 mg Kit 1 mg IM PRN PRN (Reason: Hypoglycemia) ketoconazole 2 % Shampoo 1 applic TOPICAL PRN PRN (Reason: Dry Skin) ammonium lactate 12 % Lotion 1 applic TOPICAL DAILY dextrose [Glucose Gel] 40 % Gel PO loperamide 2 mg Tablet 2 mg PO Q6H PRN (Reason: Diarrhea) bisacodyl 10 mg Suppository 10 mg TN DAILY PRN (Reason: Constipation) paroxetine HCl [Paxil] 20 mg Tablet 20 mg PO DAILY oxycodone 5 mg tablet 5 mg PO Q6H PRN PRN (Reason: pain) guaifenesin 50 mg/5 mL Liquid potassium chloride 20 mEq Tablet Extended Release 20 meq PO BID calcium carbonate 2 tab PO.IVFORM PRN PRN (Reason: Gastric Reflux) nystatin amlodipine 10 mg tablet 10 mg PO DAILY Qty: 30 0RF Rx Instructions: Hold for SBP less than 130 mmHg losartan 100 MG tablet 100 mg PO DAILY Qty: 0 0RF Rx Instructions: Hold if glucose less than 130 MMHG Changed atorvastatin 40 MG tablet 20 mg PO QHS Qty: 30 0RF Discontinued insulin glargine [Lantus Solostar U-100 Insulin] 100 unit/mL (3 mL) Insulin Pen 18 unit SUBCUT BREAKFAST insulin glargine 100 UNITS/ML insulin pen 30 units SC QHS cimetidine 300 mg Tablet 300 mg PO QHS magnesium hydroxide [Milk of Magnesia] 400 mg/5 mL Suspension aluminum-magnesium hydroxide 225-200 mg/5 mL Suspension 30 ml PO Q4H PRN PRN (Reason: Gastric Reflux) Fleet Enema 19-7 gram/118 mL Enema 1 TN PRN PRN (Reason: Constipation) loratadine 10 mg Tablet 10 mg PO DAILY Referrals / Follow Up: Rachele Man DO [Primary Care Provider] - Disposition Disposition (needs filled in before D/C Order can be placed): Hospice in Medical Facility Charges/Coding Visit Charges Inpatient E&M: 66584 Disch Hosp Procedures Hospitalists Procedures: 79012 Advncd Care Plan 30 Min
[2022-03-13] MEDS: oxyCODONE 5 MG Tablet PO (12:59)
[2022-03-13 13:11] LABS: Pathologist Review Reviewed
[2022-03-13 13:12] LABS: Pathologist Review Reviewed
[2022-03-13 14:24] VITALS: BP 112/79; PULSE 60; RESP 16; TEMP 36.9; O2SAT 95
--- NOTE | 2022-03-13 14:30 | CASEMGMT ---
Social Work Pt and son met with [facility] this morning for palliative referral. During this meeting it was decided pt would sign papers for hospice services instead of palliative medicine. Per physician, pt is ready for discharge today back to [facility] with hospice services to followup once he returns to [facility] Orders faxed to [facility] and to [facility] and SW spoke with Ayaka at Hospice and updated on discharge time. VM left for Devora at [facility] with d/c plan and time. Transportation arranged with [facility] for 4:00 berry picker via cot. Phone call to pt son and updated and he is agreeable to discharge plan. Orders faxed to [facility]. Nursing aware. Plan: [facility], intermediate level of care. [facility] to follow JAVON Garcia
--- NOTE | 2022-03-13 14:35 | NURSING ---
Report called to Ivet at [facility]. Patient to be picked up at 1600 for discharge.
== END 2022-03-13 17:13 | disposition hospice, inpatient (51) | DRG 872 ==
LOC: ED 21:18 → MS3 21:32
PROVIDERS: Internal Medicine; Emergency Provider Emergency Medicine; PCP Family Medicine; Visit Provider Internal Medicine
DX: A41.9 Sepsis, unspecified organism (principal); G93.40 Encephalopathy, unspecified; E87.2 Acidosis; G81.91 Hemiplegia, unspecified affecting right dominant side; N17.9 Acute kidney failure, unspecified; Z68.41 Body mass index [BMI] 40.0-44.9, adult; L89.152 Pressure ulcer of sacral region, stage 2; D63.8 Anemia in other chronic diseases classified elsewhere; E11.22 Type 2 diabetes mellitus with diabetic chronic kidney disease; I48.0 Paroxysmal atrial fibrillation; J44.9 Chronic obstructive pulmonary disease, unspecified; E66.01 Morbid (severe) obesity due to excess calories; N18.32 Chronic kidney disease, stage 3b; Z79.4 Long term (current) use of insulin; E55.9 Vitamin D deficiency, unspecified; K21.9 Gastro-esophageal reflux disease without esophagitis; E78.5 Hyperlipidemia, unspecified; I12.9 Hypertensive chronic kidney disease with stage 1 through stage 4 chronic kidney disease, or unspecified chronic kidney disease; I25.2 Old myocardial infarction; E03.9 Hypothyroidism, unspecified; G47.33 Obstructive sleep apnea (adult) (pediatric); I69.322 Dysarthria following cerebral infarction; N30.90 Cystitis, unspecified without hematuria; G89.29 Other chronic pain; F32.A Depression, unspecified; Z79.82 Long term (current) use of aspirin; Z79.01 Long term (current) use of anticoagulants; Z20.822 Contact with and (suspected) exposure to COVID-19; R79.1 Abnormal coagulation profile
CPT/HCPCS: 36415; 70450; 71045; 76770; 80048; 80053; 80076; 80202; 81001; 82140; 82962; 83605; 83735; 83880; 84443; 84484; 85025; 85610; 85730; 87040; 87149; 87426; 87633; 87811; 93005; 97162; 97166; 99285; J7030; J7040; A4216